=== PATIENT | female | born 1945 | race Caucasian/White ===

== ENCOUNTER 2018-03-29 10:58 | Inpatient (IN) ==
--- NOTE | 2018-03-29 11:38 | Emergency Department Note ---
Disposition Clinical Impression: Cellulitis of left foot, Gangrene of left foot, Gangrene of foot Foot ulcer, left Qualifiers: Non-pressure ulcer stage: unspecified non-pressure ulcer stage Qualified Code(s): L97.529 - Non-pressure chronic ulcer of other part of left foot with unspecified severity Disposition: Admitted As Inpatient Condition: Fair Referrals: Tom Xie Jr, MD [Primary Care Provider] - Forms: ED Satisfaction Letter Time of Disposition: 13:29 Wound/Laceration HPI - General Chief Complaint: ED Wound/Laceration Stated Complaint: Left leg infection Time Seen by Provider: 03/29/18 11:13 Source: patient Mode of arrival: ambulatory Limitations: no limitations Nursing Notes Reviewed: Yes Vital Signs Reviewed: Yes - History of Present Illness HPI Narrative: Patient is a 72-year-old female with past medical history of diabetes, COPD, CHF, renal disease with dialysis. She states that she had a callus removed around one month ago by Dr. Potter. She states that this wound was doing okay until about a week ago. She noted some increased redness and pain of the past week. This is gradually been worsening. She noted a small central "black" area in the center of the callus last night that has worsened this morning. She has also noted foul odor this morning. She also states that she is been having some episodes of nausea and vomiting. She denies any other sick contacts in the house. Denies any current chest pain, shortness of breath, abdominal pain, dysuria, hematuria. She was concern for left foot infection which prompted her to come to the ER. - Related Data Home Medications Medication Instructions Recorded Confirmed Aspirin [Lo-Dose Aspirin EC] 81 mg PO DAILY 06/17/17 01/19/18 Brimonidine Tartrate/Timolol 5 ml OP BID 06/17/17 01/19/18 [Combigan 0.2%-0.5% Eye Drops] Clopidogrel [Plavix] 75 mg PO DAILY 06/17/17 01/19/18 Dorzolamide [Trusopt] 1 drop LEFT EYE BID 06/17/17 01/19/18 Ergocalciferol (VITAMIN D2) 50,000 unit PO QWEEK 06/17/17 01/19/18 [Vitamin D2] Escitalopram [Lexapro] 20 mg PO DAILY 06/17/17 01/19/18 Furosemide [Lasix] 80 mg PO BID 06/17/17 01/19/18 Insulin Glargine [Lantus] 15 unit SQ DAILY 06/17/17 01/19/18 Insulin LISPRO [HumaLOG] 4 - 10 units SQ TIDWM 06/17/17 01/19/18 Metoprolol [Lopressor] 25 mg PO BID 06/17/17 01/19/18 Sevelamer [Renvela] 2,400 mg PO TIDWM 06/17/17 01/19/18 rOPINIRole [Requip] 1 mg PO BID 06/17/17 01/19/18 Albuterol Neb [Proventil Neb] 2.5 mg IH Q8H PRN 01/19/18 01/19/18 Atorvastatin [Lipitor] 20 mg PO HS 01/19/18 01/19/18 Calcium Carbonate/Vitamin D3 1 each PO BID 01/19/18 01/19/18 [Calcium 500+D Tablet Chew] Folic Acid/Vit B Complex and C 1 tab PO DAILY 01/19/18 01/19/18 [Dialyvite Tablet] Previous Rx's Medication Instructions Recorded Clopidogrel Bisulfate [Plavix] 75 mg PO DAILY #30 tablet 01/19/18 Allergies Allergy/AdvReac Type Severity Reaction Status Date / Time codeine Allergy Rash Verified 05/18/17 08:21 gabapentin [From Neurontin] Allergy Rash Verified 05/18/17 08:21 Penicillins [PCN] Allergy Rash Verified 05/18/17 08:21 zinc Allergy Rash Verified 05/18/17 08:21 tetanus Allergy Rash Uncoded 01/17/16 15:03 All systems ED: reviewed and negative except as stated. Constitutional: Denies: fever Cardiovascular: Denies: chest pain Respiratory: Denies: cough, dyspnea Gastrointestinal: Reports: nausea, vomiting. Denies: abdominal pain, diarrhea, constipation Genitourinary: Denies: urgency, dysuria, frequency Musculoskeletal: Reports: other (left foot wound) Neurological: Denies: weakness, numbness, paresthesias Past Medical History - Past Medical History Attestation: Yes The following information was validated with the patient. Source: patient Medical history: Reports: CHF, COPD, diabetes, dialysis, hyperlipidemia, hypertension, renal disease Surgical history: Reports: cholecystectomy, orthopedic, other, vascular surgery, LE bypass, LE vascular intervention Psychiatric history: Reports: no psych history ORDER CLERK history: Reports: no ORDER CLERK history - Social History Smoking Status: Former smoker Smokeless Tobacco Status: No Alcohol use: Reports: none Drug use: Reports: none Physical Exam - General Limitations: no limitations General appearance: alert, in no apparent distress - Head Head exam: atraumatic, normocephalic, normal inspection - Eye Eye exam: Present: normal appearance, PERRL, EOMI - ENT ENT exam: normal oropharynx, mucous membranes dry - Neck Neck exam: Present: normal inspection, full ROM, trachea midline - Chest Chest inspection: Present: normal inspection, symmetric chest wall rise - Respiratory Respiratory exam: Present: normal lung sounds bilaterally - Cardiovascular Cardiovascular exam: Present: regular rate, normal rhythm, normal heart sounds - Abdominal Exam Abdominal exam: Present: soft, Non-Tender. Absent: tenderness, distention, guarding, rebound, rigidity - Extremities Exam Extremities exam: Present: full ROM, other (Mild erythema tracking up the dorsal aspect of the midfoot from the great toe.). Absent: pedal edema - Expanded Lower Extremity Exam 1 - Removed callus approximately 1 cm x 1 cm with gangrenous skin changes up to mid phalanx of the left great toe. Followed a present. No crepitus appreciated. Significant tenderness overlying this area. Neurovascular/Tendon exam: Present: normal capillary refill. Absent: motor deficit, sensory deficit - Neurological Exam Neurological exam: Present: alert, oriented X3 - Psychiatric Psychiatric exam: Present: normal affect, normal mood - Skin Skin exam: Present: warm, dry, intact, other (see extremity section above) Course Course Narrative: Patient vitals stable at this time. Mucous membranes were dry. We will give the patient a 500 mL bolus. Patient is a dialysis and CHF patient, do not want to fluid overload at this time. Currently afebrile. No fever to treat. She does have gangrenous wound of the left foot. Currently concern for possible osteomyelitis. We will perform x-rays of the left foot, perform basic blood work, CBC, BMP, ESR, blood cultures. We will also obtain EKG and urinalysis for admission purposes. Patient was started on vancomycin and Rocephin for empiric treatment of possible osteomyelitis, fentanyl for pain control. After labs and imaging, will consult podiatry. Patient will need admission for IV anitibiotics. 13:05 Elevated WBC and ESR. XR imaging shows: IMPRESSION: Soft tissue ulcer medial to the 1st metatarsophalangeal joint. No radiographic evidence for osteomyelitis. [id number] 1st MTP joint osteoarthritis. Will call podiatry, Dr. Khan for further recs. 13:[address] Khan, discussed presentation, labs, imaging. he agreed with workup and will act as consult, no further recs; will admit to medicine at this time. Vital Signs Temperature 98.2 F 03/29/18 11:00 Pulse Rate 61 03/29/18 11:00 Respiratory Rate 20 03/29/18 11:00 Blood Pressure 152/78 03/29/18 11:00 O2 Sat by Pulse Oximetry 90 03/29/18 11:00 Temperature 98.2 F 03/29/18 11:00 Pulse Rate 61 03/29/18 11:00 Respiratory Rate 20 03/29/18 11:00 Blood Pressure 152/78 03/29/18 11:00 O2 Sat by Pulse Oximetry 90 03/29/18 11:00 Oxygen Delivery Oxygen Delivery Nasal Cannula Wound/Laceration - [facility] Narrative Medical decision making narrative: Patient vitals stable at this time. Mucous membranes were dry. We will give the patient a 500 mL bolus. Patient is a dialysis and CHF patient, do not want to fluid overload at this time. Currently afebrile. No fever to treat. She does have gangrenous wound of the left foot. Currently concern for possible osteomyelitis. We will perform x-rays of the left foot, perform basic blood work, CBC, BMP, ESR, blood cultures. We will also obtain EKG and urinalysis for admission purposes. Patient was started on vancomycin and Rocephin for empiric treatment of possible osteomyelitis, fentanyl for pain control. After labs and imaging, will consult podiatry. Patient will need admission for IV anitibiotics. 13:05 Elevated WBC and ESR. XR imaging shows: IMPRESSION: Soft tissue ulcer medial to the 1st metatarsophalangeal joint. No radiographic evidence for osteomyelitis. [id number] 1st MTP joint osteoarthritis. Will call podiatry, Dr. Khan for further recs. 13:[address] Khan, discussed presentation, labs, imaging. he agreed with workup and will act as consult, no further recs; will admit to medicine at this time. - Medical Records Medical records reviewed: Yes I reviewed the patient's medical records. - Lab Data Lab results reviewed: Yes I reviewed the patient's lab results. Result diagrams: 03/29/18 11:58 03/29/18 11:58 Lab Results 03/29/18 03/29/18 03/29/18 Range/Units 11:58 11:58 11:58 WBC 21.7 H (4.3-11.1) K/mcL RBC 3.16 L (3.82-4.97) M/mcL Hgb 10.3 L (11.5-15.4) g/dL Hct 32.6 L (35.3-44.9) % MCV 103.2 H (83.0-100.0) fL MCH 32.6 (28.0-33.3) pg MCHC 31.6 (31.6-35.5) g/dL RDW 14.3 (11.5-14.5) % Plt Count 227 (140-400) K/mcL MPV 9.4 (9.4-12.4) fL Immature Gran % 0.8 (0-4) % Seg Neutrophils % 85.6 % Lymphocytes % 6.5 % Monocytes % 6.3 % Eosinophils % 0.1 % Basophils % 0.7 % Neutrophils # 18.6 H (1.6-8.9) K/mcL Lymphocytes # 1.4 (0.6-4.6) K/mcL Monocytes # 1.4 H (0.0-1.3) K/mcL Eosinophils # 0.0 (0.0-0.6) K/mcL Basophils # 0.2 (0.0-0.2) K/mcL ESR 77 H (0-15) mm/hr Sodium 137 (136-145) mEq/L Potassium 4.4 (3.5-5.1) mEq/L Chloride 98 (98-107) mEq/L Carbon Dioxide 21 L (23-29) mEq/L BUN 74 H (8-23) mg/dL Creatinine 8.19 H (0.60-1.20) mg/dL Est GFR ( Amer) 6 L (> 60) Est GFR (Non-Af Amer) 5 L (> 60) BUN/Creatinine Ratio 9 (6-26) Glucose 96 (70-105) mg/dL Calculated Osmolality 306 H (280-300) Calcium 8.8 (8.6-10.3) mg/dL Total Bilirubin 0.5 (0.3-1.0) mg/dL Direct Bilirubin 0.1 (0.0-0.2) mg/dL Indirect Bilirubin 0.4 (0.0-1.2) mg/dL AST 25 (13-39) Units/L ALT 35 (7-52) Units/L Alkaline Phosphatase 85 (34-104) Units/L Serum Total Protein 6.7 (6.4-8.9) g/dL Albumin 3.6 (3.5-5.7) g/dL Globulin 3.1 (2.4-3.5) g/dL Albumin/Globulin Ratio 1.2 (1.1-2.2) Lipase 7 L (11-82) Units/L - Radiology Data Radiology results reviewed: Yes I reviewed the patient's radiology results. Foot X-Ray 03/29/18 11:40 IMPRESSION: Soft tissue ulcer medial to the 1st metatarsophalangeal joint. No radiographic evidence for osteomyelitis. [id number] 1st MTP joint osteoarthritis. D/ / Andre Rosario MD / Andre Rosario MD Interpreting Provider: Andre Rosario MD - EKG Data EKG attestation: Yes I reviewed and interpreted this EKG. EKG results narrative: 03/29/2018 at 12:21. Sinus rhythm. Rate 56. [place] 176. QRS 108. QTC 578. Left axis deviation. No acute ST elevation or depression. There are T wave inversions in lead 2, 3, aVF, V3 that are changed from previous EKG on . No complaint of any current chest pain or shortness of breath. S.B.A.R. - S.B.A.R. Situation: Demographics, MOA Background: Presenting Complaint, Relevant PMH, Meds, & Allergies Assessment: Vital Signs, Course and respsone to treatment, Exam Concerns, Patient/Family Expectation, Pertinant Lab Results Recommendation: Barrier(s) to disposition, Recommendation based on pending studies, treatments, or consults S.B.A.R. Report Given to: Dr. suh
[2018-03-29] MEDS ORDERED: 0.9 % Sodium Chloride 500 ML IVC ONE (11:40)
[2018-03-29] MEDS ORDERED: cefTRIAXone 2,000 MG in Water for inj. (sterile) 20 ML 20 ML IVP ONE (11:42)
[2018-03-29] MEDS ORDERED: *HR* FentaNYL (PF) 100 MCG/2 ML VIAL IVP ONE (11:45)
--- NOTE | 2018-03-29 11:46 | Emergency Department Note ---
Disposition Clinical Impression: Gangrene of foot Foot ulcer, left Qualifiers: Non-pressure ulcer stage: unspecified non-pressure ulcer stage Qualified Code(s): L97.529 - Non-pressure chronic ulcer of other part of left foot with unspecified severity Disposition: Admitted As Inpatient Referrals: Tom Xie Jr, MD [Primary Care Provider] - Forms: ED Satisfaction Letter General Adult HPI - General Chief complaint: ED Wound/Laceration Stated complaint: Left leg infection Time Seen by Provider: 03/29/18 11:13 Source: patient Mode of arrival: ambulatory Limitations: no limitations - History of Present Illness Pain Scale: 0 - Related Data Home Medications Medication Instructions Recorded Confirmed Aspirin [Lo-Dose Aspirin EC] 81 mg PO DAILY 06/17/17 01/19/18 Brimonidine Tartrate/Timolol 5 ml OP BID 06/17/17 01/19/18 [Combigan 0.2%-0.5% Eye Drops] Clopidogrel [Plavix] 75 mg PO DAILY 06/17/17 01/19/18 Dorzolamide [Trusopt] 1 drop LEFT EYE BID 06/17/17 01/19/18 Ergocalciferol (VITAMIN D2) 50,000 unit PO QWEEK 06/17/17 01/19/18 [Vitamin D2] Escitalopram [Lexapro] 20 mg PO DAILY 06/17/17 01/19/18 Furosemide [Lasix] 80 mg PO BID 06/17/17 01/19/18 Insulin Glargine [Lantus] 15 unit SQ DAILY 06/17/17 01/19/18 Insulin LISPRO [HumaLOG] 4 - 10 units SQ TIDWM 06/17/17 01/19/18 Metoprolol [Lopressor] 25 mg PO BID 06/17/17 01/19/18 Sevelamer [Renvela] 2,400 mg PO TIDWM 06/17/17 01/19/18 rOPINIRole [Requip] 1 mg PO BID 06/17/17 01/19/18 Albuterol Neb [Proventil Neb] 2.5 mg IH Q8H PRN 01/19/18 01/19/18 Atorvastatin [Lipitor] 20 mg PO HS 01/19/18 01/19/18 Calcium Carbonate/Vitamin D3 1 each PO BID 01/19/18 01/19/18 [Calcium 500+D Tablet Chew] Folic Acid/Vit B Complex and C 1 tab PO DAILY 01/19/18 01/19/18 [Dialyvite Tablet] Previous Rx's Medication Instructions Recorded Clopidogrel Bisulfate [Plavix] 75 mg PO DAILY #30 tablet 01/19/18 Allergies Allergy/AdvReac Type Severity Reaction Status Date / Time codeine Allergy Rash Verified 05/18/17 08:21 gabapentin [From Neurontin] Allergy Rash Verified 05/18/17 08:21 Penicillins [PCN] Allergy Rash Verified 05/18/17 08:21 zinc Allergy Rash Verified 05/18/17 08:21 tetanus Allergy Rash Uncoded 01/17/16 15:03 Past Medical History - Past Medical History Medical history: Reports: CHF, COPD, diabetes, dialysis, hyperlipidemia, hypertension, renal disease Surgical history: Reports: cholecystectomy, orthopedic, other, vascular surgery, LE bypass, LE vascular intervention Psychiatric history: Reports: no psych history RV TECHNICIAN history: Reports: no RV TECHNICIAN history - Social History Smoking Status: Former smoker Smokeless Tobacco Status: No Alcohol use: Reports: none Drug use: Reports: none Physical Exam - General Limitations: no limitations Course Vital Signs Temperature 98.2 F 03/29/18 11:00 Pulse Rate 61 03/29/18 11:00 Respiratory Rate 20 03/29/18 11:00 Blood Pressure 152/78 03/29/18 11:00 O2 Sat by Pulse Oximetry 90 03/29/18 11:00 Temperature 98.2 F 03/29/18 11:00 Pulse Rate 61 03/29/18 11:00 Respiratory Rate 20 03/29/18 11:00 Blood Pressure 152/78 03/29/18 11:00 O2 Sat by Pulse Oximetry 90 03/29/18 11:00 Oxygen Delivery Oxygen Delivery Nasal Cannula Medical Decision Making - MDM Narrative Medical decision making narrative: consult with Podiatry done in ER dr Khan. - Medical Records Medical records reviewed: Yes I reviewed the patient's medical records. - Lab Data Lab results reviewed: Yes I reviewed the patient's lab results. Result diagrams: 03/29/18 11:58 03/29/18 11:58 Lab Results 03/29/18 03/29/18 03/29/18 Range/Units 11:58 11:58 11:58 WBC 21.7 H (4.3-11.1) K/mcL RBC 3.16 L (3.82-4.97) M/mcL Hgb 10.3 L (11.5-15.4) g/dL Hct 32.6 L (35.3-44.9) % MCV 103.2 H (83.0-100.0) fL MCH 32.6 (28.0-33.3) pg MCHC 31.6 (31.6-35.5) g/dL RDW 14.3 (11.5-14.5) % Plt Count 227 (140-400) K/mcL MPV 9.4 (9.4-12.4) fL Immature Gran % 0.8 (0-4) % Seg Neutrophils % 85.6 % Lymphocytes % 6.5 % Monocytes % 6.3 % Eosinophils % 0.1 % Basophils % 0.7 % Neutrophils # 18.6 H (1.6-8.9) K/mcL Lymphocytes # 1.4 (0.6-4.6) K/mcL Monocytes # 1.4 H (0.0-1.3) K/mcL Eosinophils # 0.0 (0.0-0.6) K/mcL Basophils # 0.2 (0.0-0.2) K/mcL ESR 77 H (0-15) mm/hr Sodium 137 (136-145) mEq/L Potassium 4.4 (3.5-5.1) mEq/L Chloride 98 (98-107) mEq/L Carbon Dioxide 21 L (23-29) mEq/L BUN 74 H (8-23) mg/dL Creatinine 8.19 H (0.60-1.20) mg/dL Est GFR ( Amer) 6 L (> 60) Est GFR (Non-Af Amer) 5 L (> 60) BUN/Creatinine Ratio 9 (6-26) Glucose 96 (70-105) mg/dL Calculated Osmolality 306 H (280-300) Calcium 8.8 (8.6-10.3) mg/dL Total Bilirubin 0.5 (0.3-1.0) mg/dL Direct Bilirubin 0.1 (0.0-0.2) mg/dL Indirect Bilirubin 0.4 (0.0-1.2) mg/dL AST 25 (13-39) Units/L ALT 35 (7-52) Units/L Alkaline Phosphatase 85 (34-104) Units/L Serum Total Protein 6.7 (6.4-8.9) g/dL Albumin 3.6 (3.5-5.7) g/dL Globulin 3.1 (2.4-3.5) g/dL Albumin/Globulin Ratio 1.2 (1.1-2.2) Lipase 7 L (11-82) Units/L - Radiology Data Radiology results reviewed: Yes I reviewed the patient's radiology results. Critical Care Time Critical Care Time: No Attestation Statement - Attestation Attestation: I examined this patient and my medical decision-making was reviewed with the Resident Physician. I agree with the documented findings, disposition and treatment plan as described except to the extent set forth below. 72-year-old female presents to the emergency room for a left foot infection. Patient has been following with Dr. Potter with podiatry for her diabetic feet. She has an ulceration that now appears gangrenous to the ball of the first great toe on the left. There is a very large opening to a callus with some surrounding blackness to the tissue. This smells gangrenous. There is some drainage. She denies fevers. She is having increased pain to the area of this foot. We will do x-rays, labs, blood cultures. We will start her on IV vancomycin and Rocephin. Patient will need to be admitted. Higher dose of rocephin admit
[2018-03-29 12:13] LABS: Basophils # 0.2 K/mcL (0.0-0.2); Basophils % 0.7 %; Eosinophils % 0.1 %; Hematocrit 32.6 % (35.3-44.9); Hemoglobin 10.3 g/dL (11.5-15.4); Immature Granulocytes % 0.8 % (0-4); Lymphocytes # 1.4 K/mcL (0.6-4.6); Lymphocytes % 6.5 %; Mean Corpuscular HGB Conc 31.6 g/dL (31.6-35.5); Mean Corpuscular Hemoglobin 32.6 pg (28.0-33.3); Mean Corpuscular Volume 103.2 fL (83.0-100.0); Mean Platelet Volume 9.4 fL (9.4-12.4); Monocytes # 1.4 K/mcL (0.0-1.3); Monocytes % 6.3 %; Neutrophils # 18.6 K/mcL (1.6-8.9); Platelet Count 227 K/mcL (140-400); Red Blood Count 3.16 M/mcL (3.82-4.97); Red Cell Distribution Width 14.3 % (11.5-14.5); Segmented Neutrophils % 85.6 %
[2018-03-29 12:42] LABS: Albumin 3.6 g/dL (3.5-5.7); Albumin/Globulin Ratio 1.2 (1.1-2.2); Bilirubin,Direct 0.1 mg/dL (0.0-0.2); Bilirubin,Indirect 0.4 mg/dL (0.0-1.2); Bilirubin,Total 0.5 mg/dL (0.3-1.0); Calcium 8.8 mg/dL (8.6-10.3); Globulin 3.1 g/dL (2.4-3.5); Potassium 4.4 mEq/L (3.5-5.1); Total Protein 6.7 g/dL (6.4-8.9)
[2018-03-29] MEDS ORDERED: 0.9 % Sodium Chloride 250 ML IVC PRN (15:30)
[2018-03-29] MEDS ORDERED: 0.9 % Sodium Chloride 1,000 ML PRIME SCH (15:30)
[2018-03-29 16:18] LABS: Hepatitis B Surface Antigen Nonreactive (Nonreactive)
[2018-03-29] MEDS ORDERED: Naloxone 0.4 MG/ML INJ IVP PRN (17:05)
[2018-03-29] MEDS ORDERED: Albuterol 2.5 MG/3 ML NEBULIZER IH PRN (17:07)
[2018-03-29] MEDS ORDERED: Nitroglycerin 0.4 MG TAB.SUBL SL PRN (17:07)
[2018-03-29 17:17] LABS: Hepatitis B Surface Antibody 1.18 mIU/mL
[2018-03-29 17:36] LABS: Estimated Average Glucose 131 mg/dl; Hemoglobin A1C 6.2 %
--- NOTE | 2018-03-29 18:37 | Podiatry Consult Note ---
Date of Encounter: 03/29/18 Time of Encounter: 16:15 Assessment and Plan (1) Cellulitis of left foot Current visit: Yes Status: Acute Left foot #1 sub MTPJ with hyperkeratotic tissue with hemorragic bullae underneath. Sharp debridement with #15 blade and scissors. Wound measuring 5 x 4 x 0.3 cm with tunneling noted to 5 o'clock with a depth of 0.3 cm Wound bed purple/black in color with foul odor. Wound cultures obtained. Covered wound with Adaptic, 4X4 gauze, and and Kerlex. WBC 21.7, ESR 77, CRP 157- concerning for osteomylitis Stat ALEJANDRA with TCPO2 pressures ordered bilaterally Stat MR ordered of left foot for concerns of osteomylitis Erythema and edema noted to left hallux to left midfoot. Palpable pulses, diminished. (2) Foot ulcer, left Current visit: Yes Status: Acute Plan as above Qualifiers: Non-pressure ulcer stage: unspecified non-pressure ulcer stage Qualified Code(s): L97.529 - Non-pressure chronic ulcer of other part of left foot with unspecified severity (3) PVD (peripheral vascular disease) Current visit: No Status: Chronic ABIs as stated above. Ordered ABIs. May consider vascular consult if worsening. (4) Diabetes mellitus Current visit: No Status: Chronic Type II DM. Hemoglobin A1c 6.2. Recommend tight glycemic control for wound healing well and hospital. Primary to monitor Qualifiers: Diabetes mellitus type: type 2 Diabetes mellitus assisted insulin use: with assisted use Diabetes mellitus complication status: with kidney complications Diabetes mellitus complication detail: with chronic kidney disease Chronic kidney disease stage: on chronic dialysis Qualified Code(s): E11.22 - Type 2 diabetes mellitus with diabetic chronic kidney disease; N18.6 - End stage renal disease; Z79.4 - skilled nursing (current) use of insulin; Z99.2 - Dependence on renal dialysis History of Present Illness HPI: Ms. Olvera is a 72 year old female known to the podiatry clinic. 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 Previously followed by Dr. Potter. On 12/08/17 she had a hemorrhagic callus of the #1 MTPJ. Aggressive debridement at that time was completed. She was recently followed up with on 01/05/18. At that time 90% of the callus had resolved. She follows with vascular surgery outpatient for PVD. Last ABIs 08/20/17 right 0.5 left 0.71. Patient was scheduled to have ABIs 04/08/18. Again, Ms. Olvera is a 72-year-old female who presented to the ED today for left foot pain and worsening callus. Since seen Dr. Potter last on 01/05, she states she seemed to be healing well. States this she noticed her left foot began hurting. She reports it began to worsen on Thursday/Thursday, to the point where she was unable to walk today. Reports fever of 99.0 yesterday. Admits to nausea/vomiting from Thursday to present and 03/10 pain. States underneath the callus was a small bruise that busted open Thursday/Thursday. Denies any trauma to site. Denies tripping and falling. Denies chills. Past Med Surg Social Fam HX - Past Medical History Medical history: CHF, COPD, diabetes, dialysis, hyperlipidemia, hypertension, renal disease Additional medical history: sleep apnea, anemia Psychiatric history: no psych history - Past Surgical History Surgical History: cholecystectomy, orthopedic, other, vascular surgery, LE bypass, LE vascular intervention Additional surgical history: RIGHT UPPER ARM FISTULA / RIGHT GREAT TOE REMOVED - Social History Smoking Status: Former smoker Smokeless Tobacco Status: No Alcohol use: none Drug use: none - Family History Father Living Status: Hx Family Cancer: Yes Hx Family Endocrine Disorder: Yes (DM) Mother Living Status: Medications and Allergies Aspirin [Lo-Dose Aspirin EC] 81 mg PO DAILY 06/17/17 [History] Ergocalciferol (VITAMIN D2) [Vitamin D2] 50,000 unit PO QWEEK 06/17/17 [History] Escitalopram [Lexapro] 20 mg PO DAILY 06/17/17 [History] Furosemide [Lasix] 80 mg PO BID 06/17/17 [History] Insulin LISPRO [HumaLOG] 4 - 10 units SQ TIDWM 06/17/17 [History] rOPINIRole [Requip] 1 mg PO BID 06/17/17 [History] Albuterol Neb [Proventil Neb] 2.5 mg IH Q8H PRN 01/19/18 [History] Atorvastatin [Lipitor] 20 mg PO HS 01/19/18 [History] Calcium Carbonate/Vitamin D3 [Calcium 500+D Tablet Chew] 1 each PO BID 01/19/18 [History] Clopidogrel Bisulfate [Plavix] 75 mg PO DAILY #30 tablet 01/19/18 [Rx] Folic Acid/Vit B Complex and C [Dialyvite Tablet] 1 tab PO DAILY 01/19/18 [History] Insulin Glargine,Hum.rec.anlog [Basaglar Kwikpen U-100] 15 unit SQ HS 03/29/18 [History] Isosorbide MONOnitrate (24 HR) [Imdur] 30 mg PO DAILY 03/29/18 [History] Metoprolol Succinate [Kapspargo Sprinkle] 25 mg PO DAILY 03/29/18 [History] Nitroglycerin [Nitrostat] 0.4 mg SL Q5M PRN 03/29/18 [History] Allergy/AdvReac Type Severity Reaction Status Date / Time codeine Allergy Rash Verified 05/18/17 08:21 gabapentin [From Neurontin] Allergy Rash Verified 05/18/17 08:21 Penicillins [PCN] Allergy Rash Verified 05/18/17 08:21 zinc Allergy Rash Verified 05/18/17 08:21 tetanus Allergy Rash Uncoded 01/17/16 15:03 All Systems Reviewed: The remainder of the systems were reviewed and are negative - Constitutional Constitutional: fever(s), weakness - Cardiovascular Cardiovascular: pedal edema, no chest pain - Respiratory Respiratory: no dyspnea - Musculoskeletal Musculoskeletal: numbness, tingling Physical Exam - Constitutional Vitals: Temp Pulse Resp BP Pulse Ox 97.9 F 65 16 150/73 96 03/29/18 15:47 03/29/18 15:47 03/29/18 15:47 03/29/18 15:47 03/29/18 15:47 Exam: Constitiutional: Alert and oriented x 3. Vascular: 1/4 DP/PT bilaterally, CFT <3 sec to all digits, warm to warm from tibia to toes bilaterally, hot to left hallux to midfoot, edema 2+/4 left foot Neurologic: Diminished sensation to touch, normal plantar response, Dermatologic: Left foot #1 sub MTPJ with hyperkeratotic tissue with hemorrhagic bullae underneath, right amputated hallux. Musculoskeletal: 4/5 muscle strength and normal tone bilaterally. Results - Labs Result Diagrams: 03/29/18 11:58 03/29/18 11:58 Labs: Abnormal lab results WBC 21.7 K/mcL (4.3-11.1) H 03/29/18 11:58 RBC 3.16 M/mcL (3.82-4.97) L 03/29/18 11:58 Hgb 10.3 g/dL (11.5-15.4) L 03/29/18 11:58 Hct 32.6 % (35.3-44.9) L 03/29/18 11:58 MCV 103.2 fL (83.0-100.0) H 03/29/18 11:58 Neutrophils # 18.6 K/mcL (1.6-8.9) H 03/29/18 11:58 Monocytes # 1.4 K/mcL (0.0-1.3) H 03/29/18 11:58 ESR 77 mm/hr (0-15) H 03/29/18 11:58 Carbon Dioxide 21 mEq/L (23-29) L 03/29/18 11:58 BUN 74 mg/dL (8-23) H 03/29/18 11:58 Creatinine 8.19 mg/dL (0.60-1.20) H 03/29/18 11:58 Est GFR ( Amer) 6 (> 60) L 03/29/18 11:58 Est GFR (Non-Af Amer) 5 (> 60) L 03/29/18 11:58 Hemoglobin A1c 6.2 % (-5.6) H 03/29/18 11:58 Calculated Osmolality 306 (280-300) H 03/29/18 11:58 C-Reactive Protein 157 mg/L (Less than 10) H 03/29/18 11:58 Lipase 7 Units/L (11-82) L 03/29/18 11:58 H & H 03/29/18 Range/Units 11:58 Hgb 10.3 L (11.5-15.4) g/dL Hct 32.6 L (35.3-44.9) % All other labs normal. - Diagnostic results Ankle/Foot x-ray: report reviewed Ankle/Foot MRI: pending Consult Discharge Plan - Plan Referrals: Tom Xie Jr, MD [Primary Care Provider] -
--- NOTE | 2018-03-29 20:18 | Internal Med History&Physical ---
Date of Encounter: 03/29/18 Time of Encounter: 17:00 Internal Medicine - H&P: HPI Chief complaint: Left foot pain Admitted From: Home Plans for Post Hospital Care: Home History of present illness: Patient is a 72-year-old female with past medical history significant for complicated DM with retinopathy L blind eye, Nephropathy with ESRD on HD MWF, PVD s/p LE stents, HTN and chronic respiratory failure on home O2 who presents to the ER on 03/29/18 due to left foot pain. Patient reports of having a callus removed by podiatry approximately one month ago. Patient reports that for approximately 3 days she is experienced left foot pain which is sharp and intermittent with no provoking or relieving factors. Patient reports also a bloody discharge. Patient decided to come to the ER for evaluation. In the ER, patient found to have leukocytosis with white blood cell count 21.7. X-ray of left foot showed soft tissue ulcer medial to the first metatarsal pharyngeal joint but no radiographic evidence for osteomyelitis. Podiatry was consulted in the ER for further management and recommendations. Past Med Surg Social Fam HX - Past Medical History Medical history: CHF, COPD, diabetes, dialysis, hyperlipidemia, hypertension, renal disease Additional medical history: sleep apnea, anemia Psychiatric history: no psych history - Past Surgical History Surgical History: cholecystectomy, orthopedic, other, vascular surgery, LE bypass, LE vascular intervention Additional surgical history: RIGHT UPPER ARM FISTULA / RIGHT GREAT TOE REMOVED - Social History Smoking Status: Former smoker Smokeless Tobacco Status: No Alcohol use: none Drug use: none - Family History Father Living Status: Hx Family Cancer: Yes Hx Family Endocrine Disorder: Yes (DM) Mother Living Status: Internal Medicine - H&P: Meds Aspirin [Lo-Dose Aspirin EC] 81 mg PO DAILY 06/17/17 [History] Ergocalciferol (VITAMIN D2) [Vitamin D2] 50,000 unit PO QWEEK 06/17/17 [History] Escitalopram [Lexapro] 20 mg PO DAILY 06/17/17 [History] Furosemide [Lasix] 80 mg PO BID 06/17/17 [History] Insulin LISPRO [HumaLOG] 4 - 10 units SQ TIDWM 06/17/17 [History] rOPINIRole [Requip] 1 mg PO BID 06/17/17 [History] Albuterol Neb [Proventil Neb] 2.5 mg IH Q8H PRN 01/19/18 [History] Atorvastatin [Lipitor] 20 mg PO HS 01/19/18 [History] Calcium Carbonate/Vitamin D3 [Calcium 500+D Tablet Chew] 1 each PO BID 01/19/18 [History] Clopidogrel Bisulfate [Plavix] 75 mg PO DAILY #30 tablet 01/19/18 [Rx] Folic Acid/Vit B Complex and C [Dialyvite Tablet] 1 tab PO DAILY 01/19/18 [History] Insulin Glargine,Hum.rec.anlog [Basaglar Kwikpen U-100] 15 unit SQ HS 03/29/18 [History] Isosorbide MONOnitrate (24 HR) [Imdur] 30 mg PO DAILY 03/29/18 [History] Metoprolol Succinate [Kapspargo Sprinkle] 25 mg PO DAILY 03/29/18 [History] Nitroglycerin [Nitrostat] 0.4 mg SL Q5M PRN 03/29/18 [History] Allergy/AdvReac Type Severity Reaction Status Date / Time codeine Allergy Rash Verified 05/18/17 08:21 gabapentin [From Neurontin] Allergy Rash Verified 05/18/17 08:21 Penicillins [PCN] Allergy Rash Verified 05/18/17 08:21 zinc Allergy Rash Verified 05/18/17 08:21 tetanus Allergy Rash Uncoded 01/17/16 15:03 All Systems PM: A 10-system review of systems was performed and is negative for pertinent findings except as documented above in the HPI. - Constitutional Vitals: Temp Pulse Resp BP Pulse Ox 97.4 F L 65 16 142/53 96 03/29/18 17:30 03/29/18 15:47 03/29/18 17:30 03/29/18 20:00 03/29/18 15:47 General appearance: Present: A&O X 3, no acute distress Exam: As above - Eye Eye exam: Present: normal appearance - ENT ENT exam: Present: mucous membranes moist - Respiratory Respiratory exam: Present: CTAB. Absent: accessory muscle use, rales, rhonchi, wheezes - Cardiovascular Cardiovascular exam: Present: RRR, +S1, +S2. Absent: diastolic murmur, gallop, rubs, systolic murmur - GI/Abdominal GI/Abdominal exam: Present: normal bowel sounds, soft, no peritoneal signs. Absent: distended, tenderness - Extremities Exam Extremities exam: Absent: pedal edema - Neurological Exam Neurological exam: Present: oriented X3 - Psychiatric Psychiatric exam: Present: normal mood - Skin Skin exam: Present: normal color Internal Med - H&P Results - Labs CBC & Chem 7: 03/29/18 11:58 03/29/18 11:58 Labs: Short CBC 03/29/18 Range/Units 11:58 WBC 21.7 H (4.3-11.1) K/mcL Hgb 10.3 L (11.5-15.4) g/dL Hct 32.6 L (35.3-44.9) % Plt Count 227 (140-400) K/mcL Neutrophils # 18.6 H (1.6-8.9) K/mcL BMP 03/29/18 11:58 Sodium 137 Potassium 4.4 Chloride 98 Carbon Dioxide 21 L BUN 74 H Creatinine 8.19 H Glucose 96 Calcium 8.8 Liver Function 03/29/18 Range/Units 11:58 Total Bilirubin 0.5 (0.3-1.0) mg/dL Direct Bilirubin 0.1 (0.0-0.2) mg/dL AST 25 (13-39) Units/L ALT 35 (7-52) Units/L Alkaline Phosphatase 85 (34-104) Units/L Albumin 3.6 (3.5-5.7) g/dL - Impressions ITS Impressions Foot X-Ray 03/29/18 11:40 IMPRESSION: Soft tissue ulcer medial to the 1st metatarsophalangeal joint. No radiographic evidence for osteomyelitis. [id number] 1st MTP joint osteoarthritis. D/ / Andre Rosario MD / Andre Rosario MD Interpreting Provider: Andre Rosario MD - Time Spent With Patient Total time spent is greater than 50% in coordination of care (as documented) at patient's floor/unit and/or counseling patient:
[2018-03-29] MEDS ORDERED: NON-FORMULARY MEDICATION 1 EACH EACH (Insulin Glargine,Hum.Rec.Anlog [Basaglar Kwikpen U-1 SQ SCH (21:00)
[2018-03-29] MEDS: Furosemide 40 MG TABLET PO SCH (22:04)
[2018-03-29] MEDS: rOPINIRole 1 MG TABLET PO SCH (22:04)
--- NOTE | 2018-03-29 22:11 | Nephrology Consult Note ---
Date of Encounter: 03/29/18 Time of Encounter: 22:04 Assessment and Plan (1) ESRD (end stage renal disease) on dialysis Current Visit: No Status: Chronic HD MWF. Renal vitamins. Renal dose medications. Renal diet. Additional dialysis and ultrafiltration as needed. Plan for dialysis today. (2) Cellulitis of left foot Current Visit: Yes Status: Acute Per podiatry and the primary team. Area of cellulitis has been demarcated. I spoke with podiatry who was going in to see the patient. The patient is on antibiotics. Monitor for sepsis. 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 Diabetes mellitus complication status: with kidney complications Diabetes mellitus complication detail: with chronic kidney disease Chronic kidney disease stage: on chronic dialysis Qualified Code(s): E11.22 - Type 2 diabetes mellitus with diabetic chronic kidney disease; N18.6 - End stage renal disease; Z79.4 - [facility]PC (current) use of insulin; Z99.2 - Dependence on renal dialysis (4) PVD (peripheral vascular disease) Current Visit: No Status: Chronic Primary team History of Present Illness - Reason for Consult Consult date: 03/29/18 end stage renal disease - Chief Complaint ESRD - History of Present Illness Ms. Olvera is a 72 yo woman with a history of ESRD who receives dialysis MWF via a right upper arm fistula at the [facility] dialysis unit in [place], [place]. She presents with cellulitis and medial necrosis of the metacarpal phalangeal joint of the left hallux. She has pain, but no fevers. She denies chest pain, shortness of breath or any other changes. Her review of systems otherwise is stable. Past Med Surg Social Fam HX - Past Medical History Medical history: CHF, COPD, diabetes, dialysis, hyperlipidemia, hypertension, renal disease Additional medical history: sleep apnea, anemia Psychiatric history: no psych history - Past Surgical History Surgical History: cholecystectomy, orthopedic, other, vascular surgery, LE byp ass, LE vascular intervention Additional surgical history: RIGHT UPPER ARM FISTULA / RIGHT GREAT TOE REMOVED - Social History Smoking Status: Former smoker Smokeless Tobacco Status: No Alcohol use: none Drug use: none - Family History Father Living Status: Hx Family Cancer: Yes Hx Family Endocrine Disorder: Yes (DM) Mother Living Status: Medications and Allergies Aspirin [Lo-Dose Aspirin EC] 81 mg PO DAILY 06/17/17 [History] Ergocalciferol (VITAMIN D2) [Vitamin D2] 50,000 unit PO QWEEK 06/17/17 [History] Escitalopram [Lexapro] 20 mg PO DAILY 06/17/17 [History] Furosemide [Lasix] 80 mg PO BID 06/17/17 [History] Insulin LISPRO [HumaLOG] 4 - 10 units SQ TIDWM 06/17/17 [History] rOPINIRole [Requip] 1 mg PO BID 06/17/17 [History] Albuterol Neb [Proventil Neb] 2.5 mg IH Q8H PRN 01/19/18 [History] Atorvastatin [Lipitor] 20 mg PO HS 01/19/18 [History] Calcium Carbonate/Vitamin D3 [Calcium 500+D Tablet Chew] 1 each PO BID 01/19/18 [History] Clopidogrel Bisulfate [Plavix] 75 mg PO DAILY #30 tablet 01/19/18 [Rx] Folic Acid/Vit B Complex and C [Dialyvite Tablet] 1 tab PO DAILY 01/19/18 [History] Insulin Glargine,Hum.rec.anlog [Basaglar Kwikpen U-100] 15 unit SQ HS 03/29/18 [History] Isosorbide MONOnitrate (24 HR) [Imdur] 30 mg PO DAILY 03/29/18 [History] Metoprolol Succinate [Kapspargo Sprinkle] 25 mg PO DAILY 03/29/18 [History] Nitroglycerin [Nitrostat] 0.4 mg SL Q5M PRN 03/29/18 [History] Allergy/AdvReac Type Severity Reaction Status Date / Time codeine Allergy Rash Verified 05/18/17 08:21 gabapentin [From Neurontin] Allergy Rash Verified 05/18/17 08:21 Penicillins [PCN] Allergy Rash Verified 05/18/17 08:21 zinc Allergy Rash Verified 05/18/17 08:21 tetanus Allergy Rash Uncoded 01/17/16 15:03 Review of Systems All Systems: reviewed and no additional remarkable complaints except as stated (Per history of present illness) Exam - Vital Signs Vital signs: Initial Vital Signs Temp Pulse Resp BP Pulse Ox 98.2 F 61 20 152/78 90 03/29/18 11:00 03/29/18 11:00 03/29/18 11:00 03/29/18 11:00 03/29/18 11:00 Vital Signs - Last 8 Hours Temp Pulse Resp BP Pulse Ox 03/29/18 21:30 98.2 F 18 111/36 03/29/18 21:00 137/49 03/29/18 20:45 147/49 03/29/18 20:30 162/63 03/29/18 20:15 164/59 03/29/18 20:00 142/53 03/29/18 19:45 147/59 03/29/18 19:30 136/39 03/29/18 19:15 130/49 03/29/18 19:00 130/45 03/29/18 18:45 149/58 03/29/18 18:30 156/58 03/29/18 18:15 133/55 03/29/18 18:00 134/87 03/29/18 17:45 133/60 03/29/18 17:30 97.4 F L 16 140/54 03/29/18 15:47 97.9 F 65 16 150/73 96 Intake and Output 03/29/18 03/29/18 03/29/18 07:59 15:59 23:59 Intake Total 520 / 520 600 / 600 Output Total 2600 / 2600 Balance 520 / 520 -2000 / -2000 Intake: IV Fluids 520 / 520 0.9 % Sodium Chloride 500 ML @ 500 / 500 999 mls/hr IVC .Q31M ONE Rx#: [id number] Rocephin 2,000 MG In Water for inj. (sterile) 20 ML @ 600 mls/ hr IVP ONCE ONE Rx#:[id number] Intake, Rinseback and Flushes 600 / 600 Output: Total Dialysis (HD) Output 2600 / 2600 Other: Weight 72.575 kg Hemodialysis Net Fluid Removed 2000 (mL) Patient Weight 03/29/18 23:59 Weight 72.575 kg - General Appearance General appearance: well-developed, well-nourished EENT: ATNC Neck: supple Respiratory: clear Cardiology: no edema, regular rate, regular rhythm - Dialysis Access Dialysis Vascular Access: Arteriovenous Fistula thrill: Yes bruit: Yes Gastrointestinal: no tenderness Integumentary: warm and dry Neurologic: alert and oriented x3 Musculoskeletal: erythema Psychiatric: mood/affect appropriate Results - Lab Results 03/29/18 11:58 03/29/18 11:58 Most recent lab results Calcium 8.8 mg/dL (8.6-10.3) 03/29/18 11:58 Consult Discharge Plan - Plan Referrals: Tom Xie Jr, MD [Primary Care Provider] -
[2018-03-29] MEDS: Insulin DETEMIR 100 UNIT/ML X5UNITS SQ SCH (22:57)
[2018-03-30 05:29] LABS: Calcium 8.4 mg/dL (8.6-10.3); Potassium 3.5 mEq/L (3.5-5.1)
[2018-03-30 08:23] LABS: Basophils # 0.1 K/mcL (0.0-0.2); Basophils % 0.6 %; Eosinophils # 0.3 K/mcL (0.0-0.6); Eosinophils % 1.7 %; Hematocrit 34.7 % (35.3-44.9); Hemoglobin 11.1 g/dL (11.5-15.4); Immature Granulocytes % 0.4 % (0-4); Lymphocytes # 1.8 K/mcL (0.6-4.6); Lymphocytes % 9.9 %; Mean Corpuscular Hemoglobin 32.6 pg (28.0-33.3); Mean Corpuscular Volume 102.1 fL (83.0-100.0); Mean Platelet Volume 9.7 fL (9.4-12.4); Monocytes # 1.5 K/mcL (0.0-1.3); Monocytes % 8.3 %; Platelet Count 216 K/mcL (140-400); Red Cell Distribution Width 14.4 % (11.5-14.5); Segmented Neutrophils % 79.1 %
[2018-03-30] MEDS: Furosemide 40 MG TABLET PO SCH ×2 (08:26→17:13)
[2018-03-30] MEDS: Aspirin Enteric Coated 81 MG Tablet PO SCH (08:26)
[2018-03-30] MEDS: Metoprolol XL (24 HR) Succ 25 MG TAB.ER.24H PO SCH (08:26)
[2018-03-30] MEDS: rOPINIRole 1 MG TABLET PO SCH ×2 (08:26→21:49)
[2018-03-30] MEDS: Isosorbide MONOnitrate (24 HR) 30 MG TAB.ER.24H PO SCH (08:26)
[2018-03-30] MEDS ORDERED: Dextrose Gel 15 GM/37.5 ML TUBE PO PRN ×2 (08:33)
[2018-03-30] MEDS ORDERED: D5% in Water 1,000 ML IVC PRN (08:33)
[2018-03-30] MEDS ORDERED: *HR* Dextrose 50 % in Water (Syg) 50 ML SYRINGE IVP PRN (08:33)
[2018-03-30] MEDS ORDERED: Multivit/Ca/Min/Fe/FA 1 TAB TABLET PO SCH (09:00)
[2018-03-30] MEDS: Renal Vitamin 1 CAP CAPSULE PO SCH (09:31)
[2018-03-30] MEDS ORDERED: Vancomycin 500 MG in 0.9 % Sodium Chloride Mini Bag 100 ML IVPB ONE (09:31)
--- NOTE | 2018-03-30 10:16 | Nephrology Progress Note ---
Addendum entered and electronically signed by Luis Victoria MD 03/30/18 18:12: I examined this patient and discussed the medical decision-making with ERNA Muse. I agree with the documented findings, disposition and treatment plan as described except to the extent set forth below. Original Note: Date of Encounter: 03/30/18 Time of Encounter: 10:14 - Assessment and Plan (1) ESRD (end stage renal disease) on dialysis Current Visit: Yes Status: Chronic HD MWF. Renal vitamins. Renal dose medications. Renal diet. Additional dialysis and ultrafiltration as needed. Plan for dialysis tomorrow. 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 Subjective Principal diagnosis: left leg infection Interval history: Pt seen and examined, nurse at bedside changing wound drsg. Denies SOB or CP. Denies nausea/vomiting/diarrhea. Objective - Vital Signs Vital signs: Vital Signs Temp Pulse Resp BP Pulse Ox 03/30/18 07:49 98.8 F 60 18 167/66 97 03/30/18 04:00 99.1 F 59 18 168/54 100 03/29/18 23:15 100.4 F H 66 18 146/71 97 03/29/18 21:30 98.2 F 18 111/36 03/29/18 21:00 137/49 03/29/18 20:45 147/49 03/29/18 20:30 162/63 03/29/18 20:15 164/59 03/29/18 20:00 142/53 03/29/18 19:45 147/59 03/29/18 19:30 136/39 03/29/18 19:15 130/49 03/29/18 19:00 130/45 03/29/18 18:45 149/58 03/29/18 18:30 156/58 03/29/18 18:15 133/55 03/29/18 18:00 134/87 03/29/18 17:45 133/60 03/29/18 17:30 97.4 F L 16 140/54 03/29/18 15:47 97.9 F 65 16 150/73 96 03/29/18 13:58 98.2 F 61 20 152/78 90 03/29/18 11:00 98.2 F 61 20 152/78 90 Intake and Output 03/29/18 03/30/18 03/30/18 23:59 07:59 15:59 Intake Total 600 / 600 360 / 360 Output Total 2600 / 2600 Balance -1999 / -1999 360 / 360 Intake: Oral 360 / 360 Intake, Rinseback and Flushes 600 / 600 Output: Total Dialysis (HD) Output 2600 / 2600 Other: Meal Breakfast Percent of Meal Consumed 100% Stool Size Small Stool Consistency formed Stool Characteristics Normal for Patient Stool Color Brown # Urine Diapers 1 Weight 73.5 kg Blood Glucose* 116 138 Hemodialysis Net Fluid Removed 2000 (mL) - General Appearance General appearance: Present: well-developed, well-nourished EENT: Present: ATNC, hearing intact Neck: Present: supple Respiratory: Present: clear Cardiology: Present: no edema, normal S1, normal S2 Dialysis Vascular Access: Arteriovenous Fistula thrill: Yes bruit: Yes Gastrointestinal: Present: normoactive bowel sounds, no tenderness, no guarding Integumentary: Present: no rash, warm and dry Neurologic: Present: alert and oriented x3 Psychiatric: Present: mood/affect appropriate, cooperative - Lab 03/30/18 08:07 03/30/18 04:56 Most recent lab results Calcium 8.4 mg/dL (8.6-10.3) L 03/30/18 04:56 Consult Discharge Plan - Plan Referrals: Tom Xie Jr, MD [Primary Care Provider] -
--- NOTE | 2018-03-30 12:17 | Internal Med Progress Note ---
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 Patient reports of having a callus removed by podiatry approximately one month ago. Patient reports that for approximately 3 days she is experienced left foot pain which is sharp and intermittent with no provoking or relieving factors. Patient reports also a bloody discharge. Patient decided to come to the ER for evaluation. In the ER, patient found to have leukocytosis with white blood cell count 21.7. X-ray of left foot showed soft tissue ulcer medial to the first metatarsal pharyngeal joint but no radiographic evidence for osteomyelitis. Podiatry was consulted in the ER for further management and recommendations. MRI of foot showed possible early osteomyelitis Patient complains of severe pain from left calf and left foot, 8 out of 10 constant. Discussed ALEJANDRA findings and the podiatry consulted a vascular surgery concerning for ischemic pain. Patient is stated that she had a pill last night, really helped her pain. I reviewed MAR, she received a 500 of Tylenol. We will order Tylenol every 4 hours as needed. - Exam Vitals: Temp Pulse Resp BP Pulse Ox 99.1 F 61 17 149/71 97 03/30/18 11:47 03/30/18 11:47 03/30/18 11:47 03/30/18 11:47 03/30/18 11:47 Exam: CONSTITUTIONAL: patient appears as an age appropriate female in no acute distress. EYES Clear sclerae, bilateral pupils are equal, reactive to light. EMOI. RESPIRATORY: No accessory muscle use, bilateral clear to auscultation, no wheezing, no crackles/rales. CARDIOVASCULAR: Regular heart rate, normal S1 and S2, no murmurs GASTROINTESTINAL: bowel sounds present, soft, no tenderness. MUSCULOSKELETAL: Joints in normal range of motion, no clubbing, no edema, no cyanosis. Bilateral peripheral pulses 2+. NEUROLOGIC: CN II to XII are grossly intact, no focal neurological deficit. - Assessment and Plan (1) Cellulitis of left foot Current Visit: Yes Status: Acute Assessment and Plan: Patient has a diabetic foot ulcer to the left foot, with cellulitis and osteomy litis. MRI shows possible early osteomyelitis. Continue vancomycin consult ID and add Invanz (2) Leukocytosis Current Visit: Yes Status: Acute Assessment and Plan: continue vancomycin add invanz to cover GNR, ,likley from infection (3) CHF (congestive heart failure) Current Visit: Yes Status: Chronic Assessment and Plan: continue home lasix (4) ESRD (end stage renal disease) on dialysis Current Visit: Yes Status: Chronic Assessment and Plan: HD on MWF (5) Diabetes mellitus Current Visit: Yes Status: Chronic (6) PVD (peripheral vascular disease) Current Visit: Yes Status: Chronic Assessment and Plan: PAD, ALEJANDRA looks worse, podiatry consulted vascular surgery, patient also has severe calf pain at resting (7) Blind left eye Current Visit: Yes Status: Chronic (8) CAD (coronary artery disease) of artery bypass graft Current Visit: Yes Status: Chronic Assessment and Plan: CAD s/p Stent in 12/2017, denies chest pain - Time Spent with Patient Total time spent is greater than 50% in coordination of care (as documented) at patient's floor/unit and/or counseling patient: 25 - 35 minutes Internal Medicine: Result - Labs CBC & Chem 7: 03/30/18 08:07 03/30/18 04:56 Labs: Short CBC 03/29/18 03/30/18 Range/Units 11:58 08:07 WBC 21.7 H 17.7 H (4.3-11.1) K/mcL Hgb 10.3 L 11.1 L (11.5-15.4) g/dL Hct 32.6 L 34.7 L (35.3-44.9) % Plt Count 227 216 (140-400) K/mcL Neutrophils # 18.6 H 14.0 H (1.6-8.9) K/mcL BMP 03/29/18 03/30/18 11:58 04:56 Sodium 137 135 L Potassium 4.4 3.5 Chloride 98 98 Carbon Dioxide 21 L 26 BUN 74 H 27 H Creatinine 8.19 H 4.24 H Glucose 96 202 H Calcium 8.8 8.4 L Liver Function 03/29/18 Range/Units 11:58 Total Bilirubin 0.5 (0.3-1.0) mg/dL Direct Bilirubin 0.1 (0.0-0.2) mg/dL AST 25 (13-39) Units/L ALT 35 (7-52) Units/L Alkaline Phosphatase 85 (34-104) Units/L Albumin 3.6 (3.5-5.7) g/dL - Impressions Impressions Foot X-Ray 03/29/18 11:40 IMPRESSION: Soft tissue ulcer medial to the 1st metatarsophalangeal joint. No radiographic evidence for osteomyelitis. [id number] 1st MTP joint osteoarthritis. D/ / Andre Rosario MD / Andre Rosario MD Interpreting Provider: Andre Rosario MD Foot MRI 03/30/18 18:38 IMPRESSION: 1. Ulcer on the plantar medial surface of the 1st MTP joint. No adjacent abscess. 2. Trace marrow edema in the plantar aspect of the 1st metatarsal head and medial hallux sesamoid adjacent to the ulcer. Findings could be reactive or due to early osteomyelitis. No T1 signal changes are evident. D/ / 03/30/2018 11:53:28 Johnny Hager MD / emilia Interpreting Provider: Johnny Hager MD Consult Discharge Plan - Plan Referrals: Tom Xie Jr, MD [Primary Care Provider] - (2) Leukocytosis Qualifiers: Leukocytosis type: bandemia Qualified Code(s): D72.825 - Bandemia (3) CHF (congestive heart failure) Qualifiers: Heart failure type: combined systolic and diastolic Heart failure chronicity: chronic Qualified Code(s): I50.42 - Chronic combined systolic (congestive) and diastolic (congestive) heart failure (5) Diabetes mellitus Qualifiers: Diabetes mellitus type: type 2 Diabetes mellitus usp insulin use: with chemical maker use Diabetes mellitus complication status: with kidney complications Diabetes mellitus complication detail: with chronic kidney disease Chronic kidney disease stage: on chronic dialysis Qualified Code(s): E11.22 - Type 2 diabetes mellitus with diabetic chronic kidney disease; N18.6 - End stage renal disease; Z79.4 - forensic anthropologist (current) use of insulin; Z99.2 - Dependence on renal dialysis (8) CAD (coronary artery disease) of artery bypass graft Qualifiers: [place]lim [place] vs. transplanted heart: [place] heart Associated angina: without angina Qualified Code(s): I25.810 - Atherosclerosis of coronary artery bypass graft(s) without angina pectoris
[2018-03-30] MEDS: Insulin LISPRO 300 UNITS/3 ML VIAL SQ SCH ×3 (12:55→22:18)
[2018-03-30] MEDS ORDERED: Cefepime HCl 1,000 MG in Water for inj. (sterile) 20 ML 10 ML IVP ONE (12:58)
[2018-03-30] MEDS ORDERED: Ertapenem 500 MG in 0.9 % Sodium Chloride Mini Bag 100 ML IVPB SCH (13:00)
--- NOTE | 2018-03-30 14:03 | Infectious Disease Consult ---
Date of Encounter: 03/30/18 Time of Encounter: 13:57 Assessment and Plan (1) Sepsis Status: Acute Assessment and plan: The patient had 2 sepsis criteria, including leukocytosis and fever. Likely secondary to left foot cellulitis. Improved. WBC is trending down. Blood cultures drawn 03/29/18 are pending x 2 sets. Qualifiers: Sepsis type: sepsis due to unspecified organism Qualified Code(s): A41.9 - Sepsis, unspecified organism (2) Osteomyelitis Status: Suspected Assessment and plan: Location: Left foot first metatarsal head and medial hallux sesamoid. Positive organism: Unclear. Wound culture is positive for gram-negative rods. Final ID and susceptibilities are pending. Likely secondary to chronic nonhealing foot ulcer. Left foot x-ray was negative for osteoarthritis. 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 [employer] been consulted. Await recommendations. Wound care per the podiatry team. Continue cefepime 1 g IV daily. Continue Flagyl 500 mg IV every 8 hours. Continue vancomycin IV. Pharmacy to dose. Goal trough approximately 15. Await cultures. De-escalate if/when able. Duration of treatment is on the clinical picture, but likely total 6 weeks. Monitor labs for drug toxicity and dose adjust antibiotics. Qualifiers: Osteomyelitis type: acute hematogenous Osteomyelitis location: foot Laterality: left Qualified Code(s): M86.072 - Acute hematogenous osteomyelitis, left ankle and foot (3) Gangrene of left foot Status: Suspected (4) Foot ulcer, left Status: Acute Assessment and plan: Location: Plantar aspect of the left foot. Likely secondary to previous callus removal. Wound care per the podiatry team. Qualifiers: Non-pressure ulcer stage: unspecified non-pressure ulcer stage Qualified Code(s): L97.529 - Non-pressure chronic ulcer of other part of left foot with unspecified severity (5) ESRD (end stage renal disease) on dialysis Status: Chronic Assessment and plan: Nephrology consult and following. (6) Diabetes mellitus Status: Chronic Assessment and plan: Recommend aggressive glucose monitoring and control to promote wound healing and prevent reinfection. Management per the primary team. Qualifiers: Diabetes mellitus type: type 2 Diabetes mellitus skilled nursing insulin use: with skilled nursing use Diabetes mellitus complication status: with kidney complications Diabetes mellitus complication detail: with chronic kidney disease Chronic kidney disease stage: on chronic dialysis Qualified Code(s): E11.22 - Type 2 diabetes mellitus with diabetic chronic kidney disease; N18.6 - End stage renal disease; Z79.4 - assisted (current) use of insulin; Z99.2 - Dependence on renal dialysis (7) PVD (peripheral vascular disease) Status: Chronic Assessment and plan: ABIs completed 08/20/17 showed findings consistent with severe disease in the right lower extremity and moderate disease in the left lower extremity. Consider vascular surgery evaluation. (8) Blind left eye Status: Chronic Infectious Disease HPI - Data of Consult Patient: new to practice Consult date: 03/30/18 Requesting Physician: Satish Smith MD Primary Care Provider: Tom Xie Jr, MD - Consult Narrative Reason for consult: Left foot infection History of present illness: Ms. Olvera is a 72 year old female with a past medical history of DM, COPD, , CHF, end-stage renal disease on hemodialysis, hyperlipidemia, hypertension, r estless leg syndrome, left eye blindness, and remote history of right hallux and rotation. The patient was admitted to the hospital 03/29/18 for left foot cellulitis and gangrene. We will consult a 03/30/18 for further recommendations for left foot osteomyelitis. Briefly, the patient is a 72-year-old female with past medical history as stated above. The patient presented to the emergency department on the day of admission with complaints of increased redness, swelling, and pain in the left foot for about a week. According to the notes, the patient had a hemorrhagic callus removed back in November by Dr. Potter. She was seen again on January 05 and the wound was noted to be about 90% healed. Since then, the patient has had a chronic nonhealing ulcer. She noticed a foul odor and a small area of necrosis to the central aspect of the wound so she presented to the emergency department for evaluation. Upon arrival, the patient was afebrile hemodynamically stable. She did have leukocytosis with neutrophilic predominance. Her ESR was elevated at 77. She had a left foot x-ray that was negative for osteo-myelitis. Blood cultures were obtained 2 sets as well as a superficial wound culture. She was started on vancomycin and Rocephin and admitted to the hospital for further evaluation. Since admission, the patient has had a low-grade temp with a MAXIMUM TEMPERATURE of 100.4. Her white blood cell count has improved. She did undergo an MRI of the left foot that showed trace marrow edema in the plantar aspect of the first metatarsal head and medial hallux sesamoid adjacent to the ulcer which could be reactive or due to early osteomyelitis. Podiatry is been consulted. Currently, the patient is on IV vancomycin, cefepime, and Flagyl. We have been asked to evaluate and make further recommendations. During my exam today, the patient endorses the history as stated above. She re ports onset of pain last that worsened into Thursday and Thursday. She reports fevers, chills, and rigors. She endorses history of headache, neck pain, and generally feeling unwell. She reports chest pain, shortness of breath, and cough. Reports nausea, vomiting, diarrhea, and poor appetite. Denies abdominal pain or urinary complaints. Denies oral thrush or other skin lesions/rashes. The patient lives at home with her . She is retired. Denies tobacco, alcohol, or illicit drug use. Denies chronic infectious diseases. Does have a dog, but denies any bites or scratches. CC: Satish Smith MD Past Med Surg Social Fam HX - Past Medical History Attestation: Yes The following information was validated with the patient. Source: patient, old records reviewed, nursing notes reviewed Medical history: CHF, COPD, diabetes, dialysis, hyperlipidemia, hypertension, renal disease Additional medical history: sleep apnea, anemia Psychiatric history: no psych history - Past Surgical History Surgical History: cholecystectomy, orthopedic, other, vascular surgery, LE bypass, LE vascular intervention Additional surgical history: RIGHT UPPER ARM FISTULA / RIGHT GREAT TOE REMOVED - Social History Smoking Status: Former smoker Smokeless Tobacco Status: No Alcohol use: none Drug use: none - Family History Father Living Status: Hx Family Cancer: Yes Hx Family Endocrine Disorder: Yes (DM) Mother Living Status: Infectious Disease-CN:Meds RX: Aspirin [Lo-Dose Aspirin EC] 81 mg PO DAILY 06/17/17 [History] RX: Ergocalciferol (VITAMIN D2) [Vitamin D2] 50,000 unit PO QWEEK 06/17/17 [History] RX: Escitalopram [Lexapro] 20 mg PO DAILY 06/17/17 [History] RX: Furosemide [Lasix] 80 mg PO BID 06/17/17 [History] RX: Insulin LISPRO [HumaLOG] 4 - 10 units SQ TIDWM 06/17/17 [History] RX: rOPINIRole [Requip] 1 mg PO BID 06/17/17 [History] Clopidogrel Bisulfate [Plavix] 75 mg PO DAILY #30 tablet 01/19/18 [Rx] RX: Albuterol Neb [Proventil Neb] 2.5 mg IH Q8H PRN 01/19/18 [History] RX: Atorvastatin [Lipitor] 20 mg PO HS 01/19/18 [History] RX: Calcium Carbonate/Vitamin D3 [Calcium 500+D Tablet Chew] 1 each PO BID 01/19/18 [History] RX: Folic Acid/Vit B Complex and C [Dialyvite Tablet] 1 tab PO DAILY 01/19/18 [History] Insulin Glargine,Hum.rec.anlog [Basaglar Kwikpen U-100] 15 unit SQ HS 03/29/18 [History] Isosorbide MONOnitrate (24 HR) [Imdur] 30 mg PO DAILY 03/29/18 [History] Metoprolol Succinate [Kapspargo Sprinkle] 25 mg PO DAILY 03/29/18 [History] Nitroglycerin [Nitrostat] 0.4 mg SL Q5M PRN 03/29/18 [History] Sevelamer [Renvela] 2,400 mg PO TIDWM 03/29/18 [History] Artificial Tears SOLN [Akwa Tears] 1 drop BOTH EYES QID PRN 03/30/18 [History] Dorzolamide/Timolol/Pf [Dorzolamide-Timolol 2%-0.5%] 1 drop BOTH EYES BID 03/30/18 [History] Allergy/AdvReac Type Severity Reaction Status Date / Time codeine Allergy Mild Rash Verified 03/30/18 13:09 gabapentin [From Neurontin] Allergy Mild Rash Verified 03/30/18 13:09 Penicillins [PCN] Allergy Mild Rash Verified 03/30/18 13:09 zinc Allergy Mild Rash Verified 03/30/18 13:09 tetanus Allergy Mild Rash Uncoded 03/30/18 13:09 All systems: reviewed and no additional remarkable complaints except as stated Exam - Constitutional Vitals: Temp Pulse Resp BP Pulse Ox 99.1 F 61 17 149/71 97 03/30/18 11:47 03/30/18 11:47 03/30/18 11:47 03/30/18 11:47 03/30/18 11:47 General appearance: average body habitus, cooperative, no acute distress - Head Head exam: Present: atraumatic, normal inspection, normocephalic - Eye Eye exam: Absent: normal appearance (Left eye atrophied.) - ENT ENT exam: Present: mucous membranes moist - Neck Neck exam: Present: normal inspection - Respiratory Respiratory exam: Present: CTAB. Absent: rales, respiratory distress, rhonchi, wheezes - Cardiovascular Cardiovascular exam: Present: RRR, +S1, +S2 - GI/Abdominal GI/Abdominal exam: Present: normal bowel sounds, soft. Absent: distended, tenderness - Extremities Exam Extremities exam: Present: tenderness (left calf). Absent: normal inspection (Left foot dressing C/D/I. Erythema noted to the left medial calf. ) - Neurological Exam Neurological exam: Present: alert, oriented X3, no focal deficits - Psychiatric Psychiatric exam: Present: normal affect, normal mood - Skin Skin exam: Present: dry, intact, normal color, warm Infectious Disease CN: Results - Labs CBC & Chem 7: 03/31/18 04:44 03/30/18 04:56 Cultures: Cultures 03/29/18 16:45 Wound Culture - Preliminary Right Foot Gram Negative Agustin 03/29/18 12:50 Blood Culture - Preliminary Peripheral Venipuncture Culture is incubating and being continuously monitored for growth. Final report to follow. 03/29/18 12:50 Blood Culture - Preliminary Peripheral Venipuncture Culture is incubating and being continuously monitored for growth. Final report to follow. Serology: Serology 03/29/18 Range/Units 15:09 Hep Bs Antigen Nonreactive (Nonreactive) Hep Bs Antibody 1.18 mIU/mL Consult Discharge Plan - Plan Referrals: Tom Xie Jr, MD [Primary Care Provider] - - Attending Attestation I examined this patient and my medical decision-making was reviewed with the Resident Physician. I agree with the documented findings, disposition and treatment plan as described except to the extent set forth below. This is an addendum to original report dictated by Sonia Siddiqui CNP. Please refer to Sonia's note for full detail. Patient is a 72-year-old woman with extensive past medical history mentioned below including blind in the left eye, end-stage renal disease on hemodialysis with fistula in the right upper extremity, diabetes mellitus type 2 insulin- dependent who came in with osteomyelitis of the left foot first metatarsal head and medial hallux sesamoid and sepsis like picture. We were asked to evaluate and make antibiotics recommendations. Currently patient laying in bed appears comfortable nontoxic and friend are both at bedside. Review of systems is otherwise unremarkable. No chest pain or shortness of breath no diarrhea no urinary symptoms. Assessment and plan: 1.sepsis 2.osteomyelitis 3.end-stage renal disease on hemodialysis 4.gangrene of left foot 4.left foot ulcer 5.diabetes mellitus type 2 insulin-dependent Recommendations: Location: Left foot first metatarsal head and medial hallux sesamoid. Positive organism: Unclear. Wound culture is positive for gram-negative rods. Final ID and susceptibilities are pending. Likely secondary to chronic nonhealing foot ulcer. Left foot x-ray was negative for osteoarthritis. 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 [employer] been consulted. Await recommendations. Wound care per the podiatry team. Continue cefepime 1 g IV daily. Continue Flagyl 500 mg IV every 8 hours. Continue vancomycin IV. Pharmacy to dose. Goal trough approximately 15. Await cultures. De-escalate if/when able. Duration of treatment is on the clinical picture, but likely total 6 weeks. Monitor labs for drug toxicity and dose adjust antibiotics.
[2018-03-30] MEDS: MetroNIDAZOLE 500 MG/100 ML 500 MG/100 ML BAG IVPB SCH (15:53)
[2018-03-30] MEDS ORDERED: traMADol 50 MG TABLET PO PRN (16:12)
--- NOTE | 2018-03-30 16:45 | Podiatry Progress Note ---
Date of Encounter: 03/30/18 Time of Encounter: 15:15 - Assessment and Plan (1) Cellulitis of left foot Current Visit: Yes Status: Acute Left foot #1 sub MTPJ with hyperkeratotic tissue with hemorragic bullae underneath. Wound measuring 5 x 4 x 0.3 cm with tunneling noted to 5 o'clock with a depth of 0.3 cm Wound bed with eschar and foul odor. Wound cultures obtained, preliminary results gram - rods. Dressing changed with purluent drainage noted. Covered wound with Adaptic, 4X4 gauze, and and Kerlex. WBC 21.7, ESR 77, CRP 157 on 03/29, WBC decreasing, 17.7 today. ALEJANDRA worsened from previous, L 0.32, R 0.36 MRI of left foot showed possible early osteomylitis Erythema and edema noted to left hallux to left midfoot. Left calf with erythema and warm to touch, area marked. Palpable pulses, diminished, left foot Vascular surgery consulted for recommendations. Possible amputation of left hallux and metatarsal if recommended. (2) Foot ulcer, left Current Visit: Yes Status: Acute Plan as above Qualifiers: Non-pressure ulcer stage: unspecified non-pressure ulcer stage Qualified Code(s): L97.529 - Non-pressure chronic ulcer of other part of left foot with unspecified severity (3) Osteomyelitis Current Visit: Yes Status: Suspected Qualifiers: Osteomyelitis type: acute hematogenous Osteomyelitis location: foot Laterality: left Qualified Code(s): M86.072 - Acute hematogenous osteomyelitis, left ankle and foot (4) PVD (peripheral vascular disease) Current Visit: Yes Status: Chronic ABIs as stated above. Vascular surgery consulted (5) Diabetes mellitus Current Visit: Yes Status: Chronic Type II DM. Hemoglobin A1c 6.2. Recommend tight glycemic control for wound healing well and hospital. 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 Family at bedside. Reports pain 03/10. States Tylenol is not relieving her pain. Objective - Vital Signs Vital Signs: Vital Signs Temp Pulse Resp BP Pulse Ox 03/30/18 11:47 99.1 F 61 17 149/71 97 03/30/18 07:49 98.8 F 60 18 167/66 97 03/30/18 04:00 99.1 F 59 18 168/54 100 03/29/18 23:15 100.4 F H 66 18 146/71 97 03/29/18 21:30 98.2 F 18 111/36 03/29/18 21:00 137/49 03/29/18 20:45 147/49 03/29/18 20:30 162/63 03/29/18 20:15 164/59 03/29/18 20:00 142/53 03/29/18 19:45 147/59 03/29/18 19:30 136/39 03/29/18 19:15 130/49 03/29/18 19:00 130/45 03/29/18 18:45 149/58 03/29/18 18:30 156/58 03/29/18 18:15 133/55 03/29/18 18:00 134/87 03/29/18 17:45 133/60 03/29/18 17:30 97.4 F L 16 140/54 Intake and Output 03/30/18 03/30/18 03/30/18 07:59 15:59 23:59 Intake Total 360 / 360 Balance 360 / 360 Intake: Oral 360 / 360 Other: Meal Breakfast Percent of Meal Consumed 100% Stool Size Small Stool Consistency formed Stool Characteristics Normal for Patient Stool Color Brown # Urine Diapers 1 Blood Glucose* 138 141 - Lab Result Diagrams: 03/30/18 08:07 03/30/18 04:56 Labs: Abnormal lab results WBC 17.7 K/mcL (4.3-11.1) H 03/30/18 08:07 RBC 3.40 M/mcL (3.82-4.97) L 03/30/18 08:07 Hgb 11.1 g/dL (11.5-15.4) L 03/30/18 08:07 Hct 34.7 % (35.3-44.9) L 03/30/18 08:07 MCV 102.1 fL (83.0-100.0) H 03/30/18 08:07 Neutrophils # 14.0 K/mcL (1.6-8.9) H 03/30/18 08:07 Monocytes # 1.5 K/mcL (0.0-1.3) H 03/30/18 08:07 ESR 77 mm/hr (0-15) H 03/29/18 11:58 Sodium 135 mEq/L (136-145) L 03/30/18 04:56 BUN 27 mg/dL (8-23) H 03/30/18 04:56 Creatinine 4.24 mg/dL (0.60-1.20) H 03/30/18 04:56 Est GFR ( Amer) 12 (> 60) L 03/30/18 04:56 Est GFR (Non-Af Amer) 10 (> 60) L 03/30/18 04:56 Glucose 202 mg/dL (70-105) H 03/30/18 04:56 POC Glucose 116 mg/dL (70-99) H 03/29/18 22:02 Hemoglobin A1c 6.2 % (-5.6) H 03/29/18 11:58 Calcium 8.4 mg/dL (8.6-10.3) L 03/30/18 04:56 C-Reactive Protein 157 mg/L (Less than 10) H 03/29/18 11:58 Lipase 7 Units/L (11-82) L 03/29/18 11:58 Microbiology, Last 48 Hours 03/29/18 16:45 Wound Culture - Preliminary Right Foot Gram Negative Agustin 03/29/18 12:50 Blood Culture - Preliminary Peripheral Venipuncture Culture is incubating and being continuously monitored for growth. Final report to follow. 03/29/18 12:50 Blood Culture - Preliminary Peripheral Venipuncture Culture is incubating and being continuously monitored for growth. Final report to follow. Consult Discharge Plan - Plan Referrals: Tom Xie Jr, MD [Primary Care Provider] -
[2018-03-30] MEDS: *HR* Heparin 5,000 UNIT/ML VIAL SQ SCH (17:13)
[2018-03-30 19:34] LABS: Bilirubin,Urine Small (Negative); Blood,Urine Trace (Negative); Clarity,Urine Turbid (Clear); Color,Urine Yellow (Yellow); Glucose,Urine (UA) 250 mg/dL (Normal); Ketones,Urine Negative (Negative); Leukocyte Esterase,Urine Moderate (Negative); Nitrite,Urine Negative (Negative); Protein,Urine >=300 mg/dL (Neg-Trace); Specific Gravity,Urine 1.019 (1.010-1.025); Urobilinogen,Urine Normal (Normal)
[2018-03-30 19:36] LABS: Bacteria,Urine Few per hpf (None-Few); Hyaline Casts,Urine Few per lpf (None-Few); Squamous Epithelial Cell,Urine Many per lpf (None-Few); WBC,Urine TNTC per hpf (0-3)
--- NOTE | 2018-03-30 21:38 | Vascular/Endovasc Consult Note ---
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 The patient has undergone prior bilateral lower artery bypass graft. Her grafts are known to be occluded. The patient presen bin with a cellulitis and ulceration of the left foot. Her vascular labs revealed severe disease. The patient has been scheduled for diagnostic angiogram with possible intervention. The risks, benefits alternatives were discussed and all questions were answered. She is with understanding wishes to proceed. (2) Cellulitis of left foot Current Visit: Yes Status: Acute Continue with intravenous antibiotics. Podiatry to further evaluate. 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 (5) CAD (coronary artery disease) of artery bypass graft Current Visit: Yes Status: Chronic Qualifiers: [place] vs. transplanted heart: [place] heart Associated angina: without ang fabby Qualified Code(s): I25.810 - Atherosclerosis of coronary artery bypass graft(s) without angina pectoris - History of Present Illness Consult date: 03/30/18 Requesting physician: Sonia Elizabeth Consult reason: Peripheral vascular disease with ulceration Chief complaint: Left foot ulcer History of present illness: Ms. Olvera is a 72 year old female with a history of end-stage renal disease on hemodialysis, cardiomyopathy, coronary artery disease, diabetes and peripheral vascular disease. The patient has recently undergone multiple prior percutaneous procedures as well as a left popliteal to dorsalis pedis artery bypass with vein. The patient was admitted to [facility] with complaints of left foot pain with ulceration and purulent drainage. She was seen by podiatry and intervention was recommended. The patient was started on intravenous antibiotics. As part of her evaluation she underwent vascular lab studies and there were abnormal. Vascular surgery was consultation for further evaluation. The patient denies any fevers or chills. She denies any chest pain or shortness of breath. Past Med Surg Social Fam HX - Past Medical History Medical history: CHF, COPD, diabetes, dialysis, hyperlipidemia, hypertension, renal disease Additional medical history: sleep apnea, anemia Psychiatric history: no psych history - Past Surgical History Surgical History: cholecystectomy, orthopedic, other, vascular surgery, LE bypass, LE vascular intervention Additional surgical history: RIGHT UPPER ARM FISTULA / RIGHT GREAT TOE REMOVED - Social History Smoking Status: Former smoker Smokeless Tobacco Status: No Alcohol use: none Drug use: none - Family History Father Living Status: Hx Family Cancer: Yes Hx Family Endocrine Disorder: Yes (DM) Mother Living Status: Medications and Allergies RX: Aspirin [Lo-Dose Aspirin EC] 81 mg PO DAILY 06/17/17 [History] RX: Ergocalciferol (VITAMIN D2) [Vitamin D2] 50,000 unit PO QWEEK 06/17/17 [History] RX: Escitalopram [Lexapro] 20 mg PO DAILY 06/17/17 [History] RX: Furosemide [Lasix] 80 mg PO BID 06/17/17 [History] RX: Insulin LISPRO [HumaLOG] 4 - 10 units SQ TIDWM 06/17/17 [History] RX: rOPINIRole [Requip] 1 mg PO BID 06/17/17 [History] Clopidogrel Bisulfate [Plavix] 75 mg PO DAILY #30 tablet 01/19/18 [Rx] RX: Albuterol Neb [Proventil Neb] 2.5 mg IH Q8H PRN 01/19/18 [History] RX: Atorvastatin [Lipitor] 20 mg PO HS 01/19/18 [History] RX: Calcium Carbonate/Vitamin D3 [Calcium 500+D Tablet Chew] 1 each PO BID 01/19/18 [History] RX: Folic Acid/Vit B Complex and C [Dialyvite Tablet] 1 tab PO DAILY 01/19/18 [History] Insulin Glargine,Hum.rec.anlog [Basaglar Kwikpen U-100] 15 unit SQ HS 03/29/18 [History] Isosorbide MONOnitrate (24 HR) [Imdur] 30 mg PO DAILY 03/29/18 [History] Metoprolol Succinate [Kapspargo Sprinkle] 25 mg PO DAILY 03/29/18 [History] Nitroglycerin [Nitrostat] 0.4 mg SL Q5M PRN 03/29/18 [History] Sevelamer [Renvela] 2,400 mg PO TIDWM 03/29/18 [History] Artificial Tears SOLN [Akwa Tears] 1 drop BOTH EYES QID PRN 03/30/18 [History] Dorzolamide/Timolol/Pf [Dorzolamide-Timolol 2%-0.5%] 1 drop BOTH EYES BID 03/30/18 [History] Allergy/AdvReac Type Severity Reaction Status Date / Time codeine Allergy Mild Rash Verified 03/30/18 13:09 gabapentin [From Neurontin] Allergy Mild Rash Verified 03/30/18 13:09 Penicillins [PCN] Allergy Mild Rash Verified 03/30/18 13:09 zinc Allergy Mild Rash Verified 03/30/18 13:09 tetanus Allergy Mild Rash Uncoded 03/30/18 13:09 All Systems Review: The remainder of the systems were reviewed and are negative - Constitutional Constitutional: no chills, no fever(s) - Cardiovascular Cardiovascular: no chest pain at rest, no dyspnea at rest Exam Vital Signs, Last 4 Hours Temp Pulse Resp BP Pulse Ox 03/30/18 18:45 98.1 F 60 18 142/61 99 General: Present: Conversant, No Apparent Distress HEENT: Present: Normocephaly, Trachea midline, Pupils equal Neck: Absent: JVD, Lymphadenopathy, Left Carotid bruit, Right Carotid bruit Cardiac: Present: Reg Rate and Rhythm, Normal S1 and S2 Lungs: Present: Normal Breath Sounds, No Wheeze, Rales, Rhonchi Neuro: Present: Alert and responsive, Motor nerves grossly intact, Sensory nerves grossly intact Abdomen: Present: Soft, Non-tender. Absent: Masses Vascular: Present: Normal capillary refill, Pulse, absent, Other (The patient a referral the left forefoot) Skin: Present: Wound/ulcer(s) (Left foot ulceration with. Drainage and surrounding erythema) Consult Discharge Plan - Plan Referrals: Tom Xie Jr, MD [Primary Care Provider] -
[2018-03-30] MEDS: Dorzolamide/Timolol OPTH 10 ML BOTTLE BOTH EYES SCH (21:49)
[2018-03-30] MEDS: Insulin DETEMIR 100 UNIT/ML X5UNITS SQ SCH (22:23)
[2018-03-31] MEDS: MetroNIDAZOLE 500 MG/100 ML 500 MG/100 ML BAG IVPB SCH ×2 (00:17→10:28)
[2018-03-31] MEDS: *HR* Heparin 5,000 UNIT/ML VIAL SQ SCH ×2 (06:57→18:42)
[2018-03-31] MEDS ORDERED: *HR* Heparin 10,000 UNIT/10 ML VIAL ONE (07:11)
[2018-03-31] MEDS ORDERED: 0.9 % Sodium Chloride 1,000 ML ONE ×2 (07:11→07:58)
[2018-03-31] MEDS ORDERED: ISOVUE-250 150 ML INFUS..BTL ONE ×2 (07:11→08:22)
[2018-03-31] MEDS ORDERED: Heparin 1,000 UNITS/500 mL 500 ML ONE (07:11)
[2018-03-31] MEDS ORDERED: *HR* Midazolam HCl 2 MG/2 ML VIAL ONE (07:54)
--- NOTE | 2018-03-31 07:54 | Pre-Sedation Evaluation ---
Pre-sedation evaluation - Pre-sedation checklist Date of procedure: 03/31/18 Procedure: Peripheral Angiogram Recent Vitals: Last Vital Signs Temp 98.1 F 03/31/18 03:19 Pulse 58 03/31/18 03:19 Resp 17 03/31/18 03:19 BP 198/66 03/31/18 03:19 Pulse Ox 100 03/31/18 03:19 H&P (including ROS) documented in medical record: Yes Previous reaction to sedatives/anesthetics: No Dietary Status: NPO after Midnight Dentition: poor dentition ASA Classification *see protocol: CLASS III-Severe systemic disease Plan of Care: Pt appropriate candidate for procedure/moderate/conscious sedation, Risks/benefits of procedure/sedation discussed w/ patient/family
[2018-03-31 07:56] LABS: Basophils # 0.1 K/mcL (0.0-0.2); Basophils % 0.7 %; Eosinophils # 0.5 K/mcL (0.0-0.6); Eosinophils % 4.2 %; Hematocrit 32.8 % (35.3-44.9); Hemoglobin 10.2 g/dL (11.5-15.4); Immature Granulocytes % 0.4 % (0-4); Lymphocytes # 1.5 K/mcL (0.6-4.6); Lymphocytes % 11.7 %; Mean Corpuscular HGB Conc 31.1 g/dL (31.6-35.5); Mean Corpuscular Hemoglobin 32.6 pg (28.0-33.3); Mean Corpuscular Volume 104.8 fL (83.0-100.0); Mean Platelet Volume 9.8 fL (9.4-12.4); Monocytes # 1.2 K/mcL (0.0-1.3); Monocytes % 9.1 %; Neutrophils # 9.4 K/mcL (1.6-8.9); Platelet Count 228 K/mcL (140-400); Red Blood Count 3.13 M/mcL (3.82-4.97); Red Cell Distribution Width 14.2 % (11.5-14.5); Segmented Neutrophils % 73.9 %
[2018-03-31] MEDS ORDERED: *HR* FentaNYL (PF) 100 MCG/2 ML VIAL ONE (08:50)
[2018-03-31] MEDS: Insulin LISPRO 300 UNITS/3 ML VIAL SQ SCH ×4 (08:53→21:00)
--- NOTE | 2018-03-31 09:42 | Invasive Diagnostic Lab Proc ---
Name: Carmen Olvera Date of Study: 03/31/2018 Date: 1945 Ht: 157.0 in Medical Record#: [id number] Age: 72 Wt: 78 lb Gender: Female BSA: 1.79 Order #: [id number] BMI: 31.64 Physicians Performing MD: Tc Craig MD Referring MD: Referring MD: Staff Name Position Time In Sites, Eusebia RT (R) Monitor Michelle Olson RN Switchboard Manager Solitario Cote RT (R) Scrub Indications Non-healing Ulcer Procedures Performed AORTOGRAPHY, ABDOMINAL S&I AORTOGRAPHY EXT Bilat S&I FEM/POPL REVAS W/TLA Add'l Complete exam Pre-Procedure Checklist Informed consent is complete signed and on chart. H&P is on chart. ID band is on and ID verified with patient. Patient NPO for procedure The procedure was described for the patient and questions were answered. Blood Pressure: 182/63 ECG is on chart. Rhythm: NSR Plan of Care Patient will tolerate the procedure without complications. Adequate level of comfort will be maintained. Hemodynamics will remain stable Patient will recover from procedure without complications. Respiratory function will be maintained. Cardiac rhythm will remain stable. Patient temperature will be maintained. Patient and/or family have verbalized understanding of the procedure. Patient Education Chief Complaint/Reason for Test: Peripheral angiogram Developmental Category: Geriatric (65+ years) Learning Barriers: None Education Needs: Procedure Education Method: Verbal Information Taught: Peripheral angiogram Educational Evaluation: Able to repeat information Intravenous Access Time IV Size Location DC'd Fluid/Drip Rate Units RN 20g 1 06/04" Patent On Arrival Lt Arm 0.9NaCl 25 ml/hr Michelle Olson RN Allergies Penicillins zinc gabapentin PCN (penicillin) codeine DT (diphtheria toxoid - tetanus tox tetanus Vital Signs Time BP Systolic BP Diastolic HR O2 Sats ASA 179 58 61 100 07:58 AM 182 63 61 99 08:03 AM 179 58 60 100 08:07 AM 130 98 61 100 08:12 AM 149 98 59 100 08:23 AM 103 80 60 100 08:27 AM 111 101 60 100 08:32 AM 106 92 58 100 08:37 AM 74 56 59 100 08:43 AM 130 47 59 100 08:49 AM 87 71 59 100 08:54 AM 154 52 59 100 08:58 AM 149 51 58 100 Procedure Medications Time Medication Dose Units Method Route 08:08 AM Oxygen 3 L/min nasal cannula 08:08 AM Versed 2 mg Intravenous 08:11 AM Lidocaine 2% 7 ml Subcutaneous 08:13 AM Lidocaine 2% 10 ml Subcutaneous 08:36 AM Heparin 3000 units Intra-arterial 08:50 AM Fentanyl 50 mcg Intravenous ASA Classification: CLASS III- Severe systemic disease (i.e. prior AMI, diabetes with vascular complications, morbid obesity) Tee Score Preprocedure Postprocedure Activity 2- Moves 4 extremities sustained head lift Activity 2- Moves 4 extremities sustained head lift Circulation 2- SBP +/= 20 points of pre-anesthetic level Circulation 2- SBP +/= 20 points of pre-anesthetic level Consciousness 2- Awake and alert oriented x 3 Consciousness 2- Awake and alert oriented x 3 O2 Saturation 2- Able to maintain O2 satruation of 92% on room air O2 Saturation 2- Able to maintain O2 satruation of 92% on room air Respiratory 2- Able to deep breathe and cough well Respiratory 2- Able to deep breathe and cough well Total Score 10 Total Score 10 Contrast: Isovue 250- 150ml Contrast Amount: 102 ml Fluoro Dose: 412 mGy Activated Clotting Time Time Drawn ACT (sec) 09:05 AM 197 Procedure Log Time Note Entered By 08:04 AM Pt arrived to laborer stores 1 at 08:03 tsites 08:05 AM Eusebia Casanova RT (R) Position: Monitor Time in: 08:04 tsites 08:05 AM Michelle Olson RN Position: Switchboard Manager Time in: 08:05 tsites 08:05 AM Solitario Cote RT (R) Position: Scrub Time in: 08:05 tsites 08:05 AM Case delayed: No tsites 08:07 AM Physician arrived 08:07 tsites 08:07 AM Meet and greet completed tsites 08:07 AM Sign in performed according to hospital policy. tsites 08:07 AM Procedure start 08:07 tsites 08:08 AM Hair removed from procedure site in holding area using clippers. Bilateral groin prepped with Chloraprep by Eusebia Casanova (R), then patient was draped. Skin intact. tsites 08:08 AM 08:08 Oxygen at 3 L/min per nasal cannula by Michelle Olson RN tsites 08:08 AM 08:08 Versed 2 mg Intravenous Given by Michelle Olson RN tsites 08:09 AM Time out perfomed tsites 08:10 AM Patient charges- Angio tray pack, Pulse Oximetry and ACIST tubing and transducer tsites 08:10 AM Ultrasound, Sonosite, utilized to obtain vascular access tsites 08:11 AM 08:11 7 ml Lidocaine 2% to right groin Subcutaneous Given By Tc Craig MD tsites 08:12 AM Access obtained in the right femoral artery by percutaneous puncture. 4 Fr. 10 cm Terumo [place] sheath placed in right femoral artery tsites 08:12 AM 0.035 180cm [place] wire utilized to assist with catheter placement tsites 08:13 AM 08:13 10 ml Lidocaine 2% to right groin Subcutaneous Given By Tc Craig MD tsites 08:14 AM 4Fr Omniflush catheter inserted over the wire tsites 08:15 AM Abdominal aorta angiography performed in AP contrast injected 20/10 mls. tsites 08:16 AM repositioning catheter tsites 08:16 AM Setting up for stepping tsites 08:16 AM Abdominal angiogram with runoff completed: 8 ml/sec for a total of 60 mls tsites 08:22 AM wire reinserted tsites 08:23 AM Wire removed tsites 08:24 AM Left lower extremity angiography performed in AP contrast injected 4/20 mls. tsites 08:30 AM Intervention started at this time tsites 08:30 AM Sheath exchanged for a 4 Fr 45 cm Terumo Destination sheath inserted into right femoral artery tsites 08:31 AM Inflation device tsites 08:31 AM 0.014 Journey 300cm guidewire across target lesion. tsites 08:34 AM 4Fr 150cm [place] guide catheter advanced tsites 08:37 AM 08:36 Heparin 3000 units Intra-arterial by Tc Craig MD tsites 08:37 AM rubicon removed intact tsites 08:37 AM 4 mm x 220 mm [place] balloon catheter placed into left superficial femoral tsites 08:40 AM Balloon inflated @ 8 rhianna for 60 seconds tsites 08:42 AM Balloon inflated @ 8 rhianna for 60 seconds tsites 08:43 AM Balloon inflated @ 8 rhianna for 60 seconds tsites 08:45 AM 4cc of contrast injected tsites 08:46 AM 4cc of contrast injected tsites 08:46 AM 4cc of contrast injected tsites 08:47 AM Balloon removed intact tsites 08:48 AM 4 mm x 20 mm [place] balloon catheter placed into left popliteal tsites 08:50 AM Balloon inflated @ 8 rhianna for 60 seconds tsites 08:50 AM 08:50 Fentanyl 50 mcg Intravenous Given by Michelle Olson RN tsites 08:50 AM Balloon inflated @ 8 rhianna for 30 seconds tsites 08:54 AM Lower Extremity Unilateral angiography performed in AP contrast injected 4/10 mls. tsites 08:57 AM 4cc of contrast injected tsites 08:58 AM Balloon inflated @ 6 rhianna for 60 seconds tsites 08:59 AM 4cc of contrast injected tsites 08:59 AM Guide wire removed intact tsites 09:01 AM ACT drawn tsites 09:02 AM j wire reinserted tsites 09:02 AM Sheath exchanged for a 4 Fr 11 cm [place] sheath inserted into right femoral artery tsites 09:05 AM ACT: 197 seconds 09:05 tsites 09:06 AM Procedure completed at 09:05 tsites 09:06 AM Sign Out completed: Radiation Dose 412 mGy Fluoro Time: 10.7 minutes. Isovue 250- 150ml contrast 102 ml given by Tc Craig MD. Complications: None. Confirmed administered medications:Yes tsites 09:06 AM Isovue 250- 150ml,2 bottle(s) used. tsites 08:07 AM HR=61 bpm, CQPN=708/98 mmhg, IsU3=858.0 % 08:12 AM HR=59 bpm, VCGY=613/98 mmhg, PmQ9=484.0 % 08:19 AM Vitals capture stopped. 08:22 AM Vitals capture started with the following parameters, Patient=Adult, Interval=5 min, Initial Nqzbmpno=119 mmHg, Deflation Rate=3 mmHg, Cuff placed on Right Arm 08:23 AM HR=60 bpm, UDXE=779/80 mmhg, PkX0=581 % 08:27 AM HR=60 bpm, NARU=526/101 mmhg, YpU9=081 %, Resp=31 B/min 08:32 AM HR=58 bpm, XIKC=674/92 mmhg, LcF9=559.0 % 08:37 AM HR=59 bpm, NIBP=74/56 mmhg, EuV6=460.0 % 08:40 AM NIBP STAT measurement started. 08:43 AM HR=59 bpm, ANNF=023/47 mmhg, SbW9=797.0 %, Resp=32 B/min 08:49 AM HR=59 bpm, NIBP=87/71 mmhg, DpN3=448.0 %, Resp=19 B/min 07:56 AM PVIStat 07:56 AM Vitals capture started with the following parameters, Patient=Adult, Interval=5 min, Initial Lmmisexj=812 mmHg, Deflation Rate=3 mmHg, Cuff placed on Right Arm 07:56 AM Recorded ECG: HR=63 Condition=Condition 1 07:58 AM HR=61 bpm, UUJG=585/63 mmhg, SpO2=99.0 %, Resp=15 B/min 08:00 AM Recorded ECG: HR=62 Condition=Condition 1 08:00 AM Pressure channel 1 zero failed. 08:03 AM HR=60 bpm, TGKZ=831/58 mmhg, WnI4=349.0 % 08:04 AM Pressure channel 1 zeroed. 08:54 AM HR=59 bpm, VYQJ=645/52 mmhg, WgR8=850 %, Resp=30 B/min 08:58 AM HR=58 bpm, DIJN=801/51 mmhg, CkX8=871 % 09:05 AM Vitals capture stopped. 09:07 AM Vitals capture started with the following parameters, Patient=Adult, Interval=5 min, Initial Ikty[place]isc=493 mmHg, Deflation Rate=3 mmHg, Cuff placed on Right Arm 09:07 AM Arterial sheath pulled using manual compression and V+Pad for 15 minutes by Solitario Cote RT (R) tsites 09:07 AM Estimated Blood Loss: minimal tsites 08:55 AM 3.0mm x 10mm [place] [employer] Fle[place] cutting balloon placed into left popliteal tsites 09:09 AM Post EKG: NSR tsites 09:09 AM 09:09 Post Pulses: Bilateral DP & PT Doppler. tsites 09:10 AM Information taught: Peripheral angiogram, SENIOR QUALITY ASSURANCE ENGINEER, and V+Pad tsites 09:10 AM Education needs: Procedure, Plan of Care, and Responsibilities of Patient in Care tsites 09:10 AM Learning barriers: None tsites 09:10 AM Education methods: Verbal tsites 09:10 AM Education evaluation: Able to repeat information tsites 09:10 AM Patient pain level 0/10 tsites 09:23 AM Site status No bleeding/hematoma - Rt Groin as reported by Solitario Cote RT (R) at 09:23 tsites 09:23 AM Opsite applied tsites 09:31 AM Report given to kaushik JO. Pt taken to 2A, Room # 71 09:30 tsites 09:31 AM Delay to floor: No tsites 09:31 AM Pt taken to 2A Room# 71 tsites 09:31 AM Family placed in consult room. tsites 09:31 AM Patient out of room 09:31 tsites 09:31 AM Post Blood Pressure: 149/56 tsites Post Procedure Information Blood Pressure: 149/56 mmHg Rhythm: NSR Post procedure instructions given Report Given To: Divya Cruz Checks Time Location Status Staff Sheath In? Note 9:23:00 AM Rt Groin No bleeding/hematoma Solitario Cote RT (R) Pulses Time Site Pre Procedure Post Procedure Note Bilateral radial 2+ Lt DP absent Rt DP 1+ 9:09:00 AM Bilateral DP & PT Doppler Updated by Eusebia Casanova RT (R) on 03/31/2018 9:34:14 AM Eusebia Casanova RT electronically signed on 03/31/2018 9:34:47 AM with status of Final
[2018-03-31] MEDS ORDERED: 0.9 % Sodium Chloride 250 ML IVC PRN (09:46)
--- NOTE | 2018-03-31 09:51 | Procedure Note ---
Date of procedure: 03/31/18 Pre-op diagnosis: Peripheral vascular disease with ulceration Post-op diagnosis: same Procedure: Aortogram with bilateral lower extremity angiogram via right common femoral artery with 4-Urdu sheath, direct pressure held for hemostasis. Left superficial femoral angioplasty with 4 x 220 mm balloon Left popliteal artery angioplasty with 3 x 10 mm cutting balloon. Anesthesia: local, IV sedation (Moderate conscious sedation) Surgeon: Tc Craig Was there an nurses medical assistants phlebotomists present: No Estimated blood loss (cc): 1 Specimen: None Condition: stable (No complications) Disposition: floor
[2018-03-31] MEDS ORDERED: 0.9 % Sodium Chloride 1,000 ML PRIME SCH (10:00)
--- NOTE | 2018-03-31 10:08 | Podiatry Progress Note ---
Date of Encounter: 03/31/18 Time of Encounter: 10:04 - Assessment and Plan (1) Foot ulcer, left Current Visit: Yes Status: Acute Left foot #1 sub MTPJ with necrotic ulcer Wound measuring 5 x 4 x 0.3 cm with tunneling noted to 5 o'clock with a depth of 0.3 cm Wound bed with eschar, slough, and foul odor. Wound cultures obtained, resulted Klebsiella. Dressing changed with serosanguineous drainage noted to old dressing. Placed neck of thick Santyl to wound bed. Covered wound with Adaptic, 4X4 dry gauze, and covered with Kerlex. WBC 21.7, ESR 77, CRP 157 on 03/29, WBC decreasing, 12.7 today. ALEJANDRA worsened from previous, L 0.32, R 0.36 TCPO2 right ankle 40, right foot 50, left ankle 22, left foot 13 area and MRI of left foot showed possible early osteomylitis Plan for possible I&D, amputation left hallux and/or metatarsal Thursday. Qualifiers: Non-pressure ulcer stage: unspecified non-pressure ulcer stage Qualified Code(s): L97.529 - Non-pressure chronic ulcer of other part of left foot with unspecified severity (2) Cellulitis of left foot Current Visit: Yes Status: Acute Erythema and edema noted to dorsal aspect foot. Hot to touch. Area marked. Left lower calf with erythema and warmness noted, area marked. Decreasing in size. ATB per ID. (3) Osteomyelitis Current Visit: Yes Status: Suspected Qualifiers: Osteomyelitis type: acute hematogenous Osteomyelitis location: foot Laterality: left Qualified Code(s): M86.072 - Acute hematogenous osteomyelitis, left ankle and foot (4) PVD (peripheral vascular disease) Current Visit: Yes Status: Chronic ABIs as stated above. TCPO2 as stated above Left angiogram today with intervention. Left superficial femoral angioplasty with 4 x 220 mm balloon Left popliteal artery angioplasty with 3 x 10 mm cutting balloon. Vascular surgery following (5) Diabetes mellitus Current Visit: Yes Status: Chronic Type II DM. Hemoglobin A1c 6.2. Recommend tight glycemic control for wound healing while in hospital. Primary to monitor Qualifiers: Diabetes mellitus type: type 2 Diabetes mellitus buttermaker helper insulin use: with prison use Diabetes mellitus complication status: with kidney complications Diabetes mellitus complication detail: with chronic kidney disease Chronic kidney disease stage: on chronic dialysis Qualified Code(s): E11.22 - Type 2 diabetes mellitus with diabetic chronic kidney disease; N18.6 - End stage renal disease; Z79.4 - FDC (current) use of insulin; Z99.2 - Dependence on renal dialysis Subjective Principal diagnosis: left leg infection Interval history: Patient awake in bed. Family at bedside. Denies pain at present. Reports having angiogram done this morning with Dr. Craig. Objective - Vital Signs Vital Signs: Vital Signs Temp Pulse Resp BP Pulse Ox 03/31/18 03:19 98.1 F 58 17 198/66 100 03/30/18 23:25 98.2 F 63 18 187/68 99 03/30/18 18:45 98.1 F 60 18 142/61 99 03/30/18 16:52 98.6 F 61 17 166/67 03/30/18 11:47 99.1 F 61 17 149/71 97 Intake and Output 03/30/18 03/31/18 03/31/18 23:59 07:59 15:59 Intake Total 100 / 100 100 / 100 Output Total 200 / 200 Balance -100 / -100 100 / 100 Intake: IV Fluids 100 / 100 100 / 100 Flagyl Premix 500 MG/100 ML 500 100 / 100 100 / 100 mg In 100 ml @ 100 mls/hr IVPB Q8HR [facility] Rx#:[id number] Output: Urine 200 / 200 Other: Meal npo Stool Size Small Stool Consistency soft Stool Color Green Weight 77.8 kg Blood Glucose* 279 - Exam Exam: Constitiutional: Alert and oriented x 3. Vascular: 1/4 DP/PT bilaterally, CFT <3 sec to all digits, warm to warm from tibia to toes bilaterally, hot to left hallux to midfoot, edema 2+/4 left foot Neurologic: Diminished sensation to touch, normal plantar response, Dermatologic: Left foot #1 sub MTPJ with necrotic ulcer with slough noted, right amputated hallux. Musculoskeletal: 4/5 muscle strength and normal tone bilaterally. - Lab Result Diagrams: 03/31/18 04:44 03/30/18 04:56 Labs: Abnormal lab results WBC 12.7 K/mcL (4.3-11.1) H 03/31/18 04:44 RBC 3.13 M/mcL (3.82-4.97) L 03/31/18 04:44 Hgb 10.2 g/dL (11.5-15.4) L 03/31/18 04:44 Hct 32.8 % (35.3-44.9) L 03/31/18 04:44 MCV 104.8 fL (83.0-100.0) H 03/31/18 04:44 MCHC 31.1 g/dL (31.6-35.5) L 03/31/18 04:44 Neutrophils # 9.4 K/mcL (1.6-8.9) H 03/31/18 04:44 ESR 77 mm/hr (0-15) H 03/29/18 11:58 Sodium 135 mEq/L (136-145) L 03/30/18 04:56 BUN 27 mg/dL (8-23) H 03/30/18 04:56 Creatinine 4.24 mg/dL (0.60-1.20) H 03/30/18 04:56 Est GFR ( Amer) 12 (> 60) L 03/30/18 04:56 Est GFR (Non-Af Amer) 10 (> 60) L 03/30/18 04:56 Glucose 202 mg/dL (70-105) H 03/30/18 04:56 Hemoglobin A1c 6.2 % (-5.6) H 03/29/18 11:58 Calcium 8.4 mg/dL (8.6-10.3) L 03/30/18 04:56 C-Reactive Protein 157 mg/L (Less than 10) H 03/29/18 11:58 Lipase 7 Units/L (11-82) L 03/29/18 11:58 Urine Clarity Turbid (Clear) A 03/30/18 19:00 Urine Protein >=300 mg/dL (Neg-Trace) H 03/30/18 19:00 Urine Glucose (UA) 250 mg/dL (Normal) H 03/30/18 19:00 Urine Blood Trace (Negative) H 03/30/18 19:00 Urine Bilirubin Small (Negative) H 03/30/18 19:00 Ur Leukocyte Esterase Moderate (Negative) H 03/30/18 19:00 Urine Microscopic RBC 5-15 per hpf (0-3) H 03/30/18 19:00 Urine Microscopic WBC TNTC per hpf (0-3) H 03/30/18 19:00 Ur Squamous Epith Cells Many per lpf (None-Few) H 03/30/18 19:00 Ur Culture Indicated? NO. (NO) A 03/30/18 19:00 Microbiology, Last 48 Hours 03/29/18 16:45 Wound Culture - Final Right Foot Klebsiella oxytoca 03/29/18 12:50 Blood Culture - Preliminary Peripheral Venipuncture Culture is incubating and being continuously monitored for growth. Final report to follow. 03/29/18 12:50 Blood Culture - Preliminary Peripheral Venipuncture Culture is incubating and being continuously monitored for growth. Final report to follow. Consult Discharge Plan - Plan Referrals: Tom Xie Jr, MD [Primary Care Provider] -
[2018-03-31] MEDS: Isosorbide MONOnitrate (24 HR) 30 MG TAB.ER.24H PO SCH (10:27)
[2018-03-31] MEDS: rOPINIRole 1 MG TABLET PO SCH ×2 (10:27→22:00)
[2018-03-31] MEDS: Aspirin Enteric Coated 81 MG Tablet PO SCH (10:27)
[2018-03-31] MEDS: Furosemide 40 MG TABLET PO SCH ×2 (10:28→18:41)
[2018-03-31] MEDS: Metoprolol XL (24 HR) Succ 25 MG TAB.ER.24H PO SCH (10:28)
[2018-03-31] MEDS: Renal Vitamin 1 CAP CAPSULE PO SCH (10:28)
[2018-03-31] MEDS: Dorzolamide/Timolol OPTH 10 ML BOTTLE BOTH EYES SCH ×2 (10:28→22:06)
--- NOTE | 2018-03-31 10:52 | Infectious Disease Progress No ---
Date of Encounter: 03/31/18 Time of Encounter: 09:45 - Assessment and Plan (1) Sepsis Current Visit: Yes Status: Acute The patient had 2 sepsis criteria, including leukocytosis and fever. Likely secondary to left foot cellulitis. Improved. WBC is trending down. Afebrile overnight. Blood cultures drawn 03/29/18 are NGTD x 2 sets. Qualifiers: Sepsis type: sepsis due to unspecified organism Qualified Code(s): A41.9 - Sepsis, unspecified organism (2) Osteomyelitis Current Visit: Yes Status: Acute Location: Left foot first metatarsal head and medial hallux sesamoid. Positive organism: Unclear. Wound culture is positive for K. oxytoca, higgins- sensitive. Likely secondary to chronic nonhealing foot ulcer. Left foot x-ray was negative for osteoarthritis. 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 Senior Oracle Developer been consulted. Await recommendations. Wound care per the podiatry team. Continue cefepime 1 g IV daily. Continue Flagyl 500 mg IV every 8 hours. Discontinue Vancomycin. Duration of treatment is on the clinical picture, but likely total 6 weeks. Monitor labs for drug toxicity and dose adjust antibiotics. Qualifiers: Osteomyelitis type: acute hematogenous Osteomyelitis location: foot Laterality: left Qualified Code(s): M86.072 - Acute hematogenous osteomyelitis, left ankle and foot (3) Gangrene of left foot Current Visit: Yes Status: Suspected (4) Foot ulcer, left Current Visit: Yes Status: Acute Location: Plantar aspect of the left foot. Likely secondary to previous callus removal. Wound care per the podiatry team. Qualifiers: Non-pressure ulcer stage: unspecified non-pressure ulcer stage Qualified Code(s): L97.529 - Non-pressure chronic ulcer of other part of left foot with unspecified severity (5) ESRD (end stage renal disease) on dialysis Current Visit: Yes Status: Chronic Nephrology consulted and following. (6) Diabetes mellitus Current Visit: Yes Status: Chronic Recommend aggressive glucose monitoring and control to promote wound healing and prevent reinfection. Management per the primary team. Qualifiers: Diabetes mellitus type: type 2 Diabetes mellitus long-term insulin use: with long-term use Diabetes mellitus complication status: with kidney complications Diabetes mellitus complication detail: with chronic kidney disease Chronic kidney disease stage: on chronic dialysis Qualified Code(s): E11.22 - Type 2 diabetes mellitus with diabetic chronic kidney disease; N18.6 - End stage renal disease; Z79.4 - assisted (current) use of insulin; Z99.2 - Dependence on renal dialysis (7) PVD (peripheral vascular disease) Current Visit: Yes Status: Chronic ABIs completed 08/20/17 showed findings consistent with severe disease in the right lower extremity and moderate disease in the left lower extremity. Repeat ABIs show severe disease bilaterally. TCPO2 right 40 ankle, 50 foot. Left 22 ankle, 13 foot. Vascular surgery consulted. Status post aortogram with BLE angiogram via right common artery, left SFA angioplasty, and left popliteal artery angioplasty by Dr. Craig. 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 No acute events noted overnight. Patient states overall she feels better this morning. Reports some subjective fevers and chills overnight, but none so far this morning. Denies chest pain, shortness of breath, or cough. Denies nausea, vomiting, or diarrhea. Denies abdominal pain or urinary complaints. She does not make much urine secondary to her ESRD. She is currently NPO since coming back from angiogram, but states she is hungry. Denies oral thrush or new skin lesions. Reports some pain in the left foot with manipulation, but otherwise denies pain. Infect Dis PN-Objective Data - Labs CBC & Chem 7: 04/02/18 04:00 04/02/18 04:00 Labs: Laboratory Results - last 24 hr 03/30/18 03/30/18 03/30/18 07:46 11:43 16:50 WBC RBC Hgb Hct MCV MCH MCHC RDW Plt Count MPV Immature Gran % Seg Neutrophils % Lymphocytes % Monocytes % Eosinophils % Basophils % Neutrophils # Lymphocytes # Monocytes # Eosinophils # Basophils # POC Glucose 138 H 141 H 279 H Urine Color Urine Clarity Urine pH Ur Specific [place] Urine Protein Urine Glucose (UA) Urine Ketones Urine Blood Urine Nitrite Urine Bilirubin Urine Urobilinogen Ur Leukocyte Esterase Urine Microscopic RBC Urine Microscopic WBC Ur Squamous Epith Cells Urine Bacteria Hyaline Casts Ur Culture Indicated? Random Vancomycin 03/30/18 03/30/18 03/31/18 19:00 22:15 04:44 WBC RBC Hgb Hct MCV MCH MCHC RDW Plt Count MPV Immature Gran % Seg Neutrophils % Lymphocytes % Monocytes % Eosinophils % Basophils % Neutrophils # Lymphocytes # Monocytes # Eosinophils # Basophils # POC Glucose 81 Urine Color Yellow Urine Clarity Turbid A Urine pH 6.0 Ur Specific [place] 1.019 Urine Protein >=300 H Urine Glucose (UA) 250 H Urine Ketones Negative Urine Blood Trace H Urine Nitrite Negative Urine Bilirubin Small H Urine Urobilinogen Normal Ur Leukocyte Esterase Moderate H Urine Microscopic RBC 5-15 H Urine Microscopic WBC TNTC H Ur Squamous Epith Cells Many H Urine Bacteria Few Hyaline Casts Few Ur Culture Indicated? NO. A Random Vancomycin 15 03/31/18 04:44 WBC 12.7 H RBC 3.13 L Hgb 10.2 L Hct 32.8 L MCV 104.8 H MCH 32.6 MCHC 31.1 L RDW 14.2 Plt Count 228 MPV 9.8 Immature Gran % 0.4 Seg Neutrophils % 73.9 Lymphocytes % 11.7 Monocytes % 9.1 Eosinophils % 4.2 Basophils % 0.7 Neutrophils # 9.4 H Lymphocytes # 1.5 Monocytes # 1.2 Eosinophils # 0.5 Basophils # 0.1 POC Glucose Urine Color Urine Clarity Urine pH Ur Specific [place] Urine Protein Urine Glucose (UA) Urine Ketones Urine Blood Urine Nitrite Urine Bilirubin Urine Urobilinogen Ur Leukocyte Esterase Urine Microscopic RBC Urine Microscopic WBC Ur Squamous Epith Cells Urine Bacteria Hyaline Casts Ur Culture Indicated? Random Vancomycin Cultures: Cultures 03/29/18 16:45 Wound Culture - Final Right Foot Klebsiella oxytoca 03/29/18 12:50 Blood Culture - Preliminary Peripheral Venipuncture Culture is incubating and being continuously monitored for growth. Final report to follow. 03/29/18 12:50 Blood Culture - Preliminary Peripheral Venipuncture Culture is incubating and being continuously monitored for growth. Final report to follow. Serology 03/30/18 03/29/18 Range/Units 19:00 15:09 Urine Color Yellow (Yellow) Urine Clarity Turbid A (Clear) Urine pH 6.0 (5.0-8.0) pH Units Ur Specific [place] 1.019 (1.010-1.025) Urine Protein >=300 H (Neg-Trace) mg/dL Urine Glucose (UA) 250 H (Normal) mg/dL Urine Ketones Negative (Negative) mg/dL Urine Blood Trace H (Negative) Urine Nitrite Negative (Negative) Urine Bilirubin Small H (Negative) Urine Urobilinogen Normal (Normal) mg/dL Ur Leukocyte Esterase Moderate H (Negative) Urine Microscopic RBC 5-15 H (0-3) per hpf Urine Microscopic WBC TNTC H (0-3) per hpf Ur Squamous Epith Cells Many H (None-Few) per lpf Urine Bacteria Few (None-Few) per hpf Hyaline Casts Few (None-Few) per lpf Ur Culture Indicated? NO. A (NO) Hep Bs Antigen Nonreactive (Nonreactive) Hep Bs Antibody 1.18 mIU/mL - Impressions Impressions Foot MRI 03/30/18 18:38 IMPRESSION: 1. Ulcer on the plantar medial surface of the 1st MTP joint. No adjacent abscess. 2. Trace marrow edema in the plantar aspect of the 1st metatarsal head and medial hallux sesamoid adjacent to the ulcer. Findings could be reactive or due to early osteomyelitis. No T1 signal changes are evident. D/ / 03/30/2018 11:53:28 Johnny Hager MD / [facility] Interpreting Provider: Johnny Hager MD Exam - Constitutional Vitals: Temp Pulse Resp BP Pulse Ox 98.1 F 58 17 198/66 100 03/31/18 03:19 03/31/18 03:19 03/31/18 03:19 03/31/18 03:19 03/31/18 03:19 General appearance: average body habitus, cooperative, no acute distress - Head Head exam: Present: atraumatic, normal inspection, normocephalic - Eye Eye exam: Absent: normal appearance (Left eye atrophied.) - ENT ENT exam: Present: mucous membranes moist - Neck Neck exam: Present: normal inspection - Respiratory Respiratory exam: Present: CTAB. Absent: rales, wheezes - Cardiovascular Cardiovascular exam: Present: RRR, +S1, +S2 - GI/Abdominal GI/Abdominal exam: Present: normal bowel sounds, soft. Absent: distended, tenderness - Extremities Exam Extremities exam: Present: tenderness (left foot). Absent: normal inspection (Left foot dressing with small amount of dark brown drainage noted. Ulceration noted to the left 1st metatarsal with foul drainage. Necrosis %75 of wound bed, slough 25%. Surrounding erythema improved. ), pedal edema Additional comments: Erythema noted to the left inner calf that is warm and tender to touch, improved since exam yesterday. Erythema noted to the dorsal aspect of the left foot, improved since yesterday. - Neurological Exam Neurological exam: Present: alert, oriented X3, no focal deficits - Psychiatric Psychiatric exam: Present: normal affect, normal mood - Skin Skin exam: Present: dry, intact, normal color, warm Consult Discharge Plan - Plan Referrals: Tom Xie Jr, MD [Primary Care Provider] - - Attending Attestation I examined this patient and my medical decision-making was reviewed with the Resident Physician. I agree with the documented findings, disposition and treatment plan as described except to the extent set forth below.
--- NOTE | 2018-03-31 11:47 | Nephrology Progress Note ---
Addendum entered and electronically signed by Luis Victoria MD 03/31/18 23:02: I examined this patient and discussed the medical decision-making with ERNA Muse. I agree with the documented findings, disposition and treatment plan as described except to the extent set forth below. Patient was seen on dialysis Original Note: Date of Encounter: 03/31/18 Time of Encounter: 11:46 - Assessment and Plan (1) ESRD (end stage renal disease) on dialysis Current Visit: Yes Status: Chronic HD MWF. Renal vitamins. Renal dose medications. Renal diet. Additional dialysis and ultrafiltration as needed. Plan for dialysis today. (2) Diabetes mellitus Current Visit: Yes Status: Chronic Per the primary team Qualifiers: Diabetes mellitus type: type 2 Diabetes mellitus prison insulin use: with prison use Diabetes mellitus complication status: with kidney complications Diabetes mellitus complication detail: with chronic kidney disease Chronic kidney disease stage: on chronic dialysis Qualified Code(s): E11.22 - Type 2 diabetes mellitus with diabetic chronic kidney disease; N18.6 - End stage renal disease; Z79.4 - longterm (current) use of insulin; Z99.2 - Dependence on renal dialysis (3) PVD (peripheral vascular disease) Current Visit: Yes Status: Chronic Primary team (4) Cellulitis of left foot Current Visit: Yes Status: Acute Per podiatry, appreciate recommendations. Subjective Principal diagnosis: left leg infection Interval history: Pt seen and examined, doing well. Denies SOB or CP. Denies nausea/vomiting/diarrhea. Objective - Vital Signs Vital signs: Vital Signs Temp Pulse Resp BP Pulse Ox 03/31/18 11:22 98.1 F 59 17 134/66 97 03/31/18 03:19 98.1 F 58 17 198/66 100 03/30/18 23:25 98.2 F 63 18 187/68 99 03/30/18 18:45 98.1 F 60 18 142/61 99 03/30/18 16:52 98.6 F 61 17 166/67 03/30/18 11:47 99.1 F 61 17 149/71 97 Intake and Output 03/30/18 03/31/18 03/31/18 23:59 07:59 15:59 Intake Total 100 / 100 100 / 100 Output Total 200 / 200 Balance -100 / -100 100 / 100 Intake: IV Fluids 100 / 100 100 / 100 Flagyl Premix 500 MG/100 ML 500 100 / 100 100 / 100 mg In 100 ml @ 100 mls/hr IVPB Q8HR [facility] Rx#:[id number] Output: Urine 200 / 200 Other: Meal npo Stool Size Small Stool Consistency soft Stool Color Green Weight 77.8 kg Blood Glucose* 279 119 - General Appearance General appearance: Present: well-developed, well-nourished EENT: Present: ATNC, hearing intact, vision intact Neck: Present: supple Respiratory: Present: clear Cardiology: Present: no edema, normal S1, normal S2 Dialysis Vascular Access: Arteriovenous Fistula thrill: Yes bruit: Yes Gastrointestinal: Present: normoactive bowel sounds, no tenderness, no guarding Integumentary: Present: no rash, warm and dry Neurologic: Present: alert and oriented x3 Psychiatric: Present: mood/affect appropriate, cooperative - Lab 03/31/18 04:44 03/30/18 04:56 Most recent lab results Calcium 8.4 mg/dL (8.6-10.3) L 03/30/18 04:56 Consult Discharge Plan - Plan Referrals: Tom Xie Jr, MD [Primary Care Provider] -
--- NOTE | 2018-03-31 14:59 | Podiatry Progress Note ---
Date of Encounter: 03/31/18 Time of Encounter: 12:15 - Assessment and Plan (1) Foot ulcer, left Current Visit: Yes Status: Acute I had a thorough review with the patient and her family bedside regarding her left foot infection and wound which probes to the bone. We discussed her MRI findings in addition to the clinical findings. We discussed surgical intervention and partial first ray amputation with attempted flap closure of wound. Nature of the procedure, risks versus benefits potential palpitations consequences of her condition and surgery discussed at length including but not limited to infection bleeding swelling numbness tingling persistent infection heart attack stroke liver damage kidney damage lack of procedure to produce desired outcome wound healing problems pulmonary embolism blood clot need for further surgery. No guarantees made as to the outcome of any procedure. All of her questions were answered and the informed consent was signed. We discussed course of recovery. She understood that she could still have a wound a hill despite having surgery. Patient was taken to the operating room on Thursday a.m. Dialysis in PM. Nothing by mouth after midnight tomorrow. Qualifiers: Non-pressure ulcer stage: unspecified non-pressure ulcer stage Qualified Code(s): L97.529 - Non-pressure chronic ulcer of other part of left foot with unspecified severity Subjective Principal diagnosis: left leg infection Interval history: patient admitted with left foot infection. Patient was found to have worse ALEJANDRA/PVR noninvasive vascular studies this admission compared to previous. MRI was done showing potential osteomyelitis of the first ray. Patient has a necrotic wound of the first ray. Patient says that it started over the weekend and gradually worsened. She says her foot also became red. She has not had an angiogram and stents placed by Dr. Craig. Patient is on dialysis. Objective - Vital Signs Vital Signs: Vital Signs Temp Pulse Resp BP Pulse Ox 03/31/18 11:22 98.1 F 59 17 134/66 97 03/31/18 03:19 98.1 F 58 17 198/66 100 03/30/18 23:25 98.2 F 63 18 187/68 99 03/30/18 18:45 98.1 F 60 18 142/61 99 03/30/18 16:52 98.6 F 61 17 166/67 Intake and Output 03/30/18 03/31/18 03/31/18 23:59 07:59 15:59 Intake Total 100 / 100 100 / 100 220 / 220 Output Total 200 / 200 Balance -100 / -100 100 / 100 220 / 220 Intake: IV Fluids 100 / 100 100 / 100 100 / 100 Flagyl Premix 500 MG/100 ML 500 100 / 100 100 / 100 100 / 100 mg In 100 ml @ 100 mls/hr IVPB Q8HR [facility] Rx#:[id number] Oral 120 / 120 Output: Urine 200 / 200 Other: Meal Lunch Percent of Meal Consumed 100% Stool Size Small Stool Consistency soft Stool Color Green Weight 77.8 kg Blood Glucose* 279 119 - Exam Exam: Well-developed and nourished female in no acute distress Left necrosis under the first metatarsophalangeal joint. exposed 1st met and proximal phalanx bone. No purulence. There is malodor. There is some serous drainage. No purulence expressed. No crepitus. Foot is warm to touch. Erythema is present on the dorsal foot extending from the ulcerations. Foot is warm to touch. Mild edema. MRI: 1. Ulcer on the plantar medial surface of the 1st MTP joint. No adjacent abscess. 2. Trace marrow edema in the plantar aspect of the 1st metatarsal head and medial hallux sesamoid adjacent to the ulcer. Findings could be reactive or due to early osteomyelitis. No T1 signal changes are evident. - Lab Result Diagrams: 03/31/18 04:44 03/30/18 04:56 Labs: Abnormal lab results WBC 12.7 K/mcL (4.3-11.1) H 03/31/18 04:44 RBC 3.13 M/mcL (3.82-4.97) L 03/31/18 04:44 Hgb 10.2 g/dL (11.5-15.4) L 03/31/18 04:44 Hct 32.8 % (35.3-44.9) L 03/31/18 04:44 MCV 104.8 fL (83.0-100.0) H 03/31/18 04:44 MCHC 31.1 g/dL (31.6-35.5) L 03/31/18 04:44 Neutrophils # 9.4 K/mcL (1.6-8.9) H 03/31/18 04:44 ESR 77 mm/hr (0-15) H 03/29/18 11:58 Sodium 135 mEq/L (136-145) L 03/30/18 04:56 BUN 27 mg/dL (8-23) H 03/30/18 04:56 Creatinine 4.24 mg/dL (0.60-1.20) H 03/30/18 04:56 Est GFR ( Amer) 12 (> 60) L 03/30/18 04:56 Est GFR (Non-Af Amer) 10 (> 60) L 03/30/18 04:56 Glucose 202 mg/dL (70-105) H 03/30/18 04:56 Hemoglobin A1c 6.2 % (-5.6) H 03/29/18 11:58 Calcium 8.4 mg/dL (8.6-10.3) L 03/30/18 04:56 C-Reactive Protein 157 mg/L (Less than 10) H 03/29/18 11:58 Lipase 7 Units/L (11-82) L 03/29/18 11:58 Urine Clarity Turbid (Clear) A 03/30/18 19:00 Urine Protein >=300 mg/dL (Neg-Trace) H 03/30/18 19:00 Urine Glucose (UA) 250 mg/dL (Normal) H 03/30/18 19:00 Urine Blood Trace (Negative) H 03/30/18 19:00 Urine Bilirubin Small (Negative) H 03/30/18 19:00 Ur Leukocyte Esterase Moderate (Negative) H 03/30/18 19:00 Urine Microscopic RBC 5-15 per hpf (0-3) H 03/30/18 19:00 Urine Microscopic WBC TNTC per hpf (0-3) H 03/30/18 19:00 Ur Squamous Epith Cells Many per lpf (None-Few) H 03/30/18 19:00 Ur Culture Indicated? NO. (NO) A 03/30/18 19:00 Microbiology, Last 48 Hours 03/29/18 16:45 Wound Culture - Final Right Foot Klebsiella oxytoca 03/29/18 12:50 Blood Culture - Preliminary Peripheral Venipuncture Culture is incubating and being continuously monitored for growth. Final report to follow. 03/29/18 12:50 Blood Culture - Preliminary Peripheral Venipuncture Culture is incubating and being continuously monitored for growth. Final report to follow. Consult Discharge Plan - Plan Referrals: Tom Xie Jr, MD [Primary Care Provider] -
[2018-03-31] MEDS ORDERED: Vancomycin 500 MG in 0.9 % Sodium Chloride Mini Bag 100 ML IVPB ONE (16:00)
[2018-03-31] MEDS ORDERED: Cefepime HCl 1,000 MG in Water for inj. (sterile) 20 ML 10 ML IVP SCH (16:00)
--- NOTE | 2018-03-31 18:20 | Internal Med Progress Note ---
Date of Encounter: 03/31/18 Time of Encounter: 17:45 - Time Spent With Patient - Assessment and Plan (1) Cellulitis of left foot Current Visit: Yes Status: Acute Assessment and Plan: Patient has a diabetic foot ulcer to the left foot, with cellulitis and osteomylitis. MRI shows early osteomyelitis. Continue vancomycin , cefepime and Flagyl. (2) Leukocytosis Current Visit: Yes Status: Acute Assessment and Plan: Continue above antibiotics. Leukocytosis has improved. (3) CHF (congestive heart failure) Current Visit: Yes Status: Chronic Assessment and Plan: Stable. continue home lasix (4) ESRD (end stage renal disease) on dialysis Current Visit: Yes Status: Chronic Assessment and Plan: HD on MWF (5) Diabetes mellitus Current Visit: Yes Status: Chronic (6) PVD (peripheral vascular disease) Current Visit: Yes Status: Chronic Assessment and Plan: This has been addressed by vascular surgery today with aortogram and lower extremity vascular angioplasties. (7) Blind left eye Current Visit: Yes Status: Chronic (8) CAD (coronary artery disease) of artery bypass graft Current Visit: Yes Status: Chronic Assessment and Plan: CAD s/p Stent in 12/2017, denies chest pain - Time Spent with Patient Total time spent is greater than 50% in coordination of care (as documented) at patient's floor/unit and/or counseling patient: 25 - 35 minutes 25 - 35 minutes - Subjective Interval history: Patient seen and examined today. She denies any dyspnea. There is no chest pain. She has been seen by infectious disease and podiatry today. She is scheduled for podiatry surgery on Thursday morning. She had an aortogram and left superficial femoral angioplasty and left popliteal artery angioplasty earlier today by vascular surgery. Infectious disease has recommended a trivial of cefepime, vancomycin and Flagyl. - Constitutional Vitals: Temp Pulse Resp BP Pulse Ox 97.8 F 59 18 114/29 97 03/31/18 14:15 03/31/18 11:22 03/31/18 14:15 03/31/18 16:45 03/31/18 11:22 General appearance: Present: A&O X 3, no acute distress Exam: CONSTITUTIONAL: patient appears as an age appropriate female in no acute distress. EYES Clear sclerae, bilateral pupils are equal, reactive to light. EMOI. RESPIRATORY: bilateral clear to auscultation, no wheezing, no crackles/rales. CARDIOVASCULAR: Regular heart rate, normal S1 and S2, no murmurs GASTROINTESTINAL: Soft, benign MUSCULOSKELETAL: Left foot is wrapped in bandage. Skin color of the toes is normal. NEUROLOGIC: CN II to XII are grossly intact, no focal neurological deficit. Internal Medicine: Result - Labs CBC & Chem 7: 03/31/18 04:44 03/30/18 04:56 Labs: Short CBC 03/31/18 Range/Units 04:44 WBC 12.7 H (4.3-11.1) K/mcL Hgb 10.2 L (11.5-15.4) g/dL Hct 32.8 L (35.3-44.9) % Plt Count 228 (140-400) K/mcL Neutrophils # 9.4 H (1.6-8.9) K/mcL Urine 03/30/18 Range/Units 19:00 Urine Color Yellow (Yellow) Urine Clarity Turbid A (Clear) Urine pH 6.0 (5.0-8.0) pH Units Ur Specific [place] 1.019 (1.010-1.025) Urine Protein >=300 H (Neg-Trace) mg/dL Urine Glucose (UA) 250 H (Normal) mg/dL - Impressions Impressions Foot MRI 03/30/18 18:38 IMPRESSION: 1. Ulcer on the plantar medial surface of the 1st MTP joint. No adjacent abscess. 2. Trace marrow edema in the plantar aspect of the 1st metatarsal head and medial hallux sesamoid adjacent to the ulcer. Findings could be reactive or due to early osteomyelitis. No T1 signal changes are evident. D/ / 03/30/2018 11:53:28 Johnny Hager MD / [facility] Interpreting Provider: Johnny Hager MD Consult Discharge Plan - Plan Referrals: Tom Xie Jr, MD [Primary Care Provider] -
[2018-03-31] MEDS: Insulin DETEMIR 100 UNIT/ML X5UNITS SQ SCH (22:00)
[2018-03-31] MEDS: Artificial Tears SOLN 15 ML BOTTLE BOTH EYES PRN (22:07)
[2018-04-01] MEDS: MetroNIDAZOLE 500 MG/100 ML 500 MG/100 ML BAG IVPB SCH (06:58)
[2018-04-01 09:14] LABS: Basophils # 0.1 K/mcL (0.0-0.2); Eosinophils # 0.7 K/mcL (0.0-0.6); Eosinophils % 5.5 %; Hematocrit 36.5 % (35.3-44.9); Hemoglobin 11.3 g/dL (11.5-15.4); Immature Granulocytes % 0.5 % (0-4); Lymphocytes # 1.5 K/mcL (0.6-4.6); Mean Corpuscular Hemoglobin 32.1 pg (28.0-33.3); Mean Corpuscular Volume 103.7 fL (83.0-100.0); Mean Platelet Volume 9.6 fL (9.4-12.4); Monocytes # 1.1 K/mcL (0.0-1.3); Monocytes % 8.9 %; Platelet Count 259 K/mcL (140-400); Red Blood Count 3.52 M/mcL (3.82-4.97); Red Cell Distribution Width 14.3 % (11.5-14.5); Segmented Neutrophils % 72.1 %
[2018-04-01 09:31] LABS: Calcium 8.5 mg/dL (8.6-10.3); Potassium 4.3 mEq/L (3.5-5.1)
--- NOTE | 2018-04-01 10:09 | Podiatry Progress Note ---
Date of Encounter: 04/01/18 Time of Encounter: 08:30 - Assessment and Plan (1) Foot ulcer, left Current Visit: Yes Status: Acute Left foot #1 sub MTPJ with necrotic ulcer Wound measuring 5 x 4 x 0.3 cm with tunneling noted to 5 o'clock with a depth of 0.3 cm Wound bed with eschar, slough, and foul odor. Wound cultures obtained, resulted Klebsiella. Dressing clean dry and intact. To be changed by nursing today. WBC 21.7, ESR 77, CRP 157 on 03/29, WBC decreasing, 12.4 today. ALEJANDRA worsened from previous, L 0.32, R 0.36 TCPO2 right ankle 40, right foot 50, left ankle 22, left foot 13 MRI of left foot showed possible early osteomylitis Scheduled for amputation left hallux and partial 1st metatarsal tomorrow 04/02/18. NPO after midnight. OK to take AM medications. Diaylsis after surgery. Qualifiers: Non-pressure ulcer stage: unspecified non-pressure ulcer stage Qualified Code(s): L97.529 - Non-pressure chronic ulcer of other part of left foot with unspecified severity (2) Cellulitis of left foot Current Visit: Yes Status: Acute Erythema and edema noted to dorsal aspect foot. Hot to touch. Area marked. Left lower calf with erythema and warmness noted, area marked. Decreasing in size. ATB managed per ID (3) Osteomyelitis Current Visit: Yes Status: Suspected OR tomorrow for left hallux amputation and #1 partial metatarsal Surgery consent signed and on chart Qualifiers: Osteomyelitis type: acute hematogenous Osteomyelitis location: foot Laterality: left Qualified Code(s): M86.072 - Acute hematogenous osteomyelitis, left ankle and foot (4) PVD (peripheral vascular disease) Current Visit: Yes Status: Chronic ABIs as stated above. TCPO2 as stated above Left angiogram 03/31/18 with intervention. Left superficial femoral angioplasty with 4 x 220 mm balloon Left popliteal artery angioplasty with 3 x 10 mm cutting balloon. Vascular surgery following (5) Diabetes mellitus Current Visit: Yes Status: Chronic Type II DM. Hemoglobin A1c 6.2. Recommend tight glycemic control for wound healing while in hospital. 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 Family at bedside. Denies pain at present. Objective - Vital Signs Vital Signs: Vital Signs Temp Pulse Resp BP Pulse Ox 04/01/18 06:31 98.3 F 61 16 163/53 97 04/01/18 04:48 98.0 F 66 16 160/57 96 03/31/18 23:28 99.1 F 62 16 115/67 99 03/31/18 19:30 98.5 F 70 16 125/55 98 03/31/18 18:10 98.1 F 18 148/69 03/31/18 17:45 129/41 03/31/18 17:30 119/59 03/31/18 17:15 118/37 03/31/18 17:00 135/48 03/31/18 16:45 114/29 03/31/18 16:30 108/59 03/31/18 16:15 110/28 03/31/18 16:00 137/42 03/31/18 15:45 141/61 03/31/18 15:30 135/51 03/31/18 15:15 148/63 03/31/18 15:00 156/58 03/31/18 14:45 140/55 03/31/18 14:30 137/37 03/31/18 14:15 97.8 F 18 142/54 03/31/18 11:22 98.1 F 59 17 134/66 97 Intake and Output 03/31/18 04/01/18 04/01/18 23:59 07:59 15:59 Output Total 2600 / 2600 Balance -2600 / -2600 Output: Total Dialysis (HD) Output 2600 / 2600 Other: Weight 78.3 kg Blood Glucose* 261 146 Hemodialysis Net Fluid Removed 2000 (mL) - Exam Exam: Constitiutional: Alert and oriented x 3. Vascular: 1/4 DP/PT bilaterally, CFT <3 sec to all digits, warm to warm from t ibia to toes bilaterally, hot to left hallux to midfoot, edema 1+/4 left foot Neurologic: Diminished sensation to touch, normal plantar response, Dermatologic: Left foot #1 sub MTPJ with necrotic ulcer with slough noted, right amputated hallux. Musculoskeletal: 4/5 muscle strength and normal tone bilaterally. - Lab Result Diagrams: 04/01/18 08:51 04/01/18 08:51 Labs: Abnormal lab results WBC 12.4 K/mcL (4.3-11.1) H 04/01/18 08:51 RBC 3.52 M/mcL (3.82-4.97) L 04/01/18 08:51 Hgb 11.3 g/dL (11.5-15.4) L 04/01/18 08:51 MCV 103.7 fL (83.0-100.0) H 04/01/18 08:51 MCHC 31.0 g/dL (31.6-35.5) L 04/01/18 08:51 Neutrophils # 9.0 K/mcL (1.6-8.9) H 04/01/18 08:51 Eosinophils # 0.7 K/mcL (0.0-0.6) H 04/01/18 08:51 ESR 77 mm/hr (0-15) H 03/29/18 11:58 Carbon Dioxide 30 mEq/L (23-29) H 04/01/18 08:51 BUN 28 mg/dL (8-23) H 04/01/18 08:51 Creatinine 4.54 mg/dL (0.60-1.20) H 04/01/18 08:51 Est GFR ( Amer) 12 (> 60) L 04/01/18 08:51 Est GFR (Non-Af Amer) 10 (> 60) L 04/01/18 08:51 Glucose 148 mg/dL (70-105) H 04/01/18 08:51 POC Glucose 146 mg/dL (70-99) H 04/01/18 06:34 Hemoglobin A1c 6.2 % (-5.6) H 03/29/18 11:58 Calcium 8.5 mg/dL (8.6-10.3) L 04/01/18 08:51 C-Reactive Protein 157 mg/L (Less than 10) H 03/29/18 11:58 Lipase 7 Units/L (11-82) L 03/29/18 11:58 Urine Clarity Turbid (Clear) A 03/30/18 19:00 Urine Protein >=300 mg/dL (Neg-Trace) H 03/30/18 19:00 Urine Glucose (UA) 250 mg/dL (Normal) H 03/30/18 19:00 Urine Blood Trace (Negative) H 03/30/18 19:00 Urine Bilirubin Small (Negative) H 03/30/18 19:00 Ur Leukocyte Esterase Moderate (Negative) H 03/30/18 19:00 Urine Microscopic RBC 5-15 per hpf (0-3) H 03/30/18 19:00 Urine Microscopic WBC TNTC per hpf (0-3) H 03/30/18 19:00 Ur Squamous Epith Cells Many per lpf (None-Few) H 03/30/18 19:00 Ur Culture Indicated? NO. (NO) A 03/30/18 19:00 Microbiology, Last 48 Hours 03/29/18 16:45 Anaerobic Culture - Preliminary Right Foot At this time, no anaerobic growth is present. The culture will be finalized after 5 days of incubation. 03/29/18 16:45 Wound Culture - Final Right Foot Klebsiella oxytoca Consult Discharge Plan - Plan Referrals: Tom Xie Jr, MD [Primary Care Provider] -
[2018-04-01] MEDS: *HR* Heparin 5,000 UNIT/ML VIAL SQ SCH ×2 (10:15→19:41)
[2018-04-01] MEDS: Isosorbide MONOnitrate (24 HR) 30 MG TAB.ER.24H PO SCH (10:19)
[2018-04-01] MEDS: Metoprolol XL (24 HR) Succ 25 MG TAB.ER.24H PO SCH (10:19)
[2018-04-01] MEDS: rOPINIRole 1 MG TABLET PO SCH ×2 (10:19→23:14)
[2018-04-01] MEDS: metroNIDAZOLE 500 MG TABLET PO SCH ×3 (10:19→23:13)
[2018-04-01] MEDS: Renal Vitamin 1 CAP CAPSULE PO SCH (10:19)
[2018-04-01] MEDS: Furosemide 40 MG TABLET PO SCH ×2 (10:20→16:58)
[2018-04-01] MEDS: Aspirin Enteric Coated 81 MG Tablet PO SCH (10:20)
[2018-04-01] MEDS: Insulin LISPRO 300 UNITS/3 ML VIAL SQ SCH ×2 (10:25→12:08)
[2018-04-01] MEDS: Dorzolamide/Timolol OPTH 10 ML BOTTLE BOTH EYES SCH ×2 (10:26→23:13)
[2018-04-01] MEDS: Artificial Tears SOLN 15 ML BOTTLE BOTH EYES PRN (10:26)
--- NOTE | 2018-04-01 11:06 | Internal Med Progress Note ---
<Dolores Hoover - Last Filed: 04/01/18 15:04> Hospitalist Progress Note - Encounter Date of Encounter: 04/01/18 Time of Encounter: 11:04 - Subjective Interval History: Pt is a 72F with PMH of COPD, CHF, ESRD, DM, CAD presented with increased left leg pain and swelling after not receiving 3 dialysis treatments during last w [place]. MRI revealed the presence of possible early osteomyelitis and podiatry plans for operative amputation left hallux and/or metatarsal Thursday. No acute events overnight. Pt endorses some nausea, nasal congestion, SOB, fevers, chronic numbness and tingling of fingers and toes, and lightheadedness when standing. ROS was otherwise unremarkable. Pt will be NPO after midnight in preparation for surgery, short acting insulin will be held, and long-acting insulin dose will be halved to 6 units. DVT prophylaxis is currently contraindicated, but will start tomorrow after surgery with heparin SQ. - Exam Vitals: Temp Pulse Resp BP Pulse Ox 98.0 F 60 16 145/48 99 04/01/18 10:53 04/01/18 10:53 04/01/18 10:53 04/01/18 10:53 04/01/18 10:53 Exam: CONSTITUTIONAL: patient appears as an age appropriate female in no acute distress. EYES Clear sclerae, bilateral pupils are equal, reactive to light. EMOI. RESPIRATORY: No accessory muscle use, rales appreciated in left lower lobe, clear in other lobes CARDIOVASCULAR: Regular heart rate, normal S1 and S2, no murmurs GASTROINTESTINAL: bowel sounds present, soft, no tenderness. Skin: Warm, dry, left foot bandaged, bloody purulent fluid present on bandages. Other skin intact. NEUROLOGIC: CN II to XII are grossly intact, no focal neurological deficit. - Assessment and Plan (1) Chronic congestive heart failure Current Visit: Yes Status: Chronic Assessment and Plan: Last echo June 2016 revealed EF 50-55% with mild left ventricular diastolic dysfunction - pt does not have significant swelling in LE with exception of left foot where osteomyelitis and wound are present - pt on 25mg Metoprolol, 80mg BID Lasix - continue to monitor (2) ESRD (end stage renal disease) on dialysis Current Visit: Yes Status: Chronic Assessment and Plan: -Pt receives MWF dialysis - will continue her schedule while admitted (3) Diabetes mellitus Current Visit: Yes Status: Chronic Assessment and Plan: - Low dose correction schedule - 15mg BID Levemir - Goal sugars <180 to encourage wound healing (4) PVD (peripheral vascular disease) Current Visit: Yes Status: Chronic Assessment and Plan: ABIs completed 08/20/17 showed findings consistent with severe disease in the right lower extremity and moderate disease in the left lower extremity. Repeat ABIs show severe disease bilaterally. TCPO2 right 40 ankle, 50 foot. Left 22 ankle, 13 foot. Vascular surgery consulted. Status post aortogram with BLE angiogram via right common artery, left SFA angioplasty, and left popliteal artery angioplasty by Dr. Craig. (5) Blind left eye Current Visit: Yes Status: Chronic Assessment and Plan: team aware (6) Cellulitis of left foot Current Visit: Yes Status: Acute Assessment and Plan: Followed by ID, see their notes from detailed plans. - Metronidazole 500mg TID - 1gm Cefepime QD (7) CAD (coronary artery disease) of artery bypass graft Current Visit: Yes Status: Chronic Assessment and Plan: Followed by Dr. Recio, Cardiology (8) Leukocytosis Current Visit: Yes Status: Acute Assessment and Plan: Pt's WBC 21.7 at admit, 12.4 today, likely a reflection of infectious process in left foot continue to monitor (9) Osteomyelitis Current Visit: Yes Status: Acute Assessment and Plan: Followed by Podiatry Wound cultures obtained, resulted Klebsiella. MRI of left foot showed possible early osteomylitis Scheduled for amputation left hallux and partial 1st metatarsal tomorrow 04/02/18. NPO after midnight. OK to take AM medications. Diaylsis after surgery. DVT Prophylaxis: DVT Prophylaxis is contraindicated at this time - pt cannot wear SCDs due to foot infection, and is at high risk for bleeding so cannot have pharmacological VTE prophylaxis. Will re-evaluated after surgery tomorrow with anticipation of SQ heparin to be added. - Time Spent with Patient Total time spent is greater than 50% in coordination of care (as documented) at patient's floor/unit and/or counseling patient: less than 15 minutes Plan of Care Discussed with: patient Internal Medicine: Result - Labs CBC & Chem 7: 04/01/18 08:51 04/01/18 08:51 Labs: Short CBC 04/01/18 Range/Units 08:51 WBC 12.4 H (4.3-11.1) K/mcL Hgb 11.3 L (11.5-15.4) g/dL Hct 36.5 (35.3-44.9) % Plt Count 259 (140-400) K/mcL Neutrophils # 9.0 H (1.6-8.9) K/mcL BMP 04/01/18 08:51 Sodium 138 Potassium 4.3 Chloride 99 Carbon Dioxide 30 H BUN 28 H Creatinine 4.54 H Glucose 148 H Calcium 8.5 L - Impressions Impressions Foot MRI 03/30/18 18:38 IMPRESSION: 1. Ulcer on the plantar medial surface of the 1st MTP joint. No adjacent abscess. 2. Trace marrow edema in the plantar aspect of the 1st metatarsal head and medial hallux sesamoid adjacent to the ulcer. Findings could be reactive or due to early osteomyelitis. No T1 signal changes are evident. D/ / 03/30/2018 11:53:28 Johnny Hager MD / emilia Interpreting Provider: Johnny Hager MD Consult Discharge Plan - Plan Referrals: Tom Xie Jr, MD [Primary Care Provider] - <Barbra Pierce - Last Filed: 04/02/18 08:18> Hospitalist Progress Note - Encounter Date of Encounter: 04/02/18 - Exam Vitals: Temp Pulse Resp BP Pulse Ox 97.9 F 65 16 146/52 98 04/01/18 15:09 04/01/18 15:09 04/01/18 15:09 04/01/18 15:09 04/01/18 15:09 - Time Spent with Patient Total time spent is greater than 50% in coordination of care (as documented) at patient's floor/unit and/or counseling patient: Internal Medicine: Result - Labs CBC & Chem 7: 04/02/18 04:00 04/02/18 04:00 Labs: Short CBC 04/01/18 Range/Units 08:51 WBC 12.4 H (4.3-11.1) K/mcL Hgb 11.3 L (11.5-15.4) g/dL Hct 36.5 (35.3-44.9) % Plt Count 259 (140-400) K/mcL Neutrophils # 9.0 H (1.6-8.9) K/mcL BMP 04/01/18 08:51 Sodium 138 Potassium 4.3 Chloride 99 Carbon Dioxide 30 H BUN 28 H Creatinine 4.54 H Glucose 148 H Calcium 8.5 L - Attending Attestation I examined this patient and my medical decision-making was reviewed with the Resident Physician Dr Hoover. I agree with the documented findings, disposition and treatment plan as described except to the extent set forth below/addl details below Mrs Olvera was admitted for treatment of foot ulcer with cellulitis and osteomyelitis and is being followed by podiatry and ID. She has re vascularization of the leg preformed by [facility] and the [facility] surgery this admission with hx PVD. awake, [place], no pain, fevers, chills, nausea or emesis. awaiting or in am. gen- alert, awake,appears stated age cv- reg rate and rhythm, normal s1,s2, no murmurs appreciated, no le edema lungs- ctabl, no wheezing, rhonchi or crackles, norm resp effort skin- small area erythema withiin marked margins left malave, foot wound is dressed, clean, dry intact neuro- AAOx3 Left foot ulcer, cellulitis, osteomyeleitis - cont iv abx, podiatry and ID following, or in am for amputation left hallux and partial 1st metatarsal tomorrow 04/02/18, wound cx + klebsiella PVD s/p bypass grafting known to be occluded- seen by vas surg this admit, Left superficial femoral angioplasty/Left popliteal artery angioplasty 03/31/18, cont asa + plavix DM- on levemir 15 units qhs, change to 6 units for tonight as npo p mn for or ESRD on HD MWF- nephro following CHF and CAD hx both stable- cont home meds,- npo with meds past midnight--ok for meds per podiatry and needs most definitely her BB in AM VTE ppx- she has not lbeen on vte ppx due to contraindication and I agree, no p harmacologic given bleeding risk with wound on asa + plavix, OR in am, cannot due scds due to infection <Dolores Hoover - Last Filed: 04/01/18 15:04> (3) Diabetes mellitus Qualifiers: Diabetes mellitus type: type 2 Diabetes mellitus care home insulin use: with care home use Diabetes mellitus complication status: with kidney complications Diabetes mellitus complication detail: with chronic kidney disease Chronic kidney disease stage: on chronic dialysis Qualified Code(s): E11.22 - Type 2 diabetes mellitus with diabetic chronic kidney disease; N18.6 - End stage renal disease; 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 transplanted heart: [place] heart Associated angina: without angina Qualified Code(s): I25.810 - Atherosclerosis of coronary artery bypass graft(s) without angina pectoris (8) Leukocytosis Qualifiers: Leukocytosis type: bandemia Qualified Code(s): D72.825 - Bandemia (9) Osteomyelitis Qualifiers: Osteomyelitis type: acute hematogenous Osteomyelitis location: foot Laterality: left Qualified Code(s): M86.072 - Acute hematogenous osteomyelitis, left ankle and foot
--- NOTE | 2018-04-01 12:20 | Infectious Disease Progress No ---
Date of Encounter: 04/01/18 Time of Encounter: 10:05 - Assessment and Plan (1) Sepsis Current Visit: Yes Status: Acute The patient had 2 sepsis criteria, including leukocytosis and fever. Likely secondary to left foot cellulitis. Improved. WBC is trending down. Afebrile overnight. Blood cultures drawn 03/29/18 are NGTD x 2 sets. Qualifiers: Sepsis type: sepsis due to unspecified organism Qualified Code(s): A41.9 - Sepsis, unspecified organism (2) Osteomyelitis Current Visit: Yes Status: Acute Location: Left foot first metatarsal head and medial hallux sesamoid. Positive organism: Unclear. Wound culture is positive for K. oxytoca, higgins- sensitive. Likely secondary to chronic nonhealing foot ulcer. Left foot x-ray was negative for osteoarthritis. 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 Senior Art Director been consulted. Planning for surgery on Thursday. Wound care per the podiatry team. Continue cefepime 1 g IV daily. Continue Flagyl 500 mg IV every 8 hours. Duration of treatment is on the clinical picture, but likely total 6 weeks. Monitor labs for drug toxicity and dose adjust antibiotics. Qualifiers: Osteomyelitis type: acute hematogenous Osteomyelitis location: foot Laterality: left Qualified Code(s): M86.072 - Acute hematogenous osteomyelitis, left ankle and foot (3) Gangrene of left foot Current Visit: Yes Status: Suspected (4) Foot ulcer, left Current Visit: Yes Status: Acute Location: Plantar aspect of the left foot. Likely secondary to previous callus removal. Wound care per the podiatry team. Qualifiers: Non-pressure ulcer stage: unspecified non-pressure ulcer stage Qualified Code(s): L97.529 - Non-pressure chronic ulcer of other part of left foot with unspecified severity (5) ESRD (end stage renal disease) on dialysis Current Visit: Yes Status: Chronic Nephrology consulted and following. (6) Diabetes mellitus Current Visit: Yes Status: Chronic Recommend aggressive glucose monitoring and control to promote wound healing and prevent reinfection. Management per the primary team. 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 Repeat ABIs show severe disease bilaterally. TCPO2 right 40 ankle, 50 foot. Left 22 ankle, 13 foot. Vascular surgery consulted. Status post aortogram with BLE angiogram via right common artery, left SFA angioplasty, and left popliteal artery angioplasty by Dr. Craig. 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 No acute events noted overnight. Patient states overall she feels better this morning. Reports some subjective fevers and chills overnight, but none so far this morning. Denies chest pain, shortness of breath, or cough at this time, but reports an episode of dyspnea overnight that has resolved. Denies nausea, vomiting, or diarrhea. Denies abdominal pain or urinary complaints. She does not make much urine secondary to her ESRD. She reports her appetite is good. Denies oral thrush or new skin lesions. Reports some pain in the left foot with manipulation, but otherwise denies pain. Infect Dis PN-Objective Data - Labs CBC & Chem 7: 04/02/18 04:00 04/02/18 04:00 Labs: Laboratory Results - last 24 hr 03/31/18 03/31/18 03/31/18 11:18 16:38 19:32 WBC RBC Hgb Hct MCV MCH MCHC RDW Plt Count MPV Immature Gran % Seg Neutrophils % Lymphocytes % Monocytes % Eosinophils % Basophils % Neutrophils # Lymphocytes # Monocytes # Eosinophils # Basophils # Sodium Potassium Chloride Carbon Dioxide BUN Creatinine Est GFR ( Amer) Est GFR (Non-Af Amer) BUN/Creatinine Ratio Glucose POC Glucose 119 H 112 H 261 H Calculated Osmolality Calcium 04/01/18 04/01/18 04/01/18 06:34 08:51 08:51 WBC 12.4 H RBC 3.52 L Hgb 11.3 L Hct 36.5 MCV 103.7 H MCH 32.1 MCHC 31.0 L RDW 14.3 Plt Count 259 MPV 9.6 Immature Gran % 0.5 Seg Neutrophils % 72.1 Lymphocytes % 12.0 Monocytes % 8.9 Eosinophils % 5.5 Basophils % 1.0 Neutrophils # 9.0 H Lymphocytes # 1.5 Monocytes # 1.1 Eosinophils # 0.7 H Basophils # 0.1 Sodium 138 Potassium 4.3 Chloride 99 Carbon Dioxide 30 H BUN 28 H Creatinine 4.54 H Est GFR ( Amer) 12 L Est GFR (Non-Af Amer) 10 L BUN/Creatinine Ratio 6 Glucose 148 H POC Glucose 146 H Calculated Osmolality 294 Calcium 8.5 L Cultures: Cultures 03/29/18 16:45 Anaerobic Culture - Preliminary Right Foot At this time, no anaerobic growth is present. The culture will be finalized after 5 days of incubation. 03/29/18 16:45 Wound Culture - Final Right Foot Klebsiella oxytoca 03/29/18 12:50 Blood Culture - Preliminary Peripheral Venipuncture Culture is incubating and being continuously monitored for growth. Final report to follow. 03/29/18 12:50 Blood Culture - Preliminary Peripheral Venipuncture Culture is incubating and being continuously monitored for growth. Final report to follow. Serology 03/30/18 03/29/18 Range/Units 19:00 15:09 Urine Color Yellow (Yellow) Urine Clarity Turbid A (Clear) Urine pH 6.0 (5.0-8.0) pH Units Ur Specific [place] 1.019 (1.010-1.025) Urine Protein >=300 H (Neg-Trace) mg/dL Urine Glucose (UA) 250 H (Normal) mg/dL Urine Ketones Negative (Negative) mg/dL Urine Blood Trace H (Negative) Urine Nitrite Negative (Negative) Urine Bilirubin Small H (Negative) Urine Urobilinogen Normal (Normal) mg/dL Ur Leukocyte Esterase Moderate H (Negative) Urine Microscopic RBC 5-15 H (0-3) per hpf Urine Microscopic WBC TNTC H (0-3) per hpf Ur Squamous Epith Cells Many H (None-Few) per lpf Urine Bacteria Few (None-Few) per hpf Hyaline Casts Few (None-Few) per lpf Ur Culture Indicated? NO. A (NO) Hep Bs Antigen Nonreactive (Nonreactive) Hep Bs Antibody 1.18 mIU/mL Exam - Constitutional Vitals: Temp Pulse Resp BP Pulse Ox 98.0 F 60 16 145/48 99 04/01/18 10:53 04/01/18 10:53 04/01/18 10:53 04/01/18 10:53 04/01/18 10:53 General appearance: average body habitus, cooperative, no acute distress - Head Head exam: Present: atraumatic, normal inspection, normocephalic - Eye Eye exam: Absent: normal appearance Additional comments: Left eye atrophied. - ENT ENT exam: Present: mucous membranes moist - Neck Neck exam: Present: normal inspection - Respiratory Respiratory exam: Present: CTAB. Absent: rales, respiratory distress, rhonchi, wheezes - Cardiovascular Cardiovascular exam: Present: RRR, +S1, +S2 - GI/Abdominal GI/Abdominal exam: Present: normal bowel sounds, soft. Absent: distended, tenderness - Extremities Exam Extremities exam: Present: tenderness (Left foot.). Absent: normal inspection (Left foot dressing with small amount of dark brown drainage noted. Right groin dressing C/D/I.) Additional comments: Erythema, warmth, and tenderness noted to the left medial calf improved. - Neurological Exam Neurological exam: Present: alert, oriented X3, no focal deficits - Psychiatric Psychiatric exam: Present: normal affect, normal mood - Skin Skin exam: Present: dry, intact, normal color, warm Consult Discharge Plan - Plan Referrals: Tom Xie Jr, MD [Primary Care Provider] - - Attending Attestation I examined this patient and my medical decision-making was reviewed with the Resident Physician. I agree with the documented findings, disposition and treatment plan as described except to the extent set forth below.
--- NOTE | 2018-04-01 12:25 | Nephrology Progress Note ---
Addendum entered and electronically signed by Luis Victoria MD 04/02/18 00:09: I examined this patient and discussed the medical decision-making with ERNA Franz on 04/01/2018. I agree with the documented findings, disposition and treatment plan as described except to the extent set forth below. Original Note: Date of Encounter: 04/01/18 Time of Encounter: 12:24 - Assessment and Plan (1) ESRD (end stage renal disease) on dialysis Current Visit: Yes Status: Chronic Plan for HD tomorrow after surgery Renal diet Strict I/Os Avoid nephrotoxins if possible (2) Diabetes mellitus Current Visit: Yes Status: Chronic Per the primary team Qualifiers: Diabetes mellitus type: type 2 Diabetes mellitus custodial insulin use: with mine inspector federal use Diabetes mellitus complication status: with kidney complications Diabetes mellitus complication detail: with chronic kidney disease Chronic kidney disease stage: on chronic dialysis Qualified Code(s): E11.22 - Type 2 diabetes mellitus with diabetic chronic kidney disease; N18.6 - End stage renal disease; Z79.4 - senior care (current) use of insulin; Z99.2 - Dependence on renal dialysis (3) PVD (peripheral vascular disease) Current Visit: Yes Status: Chronic per primary team (4) Cellulitis of left foot Current Visit: Yes Status: Acute Per podiatry team Subjective Principal diagnosis: left leg infection Interval history: Patient seen and examined. at bedside. Objective - Vital Signs Vital signs: Vital Signs Temp Pulse Resp BP Pulse Ox 04/01/18 10:53 98.0 F 60 16 145/48 99 04/01/18 06:31 98.3 F 61 16 163/53 97 04/01/18 04:48 98.0 F 66 16 160/57 96 03/31/18 23:28 99.1 F 62 16 115/67 99 03/31/18 19:30 98.5 F 70 16 125/55 98 03/31/18 18:10 98.1 F 18 148/69 03/31/18 17:45 129/41 03/31/18 17:30 119/59 03/31/18 17:15 118/37 03/31/18 17:00 135/48 03/31/18 16:45 114/29 03/31/18 16:30 108/59 03/31/18 16:15 110/28 03/31/18 16:00 137/42 03/31/18 15:45 141/61 03/31/18 15:30 135/51 03/31/18 15:15 148/63 03/31/18 15:00 156/58 03/31/18 14:45 140/55 03/31/18 14:30 137/37 03/31/18 14:15 97.8 F 18 142/54 Intake and Output 03/31/18 04/01/18 04/01/18 23:59 07:59 15:59 Output Total 2600 / 2600 Balance -2600 / -2600 Output: Total Dialysis (HD) Output 2600 / 2600 Other: Weight 78.3 kg Blood Glucose* 261 146 164 Hemodialysis Net Fluid Removed 2000 (mL) - General Appearance General appearance: Present: well-developed, well-nourished EENT: Present: mucous membranes moist, hearing intact, vision intact Neck: Present: supple Respiratory: Present: clear Cardiology: Present: no edema, normal S2 Dialysis Vascular Access: Arteriovenous Fistula Gastrointestinal: Present: no tenderness, no guarding Integumentary: Present: warm and dry Neurologic: Present: alert and oriented x3 Psychiatric: Present: mood/affect appropriate, cooperative - Lab 04/01/18 08:51 04/01/18 08:51 Most recent lab results Calcium 8.5 mg/dL (8.6-10.3) L 04/01/18 08:51 Consult Discharge Plan - Plan Referrals: Tom Xie Jr, MD [Primary Care Provider] -
[2018-04-01] MEDS ORDERED: Insulin DETEMIR 100 UNIT/ML X5UNITS SQ SCH ×2 (13:00→21:00)
[2018-04-01] MEDS ORDERED: Aminoglycoside Consult 1 EACH MC ONE (14:06)
[2018-04-01] MEDS ORDERED: Vancomycin 1,000 MG, Sodium Chloride IRRigation 1,000 ML IR ONE (14:10)
[2018-04-01] MEDS ORDERED: Cefepime HCl 1,000 MG in Water for inj. (sterile) 20 ML 10 ML IVP SCH (16:00)
--- NOTE | 2018-04-01 19:45 | Anesthesia Evaluation PreOp ---
Date of Encounter: 04/01/18 Time of Encounter: 19:20 - Past History Planned Operation: Left 1st Ray Amputation Cardiac History: CHF, HTN, Hyperlipidemia, Other (PVD) Pulmonary History: Denies Any Significant HX SUPPORT STAFF History: Denies Any Significant HX Other Medical History: Renal (ESRD dialyzed MWF), Diabetes Type II Anesthesia History: No Prior Anesthetic Complications Alcohol Use: none Drug use: none Medications and Allergies Aspirin [Lo-Dose Aspirin EC] 81 mg PO DAILY 06/17/17 [History] Ergocalciferol (VITAMIN D2) [Vitamin D2] 50,000 unit PO QWEEK 06/17/17 [History] Escitalopram [Lexapro] 20 mg PO DAILY 06/17/17 [History] Furosemide [Lasix] 80 mg PO BID 06/17/17 [History] Insulin LISPRO [HumaLOG] 4 - 10 units SQ TIDWM 06/17/17 [History] rOPINIRole [Requip] 1 mg PO BID 06/17/17 [History] Albuterol Neb [Proventil Neb] 2.5 mg IH Q8H PRN 01/19/18 [History] Atorvastatin [Lipitor] 20 mg PO HS 01/19/18 [History] Calcium Carbonate/Vitamin D3 [Calcium 500+D Tablet Chew] 1 each PO BID 01/19/18 [History] Clopidogrel Bisulfate [Plavix] 75 mg PO DAILY #30 tablet 01/19/18 [Rx] Folic Acid/Vit B Complex and C [Dialyvite Tablet] 1 tab PO DAILY 01/19/18 [History] Insulin Glargine,Hum.rec.anlog [Basaglar Kwikpen U-100] 15 unit SQ HS 03/29/18 [History] Isosorbide MONOnitrate (24 HR) [Imdur] 30 mg PO DAILY 03/29/18 [History] Metoprolol Succinate [Kapspargo Sprinkle] 25 mg PO DAILY 03/29/18 [History] Nitroglycerin [Nitrostat] 0.4 mg SL Q5M PRN 03/29/18 [History] Sevelamer [Renvela] 2,400 mg PO TIDWM 03/29/18 [History] Artificial Tears SOLN [Akwa Tears] 1 drop BOTH EYES QID PRN 03/30/18 [History] Dorzolamide/Timolol/Pf [Dorzolamide-Timolol 2%-0.5%] 1 drop BOTH EYES BID 03/30 [History] Allergy/AdvReac Type Severity Reaction Status Date / Time codeine Allergy Mild Rash Verified 03/30/18 13:09 gabapentin [From Neurontin] Allergy Mild Rash Verified 03/30/18 13:09 Penicillins [PCN] Allergy Mild Rash Verified 03/30/18 13:09 zinc Allergy Mild Rash Verified 03/30/18 13:09 tetanus Allergy Mild Rash Uncoded 03/30/18 13:09 - Meds/Allergy Pre-op Review Medications Reviewed: Yes Allergies Reviewed: Yes Beta Blockers on Current Med List: Yes (Metoprolol today 1100) Anesthesia Results - Labs 04/01/18 08:51 04/01/18 08:51 - Imaging EKG: report reviewed (SR) Additional studies: ECHO 2016 EF 55%, mild diastolic dysfunction, no valvular dysfunction Anesthesia Exam O2 Sat Weight 78.3 kg O2 Sat by Pulse Oximetry 98 O2 Sat by Pulse Oximetry 99 O2 Sat by Pulse Oximetry 97 O2 Sat by Pulse Oximetry 96 O2 Sat by Pulse Oximetry 99 Vital Signs Temp Pulse Resp BP Pulse Ox 98.2 F 61 20 152/78 90 03/29/18 11:00 03/29/18 11:00 03/29/18 11:00 03/29/18 11:00 03/29/18 11:00 Height: 5'2 Weight: 172 lvbs NPO (# of Hours): MN Pain Scale: 0 - HEENT Pupil (Motor): Pupils equal, EOMI Mallampati: III Teeth: Edentulous Oral Opening: Less than or equal to 3 - SUPPORT STAFF LOC: Oriented SUPPORT STAFF Motor: Normal RUE, Normal LUE, Normal RLE, Normal LLE, Normal Face SUPPORT STAFF Sensory: Normal: RUE, LUE, RLE, Face, Deficit: LLE (Neuropathy) - Cardiac Rhythm: Regular Murmur: None JVD: No Carotid Bruit: No - Pulmonary Breath Sounds: bilateral Clear Respiratory Effort: Symmetrical Anesthesia Assess/Plan ASA Score: 3 (HTN ESRD DM PVD) Anesthetic Plan: MAC Monitoring Plan: Standard Monitors Recovery Plan: Other (Discussed MAC or GA, agrees to proceed)
[2018-04-02 06:28] LABS: Basophils # 0.1 K/mcL (0.0-0.2); Basophils % 0.9 %; Eosinophils # 0.8 K/mcL (0.0-0.6); Eosinophils % 6.8 %; Hematocrit 33.9 % (35.3-44.9); Hemoglobin 10.4 g/dL (11.5-15.4); Immature Granulocytes % 0.7 % (0-4); Lymphocytes % 17.1 %; Mean Corpuscular HGB Conc 30.7 g/dL (31.6-35.5); Mean Corpuscular Hemoglobin 32.2 pg (28.0-33.3); Mean Platelet Volume 9.2 fL (9.4-12.4); Monocytes # 1.1 K/mcL (0.0-1.3); Monocytes % 9.4 %; Neutrophils # 7.7 K/mcL (1.6-8.9); Platelet Count 275 K/mcL (140-400); Red Blood Count 3.23 M/mcL (3.82-4.97); Red Cell Distribution Width 14.2 % (11.5-14.5); Segmented Neutrophils % 65.1 %
[2018-04-02 06:35] LABS: Prothrombin Time 11.2 Seconds (9.4-12.1)
[2018-04-02 06:38] LABS: Activated Partial Thrombo Time 27.4 Seconds (26.0-36.0)
[2018-04-02 06:48] LABS: Calcium 8.3 mg/dL (8.6-10.3); Potassium 4.8 mEq/L (3.5-5.1)
[2018-04-02] MEDS ORDERED: Propofol 500 MG/50 ML INFUS..BTL ONE (07:03)
[2018-04-02] MEDS ORDERED: Lidocaine -MPF 2% 2 ML VIAL ONE (07:07)
[2018-04-02] MEDS ORDERED: Dexamethasone 4 MG/ML VIAL ONE (07:07)
[2018-04-02] MEDS ORDERED: Ondansetron 4 MG/2 ML VIAL ONE (07:07)
[2018-04-02] MEDS: *HR* Heparin 5,000 UNIT/ML VIAL SQ SCH ×2 (07:23→17:18)
[2018-04-02] MEDS ORDERED: *HR* FentaNYL (PF) 100 MCG/2 ML VIAL ONE (07:24)
[2018-04-02] MEDS ORDERED: Bupivacaine/EPI 1:200k 0.25%PF 30 ML VIAL ONE (07:29)
[2018-04-02] MEDS ORDERED: Clindamycin 600 MG/50 ML 600 MG/50 ML IV.SOLN IVPB ONE ×3 (07:43→09:13)
[2018-04-02] MEDS ORDERED: Bacitracin 50,000 UNIT, Sodium Chloride IRRigation 1,000 ML IR ONE ×2 (07:45→09:13)
--- NOTE | 2018-04-02 08:16 | Nephrology Progress Note ---
Date of Encounter: 04/02/18 Time of Encounter: 11:00 - Assessment and Plan (1) ESRD (end stage renal disease) on dialysis Current Visit: Yes Status: Chronic Dialysis Note: She is ESRD on HD MWF: Plan for HD today. Renal diet Strict I/Os; Avoid nephrotoxins if possible. Next HD would be planned for Thursday. I will be available this , if needed. Otherwise, will plan to see pt again on Thursday. (2) Cellulitis of left foot Current Visit: Yes Status: Acute S/p surgery. Appreciate Podiatry. Subjective Principal diagnosis: left leg infection Interval history: The patient was seen and examined later in the morning, after her surgery. She reported feeling very well, and did not affirm any dialysis-related complaints such as cramping or lost appetite. Her and daughter were present. Objective - Vital Signs Vital signs: Vital Signs Temp Pulse Resp BP Pulse Ox 04/02/18 04:24 97.8 F 67 15 149/73 100 04/01/18 23:42 98.5 F 65 18 152/63 100 04/01/18 20:15 98.1 F 60 17 140/60 98 04/01/18 15:09 97.9 F 65 16 146/52 98 04/01/18 10:53 98.0 F 60 16 145/48 99 Intake and Output 04/01/18 04/02/18 04/02/18 23:59 07:59 15:59 Intake Total Balance Intake: IV Fluids Maxipime 1,000 MG In Water for inj. (sterile) 10 ML @ 300 mls/ hr IVP Q24H [facility] Rx#:[id number] Other: Weight 73.8 kg Blood Glucose* 200 - General Appearance General appearance: Present: well-developed, well-nourished, appears started age, obese EENT: Present: ATNC, PERRL, mucous membranes moist Neck: Present: supple Respiratory: Present: clear Cardiology: Present: no edema, regular rate, regular rhythm, normal S1, normal S2 Dialysis Vascular Access: Arteriovenous Fistula (Right upper arm) thrill: Yes bruit: Yes Gastrointestinal: Present: normoactive bowel sounds, no tenderness, no guarding, obese Integumentary: Present: no rash Additional Comments: Foot dressing was noted Neurologic: Present: no focal deficit, no asterixis, alert and oriented x3 Additional Comments: Was seen while laying down in the bed. Psychiatric: Present: mood/affect appropriate, cooperative - Lab 04/02/18 04:00 04/02/18 04:00 Most recent lab results Calcium 8.3 mg/dL (8.6-10.3) L 04/02/18 04:00 Consult Discharge Plan - Plan Referrals: Tom Xie Jr, MD [Primary Care Provider] -
--- NOTE | 2018-04-02 08:56 | Internal Med Progress Note ---
<Barbra Pierce - Last Filed: 04/02/18 15:58> Hospitalist Progress Note - Encounter Date of Encounter: 04/02/18 - Exam Vitals: Temp Pulse Resp BP Pulse Ox 97.7 F 111 16 131/55 94 04/02/18 15:30 04/02/18 15:30 04/02/18 15:30 04/02/18 15:30 04/02/18 15:30 - Time Spent with Patient Total time spent is greater than 50% in coordination of care (as documented) at patient's floor/unit and/or counseling patient: Internal Medicine: Result - Labs CBC & Chem 7: 04/02/18 04:00 04/02/18 04:00 Labs: Short CBC 04/02/18 Range/Units 04:00 WBC 11.8 H (4.3-11.1) K/mcL Hgb 10.4 L (11.5-15.4) g/dL Hct 33.9 L (35.3-44.9) % Plt Count 275 (140-400) K/mcL Neutrophils # 7.7 (1.6-8.9) K/mcL BMP 04/02/18 04:00 Sodium 137 Potassium 4.8 Chloride 98 Carbon Dioxide 29 BUN 53 H Creatinine 6.40 H Glucose 208 H Calcium 8.3 L - ABG Interpretation ABG results: PT/INR, D-dimer PT 11.2 Seconds (9.4-12.1) 04/02/18 04:00 - Impressions Impressions Foot X-Ray 04/02/18 13:10 IMPRESSION: 1. Status post amputation of the 1st digit at the level of the mid diaphysis of the 1st metatarsal with no immediate postoperative complication identified D/ / Roderick Bai MD / Roderick Bai MD Interpreting Provider: Roderick Bai MD Consult Discharge Plan - Plan Referrals: Tom Xie Jr, MD [Primary Care Provider] - - Attending Attestation I examined this patient and my medical decision-making was reviewed with the Resident Physician Dr Hoover. I agree with the documented findings, disposition and treatment plan as described except to the extent set forth below/addl details below Mrs Olvera was admitted for treatment of foot ulcer with cellulitis and osteomyelitis and is being followed by podiatry and ID. She has re vascularization of the leg preformed by [facility] surgery this admission with hx PVD. awake, family at beddside. back from HD. Feeling well, no pain, nausea or emesis at this time. got a one time percocet for foot pain post OR (codeine allergy but takes percocet without issue). Aware limited opiates given esrd. gen- alert, awake,appears stated age cv- reg rate and rhythm, normal s1,s2, no murmurs appreciated, no le edema lungs- ctabl, no wheezing, rhonchi or crackles, norm resp effort skin- faint area erythema withiin marked margins left malave, no warmth,foot wound is dressed, clean, dry intact neuro- AAOx3 Left foot ulcer, cellulitis, osteomyeleitis - cont iv abx as per ID recs, podiatry and ID following, or 04/02 left partial first ray amputation, soft tissue rearragement for closure of wound, wound cx + klebsiella PVD s/p bypass grafting known to be occluded- seen by [facility] surg this admit, Left superficial femoral angioplasty/Left popliteal artery angioplasty 03/31/18, cont asa + plavix DM- on levemir 15 units qhs ESRD on HD MWF- nephro following, TID AC Renvela--pt notes takes 3 caps with meals 3x daily and 2 daily with a snack, one time daily prn snack ordered for continuation of home dosing CHF and CAD hx both stable- cont home meds VTE ppx- now on hep sq q12 as started by podiatry post op <Dolores Hoover - Last Filed: 04/02/18 18:20> Hospitalist Progress Note - Encounter Date of Encounter: 04/02/18 Time of Encounter: 08:49 - Subjective Interval History: Pt is a 72F with PMH of COPD, CHF, ESRD, DM, CAD presented with increased left leg pain and swelling after not receiving 3 dialysis treatments during last week. MRI revealed the presence of possible early osteomyelitis and podiatry plans for operative amputation left hallux and/or metatarsal today. No acute maryan nts overnight. PT at surgery at 0800. - Exam Vitals: Temp Pulse Resp BP Pulse Ox 97.8 F 67 15 149/73 100 04/02/18 04:24 04/02/18 04:24 04/02/18 04:24 04/02/18 04:24 04/02/18 04:24 Exam: CONSTITUTIONAL: patient appears as an age appropriate female in no acute distress. EYES Clear sclerae, bilateral pupils are equal, reactive to light. EMOI. RESPIRATORY: No accessory muscle use, rales appreciated in left lower lobe, clear in other lobes CARDIOVASCULAR: Regular heart rate, normal S1 and S2, no murmurs GASTROINTESTINAL: bowel sounds present, soft, no tenderness. Skin: Warm, dry, left foot bandaged, Other skin intact. NEUROLOGIC: CN II to XII are grossly intact, no focal neurological deficit. - Assessment and Plan (1) Chronic congestive heart failure Current Visit: Yes Status: Chronic Assessment and Plan: Last echo June 2016 revealed EF 50-55% with mild left ventricular diastolic dysfunction - pt does not have significant swelling in LE with exception of left foot where osteomyelitis and wound are present - pt on 25mg Metoprolol, 80mg BID Lasix - continue to monitor (2) ESRD (end stage renal disease) on dialysis Current Visit: Yes Status: Chronic Assessment and Plan: -Pt receives MWF dialysis - will continue her schedule while admitted - plan for HD after surgery today (3) Diabetes mellitus Current Visit: Yes Status: Chronic Assessment and Plan: Restart insulin after surgery once she has resumed diet: - Low dose correction schedule - 15mg BID Levemir - Goal sugars <180 to encourage wound healing (4) PVD (peripheral vascular disease) Current Visit: Yes Status: Chronic Assessment and Plan: ABIs completed 08/20/17 showed findings consistent with severe disease in the right lower extremity and moderate disease in the left lower extremity. Repeat ABIs show severe disease bilaterally. TCPO2 right 40 ankle, 50 foot. Left 22 ankle, 13 foot. Vascular surgery consulted. Status post aortogram with BLE angiogram via right common artery, left SFA angioplasty, and left popliteal artery angioplasty by Dr. Craig. (5) Blind left eye Current Visit: Yes Status: Chronic Assessment and Plan: team aware (6) Cellulitis of left foot Current Visit: Yes Status: Acute Assessment and Plan: Followed by ID, see their notes from detailed plans. - Metronidazole 500mg TID - 1gm Cefepime QD (7) CAD (coronary artery disease) of artery bypass graft Current Visit: Yes Status: Chronic Assessment and Plan: Followed by Dr. Recio, Cardiology (8) Leukocytosis Current Visit: Yes Status: Acute Assessment and Plan: Pt's WBC 21.7 at admit, 11.8 today, likely a reflection of infectious process in left foot - currently on antibiotic therapy as described above continue to monitor (9) Osteomyelitis Current Visit: Yes Status: Acute Assessment and Plan: Followed by Podiatry Wound cultures obtained, resulted Klebsiella. MRI of left foot showed possible early osteomylitis Scheduled for amputation left hallux and partial 1st metatarsal today Diaylsis after surgery. Continue antibiotic treatment per podiatry DVT Prophylaxis: Will start Heparin 5000u SQ Q8 after surgery - Time Spent with Patient Total time spent is greater than 50% in coordination of care (as documented) at patient's floor/unit and/or counseling patient: less than 15 minutes Plan of Care Discussed with: patient Internal Medicine: Result - Labs CBC & Chem 7: 04/02/18 04:00 04/02/18 04:00 Labs: Short CBC 04/01/18 04/02/18 Range/Units 08:51 04:00 WBC 12.4 H 11.8 H (4.3-11.1) K/mcL Hgb 11.3 L 10.4 L (11.5-15.4) g/dL Hct 36.5 33.9 L (35.3-44.9) % Plt Count 259 275 (140-400) K/mcL Neutrophils # 9.0 H 7.7 (1.6-8.9) K/mcL BMP 04/01/18 04/02/18 08:51 04:00 Sodium 138 137 Potassium 4.3 4.8 Chloride 99 98 Carbon Dioxide 30 H 29 BUN 28 H 53 H Creatinine 4.54 H 6.40 H Glucose 148 H 208 H Calcium 8.5 L 8.3 L - ABG Interpretation ABG results: PT/INR, D-dimer PT 11.2 Seconds (9.4-12.1) 04/02/18 04:00 <SnehaDolores L - Last Filed: 04/02/18 18:20> (3) Diabetes mellitus Qualifiers: Diabetes mellitus type: type 2 Diabetes mellitus terminal press 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 transplanted heart: [place] heart Associated angina: without angina Qualified Code(s): I25.810 - Atherosclerosis of coronary artery bypass graft(s) without angina pectoris (8) Leukocytosis Qualifiers: Leukocytosis type: bandemia Qualified Code(s): D72.825 - Bandemia (9) Osteomyelitis Qualifiers: Osteomyelitis type: acute hematogenous Osteomyelitis location: foot Laterality: left Qualified Code(s): M86.072 - Acute hematogenous osteomyelitis, left ankle and foot
--- NOTE | 2018-04-02 08:58 | Operative Note ---
Date of procedure: 04/02/18 Pre-op diagnosis: left 1st ray osteomyelitis, ulceration Post-op diagnosis: same Procedure: left partial first ray amputation, soft tissue rearragement for closure of wound Implants: none Complications: none Anesthesia: MAC, IV sedation Local Anesthetics: 1% Lidocaine HCL SubQ (cc) Surgeon: Flavio Khan Was there an operational assistant present: No Estimated blood loss (cc): 25 Specimen: left 1st ray bone angi and path, ulcer left foot Condition: stable Disposition: PACU Procedure in Detail: Indications: 72-year-old female who is diabetic on dialysis found to have osteomyelitis of the first ray and a chronic ulceration. Patient is now status post vascular intervention being brought to the operating room for the above procedures after having the nature of the procedures, risks versus benefits potential complications consequences of her condition and surgery discussed at length. No guarantees made as to the outcome. She understood that she would have no toe after the procedure and part of the foot would be amputated. She also understood that she would have a wound to heal and that she could experience wound healing problems. All of her questions have been answered informed consent was signed patient was taken from the preoperative holding area and operating room placed on operating room table in the supine position the left foot was scrubbed prepped and draped in the usual sterile fashion. 10 mL of 1% lidocaine plain was injected into the patient's left foot. No tourniquet was utilized during the entire procedure. Left partial first ray amputation. An incision was made along the medial aspect of the first metatarsal connecting to the wound. The wound area was excised. Tissue from the wound was sent to microbiology. Another incision was made dista l to the wound on the end of the hallux. Soft tissue was freed and from the bone and the sagittal saw was used to resect the metatarsal distally. The phalanx was freed from its soft tissue attachments and also removed. The flexor and extensor tendons were traced as far proximally in the wound as possible and cut. Devitalized tissue present near the site of ulceration was resected. Bone which had been cut out was sent to microbiology and pathology. Bone was noted to be soft in nature especially around the ulceration site. The remaining bone which had been cut was bleeding on the metatarsal. The pulse lavage was used to irrigate the area and upon reinspection no further devitalized tissue was present and no purulent drainage was present. The metatarsal bone was felt to be smooth at the amputation site. The site was deemed adequate for closure. The next procedure then began. Left foot soft tissue rearrangement. An incision was made approximately 60 degrees to the amputation incision to allow for mobilization and full thickness flap of the wound to reapproximate the skin edges. Deep tissue and subcutaneous tissue were reapproximated and 2-0 Prolene was used to reapproximate the skin. The wound with the flap closure was able to be closed in its entirety. Adequate hemostasis was present. Blood was obtained by the perfusion team and made into PRP which was applied to the amputation zone. Postoperative bandaging included Adaptic, 4 x 4 gauze and Kerlix. Patient tolerated the anesthesia and the procedure well escorted the recovery room with vital signs stable and vascular status intact to the remaining left foot digits. Adequate hemostasis was present. Patient will return to the floor where she will continue IV antibiotics.
[2018-04-02] MEDS ORDERED: Albuterol 2.5 MG/3 ML NEBULIZER IH PRN (09:13)
[2018-04-02] MEDS ORDERED: D5% in Water 1,000 ML IVC PRN (09:13)
[2018-04-02] MEDS ORDERED: 0.9 % Sodium Chloride 250 ML IVC PRN ×2 (09:13→10:24)
[2018-04-02] MEDS ORDERED: Dextrose Gel 15 GM/37.5 ML TUBE PO PRN ×2 (09:13)
[2018-04-02] MEDS ORDERED: Nitroglycerin 0.4 MG TAB.SUBL SL PRN (09:13)
[2018-04-02] MEDS ORDERED: Naloxone 0.4 MG/ML INJ IVP PRN (09:13)
[2018-04-02] MEDS ORDERED: 0.9 % Sodium Chloride 1,000 ML PRIME SCH ×2 (09:13→10:30)
[2018-04-02] MEDS ORDERED: *HR* Dextrose 50 % in Water (Syg) 50 ML SYRINGE IVP PRN (09:13)
[2018-04-02] MEDS ORDERED: Vancomycin 1,000 MG, Sodium Chloride IRRigation 1,000 ML IR ONE (09:13)
--- NOTE | 2018-04-02 09:29 | Infectious Disease Progress No ---
Date of Encounter: 04/02/18 Time of Encounter: 08:50 - Assessment and Plan (1) Sepsis Current Visit: Yes Status: Acute The patient had 2 sepsis criteria, including leukocytosis and fever. Likely secondary to left foot cellulitis. Improved. WBC is trending down. Afebrile overnight. Blood cultures drawn 03/29/18 are NGTD x 2 sets. Qualifiers: Sepsis type: sepsis due to unspecified organism Qualified Code(s): A41.9 - Sepsis, unspecified organism (2) Osteomyelitis Current Visit: Yes Status: Acute Location: Left foot first metatarsal head and medial hallux sesamoid. Positive organism: Unclear. Wound culture is positive for K. oxytoca, higgins- sensitive. Likely secondary to chronic nonhealing foot ulcer. Left foot x-ray was negative for osteoarthritis. 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 Sponsorship Manager been consulted. 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 Khan. Operative note reviewed. Cultures and pathology are pending. Wound care per the podiatry team. Continue cefepime 1 g IV daily. Continue Flagyl 500 mg IV every 8 hours. Duration of treatment is on the clinical picture, but likely total 6 weeks. Monitor labs for drug toxicity and dose adjust antibiotics. Will likely be able to give IV antibiotics with HD. Discussed with the nephrology team. Qualifiers: Osteomyelitis type: acute hematogenous Osteomyelitis location: foot Lat erality: left Qualified Code(s): M86.072 - Acute hematogenous osteomyelitis, left ankle and foot (3) Gangrene of left foot Current Visit: Yes Status: Suspected (4) Foot ulcer, left Current Visit: Yes Status: Acute Location: Plantar aspect of the left foot. Likely secondary to previous callus removal. Wound care per the podiatry team. Qualifiers: Non-pressure ulcer stage: unspecified non-pressure ulcer stage Qualified Code(s): L97.529 - Non-pressure chronic ulcer of other part of left foot with unspecified severity (5) ESRD (end stage renal disease) on dialysis Current Visit: Yes Status: Chronic Nephrology consulted and following. (6) Diabetes mellitus Current Visit: Yes Status: Chronic Recommend aggressive glucose monitoring and control to promote wound healing and prevent reinfection. Management per the primary team. Qualifiers: Diabetes mellitus type: type 2 Diabetes mellitus penitentiary insulin use: with terminal press operator use Diabetes mellitus complication status: with kidney complications Diabetes mellitus complication detail: with chronic kidney disease Chronic kidney disease stage: on chronic dialysis Qualified Code(s): E11.22 - Type 2 diabetes mellitus with diabetic chronic kidney disease; N18.6 - End stage renal disease; Z79.4 - intermediate frame tender (current) use of insulin; Z99.2 - Dependence on renal dialysis (7) PVD (peripheral vascular disease) Current Visit: Yes Status: Chronic ABIs completed 08/20/17 showed findings consistent with severe disease in the right lower extremity and moderate disease in the left lower extremity. Repeat ABIs show severe disease bilaterally. TCPO2 right 40 ankle, 50 foot. Left 22 ankle, 13 foot. Vascular surgery consulted. Status post aortogram with BLE angiogram via right common artery, left SFA angioplasty, and left popliteal artery angioplasty by Dr. Craig. 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 No acute events noted overnight. Status post I & D of the left foot this morning by Dr. Khan. Patient states overall she feels better this morning. Denies fevers, chills, or rigors. Denies chest pain, shortness of breath, or cough at this time. Denies nausea, vomiting, or diarrhea. Denies abdominal pain or urinary complaints. She does not make much urine secondary to her ESRD. She reports her appetite is good. Denies oral thrush or new skin lesions. Currently denies pain at the surgical site, but states her legs feel restless. Infect Dis PN-Objective Data - Labs CBC & Chem 7: 04/02/18 04:00 04/02/18 04:00 Labs: Laboratory Results - last 24 hr 04/01/18 04/01/18 04/01/18 08:51 11:51 15:07 WBC RBC Hgb Hct MCV MCH MCHC RDW Plt Count MPV Immature Gran % Seg Neutrophils % Lymphocytes % Monocytes % Eosinophils % Basophils % Neutrophils # Lymphocytes # Monocytes # Eosinophils # Basophils # PT INR APTT Sodium 138 Potassium 4.3 Chloride 99 Carbon Dioxide 30 H BUN 28 H Creatinine 4.54 H Est GFR ( Amer) 12 L Est GFR (Non-Af Amer) 10 L BUN/Creatinine Ratio 6 Glucose 148 H POC Glucose 164 H 211 H Calculated Osmolality 294 Calcium 8.5 L 04/01/18 04/02/18 04/02/18 20:15 04:00 04:00 WBC 11.8 H RBC 3.23 L Hgb 10.4 L Hct 33.9 L MCV 105.0 H MCH 32.2 MCHC 30.7 L RDW 14.2 Plt Count 275 MPV 9.2 L Immature Gran % 0.7 Seg Neutrophils % 65.1 Lymphocytes % 17.1 Monocytes % 9.4 Eosinophils % 6.8 Basophils % 0.9 Neutrophils # 7.7 Lymphocytes # 2.0 Monocytes # 1.1 Eosinophils # 0.8 H Basophils # 0.1 PT 11.2 INR 1.0 APTT 27.4 Sodium Potassium Chloride Carbon Dioxide BUN Creatinine Est GFR ( Amer) Est GFR (Non-Af Amer) BUN/Creatinine Ratio Glucose POC Glucose 200 H Calculated Osmolality Calcium 04/02/18 04:00 WBC RBC Hgb Hct MCV MCH MCHC RDW Plt Count MPV Immature Gran % Seg Neutrophils % Lymphocytes % Monocytes % Eosinophils % Basophils % Neutrophils # Lymphocytes # Monocytes # Eosinophils # Basophils # PT INR APTT Sodium 137 Potassium 4.8 Chloride 98 Carbon Dioxide 29 BUN 53 H Creatinine 6.40 H Est GFR ( Amer) 8 L Est GFR (Non-Af Amer) 6 L BUN/Creatinine Ratio 8 Glucose 208 H POC Glucose Calculated Osmolality 304 H Calcium 8.3 L Cultures: Cultures 03/29/18 16:45 Anaerobic Culture - Preliminary Right Foot At this time, no anaerobic growth is present. The culture will be finalized after 5 days of incubation. 03/29/18 16:45 Wound Culture - Final Right Foot Klebsiella oxytoca 03/29/18 12:50 Blood Culture - Preliminary Peripheral Venipuncture Culture is incubating and being continuously monitored for growth. Final report to follow. 03/29/18 12:50 Blood Culture - Preliminary Peripheral Venipuncture Culture is incubating and being continuously monitored for growth. Final report to follow. Serology 03/30/18 03/29/18 Range/Units 19:00 15:09 Urine Color Yellow (Yellow) Urine Clarity Turbid A (Clear) Urine pH 6.0 (5.0-8.0) pH Units Ur Specific [place] 1.019 (1.010-1.025) Urine Protein >=300 H (Neg-Trace) mg/dL Urine Glucose (UA) 250 H (Normal) mg/dL Urine Ketones Negative (Negative) mg/dL Urine Blood Trace H (Negative) Urine Nitrite Negative (Negative) Urine Bilirubin Small H (Negative) Urine Urobilinogen Normal (Normal) mg/dL Ur Leukocyte Esterase Moderate H (Negative) Urine Microscopic RBC 5-15 H (0-3) per hpf Urine Microscopic WBC TNTC H (0-3) per hpf Ur Squamous Epith Cells Many H (None-Few) per lpf Urine Bacteria Few (None-Few) per hpf Hyaline Casts Few (None-Few) per lpf Ur Culture Indicated? NO. A (NO) Hep Bs Antigen Nonreactive (Nonreactive) Hep Bs Antibody 1.18 mIU/mL Exam - Constitutional Vitals: Temp Pulse Resp BP Pulse Ox 97.8 F 67 15 149/73 100 04/02/18 04:24 04/02/18 04:24 04/02/18 04:24 04/02/18 04:24 04/02/18 04:24 General appearance: average body habitus, cooperative, no acute distress - Head Head exam: Present: atraumatic, normal inspection, normocephalic - Eye Eye exam: Absent: normal appearance (Left eye atrophied.) - ENT ENT exam: Present: mucous membranes moist - Neck Neck exam: Present: normal inspection - Respiratory Respiratory exam: Present: CTAB. Absent: rales, respiratory distress, rhonchi, wheezes - Cardiovascular Cardiovascular exam: Present: RRR, +S1, +S2 - GI/Abdominal GI/Abdominal exam: Present: normal bowel sounds, soft. Absent: distended, tenderness - Extremities Exam Extremities exam: Present: tenderness (left foot). Absent: normal inspection (Left foot post-op dressing C/D/I.), pedal edema - Neurological Exam Neurological exam: Present: alert, oriented X3, no focal deficits - Psychiatric Psychiatric exam: Present: normal affect, normal mood - Skin Skin exam: Present: dry, intact, normal color, warm Consult Discharge Plan - Plan Referrals: Tom Xie Jr, MD [Primary Care Provider] - - Attending Attestation I examined this patient and my medical decision-making was reviewed with the Resident Physician. I agree with the documented findings, disposition and treatment plan as described except to the extent set forth below.
[2018-04-02] MEDS: Furosemide 40 MG TABLET PO SCH ×2 (10:24→16:06)
[2018-04-02] MEDS: Aspirin Enteric Coated 81 MG Tablet PO SCH (10:25)
[2018-04-02] MEDS: Dorzolamide/Timolol OPTH 10 ML BOTTLE BOTH EYES SCH ×3 (10:25→21:13)
[2018-04-02] MEDS: metroNIDAZOLE 500 MG TABLET PO SCH ×3 (10:25→21:13)
[2018-04-02] MEDS: Renal Vitamin 1 CAP CAPSULE PO SCH ×2 (10:25→10:30)
[2018-04-02] MEDS: rOPINIRole 1 MG TABLET PO SCH ×3 (10:25→21:13)
[2018-04-02] MEDS: Isosorbide MONOnitrate (24 HR) 30 MG TAB.ER.24H PO SCH ×2 (10:25→10:30)
[2018-04-02] MEDS: Metoprolol XL (24 HR) Succ 25 MG TAB.ER.24H PO SCH ×2 (10:26→10:31)
[2018-04-02] MEDS: Artificial Tears SOLN 15 ML BOTTLE BOTH EYES PRN (10:35)
--- NOTE | 2018-04-02 12:52 | Vascular/[facility] Progress Note ---
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 She underwent a left superficial femoral and popliteal artery angioplasty with significant improvement in her symptoms today. She is a patent left popliteal to dorsalis pedis artery bypass. His polyphasic signals in the left lower extremity. Her foot is warm. She has a persistent ulcer with 3 further debrided by podiatry. The patient also has a high-grade stenosis of the right superficial femoral artery as well as severe tibial disease. He will follow-up in vascular clinic and positive forward for further evaluation and to discuss revascularization of the right lower extremity. She will continue with daily Plavix. (2) Cellulitis of left foot Current Visit: Yes Status: Acute The patient is scheduled for debridement of her left foot tomorrow. 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 (5) CAD (coronary artery disease) of artery bypass graft Current Visit: Yes Status: Chronic Qualifiers: [place] vs. transplanted heart: [place] heart Associated angina: without angina Qualified Code(s): I25.810 - Atherosclerosis of coronary artery bypass graft(s) without angina pectoris - Subjective Interval history: The patient reports that her left foot feels significantly better. She denies any fevers or chills. She denies abdominal, flank, back or right inguinal pain. She denies chest pain or shortness of breath. - Physical Examination General: Present: Conversant, No Apparent Distress Cardiac: Present: Reg Rate and Rhythm Lungs: Present: Normal Breath Sounds Neuro: Present: Alert and responsive, No focal deficits noted Vascular: Present: Normal capillary refill, Edema (Trace edema), Surgical incisions (No hematoma in the right groin), Other (Pedal signals present bilaterally). Absent: Cyanosis Abdomen: Present: Soft, Non-tender. Absent: Masses Skin: Present: Wound/ulcer(s) (Left foot ulcer unchanged, persistent erythema noted) Results 04/02/18 04:00 04/02/18 04:00 Lab Results, Last 24 hours 04/02/18 04/02/18 04/02/18 04:00 04:00 04:00 WBC 11.8 H Hgb 10.4 L Hct 33.9 L Plt Count 275 INR 1.0 APTT 27.4 Sodium 137 Potassium 4.8 Chloride 98 Carbon Dioxide 29 BUN 53 H Creatinine 6.40 H Glucose 208 H Calcium 8.3 L Consult Discharge Plan - Plan Referrals: Tom Xie Jr, MD [Primary Care Provider] -
[2018-04-02] MEDS ORDERED: *HR* OxyCODONE/APAP 5/325 TABLET PO ONE (13:25)
[2018-04-02] MEDS: Cefepime HCl 1,000 MG in Water for inj. (sterile) 20 ML 10 ML IVP SCH (16:05)
[2018-04-02] MEDS: Insulin LISPRO 300 UNITS/3 ML VIAL SQ SCH ×2 (16:06→21:15)
[2018-04-02] MEDS ORDERED: Insulin LISPRO 300 UNITS/3 ML VIAL SQ SCH ×2 (16:30→21:00)
--- NOTE | 2018-04-02 19:18 | Electrocardiograph Report ---
[place] [id number] Test Date: 2018-03-29 Pat Name: Carmen Olvera Department: [id number] Room: 3B44 Gender: F Power Technician: : 1945 Requested By: Thomas White Order Number: [id number] Reading MD: Arthur Garcia Measurements Intervals [place] Rate: 56 P: 27 RI: 176 QRS: -52 QRSD: 108 T: -60 QT: 598 QTc: 578 Interpretive Statements Sinus rhythm LAD, consider left anterior fascicular block Abnormal R-wave progression, late transition LVH with secondary repolarization abnormality Prolonged QT interval Electronically Signed On 04-02-2018 19:16:56 EDT by Arthur Garcia
[2018-04-02] MEDS ORDERED: rOPINIRole 1 MG TABLET PO SCH (21:00)
[2018-04-02] MEDS ORDERED: Insulin DETEMIR 100 UNIT/ML X5UNITS SQ SCH (21:00)
[2018-04-02] MEDS ORDERED: Dorzolamide/Timolol OPTH 10 ML BOTTLE BOTH EYES SCH (21:00)
[2018-04-02] MEDS: Insulin DETEMIR 100 UNIT/ML X5UNITS SQ SCH (21:15)
[2018-04-03] MEDS ORDERED: Ketorolac 15 MG/ML VIAL IVP ONE (02:09)
[2018-04-03] MEDS: *HR* Heparin 5,000 UNIT/ML VIAL SQ SCH ×2 (05:05→17:42)
--- NOTE | 2018-04-03 07:55 | Event Note ---
Date of Encounter: 04/03/18 Time of Encounter: 07:55 Nephrology Chart Review/Update She last dialyzed on Thursday, and I would expect no extra dialysis needed this weekend, so her next HD is tentatively planned for Thursday. I will be available this weekend, if needed; and please feel free to call or page me with any questions. My colleague Dr. Mercado will be on-call starting Thursday. Thank you.
--- NOTE | 2018-04-03 08:21 | Internal Med Progress Note ---
Hospitalist Progress Note - Encounter Date of Encounter: 04/03/18 Time of Encounter: 09:30 - Subjective Interval History: awake, family present, feeling well this morning. no pain currently unless moves toes/foot. significant pain throughout night. no fevers, chills, nausea or emesis. She is requesting availability of addl percocet today. Discussion reg arding esrd and toxicity risk. She is agreeable to ahvng very low infrequent dosing available for severe pain. + flatus - Exam Vitals: Temp Pulse Resp BP Pulse Ox 98.7 F 62 16 149/54 96 04/03/18 03:36 04/03/18 03:36 04/03/18 03:36 04/03/18 03:36 04/03/18 03:36 Exam: General: awake, alert, appears stated age HEENT:EOM intact, pupils equal, round Cardiovascular:regular rate and rhythm, normal S1 & S2, no murmurs no lower extremity edema Lungs:Normal breath sounds, no wheezes, or crackles. Normal respiratory effort on room air Abdomen:Soft, non-tender, non-distended, + bowel sounds Extremities:left foot dressing clean dry intact, rom toes intact but painful Neurological: AAOx3, sesation to LLE intact to light touch Skin: very faint erythema left malave, minimal and within marked margin, no pallor - Assessment and Plan (1) Foot ulcer, left Current Visit: Yes Status: Acute Assessment and Plan: with concominant osteomylelitis and cellulitis -podiatry following s/p 04/02 left partial first ray amputation, soft tissue rearragement for closure of wound -cont iv abx as per ID recs: cefepime + flagyl, duration of abx is pending cx results, fu id recs -03/29 wound cx klebsiella, anaerobic cx neg -04/02 OR cxs pending -03/29 bl cxs ngtd -prn q 12 hr low dose percocet for severe pain, avoid excess doses given esrd and risk for toxicity, pt has listed codeine allergy but takes percocet without any issues (2) Cellulitis of left foot Current Visit: Yes Status: Acute Assessment and Plan: Nearly resolved, left malave -IV abx as above (3) Osteomyelitis Current Visit: Yes Status: Acute Assessment and Plan: 11/2 left partial first ray amputation, soft tissue rearragement for closure of wound podiatry following OR cxs as above post op care as per podiatry (4) CAD (coronary artery disease) of artery bypass graft Current Visit: Yes Status: Chronic Assessment and Plan: stable -cont home medications- asa/plavix/bb/imdur/no acei or arb given esrd/statin (5) CHF (congestive heart failure) Current Visit: Yes Status: Chronic Assessment and Plan: stable chronic Diastolic CHF last echo 06/2016 EF 50-5%, mild diastolic dysfunction stress test 09/2017 EF 49% -i/0s, weights -cont home meds as above (6) Diabetes mellitus Current Visit: Yes Status: Chronic Assessment and Plan: -SSI + home levemir 15 units hs -bs currently elevated above goal day of surgery- now back on home dosing and will cont to monitor as bl sugar control crucial to healing process (7) ESRD (end stage renal disease) on dialysis Current Visit: Yes Status: Chronic Assessment and Plan: HD as per KALINA Ulloa -next HD thursday -cont home meds (8) PVD (peripheral vascular disease) Current Visit: Yes Status: Chronic Assessment and Plan: s/p bypass grafting known to be occluded- seen by vasc surg this admit s/p Left superficial femoral angioplasty/Left popliteal artery angioplasty 03/31/18 -cont asa + plavix + statin DVT Prophylaxis: sq hep q 12 as per surgery - Time Spent with Patient Total time spent is greater than 50% in coordination of care (as documented) at patient's floor/unit and/or counseling patient: 25 - 35 minutes Plan of Care Discussed with: patient Internal Medicine: Result - Labs CBC & Chem 7: 04/02/18 04:00 04/02/18 04:00 - ABG Interpretation ABG results: PT/INR, D-dimer PT 11.2 Seconds (9.4-12.1) 04/02/18 04:00 - Impressions Impressions Foot X-Ray 04/02/18 13:10 IMPRESSION: 1. Status post amputation of the 1st digit at the level of the mid diaphysis of the 1st metatarsal with no immediate postoperative complication identified D/ / Roderick Bai MD / Roderick Bai MD Interpreting Provider: Roderick Bai MD Consult Discharge Plan - Plan Referrals: Tom Xie Jr, MD [Primary Care Provider] - (1) Foot ulcer, left Qualifiers: Non-pressure ulcer stage: unspecified non-pressure ulcer stage Qualified Code(s): L97.529 - Non-pressure chronic ulcer of other part of left foot with unspecified severity (3) Osteomyelitis Qualifiers: Osteomyelitis type: acute hematogenous Osteomyelitis location: foot Laterality: left Qualified Code(s): M86.072 - Acute hematogenous osteomyelitis, left ankle and foot (4) CAD (coronary artery disease) of artery bypass graft Qualifiers: [place] vs. transplanted heart: [place] heart Associated angina: without angina Qualified Code(s): I25.810 - Atherosclerosis of coronary artery bypass graft(s) without angina pectoris (5) CHF (congestive heart failure) Qualifiers: Heart failure type: combined systolic and diastolic Heart failure chronicity: chronic Qualified Code(s): I50.42 - Chronic combined systolic (congestive) and diastolic (congestive) heart failure (6) Diabetes mellitus Qualifiers: Diabetes mellitus type: type 2 Diabetes mellitus detention insulin use: with termite treater helper use Diabetes mellitus complication status: with kidney complications Diabetes mellitus complication detail: with chronic kidney disease Chronic kidney disease stage: on chronic dialysis Qualified Code(s): E11.22 - Type 2 diabetes mellitus with diabetic chronic kidney disease; N18.6 - End stage renal disease; Z79.4 - senior living (current) use of insulin; Z99.2 - Dependence on renal dialysis
[2018-04-03] MEDS: Dorzolamide/Timolol OPTH 10 ML BOTTLE BOTH EYES SCH ×2 (08:42→20:59)
[2018-04-03] MEDS: Furosemide 40 MG TABLET PO SCH ×2 (08:42→16:31)
[2018-04-03] MEDS: Aspirin Enteric Coated 81 MG Tablet PO SCH (08:42)
[2018-04-03] MEDS: Isosorbide MONOnitrate (24 HR) 30 MG TAB.ER.24H PO SCH (08:43)
[2018-04-03] MEDS: metroNIDAZOLE 500 MG TABLET PO SCH ×3 (08:43→20:58)
[2018-04-03] MEDS: rOPINIRole 1 MG TABLET PO SCH ×2 (08:44→20:58)
[2018-04-03] MEDS: Renal Vitamin 1 CAP CAPSULE PO SCH (08:44)
[2018-04-03] MEDS: Metoprolol XL (24 HR) Succ 25 MG TAB.ER.24H PO SCH (08:45)
[2018-04-03] MEDS: Insulin LISPRO 300 UNITS/3 ML VIAL SQ SCH ×4 (08:48→20:58)
[2018-04-03] MEDS ORDERED: Isosorbide MONOnitrate (24 HR) 30 MG TAB.ER.24H PO SCH (09:00)
[2018-04-03] MEDS ORDERED: Metoprolol XL (24 HR) Succ 25 MG TAB.ER.24H PO SCH (09:00)
[2018-04-03] MEDS ORDERED: Renal Vitamin 1 CAP CAPSULE PO SCH (09:00)
[2018-04-03] MEDS ORDERED: *HR* OxyCODONE/APAP 5/325 TABLET PO PRN (09:57)
[2018-04-03] MEDS: Cefepime HCl 1,000 MG in Water for inj. (sterile) 20 ML 10 ML IVP SCH (16:33)
[2018-04-03] MEDS: Insulin DETEMIR 100 UNIT/ML X5UNITS SQ SCH (20:57)
[2018-04-04 01:54] LABS: Basophils # 0.2 K/mcL (0.0-0.2); Eosinophils # 0.5 K/mcL (0.0-0.6); Hematocrit 33.3 % (35.3-44.9); Hemoglobin 10.1 g/dL (11.5-15.4); Immature Granulocytes % 0.9 % (0-4); Lymphocytes # 2.8 K/mcL (0.6-4.6); Lymphocytes % 17.3 %; Mean Corpuscular HGB Conc 30.3 g/dL (31.6-35.5); Mean Corpuscular Hemoglobin 32.4 pg (28.0-33.3); Mean Corpuscular Volume 106.7 fL (83.0-100.0); Mean Platelet Volume 9.4 fL (9.4-12.4); Monocytes # 1.2 K/mcL (0.0-1.3); Monocytes % 7.7 %; Neutrophils # 11.2 K/mcL (1.6-8.9); Platelet Count 350 K/mcL (140-400); Red Blood Count 3.12 M/mcL (3.82-4.97); Red Cell Distribution Width 14.3 % (11.5-14.5); Segmented Neutrophils % 70.1 %
[2018-04-04] MEDS: *HR* Heparin 5,000 UNIT/ML VIAL SQ SCH ×2 (05:12→17:40)
[2018-04-04] MEDS: Insulin LISPRO 300 UNITS/3 ML VIAL SQ SCH ×4 (08:14→19:57)
[2018-04-04] MEDS: Metoprolol XL (24 HR) Succ 25 MG TAB.ER.24H PO SCH (08:15)
[2018-04-04] MEDS: Renal Vitamin 1 CAP CAPSULE PO SCH (08:15)
[2018-04-04] MEDS: Furosemide 40 MG TABLET PO SCH ×2 (08:15→17:30)
[2018-04-04] MEDS: rOPINIRole 1 MG TABLET PO SCH ×2 (08:16→19:56)
[2018-04-04] MEDS: Isosorbide MONOnitrate (24 HR) 30 MG TAB.ER.24H PO SCH (08:16)
[2018-04-04] MEDS: metroNIDAZOLE 500 MG TABLET PO SCH ×3 (08:16→19:57)
[2018-04-04] MEDS: Aspirin Enteric Coated 81 MG Tablet PO SCH (08:16)
[2018-04-04] MEDS: Dorzolamide/Timolol OPTH 10 ML BOTTLE BOTH EYES SCH ×2 (08:17→19:55)
--- NOTE | 2018-04-04 11:07 | Internal Med Progress Note ---
Hospitalist Progress Note - Encounter Date of Encounter: 04/04/18 Time of Encounter: 09:15 - Subjective Interval History: awake, at bedside. pain is tolerable in foot, slept well. + flatus , eating and drinking post op without difficulty. no fevers, chills, nausea or emesis. She notes a "feeling of being shaky on the inside" that started yesterday. Denies any tremor or feeling of being unable to sit still. Denies feeling anxious, sob or palpitations. Its an all over internal tremor per the pt. Suspect related to opiate given her esrd and pt is agreeable to no further opiates. No change in mentation or level of consciousness. She will make staff aware of any other changes. She is on her home o2 nc. - Exam Vitals: Temp Pulse Resp BP Pulse Ox 97.6 F 57 16 136/70 100 04/04/18 08:04 04/04/18 08:04 04/04/18 08:04 04/04/18 08:04 04/04/18 08:04 Exam: General: awake, alert, appears stated age Cardiovascular:regular rate and rhythm, normal S1 & S2, no murmurs no lower extremity edema Lungs:Normal breath sounds, no wheezes, or crackles. Normal respiratory effort on o2 nc Abdomen:Soft, non-tender, non-distended, + bowel sounds Extremities:left foot dressing clean dry intact, rom toes intact but painful Neurological: AAOx3, no tremor or muscle jerks, speech is clear Skin: no erythema left malave,no pallor, wound cannot be visualized with dressing intact - Assessment and Plan (1) Foot ulcer, left Current Visit: Yes Status: Acute Assessment and Plan: with concominant osteomylelitis and cellulitis -podiatry following s/p 04/02 left partial first ray amputation, soft tissue rearragement for closure of wound -cont iv abx as per ID recs: cefepime + flagyl, duration of abx is pending cx results, fu id recs -03/29 wound cx klebsiella, anaerobic cx neg -04/02 OR cxs no growth -03/29 bl cxs neg -stop prn pain medication due to internal "shakiness" per pt, no tremor -awaiting podiatry follow up for further recommendations regarding wound and follow up, abx -04/04 increased leukocytosis 11.8 to 15.9, afebrile, if fever will obtain repeat bl cxs (2) Cellulitis of left foot Current Visit: Yes Status: Acute Assessment and Plan: Nearly resolved, left malave -IV abx as above (3) Osteomyelitis Current Visit: Yes Status: Acute Assessment and Plan: 04/02 left partial first ray amputation, soft tissue rearragement for closure of wound podiatry following OR cxs as above post op care as per podiatry (4) CAD (coronary artery disease) of artery bypass graft Current Visit: Yes Status: Chronic Assessment and Plan: stable -cont home medications- asa/plavix/bb/imdur/no acei or arb given esrd/statin (5) CHF (congestive heart failure) Current Visit: Yes Status: Chronic Assessment and Plan: stable chronic Diastolic CHF last echo 06/2016 EF 50-5%, mild diastolic dysfunction stress test 09/2017 EF 49% -i/0s, weights -cont home meds as above + home o2 nc (6) Diabetes mellitus Current Visit: Yes Status: Chronic Assessment and Plan: -SSI + home levemir 15 units hs -adjusting as needed -do not suspect internal shakiness is related to bs as they have been largely in the same range throughout admission, no hypoglycemic recordings (7) ESRD (end stage renal disease) on dialysis Current Visit: Yes Status: Chronic Assessment and Plan: HD as per KALINA Ulloa -next HD thursday -cont home meds, hold any opiates (8) PVD (peripheral vascular disease) Current Visit: Yes Status: Chronic Assessment and Plan: s/p bypass grafting known to be occluded- seen by vasc surg this admit s/p Left superficial femoral angioplasty/Left popliteal artery angioplasty 03/31/18 -cont asa + plavix + statin DVT Prophylaxis: sq hep q 12 as per surgery - Time Spent with Patient Total time spent is greater than 50% in coordination of care (as documented) at patient's floor/unit and/or counseling patient: 25 - 35 minutes Plan of Care Discussed with: patient Internal Medicine: Result - Labs CBC & Chem 7: 04/04/18 01:42 EST 04/04/18 01:42 EST Labs: Short CBC 04/04/18 Range/Units 01:42 EST WBC 15.9 H (4.3-11.1) K/mcL Hgb 10.1 L (11.5-15.4) g/dL Hct 33.3 L (35.3-44.9) % Plt Count 350 (140-400) K/mcL Neutrophils # 11.2 H (1.6-8.9) K/mcL BMP 04/04/18 01:42 EST Sodium 138 Potassium 5.0 Chloride 97 L Carbon Dioxide 29 BUN 69 H Creatinine 6.69 H Glucose 124 H Calcium 8.0 L - ABG Interpretation ABG results: PT/INR, D-dimer PT 11.2 Seconds (9.4-12.1) 04/02/18 04:00 Consult Discharge Plan - Plan Referrals: Tom Xie Jr, MD [Primary Care Provider] - (1) Foot ulcer, left Qualifiers: Non-pressure ulcer stage: unspecified non-pressure ulcer stage Qualified Code(s): L97.529 - Non-pressure chronic ulcer of other part of left foot with unspecified severity (3) Osteomyelitis Qualifiers: Osteomyelitis type: acute hematogenous Osteomyelitis location: foot Laterality: left Qualified Code(s): M86.072 - Acute hematogenous osteomyelitis, left ankle and foot (4) CAD (coronary artery disease) of artery bypass graft Qualifiers: [place] vs. 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
--- NOTE | 2018-04-04 12:48 | Podiatry Progress Note ---
Date of Encounter: 04/04/18 Time of Encounter: 10:00 - Assessment and Plan (1) Foot ulcer, left Current Visit: Yes Status: Acute Qualifiers: Non-pressure ulcer stage: unspecified non-pressure ulcer stage Qualified Code(s): L97.529 - Non-pressure chronic ulcer of other part of left foot with unspecified severity Subjective Principal diagnosis: left leg infection Interval history: S: 2 days s/p partial left 1st ray amputation. Patient alert and oriented x 3. she says her foot hurts some but overall feels better than it did before. O: sutures intact. mild periwound erythema. no dehiscence. foot warm to touch. A: 2 days s/p partial left 1st ray amputation P: discussed surgical procedure and course of recovery. weight bearing on heel in surgical shoe on heel bandage change twice weekly upon discharge with adaptic, 4x4 gauze and kerlix. f/u in wound care Apr 08 in AM Objective - Vital Signs Vital Signs: Vital Signs Temp Pulse Resp BP Pulse Ox 04/04/18 12:11 97.8 F 102 14 148/68 94 04/04/18 08:04 97.6 F 57 16 136/70 100 04/04/18 03:23 97.4 F L 72 16 136/79 96 04/03/18 23:12 97.6 F 60 16 138/55 98 04/03/18 19:33 97.6 F 63 16 128/45 100 04/03/18 16:21 97.7 F 87 18 122/52 97 Intake and Output 04/04/18 04/04/18 04/04/18 00:59 07:59 15:59 Intake Total 120 / 120 Output Total Balance 120 / 120 Intake: IV Fluids Maxipime 1,000 MG In Water for inj. (sterile) 10 ML @ 300 mls/ hr IVP Q24H [facility] Rx#:[id number] Oral 120 / 120 Output: Urine Other: Meal Breakfast Percent of Meal Consumed 50% Weight Blood Glucose* 183 Patient Weight 04/04/18 22:59 Weight 75.6 kg - Lab Result Diagrams: 04/04/18 01:42 EST 04/04/18 01:42 EST Labs: Abnormal lab results WBC 15.9 K/mcL (4.3-11.1) H 04/04/18 01:42 EST RBC 3.12 M/mcL (3.82-4.97) L 04/04/18 01:42 EST Hgb 10.1 g/dL (11.5-15.4) L 04/04/18 01:42 EST Hct 33.3 % (35.3-44.9) L 04/04/18 01:42 EST MCV 106.7 fL (83.0-100.0) H 04/04/18 01:42 EST MCHC 30.3 g/dL (31.6-35.5) L 04/04/18 01:42 EST Neutrophils # 11.2 K/mcL (1.6-8.9) H 04/04/18 01:42 EST ESR 77 mm/hr (0-15) H 03/29/18 11:58 Chloride 97 mEq/L (98-107) L 04/04/18 01:42 EST BUN 69 mg/dL (8-23) H 04/04/18 01:42 EST Creatinine 6.69 mg/dL (0.60-1.20) H 04/04/18 01:42 EST Est GFR ( Amer) 7 (> 60) L 04/04/18 01:42 EST Est GFR (Non-Af Amer) 6 (> 60) L 04/04/18 01:42 EST Glucose 124 mg/dL (70-105) H 04/04/18 01:42 EST POC Glucose 318 mg/dL (70-99) H 04/02/18 20:20 Hemoglobin A1c 6.2 % (-5.6) H 03/29/18 11:58 Calculated Osmolality 308 (280-300) H 04/04/18 01:42 EST Calcium 8.0 mg/dL (8.6-10.3) L 04/04/18 01:42 EST C-Reactive Protein 157 mg/L (Less than 10) H 03/29/18 11:58 Lipase 7 Units/L (11-82) L 03/29/18 11:58 Urine Clarity Turbid (Clear) A 03/30/18 19:00 Urine Protein >=300 mg/dL (Neg-Trace) H 03/30/18 19:00 Urine Glucose (UA) 250 mg/dL (Normal) H 03/30/18 19:00 Urine Blood Trace (Negative) H 03/30/18 19:00 Urine Bilirubin Small (Negative) H 03/30/18 19:00 Ur Leukocyte Esterase Moderate (Negative) H 03/30/18 19:00 Urine Microscopic RBC 5-15 per hpf (0-3) H 03/30/18 19:00 Urine Microscopic WBC TNTC per hpf (0-3) H 03/30/18 19:00 Ur Squamous Epith Cells Many per lpf (None-Few) H 03/30/18 19:00 Ur Culture Indicated? NO. (NO) A 03/30/18 19:00 Microbiology, Last 48 Hours 03/29/18 12:50 Blood Culture - Final Peripheral Venipuncture No growth. Final report. 03/29/18 12:50 Blood Culture - Final Peripheral Venipuncture No growth. Final report. 04/02/18 11:30 Wound Culture - Preliminary Left Foot No growth. 04/02/18 11:30 Wound Culture - Preliminary Left Foot No growth. 03/29/18 16:45 Anaerobic Culture - Final Right Foot No anaerobes were recovered. Consult Discharge Plan - Plan Referrals: Tom Xie Jr, MD [Primary Care Provider] -
[2018-04-04] MEDS: Cefepime HCl 1,000 MG in Water for inj. (sterile) 20 ML 10 ML IVP SCH (15:15)
[2018-04-04] MEDS: Insulin DETEMIR 100 UNIT/ML X5UNITS SQ SCH (20:00)
[2018-04-05 03:37] LABS: Calcium 7.9 mg/dL (8.6-10.3); Potassium 6.2 mEq/L (3.5-5.1)
[2018-04-05 04:12] LABS: Basophils # 0.2 K/mcL (0.0-0.2); Basophils % 1.2 %; Eosinophils # 0.6 K/mcL (0.0-0.6); Eosinophils % 4.6 %; Hematocrit 29.2 % (35.3-44.9); Hemoglobin 9.1 g/dL (11.5-15.4); Immature Granulocytes % 0.9 % (0-4); Lymphocytes # 2.4 K/mcL (0.6-4.6); Lymphocytes % 17.4 %; Mean Corpuscular HGB Conc 31.2 g/dL (31.6-35.5); Mean Corpuscular Hemoglobin 32.5 pg (28.0-33.3); Mean Corpuscular Volume 104.3 fL (83.0-100.0); Mean Platelet Volume 9.7 fL (9.4-12.4); Monocytes # 1.1 K/mcL (0.0-1.3); Monocytes % 7.6 %; Neutrophils # 9.4 K/mcL (1.6-8.9); Platelet Count 311 K/mcL (140-400); Red Cell Distribution Width 14.3 % (11.5-14.5); Segmented Neutrophils % 68.3 %
[2018-04-05] MEDS: *HR* Heparin 5,000 UNIT/ML VIAL SQ SCH ×2 (05:45→18:25)
[2018-04-05] MEDS ORDERED: 0.9 % Sodium Chloride 250 ML IVC PRN (06:24)
[2018-04-05] MEDS: Artificial Tears SOLN 15 ML BOTTLE BOTH EYES PRN (09:26)
[2018-04-05] MEDS: Dorzolamide/Timolol OPTH 10 ML BOTTLE BOTH EYES SCH ×2 (09:26→21:35)
--- NOTE | 2018-04-05 09:29 | Event Note ---
Date of Encounter: 04/05/18 Time of Encounter: 09:00 AM rounding on patient. she is noted to have speech change new since rounded on her 04/04/18 at 9:15 AM. She is edentulous she has some mil dintermittent slurring of speech. She admits to having trouble "thinking of the word and getting it out". She states this started yesterday after I rounded and stopped her percocet. Her is now at bedside and he agrees with her timeline of trouble getting words out yesterday morning around shortly after I saw her. 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 On chart review there is no mention of any speech changes yesterday and I was not informed of any. Given this information, last known well would be 24 hrs ago on my assessment/ assessment which makes her outside the window for tpa / intervention if this is acute CVA. Discussed this with pt and at bedside. He again confirms this speech this morning has been present for a day. Pt and states that this same thing happened after she had a toe amputated on her right foot and she did not have a stroke. Will begin immediate stroke work up. Pt additionally now notes that she had "my whole face numb since surgery", same day of surgery after return to floor. Her was unaware as she never mentioned it to him. She notes she mentioned it to a staff member, but never to myself or her . No recent documentation of this, she feels she may have told someone on another floor she was previously on. 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 sensation to face intact to cold and light touch and equal, sensation to bl upper and lower ext intact and equal to light touch, at baseline has diminished sensation to feet, mild to moderate aphasia with some obvious changes but without sig limitation, perhaps mild dysarthria compared to baseline, no extinction abnormality. Resident exam was preformed as well. Pt noted to her sensation difference in face. I re evaluated pt and she said right and left forehead were unequal and when asked how she stated "i can't feel it in the middle" referring to an area where she had not been touched. Educated pt further on difference we are evalauting for and understood. Repeat testing without sensation abnormality. 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
[2018-04-05] MEDS: Insulin LISPRO 300 UNITS/3 ML VIAL SQ SCH ×4 (09:31→21:34)
[2018-04-05] MEDS: Aspirin Enteric Coated 81 MG Tablet PO SCH (09:32)
[2018-04-05] MEDS: Renal Vitamin 1 CAP CAPSULE PO SCH (09:32)
[2018-04-05] MEDS: metroNIDAZOLE 500 MG TABLET PO SCH (09:32)
[2018-04-05] MEDS: Furosemide 40 MG TABLET PO SCH ×2 (09:32→18:24)
[2018-04-05] MEDS: Metoprolol XL (24 HR) Succ 25 MG TAB.ER.24H PO SCH (09:33)
[2018-04-05] MEDS: Isosorbide MONOnitrate (24 HR) 30 MG TAB.ER.24H PO SCH (09:43)
[2018-04-05] MEDS: rOPINIRole 1 MG TABLET PO SCH ×2 (09:43→21:35)
[2018-04-05 09:47] LABS: Basophils # 0.1 K/mcL (0.0-0.2); Basophils % 0.8 %; Eosinophils # 0.7 K/mcL (0.0-0.6); Eosinophils % 5.1 %; Hematocrit 31.6 % (35.3-44.9); Hemoglobin 9.5 g/dL (11.5-15.4); Lymphocytes # 1.9 K/mcL (0.6-4.6); Lymphocytes % 14.4 %; Mean Corpuscular HGB Conc 30.1 g/dL (31.6-35.5); Mean Corpuscular Volume 106.4 fL (83.0-100.0); Mean Platelet Volume 9.4 fL (9.4-12.4); Monocytes % 8.1 %; Neutrophils # 9.1 K/mcL (1.6-8.9); Platelet Count 309 K/mcL (140-400); Red Blood Count 2.97 M/mcL (3.82-4.97); Red Cell Distribution Width 14.3 % (11.5-14.5); Segmented Neutrophils % 70.6 %
[2018-04-05 10:10] LABS: Potassium 6.9 mEq/L (3.5-5.1)
[2018-04-05 10:11] LABS: Albumin 3.1 g/dL (3.5-5.7); Albumin/Globulin Ratio 1.1 (1.1-2.2); Bilirubin,Total 0.4 mg/dL (0.3-1.0); Calcium 7.5 mg/dL (8.6-10.3); Globulin 2.8 g/dL (2.4-3.5); Total Protein 5.9 g/dL (6.4-8.9)
--- NOTE | 2018-04-05 10:52 | Internal Med Progress Note ---
<Dolores Hoover - Last Filed: 04/05/18 10:46> Hospitalist Progress Note - Encounter Date of Encounter: 04/05/18 Time of Encounter: 10:46 - Subjective Interval History: Pt is a 72F with PMH of COPD, CHF, ESRD, DM, CAD presented with increased left leg pain and swelling, had left first ray amputation on 04/02/18, followed by podiatry. Pt endorsing some mild word-finding difficulties on exam and facial numbness that she states has been going on since after surgery. NIH evaluation was score of 2 for mild slurring of words and decreased sensation on right arm/right face for differentiation between dull/sharp. No last known well, RN this am had not seen pt until my evaluation. Pt will get STAT head CT, brain MRI. Pt endorsing subjective fevers since admission, as she states she "is normally 89F". Explained to patient technical definition of fever. - Exam Vitals: Temp Pulse Resp BP Pulse Ox 97.9 F 63 16 141/50 98 04/05/18 07:41 04/05/18 07:41 04/05/18 07:41 04/05/18 07:41 04/05/18 07:41 Exam: CONSTITUTIONAL: patient appears as an age appropriate female in no acute distress. EYES Clear sclerae, bilateral pupils are equal, reactive to light. EMOI. RESPIRATORY: No accessory muscle use, rales appreciated in left lower lobe, clear in other lobes CARDIOVASCULAR: Regular heart rate, normal S1 and S2, no murmurs GASTROINTESTINAL: bowel sounds present, soft, no tenderness. Skin: Warm, dry, left foot bandaged. Other skin intact. NEUROLOGIC: CN II to XII are grossly intact, NIH score 2 for mild slurring of words, decreased dull/sharp sensation on R arm in all dermatomes and R cheek. All other facial dermatomes intact. STR 5/5 DHRUV UE/LE. Cerebellar testing unremarkable. - Assessment and Plan (1) Chronic congestive heart failure Current Visit: Yes Status: Chronic Assessment and Plan: Last echo June 2016 revealed EF 50-55% with mild left ventricular diastolic dysfunction - pt does not have significant swelling in LE with exception of left foot where osteomyelitis and wound are present - pt on 25mg Metoprolol, 80mg BID Lasix - continue to monitor (2) ESRD (end stage renal disease) on dialysis Current Visit: Yes Status: Chronic Assessment and Plan: -Pt receives MWF dialysis - will continue her schedule while admitted (3) Diabetes mellitus Current Visit: Yes Status: Chronic Assessment and Plan: - Low dose correction schedule - 15mg BID Levemir - Goal sugars <180 to encourage wound healing (4) PVD (peripheral vascular disease) Current Visit: Yes Status: Chronic Assessment and Plan: ABIs completed 08/20/17 showed findings consistent with severe disease in the right lower extremity and moderate disease in the left lower extremity. Repeat ABIs show severe disease bilaterally. TCPO2 right 40 ankle, 50 foot. Left 22 ankle, 13 foot. Vascular surgery consulted. Status post aortogram with BLE angiogram via right common artery, left SFA angioplasty, and left popliteal artery angioplasty by Dr. Craig. (5) Blind left eye Current Visit: Yes Status: Chronic Assessment and Plan: team aware (6) Cellulitis of left foot Current Visit: Yes Status: Acute Assessment and Plan: Followed by ID, see their notes from detailed plans. - Metronidazole 500mg TID - 1gm Cefepime QD (7) CAD (coronary artery disease) of artery bypass graft Current Visit: Yes Status: Chronic Assessment and Plan: Followed by Dr. Recio, Cardiology (8) Leukocytosis Current Visit: Yes Status: Acute Assessment and Plan: Pt's WBC 21.7 at admit, 11.8 today, likely a reflection of infectious process in left foot - currently on antibiotic therapy as described above continue to monitor (9) Osteomyelitis Current Visit: Yes Status: Acute Assessment and Plan: Followed by Podiatry Wound cultures obtained, resulted Klebsiella. MRI of left foot showed possible early osteomylitis First ray amputation on 04/02/18 Continue antibiotic treatment per podiatry DVT Prophylaxis: sq hep q 12 as per surgery - Time Spent with Patient Total time spent is greater than 50% in coordination of care (as documented) at patient's floor/unit and/or counseling patient: less than 15 minutes Plan of Care Discussed with: patient Internal Medicine: Result - Labs CBC & Chem 7: 04/05/18 09:09 04/05/18 09:09 Labs: Short CBC 04/05/18 04/05/18 Range/Units 02:53 09:09 WBC 13.8 H 12.9 H (4.3-11.1) K/mcL Hgb 9.1 L 9.5 L (11.5-15.4) g/dL Hct 29.2 L 31.6 L (35.3-44.9) % Plt Count 311 309 (140-400) K/mcL Neutrophils # 9.4 H 9.1 H (1.6-8.9) K/mcL BMP 04/05/18 04/05/18 02:53 09:09 Sodium 134 L 134 L Potassium 6.2 H 6.9 H* Chloride 96 L 97 L Carbon Dioxide 27 24 BUN 89 H 97 H Creatinine 8.75 H 8.77 H Glucose 193 H 307 H Calcium 7.9 L 7.5 L Cardiac Enzymes 04/05/18 Range/Units 09:07 Troponin I < 0.03 (< 0.04) ng/mL Liver Function 04/05/18 Range/Units 09:09 Total Bilirubin 0.4 (0.3-1.0) mg/dL AST 64 H (13-39) Units/L ALT 70 H (7-52) Units/L Alkaline Phosphatase 68 (34-104) Units/L Albumin 3.1 L (3.5-5.7) g/dL - ABG Interpretation ABG results: PT/INR, D-dimer PT 11.2 Seconds (9.4-12.1) 04/02/18 04:00 - Impressions Impressions Head CT 04/05/18 08:59 IMPRESSION: No acute intracranial abnormality. D/ / Trae Jean MD / Trae Jean MD Interpreting Provider: Trae Jean MD Consult Discharge Plan - Plan Referrals: Tom Xie Jr, MD [Primary Care Provider] - <Barbra Pierce - Last Filed: 04/05/18 15:02> Hospitalist Progress Note - Encounter Date of Encounter: 04/05/18 - Exam Vitals: Temp Pulse Resp BP Pulse Ox 97.9 F 63 15 146/48 98 04/05/18 10:20 04/05/18 07:41 04/05/18 10:20 04/05/18 10:50 04/05/18 07:41 - Assessment and Plan (1) Foot ulcer, left Current Visit: Yes Status: Acute (2) Cellulitis of left foot Current Visit: Yes Status: Acute (3) Osteomyelitis Current Visit: Yes Status: Acute (4) CAD (coronary artery disease) of artery bypass graft Current Visit: Yes Status: Chronic (5) CHF (congestive heart failure) Current Visit: Yes Status: Chronic (6) Diabetes mellitus Current Visit: Yes Status: Chronic (7) ESRD (end stage renal disease) on dialysis Current Visit: Yes Status: Chronic (8) PVD (peripheral vascular disease) Current Visit: Yes Status: Chronic - Time Spent with Patient Total time spent is greater than 50% in coordination of care (as documented) at patient's floor/unit and/or counseling patient: Internal Medicine: Result - Labs CBC & Chem 7: 04/05/18 09:09 04/05/18 09:09 Labs: Short CBC 04/05/18 04/05/18 Range/Units 02:53 09:09 WBC 13.8 H 12.9 H (4.3-11.1) K/mcL Hgb 9.1 L 9.5 L (11.5-15.4) g/dL Hct 29.2 L 31.6 L (35.3-44.9) % Plt Count 311 309 (140-400) K/mcL Neutrophils # 9.4 H 9.1 H (1.6-8.9) K/mcL BMP 04/05/18 04/05/18 02:53 09:09 Sodium 134 L 134 L Potassium 6.2 H 6.9 H* Chloride 96 L 97 L Carbon Dioxide 27 24 BUN 89 H 97 H Creatinine 8.75 H 8.77 H Glucose 193 H 307 H Calcium 7.9 L 7.5 L Cardiac Enzymes 04/05/18 Range/Units 09:07 Troponin I < 0.03 (< 0.04) ng/mL Liver Function 04/05/18 Range/Units 09:09 Total Bilirubin 0.4 (0.3-1.0) mg/dL AST 64 H (13-39) Units/L ALT 70 H (7-52) Units/L Alkaline Phosphatase 68 (34-104) Units/L Albumin 3.1 L (3.5-5.7) g/dL - ABG Interpretation ABG results: PT/INR, D-dimer PT 11.2 Seconds (9.4-12.1) 04/02/18 04:00 - Impressions Impressions Head CT 04/05/18 08:59 IMPRESSION: No acute intracranial abnormality. D/ / Trae Jean MD / Trae Jean MD Interpreting Provider: Trae Jean MD - Attending Attestation I examined this patient and my medical decision-making was reviewed with the Resident Physician Dr Hoover. I agree with the documented findings, disposition and treatment plan as described except to the extent set forth below/addl details below Mrs Olvera was admitted for treatment of foot ulcer with cellulitis and osteomyelitis and is being followed by podiatry and ID. She has re vascularization of the leg preformed by [facility] surgery this admission with hx PVD. She had toe ampuation 04/02. On 04/05 she was noted to have speech change/and aphasia and began work up for stroke. She was outside the window for tpa/intervention based on last known normal. See event note by myself for details of hpi this morning. gen- alert, awake,appears stated age cv- reg rate and rhythm, normal s1,s2, no murmurs appreciated, no le edema, no jvd lungs- ctabl, no wheezing, rhonchi or crackles, norm resp effort on o2 nc skin- no erythema within marked margins left malave, no warmth,foot wound is dressed, clean, dry intact Neuro exam- aaox4, she has blindness in lef eye and no change in left eye exam, right pupil round, reactive, eom intact and normal, vision right eye unchanged, no facial palsy, BL arm strength 5/5 no pronator drift, bl leg strength 5/5, had surgery left foot and harder to lift limb than right but does so and maintains elevation equally to right leg. sensation to face intact to cold and light touch and equal, sensation to bl upper and lower ext intact and equal to light touch, at baseline has diminished sensation to feet, mild to moderate aphasia with some obvious changes but without sig limitation, perhaps mild dysarthria compared to baseline, no extinction abnormality. Left foot ulcer, cellulitis, osteomyeleitis - cont iv abx as per ID recs, podiatry and ID following, OR 04/02 left partial first ray amputation, soft tissue rearrangement for closure of wound 03/29 wound cx klebsiella, anaerobic cx neg -04/02 OR cxs no growth -03/29 bl cxs neg -pt/ot limited weight bearing LLL -tentative plan is IV abx with HD fu ID recs today Speech Change, best described mild to moderate aphasia with some obvious changes but without sig limitation -no tpa/intervention as last known well 24 hrs prior after d/w staff and family -ekg, trop, glucose, ct head neg -repeat bmp indicating hyperkalemai and worsened bun/creat--due for HD today, to HD after CT neg -discussed with rads and ok with metal to obtain MRI today, pending -echo and cus ordered and pending -neuro consult pending results -already on asa + plavix + statin -rule out infectious etiology of neuro change: ua if makes any urine, bl cxs if develops fever, -pt/ot/supervisor coke handling--SW updated PVD s/p bypass grafting known to be occluded- seen by vasc surg this admit, Left superficial femoral angioplasty/Left popliteal artery angioplasty 03/31/18, cont asa + plavix + statin DM- on levemir 15 units qhs, SSI and uptitrate for good glycemic control to promote healing ESRD on HD MWF- nephro following, monitor for improvement in speech change with HD today CAD hx chronic Diastolic CHF Both stable last echo 06/2016 EF 50-5%, mild diastolic dysfunction, stress test 09/2017 EF 49% -i/0s, weights -asa/plavix/no acei or arb given esrd/statin + home o2 nc, HOLD BB and imdur in setting of aphasia and permissive htn until MRI rules out cva VTE ppx- now on hep sq q12 as started by podiatry post op further diagnoses and plan as documented by resident <Dolores Hoover L - Last Filed: 04/05/18 10:46> (3) Diabetes mellitus Qualifiers: Diabetes mellitus type: type 2 Diabetes mellitus middle or intermediate school principal insulin use: with skilled nursing use Diabetes mellitus complication status: with kidney complications Diabetes mellitus complication detail: with chronic kidney disease Chronic kidney disease stage: on chronic dialysis Qualified Code(s): E11.22 - Type 2 diabetes mellitus with diabetic chronic kidney disease; N18.6 - End stage renal disease; Z79.4 - terminal carman (current) use of insulin; Z99.2 - Dependence on renal dialysis (7) CAD (coronary artery disease) of artery bypass graft Qualifiers: [place] vs. transplanted heart: [place] heart Associated angina: without angina Qualified Code(s): I25.810 - Atherosclerosis of coronary artery bypass graft(s) without angina pectoris (8) Leukocytosis Qualifiers: Leukocytosis type: bandemia Qualified Code(s): D72.825 - Bandemia (9) Osteomyelitis Qualifiers: Osteomyelitis type: acute hematogenous Osteomyelitis location: foot Laterality: left Qualified Code(s): M86.072 - Acute hematogenous osteomyelitis, left ankle and foot <Barbra Pierce - Last Filed: 04/05/18 15:02> (1) Foot ulcer, left Qualifiers: Qualified Code(s): L97.529 - Non-pressure chronic ulcer of other part of left foot with unspecified severity (3) Osteomyelitis Qualifiers: Qualified Code(s): M86.072 - Acute hematogenous osteomyelitis, left ankle and foot (4) CAD (coronary artery disease) of artery bypass graft Qualifiers: Qualified Code(s): I25.810 - Atherosclerosis of coronary artery bypass graft(s) without angina pectoris (5) CHF (congestive heart failure) Qualifiers: Qualified Code(s): I50.42 - Chronic combined systolic (congestive) and diastolic (congestive) heart failure (6) Diabetes mellitus Qualifiers: Qualified Code(s): E11.22 - Type 2 diabetes mellitus with diabetic chronic kidney disease; N18.6 - End stage renal disease; Z79.4 - longterm (current) use of insulin; Z99.2 - Dependence on renal dialysis
[2018-04-05] MEDS ORDERED: Ondansetron 4 MG/2 ML VIAL ONE (11:57)
--- NOTE | 2018-04-05 12:56 | Podiatry Progress Note ---
Date of Encounter: 04/05/18 Time of Encounter: 11:45 - Assessment and Plan (1) Foot ulcer, left Current Visit: Yes Status: Acute Left foot right hallux amputation. Incision well approximated. No signs of dehiscence noted. No signs of infection. Wound cultures obtained 04/02 returned negative. Old dressing removed with minimal serosanguineous drainage noted. Cleansed with 0.9 normal saline. Covered with Adaptic, dry gauze, and Kerlix. Secured with García bandage. Surgical shoe ordered. Instructed nurse to place shoe on patient. Limited weightbearing of left lower extremity. Qualifiers: Non-pressure ulcer stage: unspecified non-pressure ulcer stage Qualified Code(s): L97.529 - Non-pressure chronic ulcer of other part of left foot with unspecified severity (2) Cellulitis of left foot Current Visit: Yes Status: Acute Erythema and edema subsided. ID following. (3) Osteomyelitis Current Visit: Yes Status: Acute see above plan. Qualifiers: Osteomyelitis type: acute hematogenous Osteomyelitis location: foot Laterality: left Qualified Code(s): M86.072 - Acute hematogenous osteomyelitis, left ankle and foot (4) PVD (peripheral vascular disease) Current Visit: Yes Status: Chronic Chronic vascular disease. Angiogram on 03/31/18 with intervention. (5) Diabetes mellitus Current Visit: Yes Status: Chronic Type II DM. Hemoglobin A1c 6.2. Recommend tight glycemic control for wound healing while in hospital. Primary to monitor Qualifiers: Diabetes mellitus type: type 2 Diabetes mellitus fdc insulin use: with terminal supervisor use Diabetes mellitus complication status: with kidney complications Diabetes mellitus complication detail: with chronic kidney disease Chronic kidney disease stage: on chronic dialysis Qualified Code(s): E11.22 - Type 2 diabetes mellitus with diabetic chronic kidney disease; N18.6 - End stage renal disease; Z79.4 - skilled nursing (current) use of insulin; Z99.2 - Dependence on renal dialysis Subjective Principal diagnosis: left leg infection Interval history: Patient awake in bed. Saw in dialysis. Reports minimal pain. Declines medication at this time. Instructed patient to call nurse if needs pain relief. Objective - Vital Signs Vital Signs: Vital Signs Temp Pulse Resp BP Pulse Ox 04/05/18 10:50 146/48 04/05/18 10:35 154/58 04/05/18 10:20 97.9 F 15 150/65 04/05/18 07:41 97.9 F 63 16 141/50 98 04/05/18 04:37 97.4 F L 64 16 164/60 96 04/04/18 23:54 98.0 F 74 16 126/44 95 04/04/18 19:35 98.0 F 62 16 121/74 100 Intake and Output 04/04/18 04/05/18 04/05/18 23:59 07:59 15:59 Intake Total 40 / 40 600 / 600 Balance 40 / 40 600 / 600 Intake: IV Fluids Maxipime 1,000 MG In Water for inj. (sterile) 10 ML @ 300 mls/ hr IVP Q24H KYLE Rx#:[id number] Oral 0 / 0 Intake, Rinseback and Flushes 600 / 600 Other: Stool Size Copious Stool Consistency soft Stool Color Brown # Voids 1 # Bowel Movements 1 Weight 75.9 kg Blood Glucose* 86 265 274 Hemodialysis Net Fluid Removed 519 (mL) Patient Weight 04/05/18 23:59 Weight 75.9 kg - Exam Exam: Constitiutional: Alert and oriented x 3. Vascular: 1/4 DP/PT bilaterally, CFT <3 sec to all digits, warm to warm from tibia to toes bilaterally Neurologic: Diminished sensation to touch, normal plantar response, Dermatologic: Left lower extremity amputation, sutures noted and well approximated. No signs of dehiscence noted. Right amputated hallux. Musculoskeletal: 4/5 muscle strength and normal tone bilaterally. - Lab Result Diagrams: 04/05/18 09:09 04/05/18 09:09 Labs: Abnormal lab results WBC 12.9 K/mcL (4.3-11.1) H 04/05/18 09:09 RBC 2.97 M/mcL (3.82-4.97) L 04/05/18 09:09 Hgb 9.5 g/dL (11.5-15.4) L 04/05/18 09:09 Hct 31.6 % (35.3-44.9) L 04/05/18 09:09 MCV 106.4 fL (83.0-100.0) H 04/05/18 09:09 MCHC 30.1 g/dL (31.6-35.5) L 04/05/18 09:09 Neutrophils # 9.1 K/mcL (1.6-8.9) H 04/05/18 09:09 Eosinophils # 0.7 K/mcL (0.0-0.6) H 04/05/18 09:09 ESR 77 mm/hr (0-15) H 03/29/18 11:58 Sodium 134 mEq/L (136-145) L 04/05/18 09:09 Potassium 6.9 mEq/L (3.5-5.1) H* 04/05/18 09:09 Chloride 97 mEq/L (98-107) L 04/05/18 09:09 BUN 97 mg/dL (8-23) H 04/05/18 09:09 Creatinine 8.77 mg/dL (0.60-1.20) H 04/05/18 09:09 Est GFR ( Amer) 5 (> 60) L 04/05/18 09:09 Est GFR (Non-Af Amer) 4 (> 60) L 04/05/18 09:09 Glucose 307 mg/dL (70-105) H 04/05/18 09:09 POC Glucose 265 mg/dL (70-99) H 04/05/18 07:40 Hemoglobin A1c 6.2 % (-5.6) H 03/29/18 11:58 Calculated Osmolality 320 (280-300) H 04/05/18 09:09 Calcium 7.5 mg/dL (8.6-10.3) L 04/05/18 09:09 AST 64 Units/L (13-39) H 04/05/18 09:09 ALT 70 Units/L (7-52) H 04/05/18 09:09 C-Reactive Protein 157 mg/L (Less than 10) H 03/29/18 11:58 Serum Total Protein 5.9 g/dL (6.4-8.9) L 04/05/18 09:09 Albumin 3.1 g/dL (3.5-5.7) L 04/05/18 09:09 Lipase 7 Units/L (11-82) L 03/29/18 11:58 Urine Clarity Turbid (Clear) A 03/30/18 19:00 Urine Protein >=300 mg/dL (Neg-Trace) H 03/30/18 19:00 Urine Glucose (UA) 250 mg/dL (Normal) H 03/30/18 19:00 Urine Blood Trace (Negative) H 03/30/18 19:00 Urine Bilirubin Small (Negative) H 03/30/18 19:00 Ur Leukocyte Esterase Moderate (Negative) H 03/30/18 19:00 Urine Microscopic RBC 5-15 per hpf (0-3) H 03/30/18 19:00 Urine Microscopic WBC TNTC per hpf (0-3) H 03/30/18 19:00 Ur Squamous Epith Cells Many per lpf (None-Few) H 03/30/18 19:00 Ur Culture Indicated? NO. (NO) A 03/30/18 19:00 Microbiology, Last 48 Hours 04/02/18 11:30 Anaerobic Culture - Preliminary Left Foot At this time, no anaerobic growth is present. The culture will be finalized after 5 days of incubation. 04/02/18 11:30 Anaerobic Culture - Preliminary Left Foot At this time, no anaerobic growth is present. The culture will be finalized after 5 days of incubation. 03/29/18 12:50 Blood Culture - Final Peripheral Venipuncture No growth. Final report. 03/29/18 12:50 Blood Culture - Final Peripheral Venipuncture No growth. Final report. 04/02/18 11:30 Wound Culture - Preliminary Left Foot No growth. 04/02/18 11:30 Wound Culture - Preliminary Left Foot No growth. Consult Discharge Plan - Plan Referrals: Tom Xie Jr, MD [Primary Care Provider] -
--- NOTE | 2018-04-05 13:31 | Infectious Disease Progress No ---
Date of Encounter: 04/05/18 Time of Encounter: 13:28 - Assessment and Plan (1) Sepsis Current Visit: Yes Status: Acute The patient had 2 sepsis criteria, including leukocytosis and fever. Likely secondary to left foot cellulitis. Improved. WBC is trending down. Afebrile overnight. Blood cultures drawn 03/29/18 are NGTD x 2 sets. Qualifiers: Sepsis type: sepsis due to unspecified organism Qualified Code(s): A41.9 - Sepsis, unspecified organism (2) Osteomyelitis Current Visit: Yes Status: Acute Location: Left foot first metatarsal head and medial hallux sesamoid. Positive organism: Unclear. Wound culture is positive for K. oxytoca, higgins- sensitive. Likely secondary to chronic nonhealing foot ulcer. Left foot x-ray was negative for osteoarthritis. 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 Client Support Analyst been consulted. 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 Khan. Operative note reviewed. Intra-op cultures are negative. Pathology negative for OM. Wound care per the podiatry team. Continue cefepime 1 g IV daily. Discontinue flagyl. Duration of treatment is on the clinical picture. Imaging showed possible early OM, but pathology and bone cultures are negative. Monitor labs for drug toxicity and dose adjust antibiotics. Will likely be able to give IV antibiotics with HD. Discussed with the nephrology team. Qualifiers: Osteomyelitis type: acute hematogenous Osteomyelitis location: foot Laterality: left Qualified Code(s): M86.072 - Acute hematogenous osteomyelitis, left ankle and foot (3) Gangrene of left foot Current Visit: Yes Status: Suspected (4) Foot ulcer, left Current Visit: Yes Status: Acute Location: Plantar aspect of the left foot. Likely secondary to previous callus removal. Wound care per the podiatry team. Qualifiers: Non-pressure ulcer stage: unspecified non-pressure ulcer stage Qualified Code(s): L97.529 - Non-pressure chronic ulcer of other part of left foot with unspecified severity (5) ESRD (end stage renal disease) on dialysis Current Visit: Yes Status: Chronic Nephrology consulted and following. (6) Diabetes mellitus Current Visit: Yes Status: Chronic Recommend aggressive glucose monitoring and control to promote wound healing and prevent reinfection. Management per the primary team. 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 Repeat ABIs show severe disease bilaterally. TCPO2 right 40 ankle, 50 foot. Left 22 ankle, 13 foot. Vascular surgery consulted. Status post aortogram with BLE angiogram via right common artery, left SFA angioplasty, and left popliteal artery angioplasty by Dr. Craig. 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 CT head negative. Workup per the primary team. Qualifiers: Altered mental status type: disorientation Qualified Code(s): R41.0 - Disorientation, unspecified - Subjective Interval history: Patient seen and examined. Overnight events noted. Patient seen in HD unit and is confused and restless. Does not answer ROS questions. CT head this morning negative. Status post I & D of the left foot 04/02/[address] Khan. Infect Dis PN-Objective Data - Labs CBC & Chem 7: 04/06/18 03:34 04/06/18 03:34 Labs: Laboratory Results - last 24 hr 04/03/18 04/03/18 04/03/18 08:12 12:22 16:23 WBC RBC Hgb Hct MCV MCH MCHC RDW Plt Count MPV Immature Gran % Seg Neutrophils % Lymphocytes % Monocytes % Eosinophils % Basophils % Neutrophils # Lymphocytes # Monocytes # Eosinophils # Basophils # Sodium Potassium Chloride Carbon Dioxide BUN Creatinine Est GFR ( Amer) Est GFR (Non-Af Amer) BUN/Creatinine Ratio Glucose POC Glucose 249 H 266 H 108 H Calculated Osmolality Calcium Total Bilirubin AST ALT Alkaline Phosphatase Troponin I Serum Total Protein Albumin Globulin Albumin/Globulin Ratio 04/03/18 04/04/18 04/04/18 20:25 08:02 12:08 WBC RBC Hgb Hct MCV MCH MCHC RDW Plt Count MPV Immature Gran % Seg Neutrophils % Lymphocytes % Monocytes % Eosinophils % Basophils % Neutrophils # Lymphocytes # Monocytes # Eosinophils # Basophils # Sodium Potassium Chloride Carbon Dioxide BUN Creatinine Est GFR ( Amer) Est GFR (Non-Af Amer) BUN/Creatinine Ratio Glucose POC Glucose 278 H 116 H 183 H Calculated Osmolality Calcium Total Bilirubin AST ALT Alkaline Phosphatase Troponin I Serum Total Protein Albumin Globulin Albumin/Globulin Ratio 04/04/18 04/04/18 04/05/18 15:54 19:53 02:53 WBC 13.8 H RBC 2.80 L Hgb 9.1 L Hct 29.2 L MCV 104.3 H MCH 32.5 MCHC 31.2 L RDW 14.3 Plt Count 311 MPV 9.7 Immature Gran % 0.9 Seg Neutrophils % 68.3 Lymphocytes % 17.4 Monocytes % 7.6 Eosinophils % 4.6 Basophils % 1.2 Neutrophils # 9.4 H Lymphocytes # 2.4 Monocytes # 1.1 Eosinophils # 0.6 Basophils # 0.2 Sodium Potassium Chloride Carbon Dioxide BUN Creatinine Est GFR ( Amer) Est GFR (Non-Af Amer) BUN/Creatinine Ratio Glucose POC Glucose 255 H 86 Calculated Osmolality Calcium Total Bilirubin AST ALT Alkaline Phosphatase Troponin I Serum Total Protein Albumin Globulin Albumin/Globulin Ratio 04/05/18 04/05/18 04/05/18 02:53 07:40 09:07 WBC RBC Hgb Hct MCV MCH MCHC RDW Plt Count MPV Immature Gran % Seg Neutrophils % Lymphocytes % Monocytes % Eosinophils % Basophils % Neutrophils # Lymphocytes # Monocytes # Eosinophils # Basophils # Sodium 134 L Potassium 6.2 H Chloride 96 L Carbon Dioxide 27 BUN 89 H Creatinine 8.75 H Est GFR ( Amer) 5 L Est GFR (Non-Af Amer) 4 L BUN/Creatinine Ratio 10 Glucose 193 H POC Glucose 265 H Calculated Osmolality 311 H Calcium 7.9 L Total Bilirubin AST ALT Alkaline Phosphatase Troponin I < 0.03 Serum Total Protein Albumin Globulin Albumin/Globulin Ratio 04/05/18 04/05/18 09:09 09:09 WBC 12.9 H RBC 2.97 L Hgb 9.5 L Hct 31.6 L MCV 106.4 H MCH 32.0 MCHC 30.1 L RDW 14.3 Plt Count 309 MPV 9.4 Immature Gran % 1.0 Seg Neutrophils % 70.6 Lymphocytes % 14.4 Monocytes % 8.1 Eosinophils % 5.1 Basophils % 0.8 Neutrophils # 9.1 H Lymphocytes # 1.9 Monocytes # 1.0 Eosinophils # 0.7 H Basophils # 0.1 Sodium 134 L Potassium 6.9 H* Chloride 97 L Carbon Dioxide 24 BUN 97 H Creatinine 8.77 H Est GFR ( Amer) 5 L Est GFR (Non-Af Amer) 4 L BUN/Creatinine Ratio 11 Glucose 307 H POC Glucose Calculated Osmolality 320 H Calcium 7.5 L Total Bilirubin 0.4 AST 64 H ALT 70 H Alkaline Phosphatase 68 Troponin I Serum Total Protein 5.9 L Albumin 3.1 L Globulin 2.8 Albumin/Globulin Ratio 1.1 Cultures: Cultures 04/02/18 11:30 Anaerobic Culture - Preliminary Left Foot At this time, no anaerobic growth is present. The culture will be finalized after 5 days of incubation. 04/02/18 11:30 Anaerobic Culture - Preliminary Left Foot At this time, no anaerobic growth is present. The culture will be finalized after 5 days of incubation. 03/29/18 12:50 Blood Culture - Final Peripheral Venipuncture No growth. Final report. 03/29/18 12:50 Blood Culture - Final Peripheral Venipuncture No growth. Final report. 04/02/18 11:30 Wound Culture - Preliminary Left Foot No growth. 04/02/18 11:30 Wound Culture - Preliminary Left Foot No growth. 03/29/18 16:45 Anaerobic Culture - Final Right Foot No anaerobes were recovered. 03/29/18 16:45 Wound Culture - Final Right Foot Klebsiella oxytoca Serology 03/30/18 03/29/18 Range/Units 19:00 15:09 Urine Color Yellow (Yellow) Urine Clarity Turbid A (Clear) Urine pH 6.0 (5.0-8.0) pH Units Ur Specific [place] 1.019 (1.010-1.025) Urine Protein >=300 H (Neg-Trace) mg/dL Urine Glucose (UA) 250 H (Normal) mg/dL Urine Ketones Negative (Negative) mg/dL Urine Blood Trace H (Negative) Urine Nitrite Negative (Negative) Urine Bilirubin Small H (Negative) Urine Urobilinogen Normal (Normal) mg/dL Ur Leukocyte Esterase Moderate H (Negative) Urine Microscopic RBC 5-15 H (0-3) per hpf Urine Microscopic WBC TNTC H (0-3) per hpf Ur Squamous Epith Cells Many H (None-Few) per lpf Urine Bacteria Few (None-Few) per hpf Hyaline Casts Few (None-Few) per lpf Ur Culture Indicated? NO. A (NO) Hep Bs Antigen Nonreactive (Nonreactive) Hep Bs Antibody 1.18 mIU/mL - Impressions Impressions Head CT 04/05/18 08:59 IMPRESSION: No acute intracranial abnormality. D/ / Trae Jean MD / Trae Jean MD Interpreting Provider: Trae Jean MD Exam - Constitutional Vitals: Temp Pulse Resp BP Pulse Ox 97.9 F 63 15 146/48 98 04/05/18 10:20 04/05/18 07:41 04/05/18 10:20 04/05/18 10:50 04/05/18 07:41 General appearance: average body habitus, mild distress, no cooperative - Head Head exam: Present: atraumatic, normal inspection, normocephalic - Eye Eye exam: Absent: normal appearance (Left eye atrophied.) - ENT ENT exam: Present: mucous membranes moist - Neck Neck exam: Present: normal inspection - Respiratory Respiratory exam: Present: CTAB. Absent: rales, respiratory distress, rhonchi, wheezes - Cardiovascular Cardiovascular exam: Present: RRR, +S1, +S2 - GI/Abdominal GI/Abdominal exam: Present: normal bowel sounds, soft, tenderness (LLQ). Absent: distended - Extremities Exam Extremities exam: Absent: joint swelling, normal inspection (Left foot dressing C/D/I.), pedal edema, tenderness - Neurological Exam Neurological exam: Present: altered (Awake, restless, does not answer questions appropriately or follow commands.), no focal deficits (SINGH x 4 spontaneously.) - Psychiatric Psychiatric exam: Present: anxious - Skin Skin exam: Present: dry, intact, normal color, warm Additional comments: Erythema to the left medial calf resolved. Consult Discharge Plan - Plan Referrals: Tom Xie Jr, MD [Primary Care Provider] - - Attending Attestation I examined this patient and my medical decision-making was reviewed with the Resident Physician. I agree with the documented findings, disposition and treatment plan as described except to the extent set forth below.
--- NOTE | 2018-04-05 13:53 | Electrocardiograph Report ---
[place] [id number] Test Date: 2018-04-05 Pat Name: Carmen Olvera Department: 113 Room: 3B44 Gender: F Preload Supervisor: : 1945 Requested By: Barbra Pierce Order Number: [id number] Reading MD: Mandy Sahu Measurements Intervals [place] Rate: 64 P: 65 WA: 205 QRS: -42 QRSD: 136 T: 66 QT: 524 QTc: 534 Interpretive Statements SINUS RHYTHM LEFT AXIS DEVIATION INTRAVENTRICULAR CONDUCTION DELAY MODERATE VOLTAGE CRITERIA FOR LVH, CONSIDER NORMAL VARIANT Electronically Signed On 04-05-2018 13:51:30 EST by Mandy Sahu
--- NOTE | 2018-04-05 14:52 | Nephrology Progress Note ---
Date of Encounter: 04/05/18 Time of Encounter: 14:50 - Assessment and Plan (1) ESRD (end stage renal disease) on dialysis Current Visit: Yes Status: Chronic Dialysis Note: She is ESRD on HD MWF. HD in progress today. Renal diet Strict I/Os; Avoid nephrotoxins if possible. (2) Cellulitis of left foot Current Visit: Yes Status: Acute S/p surgery. Appreciate Podiatry. (3) Altered mental status Current Visit: Yes Status: Acute Resolved, alert. Qualifiers: Altered mental status type: disorientation Qualified Code(s): R41.0 - Disorientation, unspecified (4) Gangrene of foot Current Visit: Yes Status: Acute Appreciate podiatry/ID. Subjective Principal diagnosis: left leg infection Interval history: Pt seen and examined, during HD, doing well. Denies SOB or CP. Denies nausea/vomiting/diarrhea. Objective - Vital Signs Vital signs: Vital Signs Temp Pulse Resp BP Pulse Ox 04/05/18 10:50 146/48 04/05/18 10:35 154/58 04/05/18 10:20 97.9 F 15 150/65 04/05/18 07:41 97.9 F 63 16 141/50 98 04/05/18 04:37 97.4 F L 64 16 164/60 96 04/04/18 23:54 98.0 F 74 16 126/44 95 04/04/18 19:35 98.0 F 62 16 121/74 100 Intake and Output 04/04/18 04/05/18 04/05/18 23:59 07:59 15:59 Intake Total 40 / 40 600 / 600 Balance 40 / 40 600 / 600 Intake: IV Fluids Maxipime 1,000 MG In Water for inj. (sterile) 10 ML @ 300 mls/ hr IVP Q24H [facility] Rx#:[id number] Oral 30 / 30 0 / 0 Intake, Rinseback and Flushes 600 / 600 Other: Stool Size Copious Stool Consistency soft Stool Color Brown # Voids 1 # Bowel Movements 1 Weight 75.9 kg Blood Glucose* 86 265 274 Hemodialysis Net Fluid Removed 519 (mL) Patient Weight 04/05/18 23:59 Weight 75.9 kg - General Appearance General appearance: Present: well-developed, well-nourished EENT: Present: ATNC, hearing intact, vision intact Additional Comments: Blind in left eye, minimal vision in right. Neck: Present: supple Respiratory: Present: clear Cardiology: Present: no edema, normal S1, normal S2 Dialysis Vascular Access: Arteriovenous Fistula thrill: Yes bruit: Yes Gastrointestinal: Present: normoactive bowel sounds, no tenderness, no guarding Integumentary: Present: no rash, warm and dry Additional Comments: LLE drsg C/D/I Neurologic: Present: alert and oriented x3 Psychiatric: Present: mood/affect appropriate, cooperative - Lab 04/05/18 09:09 04/05/18 09:09 Most recent lab results Calcium 7.5 mg/dL (8.6-10.3) L 04/05/18 09:09 Consult Discharge Plan - Plan Referrals: Tom Xie Jr, MD [Primary Care Provider] -
[2018-04-05 17:45] LABS: Hematocrit 29.1 % (35.3-44.9)
[2018-04-05] MEDS ORDERED: SODIUM CHLORIDE 0.9% IVPB ONE (17:45)
[2018-04-05] MEDS ORDERED: DESMOPRESSIN IVPB ONE (17:45)
[2018-04-05] MEDS ORDERED: 0.9 % Sodium Chloride 250 ML ONE ×2 (18:21→22:10)
--- NOTE | 2018-04-05 18:31 | Event Note ---
Date of Encounter: 04/05/18 Time of Encounter: 17:30 contacted by pt floor nurse that HD called to say pt has been bleeding from AVF and held in HD for 4 hrs due to bleeding. Pt now ashen colored and bleeding has not stopped. They had message out to Dr Mercado and were awaiting call back. Myself, floor RN and floor charge to room. Pt awake, alert, baseline mental status, but ashen colored from baseline. BP chart from HD reviewed and this afternoon 140-160s sbp recorded. Now BP 110s/40s. Repeat BP 102/41. HD RN at bedside holding pressure notes have already done surgiceal and gel foam without cessation of bleeding. stat h/h and type and screen sent. NS 500 cc bolus started with improvement of bp to 120/40s. Call made to [facility] surg urgently and case d/w Dr Quiles. Greatly appreciate information regarding possible attempts to try to control bleeding. No immediate intervention at this time, may need fistulogram but deferred at this time. Dr Mercado to bedside for eval. Discussed treatment plan. Will cont fluids at this time. She has given orders for DDVAP and myself has given orders for prbc stat given cont active bleeding. She is being transferred to ICU and I have personally given a report to accepting [employer]ERGL[employer] MODEL MAKER and discussed plan. Dr Mercado will be providing HD RN to ICU bedside to continue to hold pressure/clamp and Nephro will be monitoring bleeding and giving instruction for further treatment interventions this evening. I will be singing out to night hospitalist to update to plan. I defer further hgb monitoring and bleeding plan to nephro at this time
[2018-04-05] MEDS: Cefepime HCl 1,000 MG in Water for inj. (sterile) 20 ML 10 ML IVP SCH (18:35)
[2018-04-05] MEDS: Ondansetron 4 MG/2 ML VIAL IVP PRN (18:40)
[2018-04-05] MEDS ORDERED: *HR* Promethazine 25 MG/ML VIAL IVP PRN (19:46)
[2018-04-05] MEDS ORDERED: *HR* Promethazine 25 MG/ML VIAL ONE (19:47)
[2018-04-05] MEDS ORDERED: Perflutren Lipid Microsphere 1.3 ML in 0.9 % Sodium Chloride 8.7 ML IVP ONE (20:04)
[2018-04-05] MEDS: Insulin DETEMIR 100 UNIT/ML X5UNITS SQ SCH (21:50)
[2018-04-06 00:09] LABS: Basophils # 0.1 K/mcL (0.0-0.2); Basophils % 0.7 %; Eosinophils # 0.2 K/mcL (0.0-0.6); Eosinophils % 1.2 %; Hematocrit 29.5 % (35.3-44.9); Hemoglobin 9.3 g/dL (11.5-15.4); Immature Granulocytes % 1.9 % (0-4); Lymphocytes # 1.4 K/mcL (0.6-4.6); Lymphocytes % 8.3 %; Mean Corpuscular HGB Conc 31.5 g/dL (31.6-35.5); Mean Corpuscular Volume 98.3 fL (83.0-100.0); Mean Platelet Volume 9.8 fL (9.4-12.4); Neutrophils # 13.4 K/mcL (1.6-8.9); Platelet Count 265 K/mcL (140-400); Red Cell Distribution Width 17.2 % (11.5-14.5); Segmented Neutrophils % 81.9 %
[2018-04-06 01:02] LABS: Calcium 7.7 mg/dL (8.6-10.3)
[2018-04-06 03:43] LABS: Basophils # 0.2 K/mcL (0.0-0.2); Basophils % 0.9 %; Eosinophils # 0.3 K/mcL (0.0-0.6); Eosinophils % 2.1 %; Hematocrit 32.1 % (35.3-44.9); Hemoglobin 10.4 g/dL (11.5-15.4); Immature Granulocytes % 1.6 % (0-4); Lymphocytes % 12.6 %; Mean Corpuscular HGB Conc 32.4 g/dL (31.6-35.5); Mean Corpuscular Hemoglobin 30.5 pg (28.0-33.3); Mean Platelet Volume 9.4 fL (9.4-12.4); Monocytes # 1.4 K/mcL (0.0-1.3); Monocytes % 8.7 %; Platelet Count 229 K/mcL (140-400); Red Blood Count 3.41 M/mcL (3.82-4.97); Red Cell Distribution Width 18.6 % (11.5-14.5); Segmented Neutrophils % 74.1 %
[2018-04-06 03:50] LABS: Mean Corpuscular Volume 94.1 fL (83.0-100.0)
[2018-04-06 04:03] LABS: Estimated Average Glucose 131 mg/dl; Hemoglobin A1C 6.2 %
[2018-04-06 04:06] LABS: Calcium 7.8 mg/dL (8.6-10.3); Chol/HDL Ratio 3.2 (0-4.9); Potassium 5.2 mEq/L (3.5-5.1)
[2018-04-06] MEDS: *HR* Heparin 5,000 UNIT/ML VIAL SQ SCH ×3 (05:26→18:57)
[2018-04-06] MEDS: rOPINIRole 1 MG TABLET PO SCH ×2 (08:17→20:56)
[2018-04-06] MEDS: Aspirin Enteric Coated 81 MG Tablet PO SCH (08:17)
[2018-04-06] MEDS: Dorzolamide/Timolol OPTH 10 ML BOTTLE BOTH EYES SCH ×2 (08:19→20:56)
[2018-04-06] MEDS: Furosemide 40 MG TABLET PO SCH ×2 (08:19→16:43)
[2018-04-06] MEDS: Insulin LISPRO 300 UNITS/3 ML VIAL SQ SCH ×4 (08:20→20:56)
[2018-04-06] MEDS: Renal Vitamin 1 CAP CAPSULE PO SCH (08:20)
--- NOTE | 2018-04-06 09:54 | Infectious Disease Progress No ---
Date of Encounter: 04/06/18 Time of Encounter: 09:52 - Assessment and Plan (1) Sepsis Current Visit: Yes Status: Acute The patient had 2 sepsis criteria, including leukocytosis and fever. Likely secondary to left foot cellulitis. Improved. WBC is stable around 16 this morning. Afebrile overnight. Blood cultures drawn 03/29/18 are negative x 2 sets. Qualifiers: Sepsis type: sepsis due to unspecified organism Qualified Code(s): A41.9 - Sepsis, unspecified organism (2) Osteomyelitis Current Visit: Yes Status: Acute Location: Left foot first metatarsal head and medial hallux sesamoid. Causative organism: K. oxytoca, higgins-sensitive. Likely secondary to chronic nonhealing foot ulcer. Left foot x-ray was negative for osteoarthritis. 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 Cardiopulmonary Technician And Eeg Tech been consulted. 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 Khan. Operative note reviewed. Intra-op cultures are negative. Pathology negative for OM. Wound care per the podiatry team. Continue cefepime 1 g IV daily. Duration of treatment is on the clinical picture. Imaging showed possible early OM, but pathology and bone cultures are negative. Monitor labs for drug toxicity and dose adjust antibiotics. Will likely be able to give IV antibiotics with HD. Discussed with the nephrology team. Qualifiers: Osteomyelitis type: acute hematogenous Osteomyelitis location: foot Laterality: left Qualified Code(s): M86.072 - Acute hematogenous osteomyelitis, left ankle and foot (3) Gangrene of left foot Current Visit: Yes Status: Suspected (4) Foot ulcer, left Current Visit: Yes Status: Acute Location: Plantar aspect of the left foot. Likely secondary to previous callus removal. Wound care per the podiatry team. Qualifiers: Non-pressure ulcer stage: unspecified non-pressure ulcer stage Qualified Code(s): L97.529 - Non-pressure chronic ulcer of other part of left foot with unspecified severity (5) ESRD (end stage renal disease) on dialysis Current Visit: Yes Status: Chronic Nephrology consulted and following. (6) Diabetes mellitus Current Visit: Yes Status: Chronic Recommend aggressive glucose monitoring and control to promote wound healing and prevent reinfection. Management per the primary team. 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 Repeat ABIs show severe disease bilaterally. TCPO2 right 40 ankle, 50 foot. Left 22 ankle, 13 foot. Vascular surgery consulted. Status post aortogram with BLE angiogram via right common artery, left SFA angioplasty, and left popliteal artery angioplasty by Dr. Craig. 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 pain medication CT head negative. Resolved this morning. Qualifiers: Altered mental status type: disorientation Qualified Code(s): R41.0 - Disorientation, unspecified - Subjective Interval history: Patient seen and examined. Overnight events noted. Patient awake, alert, orient ed x 3. Cannot recall events from yesterday. States she doesn't feel very good and reports pain in the left foot, but denies fevers, chills, or rigors. Denies chest pain, shortness of breath, or cough. Denies nausea this morning. States she had vomiting last night. Denies abdominal pain or urinary complaints. Denies oral thrush or new skin lesions. Infect Dis PN-Objective Data - Labs CBC & Chem 7: 04/07/18 07:09 04/07/18 07:09 Labs: Laboratory Results - last 24 hr 04/05/18 04/05/18 04/05/18 07:40 09:07 09:09 WBC RBC Hgb Hct MCV MCH MCHC RDW Plt Count MPV Immature Gran % Seg Neutrophils % Lymphocytes % Monocytes % Eosinophils % Basophils % Neutrophils # Lymphocytes # Monocytes # Eosinophils # Basophils # Sodium 134 L Potassium 6.9 H* Chloride 97 L Carbon Dioxide 24 BUN 97 H Creatinine 8.77 H Est GFR ( Amer) 5 L Est GFR (Non-Af Amer) 4 L BUN/Creatinine Ratio 11 Glucose 307 H POC Glucose 265 H Est Mean Plasma Glucose Hemoglobin A1c Calculated Osmolality 320 H Calcium 7.5 L Total Bilirubin 0.4 AST 64 H ALT 70 H Alkaline Phosphatase 68 Troponin I < 0.03 Serum Total Protein 5.9 L Albumin 3.1 L Globulin 2.8 Albumin/Globulin Ratio 1.1 Triglycerides Cholesterol LDL Cholesterol, Calc VLDL Cholesterol, Calc HDL Cholesterol Cholesterol/HDL Ratio Blood Type Antibody Screen Crossmatch 04/05/18 04/05/18 04/05/18 09:19 17:21 17:34 WBC RBC Hgb 9.0 L Hct 29.1 L MCV MCH MCHC RDW Plt Count MPV Immature Gran % Seg Neutrophils % Lymphocytes % Monocytes % Eosinophils % Basophils % Neutrophils # Lymphocytes # Monocytes # Eosinophils # Basophils # Sodium Potassium Chloride Carbon Dioxide BUN Creatinine Est GFR ( Amer) Est GFR (Non-Af Amer) BUN/Creatinine Ratio Glucose POC Glucose 294 H Est Mean Plasma Glucose Hemoglobin A1c Calculated Osmolality Calcium Total Bilirubin AST ALT Alkaline Phosphatase Troponin I Serum Total Protein Albumin Globulin Albumin/Globulin Ratio Triglycerides Cholesterol LDL Cholesterol, Calc VLDL Cholesterol, Calc HDL Cholesterol Cholesterol/HDL Ratio Blood Type A NEGATIVE Antibody Screen NEGATIVE Crossmatch See Detail 04/05/18 04/05/18 04/05/18 17:43 18:16 21:33 WBC RBC Hgb Hct MCV MCH MCHC RDW Plt Count MPV Immature Gran % Seg Neutrophils % Lymphocytes % Monocytes % Eosinophils % Basophils % Neutrophils # Lymphocytes # Monocytes # Eosinophils # Basophils # Sodium 136 Potassium 5.0 D Chloride 99 Carbon Dioxide 27 BUN 42 H Creatinine 4.84 H Est GFR ( Amer) 11 L Est GFR (Non-Af Amer) 9 L BUN/Creatinine Ratio 9 Glucose 253 H POC Glucose 266 H 239 H Est Mean Plasma Glucose Hemoglobin A1c Calculated Osmolality 301 H Calcium 7.7 L Total Bilirubin AST ALT Alkaline Phosphatase Troponin I Serum Total Protein Albumin Globulin Albumin/Globulin Ratio Triglycerides Cholesterol LDL Cholesterol, Calc VLDL Cholesterol, Calc HDL Cholesterol Cholesterol/HDL Ratio Blood Type Antibody Screen Crossmatch 04/05/18 04/05/18 04/06/18 21:37 23:20 03:34 WBC 16.4 H RBC 3.00 L Hgb 9.3 L Hct 29.5 L MCV 98.3 D MCH 31.0 MCHC 31.5 L RDW 17.2 H Plt Count 265 MPV 9.8 Immature Gran % 1.9 Seg Neutrophils % 81.9 Lymphocytes % 8.3 Monocytes % 6.0 Eosinophils % 1.2 Basophils % 0.7 Neutrophils # 13.4 H Lymphocytes # 1.4 Monocytes # 1.0 Eosinophils # 0.2 Basophils # 0.1 Sodium Potassium Chloride Carbon Dioxide BUN Creatinine Est GFR ( Amer) Est GFR (Non-Af Amer) BUN/Creatinine Ratio Glucose POC Glucose 268 H Est Mean Plasma Glucose 131 Hemoglobin A1c 6.2 H Calculated Osmolality Calcium Total Bilirubin AST ALT Alkaline Phosphatase Troponin I Serum Total Protein Albumin Globulin Albumin/Globulin Ratio Triglycerides Cholesterol LDL Cholesterol, Calc VLDL Cholesterol, Calc HDL Cholesterol Cholesterol/HDL Ratio Blood Type Antibody Screen Crossmatch 04/06/18 04/06/18 04/06/18 03:34 03:34 03:34 WBC 16.1 H RBC 3.41 L Hgb 10.4 L Hct 32.1 L MCV 94.1 MCH 30.5 MCHC 32.4 RDW 18.6 H Plt Count 229 MPV 9.4 Immature Gran % 1.6 Seg Neutrophils % 74.1 Lymphocytes % 12.6 Monocytes % 8.7 Eosinophils % 2.1 Basophils % 0.9 Neutrophils # 12.0 H Lymphocytes # 2.0 Monocytes # 1.4 H Eosinophils # 0.3 Basophils # 0.2 Sodium 138 Potassium 5.2 H Chloride 101 Carbon Dioxide 27 BUN 47 H Creatinine 5.36 H Est GFR ( Amer) 10 L Est GFR (Non-Af Amer) 8 L BUN/Creatinine Ratio 9 Glucose 94 POC Glucose Est Mean Plasma Glucose Hemoglobin A1c Calculated Osmolality 298 Calcium 7.8 L Total Bilirubin AST ALT Alkaline Phosphatase Troponin I Serum Total Protein Albumin Globulin Albumin/Globulin Ratio Triglycerides 167 H Cholesterol 67 LDL Cholesterol, Calc 13 VLDL Cholesterol, Calc 33 H HDL Cholesterol 21 L Cholesterol/HDL Ratio 3.2 Blood Type Antibody Screen Crossmatch Cultures: Cultures 04/02/18 11:30 Wound Culture - Final Left Foot No growth. 04/02/18 11:30 Wound Culture - Final Left Foot No growth. 04/02/18 11:30 Anaerobic Culture - Preliminary Left Foot At this time, no anaerobic growth is present. The culture will be finalized after 5 days of incubation. 04/02/18 11:30 Anaerobic Culture - Preliminary Left Foot At this time, no anaerobic growth is present. The culture will be finalized after 5 days of incubation. 03/29/18 12:50 Blood Culture - Final Peripheral Venipuncture No growth. Final report. 03/29/18 12:50 Blood Culture - Final Peripheral Venipuncture No growth. Final report. 03/29/18 16:45 Anaerobic Culture - Final Right Foot No anaerobes were recovered. 03/29/18 16:45 Wound Culture - Final Right Foot Klebsiella oxytoca Serology 03/30/18 03/29/18 Range/Units 19:00 15:09 Urine Color Yellow (Yellow) Urine Clarity Turbid A (Clear) Urine pH 6.0 (5.0-8.0) pH Units Ur Specific [place] 1.019 (1.010-1.025) Urine Protein >=300 H (Neg-Trace) mg/dL Urine Glucose (UA) 250 H (Normal) mg/dL Urine Ketones Negative (Negative) mg/dL Urine Blood Trace H (Negative) Urine Nitrite Negative (Negative) Urine Bilirubin Small H (Negative) Urine Urobilinogen Normal (Normal) mg/dL Ur Leukocyte Esterase Moderate H (Negative) Urine Microscopic RBC 5-15 H (0-3) per hpf Urine Microscopic WBC TNTC H (0-3) per hpf Ur Squamous Epith Cells Many H (None-Few) per lpf Urine Bacteria Few (None-Few) per hpf Hyaline Casts Few (None-Few) per lpf Ur Culture Indicated? NO. A (NO) Hep Bs Antigen Nonreactive (Nonreactive) Hep Bs Antibody 1.18 mIU/mL - Impressions Impressions Head CT 04/05/18 08:59 IMPRESSION: No acute intracranial abnormality. D/ / Trae Jean MD / Trae Jean MD Interpreting Provider: Trae Jean MD Echocardiogram 04/05/18 09:09 Impressions: LVEF 60%. Normal LV chamber size and systolic function. Mild concentric left ventricular hypertrophy. Mild left ventricular diastolic dysfunction. Normal right ventricular structure and function. No significant valvular dysfunction. Unable to estimate RVSP due to lack of TR jet. No evidence of PFO with agitated saline contrast. Left Ventricular Wall Motion: Rest Echo Findings All wall segments showed normal motion. Findings: Study Quality * Technically adequate exam. ECG Findings * Normal sinus rhythm. Left Ventricle * LVEF 60%. * Normal LV chamber size and systolic function. * Mild concentric left ventricular hypertrophy. * Mild left ventricular diastolic dysfunction. * Definity echo contrast was used. Right Ventricle * Normal right ventricular structure and function. Left Atrium * Normal left atrial size. Right Atrium * Normal right atrial size. Interatrial Septum * No evidence of PFO by color Doppler. * No evidence of PFO with agitated saline contrast. Aortic Valve * Moderately calcified aortic valve leaflets. * No aortic regurgitation. * No aortic stenosis. Mitral Valve * Mildly calcified mitral valve leaflets. * No mitral regurgitation. * No mitral stenosis. Tricuspid Valve * Normal tricuspid valve structure and function. * No tricuspid regurgitation. * No tricuspid stenosis. * Unable to estimate RVSP due to lack of TR jet. * Estimated RA pressure is 5 mmHg. Pulmonic Valve * Normal pulmonic valve structure and function. * No pulmonic regurgitation. * No pulmonic stenosis. Aorta * Normally sized aortic root. Pericardium * The pericardium appears normal. IVC * Normal IVC dimensions and inspiratory collapse. Chest X-Ray 04/05/18 15:00 IMPRESSION: No acute cardiopulmonary disease. D/ / Alistair Peterson MD / Alistair Peterson MD Interpreting Provider: Alistair Peterson MD Exam - Constitutional Vitals: Temp Pulse Resp BP Pulse Ox 98.0 F 64 18 128/51 100 04/06/18 04:22 04/06/18 04:00 04/06/18 04:00 04/06/18 04:00 04/06/18 04:00 General appearance: average body habitus, cooperative, no acute distress - Head Head exam: Present: atraumatic, normal inspection, normocephalic - Eye Eye exam: Absent: normal appearance (Left eye atrophied.) - ENT ENT exam: Present: mucous membranes moist - Neck Neck exam: Present: normal inspection - Respiratory Respiratory exam: Present: CTAB. Absent: rales, respiratory distress, rhonchi, wheezes - Cardiovascular Cardiovascular exam: Present: RRR, +S1, +S2 - GI/Abdominal GI/Abdominal exam: Present: normal bowel sounds, soft. Absent: distended, tenderness - Extremities Exam Extremities exam: Absent: normal inspection (Left foot dressing C/D/I.) - Neurological Exam Neurological exam: Present: alert, oriented X3, no focal deficits - Psychiatric Psychiatric exam: Present: normal affect, normal mood - Skin Skin exam: Present: dry, intact, normal color, warm - Additional findings Additional findings: AV fistula noted to the BRIGITTE +/+. Consult Discharge Plan - Plan Additional Instructions: 04/23/2018: ALEJANDRA testing 1000 Referrals: Tom Xie Jr, MD [Primary Care Provider] - Tc Craig MD [Partnered Physician] - 04/27/18 3:40 pm - Attending Attestation I examined this patient and my medical decision-making was reviewed with the [facility] Physician. I agree with the documented findings, disposition and treatment plan as described except to the extent set forth below.
--- NOTE | 2018-04-06 10:56 | Pulmonology Consult Note ---
<ErickalvarostacyTrinh S - Last Filed: 04/06/18 12:53> Date of Encounter: 04/06/18 Medications and Allergies Aspirin [Lo-Dose Aspirin EC] 81 mg PO DAILY 06/17/17 [History] Ergocalciferol (VITAMIN D2) [Vitamin D2] 50,000 unit PO QWEEK 06/17/17 [History] Escitalopram [Lexapro] 20 mg PO DAILY 06/17/17 [History] Furosemide [Lasix] 80 mg PO BID 06/17/17 [History] Insulin LISPRO [HumaLOG] 4 - 10 units SQ TIDWM 06/17/17 [History] rOPINIRole [Requip] 1 mg PO BID 06/17/17 [History] Albuterol Neb [Proventil Neb] 2.5 mg IH Q8H PRN 01/19/18 [History] Atorvastatin [Lipitor] 20 mg PO HS 01/19/18 [History] Calcium Carbonate/Vitamin D3 [Calcium 500+D Tablet Chew] 1 each PO BID 01/19/18 [History] Clopidogrel Bisulfate [Plavix] 75 mg PO DAILY #30 tablet 01/19/18 [Rx] Folic Acid/Vit B Complex and C [Dialyvite Tablet] 1 tab PO DAILY 01/19/18 [History] Insulin Glargine,Hum.rec.anlog [Basaglar Kwikpen U-100] 15 unit SQ HS 03/29/18 [History] Isosorbide MONOnitrate (24 HR) [Imdur] 30 mg PO DAILY 03/29/18 [History] Metoprolol Succinate [Kapspargo Sprinkle] 25 mg PO DAILY 03/29/18 [History] Nitroglycerin [Nitrostat] 0.4 mg SL Q5M PRN 03/29/18 [History] Sevelamer [Renvela] 2,400 mg PO TIDWM 03/29/18 [History] Artificial Tears SOLN [Akwa Tears] 1 drop BOTH EYES QID PRN 03/30/18 [History] Dorzolamide/Timolol/Pf [Dorzolamide-Timolol 2%-0.5%] 1 drop BOTH EYES BID 03/30/18 [History] Allergy/AdvReac Type Severity Reaction Status Date / Time codeine Allergy Mild Rash Verified 03/30/18 13:09 gabapentin [From Neurontin] Allergy Mild Rash Verified 03/30/18 13:09 Penicillins [PCN] Allergy Mild Rash Verified 03/30/18 13:09 zinc Allergy Mild Rash Verified 03/30/18 13:09 tetanus Allergy Mild Rash Uncoded 03/30/18 13:09 All Systems: The remainder of the systems were reviewed and are negative Results - Laboratory Findings CBC and BMP: 04/06/18 03:34 04/06/18 03:34 PT/INR, D-dimer PT 11.2 Seconds (9.4-12.1) 04/02/18 04:00 Abnormal lab findings: Abnormal lab results WBC 16.1 K/mcL (4.3-11.1) H 04/06/18 03:34 RBC 3.41 M/mcL (3.82-4.97) L 04/06/18 03:34 Hgb 10.4 g/dL (11.5-15.4) L 04/06/18 03:34 Hct 32.1 % (35.3-44.9) L 04/06/18 03:34 RDW 18.6 % (11.5-14.5) H 04/06/18 03:34 Neutrophils # 12.0 K/mcL (1.6-8.9) H 04/06/18 03:34 Monocytes # 1.4 K/mcL (0.0-1.3) H 04/06/18 03:34 ESR 77 mm/hr (0-15) H 03/29/18 11:58 Potassium 5.2 mEq/L (3.5-5.1) H 04/06/18 03:34 BUN 47 mg/dL (8-23) H 04/06/18 03:34 Creatinine 5.36 mg/dL (0.60-1.20) H 04/06/18 03:34 Est GFR ( Amer) 10 (> 60) L 04/06/18 03:34 Est GFR (Non-Af Amer) 8 (> 60) L 04/06/18 03:34 POC Glucose 268 mg/dL (70-99) H 04/05/18 21:37 Hemoglobin A1c 6.2 % (-5.6) H 04/06/18 03:34 Calcium 7.8 mg/dL (8.6-10.3) L 04/06/18 03:34 AST 64 Units/L (13-39) H 04/05/18 09:09 ALT 70 Units/L (7-52) H 04/05/18 09:09 C-Reactive Protein 157 mg/L (Less than 10) H 03/29/18 11:58 Serum Total Protein 5.9 g/dL (6.4-8.9) L 04/05/18 09:09 Albumin 3.1 g/dL (3.5-5.7) L 04/05/18 09:09 Triglycerides 167 mg/dL (< 150) H 04/06/18 03:34 VLDL Cholesterol, Calc 33 mg/dL (< 31) H 04/06/18 03:34 HDL Cholesterol 21 mg/dL (40-59) L 04/06/18 03:34 Lipase 7 Units/L (11-82) L 03/29/18 11:58 Urine Clarity Turbid (Clear) A 03/30/18 19:00 Urine Protein >=300 mg/dL (Neg-Trace) H 03/30/18 19:00 Urine Glucose (UA) 250 mg/dL (Normal) H 03/30/18 19:00 Urine Blood Trace (Negative) H 03/30/18 19:00 Urine Bilirubin Small (Negative) H 03/30/18 19:00 Ur Leukocyte Esterase Moderate (Negative) H 03/30/18 19:00 Urine Microscopic RBC 5-15 per hpf (0-3) H 03/30/18 19:00 Urine Microscopic WBC TNTC per hpf (0-3) H 03/30/18 19:00 Ur Squamous Epith Cells Many per lpf (None-Few) H 03/30/18 19:00 Ur Culture Indicated? NO. (NO) A 03/30/18 19:00 - Microbiology Findings Microbiology Findings: Microbiology, Last 48 Hours 04/02/18 11:30 Wound Culture - Final Left Foot No growth. 04/02/18 11:30 Wound Culture - Final Left Foot No growth. 04/02/18 11:30 Anaerobic Culture - Preliminary Left Foot At this time, no anaerobic growth is present. The culture will be finalized after 5 days of incubation. 04/02/18 11:30 Anaerobic Culture - Preliminary Left Foot At this time, no anaerobic growth is present. The culture will be finalized after 5 days of incubation. - Clinical Findings Intake & Output: Intake & Output 04/05/18 04/06/18 04/06/18 23:59 07:59 15:59 Intake Total 415.7 / 415.7 450 / 450 Output Total 3080 / 3080 Balance -2664.3 / -2664.3 450 / 450 Weight 74.3 kg Consult Discharge Plan - Plan Referrals: Tom Xie Jr, MD [Primary Care Provider] - - Attending Attestation I saw and evaluated this patient and my medical decision-making was reviewed with the Resident Physician. I agree with the documented findings, disposition and treatment plan as described except to the extent set forth below. We independently had [id number] contact with the patient Patient seen and examined at bedside Labs, radiology, chart personally reviewed. Management was reviewed during multidisciplinary critical care rounds. 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 Pulm: Patient has acceptable oxygenation and ventilation on nasal cannula. Cards: Patient is hemodynamically stable has some borderline hypotension after blood loss from fistula. FEN-GI: Diet as tolerated Renal: He has acute on chronic kidney disease on regular dialysis fistula started to lead to control blood hemoglobin is stable we will need to the management according to nephrology for that she will need a fistulogram or interventional radiology intervention ID: Patient has left for cellulitis with osteomyelitis management according to infectious disease to continue antibiotics according to the recommendation. Heme/Onc: Thromboprophylaxis Endo: Glucose Monitored Integ/MSK: Skin Care per routine ICU Nursing Protocol to prevent ulcers. Lines: All lines examined without evidence of infection : Dispo: To transferred to telemetry. CODE: Full Code <Tio Hicks - Last Filed: 04/06/18 17:00> Date of Encounter: 04/06/18 Time of Encounter: 10:56 Assessment and Plan (1) Anemia Current Visit: Yes Status: Acute Hgb has been persistently low since admission Based on previous records at [facility] this appears to be a chronic issue MCV elevated on admission May be related to ESRD Hgb dropped to 9.0 yesterday afternoon Transfused 2 units pRBCs H&H stable at 10.4 and 32.1 today respectively No further bleeding Continue to monitor closely Will start folate and check B12 level Stable to transfer out of ICU at this time to telemetry bed. Spoke with Dr. Watson who accepted the pt to the hospitalist service. Qualifiers: Anemia type: unspecified type Qualified Code(s): D64.9 - Anemia, unspecified (2) ESRD (end stage renal disease) on dialysis Current Visit: Yes Status: Chronic Pt receives MWF HD Management per nephro (3) Diabetes mellitus Current Visit: Yes Status: Chronic Low dose SSI Continue 15mg BID Levemir Goal blood glucose levels <180 to encourage wound healing Qualifiers: Diabetes mellitus type: type 2 Diabetes mellitus remotely operated vehicle insulin use: with senior care use Diabetes mellitus complication status: with kidney complications Diabetes mellitus complication detail: with chronic kidney disease Chronic kidney disease stage: on chronic dialysis Qualified Code(s): E11.22 - Type 2 diabetes mellitus with diabetic chronic kidney disease; N18.6 - End stage renal disease; Z79.4 - FDC (current) use of insulin; Z99.2 - Dependence on renal dialysis (4) Cellulitis of left foot Current Visit: Yes Status: Acute Podiatry and ID on board Continue abx per Podiatry and ID recs - Metronidazole 500mg TID - Cefepime 1g qd (5) PVD (peripheral vascular disease) Current Visit: Yes Status: Chronic ABIs completed 08/20/17 showed findings consistent with severe disease in the right lower extremity and moderate disease in the left lower extremity. Repeat ABIs show severe disease bilaterally. TCPO2 right 40 ankle, 50 foot. Left 22 ankle, 13 foot. Vascular surgery consulted. Status post aortogram with BLE angiogram via right common artery, left SFA angioplasty, and left popliteal artery angioplasty by Dr. Craig. (6) Chronic congestive heart failure Current Visit: Yes Status: Chronic Last echo June 2016 revealed EF 50-55% with mild left ventricular diastolic dysfunction - pt does not have significant swelling in LE with exception of left foot where osteomyelitis and wound are present - pt on 25mg Metoprolol, 80mg BID Lasix - continue to monitor Qualifiers: Heart failure type: diastolic Qualified Code(s): I50.32 - Chronic diastolic (congestive) heart failure (7) CAD (coronary artery disease) of artery bypass graft Current Visit: Yes Status: Chronic Followed by Dr. Recio, Cardiology Continue home meds as above Qualifiers: [place] vs. transplanted heart: [place] heart Associated angina: without angina Qualified Code(s): I25.810 - Atherosclerosis of coronary artery bypass graft(s) without angina pectoris (8) Leukocytosis Current Visit: Yes Status: Acute Pt's WBC 21.7 at admit, 6.1.8 today Likely related to infectious process in left foot ABX per podiatry and ID as above continue to monitor Qualifiers: Leukocytosis type: bandemia Qualified Code(s): D72.825 - Bandemia (9) Osteomyelitis Current Visit: Yes Status: Acute Followed by Podiatry Wound cultures obtained, resulted Klebsiella. 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 She was admitted on 03/29 for cellulitis of the left foot. MRI from 03/30 revealed trace marrow edema in the plantar aspect of the 1st metatarsal head and medial hallux sesamoid suggestive of early osteomyelitis. She was being treated by hospitalist and infectious disease. Underwent her normal schedule of HD (MWF) yesterday when hospitalist was called since pt had been bleeding from AVF for 4 hours without relief. Pt reportedly had become pale as well. Dr. Mercado from nephrology was called as well. Surgiceal and gel foam were applied but did not stop bleeding. Dr. Quiles from vascular surgery was called and stated no immediate intervention was needed at that time. Pt was transferred to ICU with acute blood loss anemia and hypotension at 78/64. Pt was subsequently transfused 2 units of pRBCs, given IV fluids, and Desmopressin. Pressure was held over the AVF throughout this episode. Pt seen and examined at bedside today. No acute events overnight. States she feels much better than yesterday. Denies any further bleeding. No pain, fever, chills, fatigue, or shortness of breath. Past Med Surg Social Fam HX - Past Medical History Medical history: CHF, COPD, diabetes, dialysis, hyperlipidemia, hypertension, renal disease Additional medical history: sleep apnea, anemia Psychiatric history: no psych history - Past Surgical History Surgical History: cholecystectomy, orthopedic, other, vascular surgery, LE bypass, LE vascular intervention Additional surgical history: RIGHT UPPER ARM FISTULA / RIGHT GREAT TOE REMOVED - Social History Smoking Status: Former smoker Smokeless Tobacco Status: No Alcohol use: none Drug use: none - Family History Father Living Status: Hx Family Cancer: Yes Hx Family Endocrine Disorder: Yes (DM) Mother Living Status: All Systems: The remainder of the systems were reviewed and are negative - Constitutional Constitutional: no chills, no fever(s), no weakness - Cardiovascular Cardiovascular: no chest pain, no diaphoresis, no dyspnea - Respiratory Respiratory: no cough, no dyspnea, no wheezing - Gastrointestinal Gastrointestinal: no abdominal pain, no nausea, no vomiting - Musculoskeletal Musculoskeletal: no weakness, no numbness, no tingling - Neurological Neurological: no numbness, no tingling, no weakness - Endocrine Endocrine: no cold intolerance, no excessive sweating, no fatigue, no palpit ations Physical Examination Vital Signs: Vital Signs, Last 4 Hours Temp Pulse Resp BP Pulse Ox 04/06/18 08:00 97.8 F 61 18 143/55 99 General appearance: no acute distress, alert ENT: oropharynx moist Neck: supple, no lymphadenopathy, no JVD Effort: normal Inspection: normal Auscultation: bilateral: clear Percussion: bilateral: not dull Tactile fremitus: bilateral: normal Cardiovascular: regular rate and rhythm Gastrointestinal: normoactive bowel sounds, soft, non-tender, non-distended Integumentary: normal, cellulitis (left foot ) Extremities: no cyanosis, no edema, no clubbing, pink and warm, pulses normal Gait: normal posture normal mental status, non-focal exam mood appropriate, affect normal Results - Laboratory Findings CBC and BMP: 04/06/18 03:34 04/06/18 03:34 PT/INR, D-dimer PT 11.2 Seconds (9.4-12.1) 04/02/18 04:00 Abnormal lab findings: Abnormal lab results WBC 16.1 K/mcL (4.3-11.1) H 04/06/18 03:34 RBC 3.41 M/mcL (3.82-4.97) L 04/06/18 03:34 Hgb 10.4 g/dL (11.5-15.4) L 04/06/18 03:34 Hct 32.1 % (35.3-44.9) L 04/06/18 03:34 RDW 18.6 % (11.5-14.5) H 04/06/18 03:34 Neutrophils # 12.0 K/mcL (1.6-8.9) H 04/06/18 03:34 Monocytes # 1.4 K/mcL (0.0-1.3) H 04/06/18 03:34 ESR 77 mm/hr (0-15) H 03/29/18 11:58 Potassium 5.2 mEq/L (3.5-5.1) H 04/06/18 03:34 BUN 47 mg/dL (8-23) H 04/06/18 03:34 Creatinine 5.36 mg/dL (0.60-1.20) H 04/06/18 03:34 Est GFR ( Amer) 10 (> 60) L 04/06/18 03:34 Est GFR (Non-Af Amer) 8 (> 60) L 04/06/18 03:34 POC Glucose 268 mg/dL (70-99) H 04/05/18 21:37 Hemoglobin A1c 6.2 % (-5.6) H 04/06/18 03:34 Calcium 7.8 mg/dL (8.6-10.3) L 04/06/18 03:34 AST 64 Units/L (13-39) H 04/05/18 09:09 ALT 70 Units/L (7-52) H 04/05/18 09:09 C-Reactive Protein 157 mg/L (Less than 10) H 03/29/18 11:58 Serum Total Protein 5.9 g/dL (6.4-8.9) L 04/05/18 09:09 Albumin 3.1 g/dL (3.5-5.7) L 04/05/18 09:09 Triglycerides 167 mg/dL (< 150) H 04/06/18 03:34 VLDL Cholesterol, Calc 33 mg/dL (< 31) H 04/06/18 03:34 HDL Cholesterol 21 mg/dL (40-59) L 04/06/18 03:34 Lipase 7 Units/L (11-82) L 03/29/18 11:58 Urine Clarity Turbid (Clear) A 03/30/18 19:00 Urine Protein >=300 mg/dL (Neg-Trace) H 03/30/18 19:00 Urine Glucose (UA) 250 mg/dL (Normal) H 03/30/18 19:00 Urine Blood Trace (Negative) H 03/30/18 19:00 Urine Bilirubin Small (Negative) H 03/30/18 19:00 Ur Leukocyte Esterase Moderate (Negative) H 03/30/18 19:00 Urine Microscopic RBC 5-15 per hpf (0-3) H 03/30/18 19:00 Urine Microscopic WBC TNTC per hpf (0-3) H 03/30/18 19:00 Ur Squamous Epith Cells Many per lpf (None-Few) H 03/30/18 19:00 Ur Culture Indicated? NO. (NO) A 03/30/18 19:00 - Microbiology Findings Microbiology Findings: Microbiology, Last 48 Hours 04/02/18 11:30 Wound Culture - Final Left Foot No growth. 04/02/18 11:30 Wound Culture - Final Left Foot No growth. 04/02/18 11:30 Anaerobic Culture - Preliminary Left Foot At this time, no anaerobic growth is present. The culture will be finalized after 5 days of incubation. 04/02/18 11:30 Anaerobic Culture - Preliminary Left Foot At this time, no anaerobic growth is present. The culture will be finalized after 5 days of incubation. - Clinical Findings Intake & Output: Intake & Output 04/05/18 04/06/18 04/06/18 23:59 07:59 15:59 Intake Total 415.7 / 415.7 450 / 450 Output Total 3080 / 3080 Balance -2664.3 / -2664.3 450 / 450 Weight 74.3 kg
[2018-04-06] MEDS: Ondansetron 4 MG/2 ML VIAL IVP PRN (12:10)
--- NOTE | 2018-04-06 13:38 | Nephrology Progress Note ---
Date of Encounter: 04/06/18 Time of Encounter: 13:37 - Assessment and Plan (1) ESRD (end stage renal disease) on dialysis Current Visit: Yes Status: Chronic She is ESRD on HD MWF. HD completed yesterday. Pressure was held to Fistula site for over 4 hours by HD RN's. Dr. Mercado ordered Ddavp and primary team ordered 2 units PRBCs. Bleeding from site did stop after infusion of Ddavp. She was transferred to ICU for monitoring. Renal diet Strict I/Os; Avoid nephrotoxins if possible. (2) Cellulitis of left foot Current Visit: Yes Status: Acute S/p surgery. Appreciate Podiatry. (3) Altered mental status Current Visit: Yes Status: Resolved Resolved, alert. Qualifiers: Altered mental status type: disorientation Qualified Code(s): R41.0 - Disorientation, unspecified (4) Gangrene of foot Current Visit: Yes Status: Acute Appreciate podiatry/ID. Subjective Principal diagnosis: left leg infection Interval history: Pt seen and examined in the ICU, doing well. Denies SOB or CP. Denies nausea/vomiting/diarrhea. Objective - Vital Signs Vital signs: Vital Signs Temp Pulse Resp BP Pulse Ox 04/06/18 12:00 97.4 F L 64 18 135/81 99 04/06/18 08:00 97.8 F 61 18 143/55 99 04/06/18 04:22 98.0 F 04/06/18 04:00 64 18 128/51 100 04/06/18 01:32 97.2 F L 67 16 109/80 10 04/06/18 00:00 97.9 F 63 14 105/27 100 04/05/18 22:35 98.2 F 65 14 114/53 100 04/05/18 21:48 98.1 F 73 16 118/57 100 04/05/18 20:05 80 04/05/18 19:20 97.6 F 77 15 91/61 100 04/05/18 19:09 97.7 F 74 16 106/62 04/05/18 19:05 97.8 F 15 126/47 04/05/18 19:00 97.6 F 76 16 106/62 100 04/05/18 18:00 97.7 F 71 18 78/64 100 Intake and Output 04/05/18 04/06/18 04/06/18 23:59 07:59 15:59 Intake Total 415.7 / 415.7 450 / 450 Output Total 3080 / 3080 Balance -2664.3 / -2664.3 450 / 450 Intake: IV Fluids 65.7 / 65.7 100 / 100 0.9 % Sodium Chloride 250 ML @ 100 / 100 0 mls/hr .ROUTE .STK-MED ONE Rx #:[id number] Maxipime 1,000 MG In Water for inj. (sterile) 10 ML @ 300 mls/ hr IVP Q24H [facility] Rx#:[id number] Ddavp 22.8 Mcg In 0.9 % Sodium 55.7 / 55.7 Chloride 50 ML @ 100 mls/hr IVPB ONCE ONE Rx#:[id number] Oral 0 / 0 Blood Product 350 / 350 350 / 350 Rbcs Leuko Poor As-1 Unit 350 / 350 [id number] Rbcs Leuko Poor As-1 Unit 350 / 350 [id number] Output: Urine 0 / 0 Total Dialysis (HD) Output 3080 / 3080 Other: Stool Size Moderate Stool Consistency loose soft Stool Characteristics Normal for Patient Stool Color Brown # Bowel Movement Diapers 1 Weight 74.3 kg Blood Glucose* 268 Hemodialysis Net Fluid Removed 2480 (mL) Patient Weight 04/06/18 23:59 Weight 74.3 kg - General Appearance General appearance: Present: well-developed, well-nourished EENT: Present: ATNC, hearing intact, vision intact (Blind in left eye.) Neck: Present: supple Respiratory: Present: clear Cardiology: Present: normal S1, normal S2 Dialysis Vascular Access: Arteriovenous Fistula thrill: Yes bruit: Yes Gastrointestinal: Present: normoactive bowel sounds, no tenderness Integumentary: Present: no rash, warm and dry Neurologic: Present: alert and oriented x3 Psychiatric: Present: mood/affect appropriate, cooperative - Lab 04/06/18 03:34 04/06/18 03:34 Most recent lab results Calcium 7.8 mg/dL (8.6-10.3) L 04/06/18 03:34 Consult Discharge Plan - Plan Referrals: Tom Xie Jr, MD [Primary Care Provider] -
--- NOTE | 2018-04-06 14:44 | Podiatry Progress Note ---
Date of Encounter: 04/06/18 Time of Encounter: 12:55 - Assessment and Plan (1) Foot ulcer, left Current Visit: Yes Status: Acute Left foot right hallux amputation. Incision well approximated. No signs of dehiscence noted. No signs of infection. Wound cultures obtained 04/02 returned negative. Old dressing removed with minimal serosanguineous drainage noted. Cleansed with 0.9 normal saline. Covered with Adaptic, dry gauze, and Kerlix. Secured with García bandage. Surgical shoe in place. Keep leg elevated when nonambulatory. Limited weightbearing of left lower extremity. Qualifiers: Non-pressure ulcer stage: unspecified non-pressure ulcer stage Qualified Code(s): L97.529 - Non-pressure chronic ulcer of other part of left foot with unspecified severity (2) Cellulitis of left foot Current Visit: Yes Status: Acute Erythema and edema subsided. ID following. (3) Osteomyelitis Current Visit: Yes Status: Acute see above plan. Qualifiers: Osteomyelitis type: acute hematogenous Osteomyelitis location: foot Laterality: left Qualified Code(s): M86.072 - Acute hematogenous osteomyelitis, left ankle and foot (4) PVD (peripheral vascular disease) Current Visit: Yes Status: Chronic Chronic vascular disease. Angiogram on 03/31/18 with intervention. (5) Diabetes mellitus Current Visit: Yes Status: Chronic Type II DM. Hemoglobin A1c 6.2. Recommend tight glycemic control for wound healing while in hospital. 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 Just finished eating lunch. Has been on bedside. Denies any pain or overnight complications. Nurse states patient was transferred to ICU for fistula bleeding. Objective - Vital Signs Vital Signs: Vital Signs Temp Pulse Resp BP Pulse Ox 04/06/18 12:00 97.4 F L 64 18 135/81 99 04/06/18 08:00 97.8 F 61 18 143/55 99 04/06/18 04:22 98.0 F 04/06/18 04:00 64 18 128/51 100 04/06/18 01:32 97.2 F L 67 16 109/80 10 04/06/18 00:00 97.9 F 63 14 105/27 100 04/05/18 22:35 98.2 F 65 14 114/53 100 04/05/18 21:48 98.1 F 73 16 118/57 100 04/05/18 20:05 80 04/05/18 19:20 97.6 F 77 15 91/61 100 04/05/18 19:09 97.7 F 74 16 106/62 04/05/18 19:05 97.8 F 15 126/47 04/05/18 19:00 97.6 F 76 16 106/62 100 04/05/18 18:00 97.7 F 71 18 78/64 100 Intake and Output 04/05/18 04/06/18 04/06/18 23:59 07:59 15:59 Intake Total 415.7 / 415.7 450 / 450 Output Total 3080 / 3080 Balance -2664.3 / -2664.3 450 / 450 Intake: IV Fluids 65.7 / 65.7 100 / 100 0.9 % Sodium Chloride 250 ML @ 100 / 100 0 mls/hr .ROUTE .STK-MED ONE Rx #:[id number] Maxipime 1,000 MG In Water for inj. (sterile) 10 ML @ 300 mls/ hr IVP Q24H [facility] Rx#:[id number] Ddavp 22.8 Mcg In 0.9 % Sodium 55.7 / 55.7 Chloride 50 ML @ 100 mls/hr IVPB ONCE ONE Rx#:[id number] Oral 0 / 0 Blood Product 350 / 350 350 / 350 Rbcs Leuko Poor As-1 Unit 350 / 350 [id number] Rbcs Leuko Poor As-1 Unit 350 / 350 [id number] Output: Urine 0 / 0 Total Dialysis (HD) Output 3080 / 3080 Other: Stool Size Moderate Stool Consistency loose soft Stool Characteristics Normal for Patient Stool Color Brown # Bowel Movement Diapers 1 Weight 74.3 kg Blood Glucose* 268 Hemodialysis Net Fluid Removed 2480 (mL) Patient Weight 1106/18 23:59 Weight 74.3 kg - Exam Exam: Constitiutional: Alert and oriented x 3. Vascular: 1/4 DP/PT bilaterally, CFT <3 sec to all digits, warm to warm from tibia to toes bilaterally Neurologic: Diminished sensation to touch, normal plantar response, Dermatologic: Left lower extremity amputation, sutures noted and well approximated. No signs of dehiscence noted. Erythema and trace edema noted to left incisional site. Right amputated hallux. Musculoskeletal: 4/5 muscle strength and normal tone bilaterally. - Lab Result Diagrams: 04/06/18 03:34 04/06/18 03:34 Labs: Abnormal lab results WBC 16.1 K/mcL (4.3-11.1) H 04/06/18 03:34 RBC 3.41 M/mcL (3.82-4.97) L 04/06/18 03:34 Hgb 10.4 g/dL (11.5-15.4) L 04/06/18 03:34 Hct 32.1 % (35.3-44.9) L 04/06/18 03:34 RDW 18.6 % (11.5-14.5) H 04/06/18 03:34 Neutrophils # 12.0 K/mcL (1.6-8.9) H 04/06/18 03:34 Monocytes # 1.4 K/mcL (0.0-1.3) H 04/06/18 03:34 ESR 77 mm/hr (0-15) H 03/29/18 11:58 Potassium 5.2 mEq/L (3.5-5.1) H 04/06/18 03:34 BUN 47 mg/dL (8-23) H 04/06/18 03:34 Creatinine 5.36 mg/dL (0.60-1.20) H 04/06/18 03:34 Est GFR ( Amer) 10 (> 60) L 04/06/18 03:34 Est GFR (Non-Af Amer) 8 (> 60) L 04/06/18 03:34 POC Glucose 268 mg/dL (70-99) H 04/05/18 21:37 Hemoglobin A1c 6.2 % (-5.6) H 04/06/18 03:34 Calcium 7.8 mg/dL (8.6-10.3) L 04/06/18 03:34 AST 64 Units/L (13-39) H 04/05/18 09:09 ALT 70 Units/L (7-52) H 04/05/18 09:09 C-Reactive Protein 157 mg/L (Less than 10) H 03/29/18 11:58 Serum Total Protein 5.9 g/dL (6.4-8.9) L 04/05/18 09:09 Albumin 3.1 g/dL (3.5-5.7) L 04/05/18 09:09 Triglycerides 167 mg/dL (< 150) H 04/06/18 03:34 VLDL Cholesterol, Calc 33 mg/dL (< 31) H 04/06/18 03:34 HDL Cholesterol 21 mg/dL (40-59) L 04/06/18 03:34 Lipase 7 Units/L (11-82) L 03/29/18 11:58 Urine Clarity Turbid (Clear) A 03/30/18 19:00 Urine Protein >=300 mg/dL (Neg-Trace) H 03/30/18 19:00 Urine Glucose (UA) 250 mg/dL (Normal) H 03/30/18 19:00 Urine Blood Trace (Negative) H 03/30/18 19:00 Urine Bilirubin Small (Negative) H 03/30/18 19:00 Ur Leukocyte Esterase Moderate (Negative) H 03/30/18 19:00 Urine Microscopic RBC 5-15 per hpf (0-3) H 03/30/18 19:00 Urine Microscopic WBC TNTC per hpf (0-3) H 03/30/18 19:00 Ur Squamous Epith Cells Many per lpf (None-Few) H 03/30/18 19:00 Ur Culture Indicated? NO. (NO) A 03/30/18 19:00 Microbiology, Last 48 Hours 04/02/18 11:30 Wound Culture - Final Left Foot No growth. 04/02/18 11:30 Wound Culture - Final Left Foot No growth. 04/02/18 11:30 Anaerobic Culture - Preliminary Left Foot At this time, no anaerobic growth is present. The culture will be finalized after 5 days of incubation. 04/02/18 11:30 Anaerobic Culture - Preliminary Left Foot At this time, no anaerobic growth is present. The culture will be finalized after 5 days of incubation. Consult Discharge Plan - Plan Referrals: Tom Xie Jr, MD [Primary Care Provider] -
[2018-04-06] MEDS: Cefepime HCl 1,000 MG in Water for inj. (sterile) 20 ML 10 ML IVP SCH (16:43)
[2018-04-06] MEDS ORDERED: 0.9 % Sodium Chloride 250 ML IVC PRN (17:14)
[2018-04-06] MEDS ORDERED: Albuterol 2.5 MG/3 ML NEBULIZER IH PRN (17:14)
[2018-04-06] MEDS ORDERED: *HR* Dextrose 50 % in Water (Syg) 50 ML SYRINGE IVP PRN (17:14)
[2018-04-06] MEDS ORDERED: Dextrose Gel 15 GM/37.5 ML TUBE PO PRN ×2 (17:14)
[2018-04-06] MEDS ORDERED: Artificial Tears SOLN 15 ML BOTTLE BOTH EYES PRN (17:14)
[2018-04-06] MEDS ORDERED: Nitroglycerin 0.4 MG TAB.SUBL SL PRN (17:14)
[2018-04-06] MEDS ORDERED: *HR* Promethazine 25 MG/ML VIAL IVP PRN (17:14)
[2018-04-06] MEDS ORDERED: Naloxone 0.4 MG/ML INJ IVP PRN (17:14)
[2018-04-06] MEDS ORDERED: D5% in Water 1,000 ML IVC PRN (17:14)
[2018-04-06] MEDS ORDERED: 0.9 % Sodium Chloride 1,000 ML PRIME SCH (17:14)
[2018-04-06] MEDS: Insulin DETEMIR 100 UNIT/ML X5UNITS SQ SCH (20:56)
[2018-04-07] MEDS: *HR* Heparin 5,000 UNIT/ML VIAL SQ SCH ×2 (06:34→17:19)
[2018-04-07 07:27] LABS: Basophils # 0.1 K/mcL (0.0-0.2); Basophils % 1.1 %; Eosinophils # 0.6 K/mcL (0.0-0.6); Eosinophils % 4.8 %; Hematocrit 32.8 % (35.3-44.9); Hemoglobin 10.4 g/dL (11.5-15.4); Immature Granulocytes % 1.9 % (0-4); Lymphocytes % 15.3 %; Mean Corpuscular HGB Conc 31.7 g/dL (31.6-35.5); Mean Corpuscular Hemoglobin 30.7 pg (28.0-33.3); Mean Corpuscular Volume 96.8 fL (83.0-100.0); Mean Platelet Volume 9.3 fL (9.4-12.4); Monocytes # 1.1 K/mcL (0.0-1.3); Monocytes % 8.4 %; Neutrophils # 8.8 K/mcL (1.6-8.9); Platelet Count 241 K/mcL (140-400); Red Blood Count 3.39 M/mcL (3.82-4.97); Red Cell Distribution Width 17.7 % (11.5-14.5); Segmented Neutrophils % 68.5 %
[2018-04-07 07:38] LABS: Calcium 8.1 mg/dL (8.6-10.3); Potassium 5.1 mEq/L (3.5-5.1)
[2018-04-07] MEDS: rOPINIRole 1 MG TABLET PO SCH ×2 (08:09→20:25)
[2018-04-07] MEDS: Furosemide 40 MG TABLET PO SCH ×2 (08:09→17:20)
[2018-04-07] MEDS: Renal Vitamin 1 CAP CAPSULE PO SCH (08:09)
[2018-04-07] MEDS: Aspirin Enteric Coated 81 MG Tablet PO SCH (08:10)
[2018-04-07] MEDS: Insulin LISPRO 300 UNITS/3 ML VIAL SQ SCH ×4 (08:10→20:26)
[2018-04-07] MEDS: Dorzolamide/Timolol OPTH 10 ML BOTTLE BOTH EYES SCH ×2 (08:11→20:26)
[2018-04-07] MEDS ORDERED: Metoprolol XL (24 HR) Succ 25 MG TAB.ER.24H PO SCH (09:00)
[2018-04-07] MEDS ORDERED: Isosorbide MONOnitrate (24 HR) 30 MG TAB.ER.24H PO SCH (09:00)
--- NOTE | 2018-04-07 10:17 | Infectious Disease Progress No ---
Date of Encounter: 04/07/18 Time of Encounter: 10:15 - Assessment and Plan (1) Sepsis Current Visit: Yes Status: Acute The patient had 2 sepsis criteria, including leukocytosis and fever. Likely secondary to left foot cellulitis. Improved. WBC is trending down. Afebrile overnight. Blood cultures drawn 03/29/18 are negative x 2 sets. Qualifiers: Sepsis type: sepsis due to unspecified organism Qualified Code(s): A41.9 - Sepsis, unspecified organism (2) Osteomyelitis Current Visit: Yes Status: Acute Location: Left foot first metatarsal head and medial hallux sesamoid. Positive organism: Unclear. Wound culture is positive for K. oxytoca, higgins- sensitive. Likely secondary to chronic nonhealing foot ulcer. Left foot x-ray was negative for osteomyelitis. 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 Machine Set Up Technician been consulted. 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 Khan. Operative note reviewed. Intra-op cultures are negative. Pathology negative for OM. Wound care per the podiatry team. Continue cefepime, will switch to 2 grams IV on HD days only. Duration of treatment is on the clinical picture. Imaging showed possible early OM, but pathology and bone cultures are negative. We will likely plan to treat for 4 weeks and evaluate how the patient is doing clinically. Monitor labs for drug toxicity and dose adjust antibiotics. Will likely be able to give IV antibiotics with HD. Discussed with the nephrology team. Qualifiers: Osteomyelitis type: acute hematogenous Osteomyelitis location: foot Laterality: left Qualified Code(s): M86.072 - Acute hematogenous osteomyelitis, left ankle and foot (3) Gangrene of left foot Current Visit: Yes Status: Suspected (4) Foot ulcer, left Current Visit: Yes Status: Acute Location: Plantar aspect of the left foot. Likely secondary to previous callus removal. Wound care per the podiatry team. Qualifiers: Non-pressure ulcer stage: unspecified non-pressure ulcer stage Qualified Code(s): L97.529 - Non-pressure chronic ulcer of other part of left foot with unspecified severity (5) ESRD (end stage renal disease) on dialysis Current Visit: Yes Status: Chronic Nephrology consulted and following. (6) Diabetes mellitus Current Visit: Yes Status: Chronic Recommend aggressive glucose monitoring and control to promote wound healing and prevent reinfection. Management per the primary team. 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 Diabetes mellitus complication status: with kidney complications Diabetes mellitus complication detail: with chronic kidney disease Chronic kidney disease stage: on chronic dialysis Qualified Code(s): E11.22 - Type 2 diabetes mellitus with diabetic chronic kidney disease; N18.6 - End stage renal disease; Z79.4 - residential (current) use of insulin; Z99.2 - Dependence on renal dialysis (7) PVD (peripheral vascular disease) Current Visit: Yes Status: Chronic ABIs completed 08/20/17 showed findings consistent with severe disease in the right lower extremity and moderate disease in the left lower extremity. Repeat ABIs show severe disease bilaterally. TCPO2 right 40 ankle, 50 foot. Left 22 ankle, 13 foot. Vascular surgery consulted. Status post aortogram with BLE angiogram via right common artery, left SFA angioplasty, and left popliteal artery angioplasty by Dr. Craig. 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 --> ? medication adverse reaction CT head negative. MRI brain negative. Workup per the primary team. Qualifiers: Altered mental status type: disorientation Qualified Code(s): R41.0 - Disorientation, unspecified - Subjective Interval history: Patient seen and examined. No acute events noted overnight. Patient awake, alert, oriented x 3. Sitting up in the bedside chair. States overall feels better. Denies fevers, chills, or rigors. Denies chest pain, shortness of breath, or cough. Denies nausea this morning or vomiting or diarrhea.. Denies abdominal pain or urinary complaints. Denies oral thrush or new skin lesions. Reports mild pain at the surgical site. Infect Dis PN-Objective Data - Labs CBC & Chem 7: 04/07/18 07:09 04/07/18 07:09 Labs: Laboratory Results - last 24 hr 04/06/18 04/06/18 04/06/18 08:13 12:00 16:23 WBC RBC Hgb Hct MCV MCH MCHC RDW Plt Count MPV Immature Gran % Seg Neutrophils % Lymphocytes % Monocytes % Eosinophils % Basophils % Neutrophils # Lymphocytes # Monocytes # Eosinophils # Basophils # Sodium Potassium Chloride Carbon Dioxide BUN Creatinine Est GFR ( Amer) Est GFR (Non-Af Amer) BUN/Creatinine Ratio Glucose POC Glucose 82 147 H 184 H Calculated Osmolality Calcium Vitamin B12 04/06/18 04/07/18 04/07/18 19:45 05:15 07:09 WBC 12.8 H RBC 3.39 L Hgb 10.4 L Hct 32.8 L MCV 96.8 MCH 30.7 MCHC 31.7 RDW 17.7 H Plt Count 241 MPV 9.3 L Immature Gran % 1.9 Seg Neutrophils % 68.5 Lymphocytes % 15.3 Monocytes % 8.4 Eosinophils % 4.8 Basophils % 1.1 Neutrophils # 8.8 Lymphocytes # 2.0 Monocytes # 1.1 Eosinophils # 0.6 Basophils # 0.1 Sodium Potassium Chloride Carbon Dioxide BUN Creatinine Est GFR ( Amer) Est GFR (Non-Af Amer) BUN/Creatinine Ratio Glucose POC Glucose 192 H Calculated Osmolality Calcium Vitamin B12 932 04/07/18 07:09 WBC RBC Hgb Hct MCV MCH MCHC RDW Plt Count MPV Immature Gran % Seg Neutrophils % Lymphocytes % Monocytes % Eosinophils % Basophils % Neutrophils # Lymphocytes # Monocytes # Eosinophils # Basophils # Sodium 134 L Potassium 5.1 Chloride 97 L Carbon Dioxide 25 BUN 70 H Creatinine 6.98 H Est GFR ( Amer) 7 L Est GFR (Non-Af Amer) 6 L BUN/Creatinine Ratio 10 Glucose 139 H POC Glucose Calculated Osmolality 301 H Calcium 8.1 L Vitamin B12 Cultures: Cultures 04/02/18 11:30 Wound Culture - Final Left Foot No growth. 04/02/18 11:30 Wound Culture - Final Left Foot No growth. 04/02/18 11:30 Anaerobic Culture - Preliminary Left Foot At this time, no anaerobic growth is present. The culture will be finalized after 5 days of incubation. 04/02/18 11:30 Anaerobic Culture - Preliminary Left Foot At this time, no anaerobic growth is present. The culture will be finalized after 5 days of incubation. 03/29/18 12:50 Blood Culture - Final Peripheral Venipuncture No growth. Final report. 03/29/18 12:50 Blood Culture - Final Peripheral Venipuncture No growth. Final report. 03/29/18 16:45 Anaerobic Culture - Final Right Foot No anaerobes were recovered. 03/29/18 16:45 Wound Culture - Final Right Foot Klebsiella oxytoca Serology 03/30/18 03/29/18 Range/Units 19:00 15:09 Urine Color Yellow (Yellow) Urine Clarity Turbid A (Clear) Urine pH 6.0 (5.0-8.0) pH Units Ur Specific [place] 1.019 (1.010-1.025) Urine Protein >=300 H (Neg-Trace) mg/dL Urine Glucose (UA) 250 H (Normal) mg/dL Urine Ketones Negative (Negative) mg/dL Urine Blood Trace H (Negative) Urine Nitrite Negative (Negative) Urine Bilirubin Small H (Negative) Urine Urobilinogen Normal (Normal) mg/dL Ur Leukocyte Esterase Moderate H (Negative) Urine Microscopic RBC 5-15 H (0-3) per hpf Urine Microscopic WBC TNTC H (0-3) per hpf Ur Squamous Epith Cells Many H (None-Few) per lpf Urine Bacteria Few (None-Few) per hpf Hyaline Casts Few (None-Few) per lpf Ur Culture Indicated? NO. A (NO) Hep Bs Antigen Nonreactive (Nonreactive) Hep Bs Antibody 1.18 mIU/mL - Impressions Impressions Brain MRI 04/06/18 14:06 IMPRESSION: No acute intracranial abnormality. Extensive white matter disease, progressed from 2014. 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 D/ / Flakito Laird MD / Flakito Laird MD Interpreting Provider: Flakito Laird MD Exam - Constitutional Vitals: Temp Pulse Resp BP Pulse Ox 97.6 F 65 14 125/75 95 04/07/18 08:00 04/07/18 08:00 04/07/18 08:00 04/07/18 08:00 04/07/18 08:00 General appearance: average body habitus, cooperative, no acute distress - Head Head exam: Present: atraumatic, normal inspection, normocephalic - Eye Eye exam: Absent: normal appearance (LEft eye atrophied.) - ENT ENT exam: Present: mucous membranes moist - Neck Neck exam: Present: normal inspection - Respiratory Respiratory exam: Present: CTAB. Absent: rales, respiratory distress, rhonchi, wheezes - Cardiovascular Cardiovascular exam: Present: RRR, +S1, +S2 - GI/Abdominal GI/Abdominal exam: Present: normal bowel sounds, soft. Absent: distended, tenderness - Extremities Exam Extremities exam: Absent: normal inspection (Left foot dressing C/D/I.) - Neurological Exam Neurological exam: Present: alert, oriented X3, no focal deficits - Psychiatric Psychiatric exam: Present: normal affect, normal mood - Skin Skin exam: Present: dry, intact, normal color, warm Consult Discharge Plan - Plan Additional Instructions: 04/23/2018: ALEJANDRA testing 1000 Referrals: Tom Xie Jr, MD [Primary Care Provider] - Tc Craig MD [Partnered Physician] - 04/27/18 3:40 pm - Attending Attestation I examined this patient and my medical decision-making was reviewed with the Resident Physician. I agree with the documented findings, disposition and treatment plan as described except to the extent set forth below.
[2018-04-07] MEDS ORDERED: 0.9 % Sodium Chloride 250 ML IVC PRN (11:18)
[2018-04-07] MEDS ORDERED: 0.9 % Sodium Chloride 1,000 ML PRIME SCH (11:30)
--- NOTE | 2018-04-07 11:53 | Nephrology Progress Note ---
Date of Encounter: 04/07/18 Time of Encounter: 11:49 - Assessment and Plan (1) ESRD (end stage renal disease) on dialysis Current Visit: Yes Status: Chronic She is ESRD on HD MWF. HD planned for today. Heparin will not be used today to help with bleeding from fistula site. H/H stable after 2 units PRBCS and Ddavp. Renal diet Strict I/Os; Avoid nephrotoxins if possible. (2) Cellulitis of left foot Current Visit: Yes Status: Acute S/p surgery. Appreciate Podiatry. (3) Altered mental status Current Visit: Yes Status: Resolved Resolved, alert. Qualifiers: Altered mental status type: disorientation Qualified Code(s): R41.0 - Disorientation, unspecified (4) Gangrene of foot Current Visit: Yes Status: Acute Appreciate podiatry/ID. Subjective Principal diagnosis: left leg infection Interval history: Pt seen and examined in the ICU, doing well. Denies SOB or CP. Denies nausea/vomiting/diarrhea. Is going to go for HD today. Objective - Vital Signs Vital signs: Vital Signs Temp Pulse Resp BP Pulse Ox 04/07/18 10:00 65 14 95 04/07/18 08:00 97.6 F 65 14 125/75 95 04/07/18 06:00 72 14 116/73 95 04/07/18 04:30 98.0 F 04/07/18 03:00 70 14 116/73 95 04/07/18 01:00 77 20 155/61 93 04/06/18 23:42 97.9 F 04/06/18 22:00 84 18 152/60 96 04/06/18 20:08 96.5 F L 04/06/18 16:00 98.6 F 70 18 148/122 97 04/06/18 12:00 97.4 F L 64 18 135/81 99 Intake and Output 04/06/18 04/07/18 04/07/18 23:59 07:59 15:59 Intake Total 340 / 340 200 / 200 240 / 240 Balance 340 / 340 200 / 200 240 / 240 Intake: Oral 340 / 340 200 / 200 240 / 240 Other: Meal Dinner Breakfast Percent of Meal Consumed 85% 100% # Voids 1 Weight 76.2 kg Blood Glucose* 192 156 - General Appearance General appearance: Present: well-developed, well-nourished EENT: Present: ATNC, hearing intact, vision intact Neck: Present: supple Respiratory: Present: clear Cardiology: Present: edema (Trace bilat lower extremity edema.), normal S1, normal S2 Dialysis Vascular Access: Arteriovenous Fistula thrill: Yes bruit: Yes Gastrointestinal: Present: normoactive bowel sounds, no tenderness, no guarding Integumentary: Present: no rash, warm and dry Neurologic: Present: alert and oriented x3 Additional Comments: Walking boot in place to left lower extremity. DRSG C/D/I Psychiatric: Present: mood/affect appropriate, cooperative - Lab 04/07/18 07:09 04/07/18 07:09 Most recent lab results Calcium 8.1 mg/dL (8.6-10.3) L 04/07/18 07:09 Consult Discharge Plan - Plan Additional Instructions: 04/23/2018: ALEJANDRA testing 1000 Referrals: Tom Xie Jr, MD [Primary Care Provider] - Tc Craig MD [Partnered Physician] - 04/27/18 3:40 pm
[2018-04-07] MEDS ORDERED: 0.9 % Sodium Chloride 1,000 ML ONE (13:22)
[2018-04-07] MEDS ORDERED: Cefepime HCl 1,000 MG in Water for inj. (sterile) 20 ML 10 ML IVP SCH (15:00)
[2018-04-07] MEDS: Ketorolac 15 MG/ML VIAL IVP PRN (16:17)
[2018-04-07] MEDS: Cefepime HCl 2,000 MG in Water for inj. (sterile) 20 ML 20 ML IVP SCH (17:19)
[2018-04-07] MEDS: Insulin DETEMIR 100 UNIT/ML X5UNITS SQ SCH (20:25)
[2018-04-07] MEDS: traMADol 50 MG TABLET PO SCH (20:26)
--- NOTE | 2018-04-07 21:03 | Internal Med Progress Note ---
Hospitalist Progress Note - Encounter Date of Encounter: 04/07/18 Time of Encounter: 19:00 - Subjective Interval History: SUBJECTIVE: The patient feels pretty good. Her left foot pain is relatively mild. Denies chest pain. Denies difficulty breathing, coughing and wheezing. Denies abdominal pain, nausea and vomiting. She makes good amounts of urine. OBJECTIVE: Skin: For description of left foot wound see notes from podiatry and infectious diseases. The rest of skin is normal in appearance. ENMT: Oral/pharyngeal mucosa is normal in appearance. Eyes: Sclera is white. There is no discharge from eyes. Respiratory: Normal breath sounds; no crackles or wheezes. CV: Heart is regular; no gallop or murmur. GI: Abdomen is soft and not tender. There is no palpable mass or visceromegaly. Neuro: There is no focal deficits. ADDITIONAL DATA: Hemoglobin is 10.4 with a WBC of 12.8 thousand (16.1 thousand yesterday). She has normal electrolytes. Creatinine 6.98 (end-stage renal disease). Her fasting glucose by BMP was 139. ASSESSMENT AND PLAN: Diabetic foot ulcer with cellulitis and osteomyelitis of left foot. See notes from podiatry and infectious diseases. The patient had to have surgery done. We will continue daily dressings. She is on IV cefepime. End-stage renal disease/anemia in chronic kidney disease. Management as per nephrology. The patient gets hemodialysis in the hospital. Coronary artery disease/chronic diastolic heart failure. Stable. Will continue Toprol-XL, Lipitor and Plavix/enteric coated aspirin. She is on Imdur. Hypertensive renal disease with end-stage renal disease. Blood pressure is under control will continue Toprol-XL. DISPOSITION: The patient will definitely benefit from treatment at [facility]. A referral has been made. - Exam Vitals: Temp Pulse Resp BP Pulse Ox 98.3 F 75 18 150/32 95 04/07/18 19:51 04/07/18 20:00 04/07/18 18:00 04/07/18 18:00 04/07/18 18:00 Exam: xx - Assessment and Plan (1) Foot ulcer, left Current Visit: Yes Status: Acute (2) Cellulitis of left foot Current Visit: Yes Status: Acute (3) Osteomyelitis Current Visit: Yes Status: Acute (4) Diabetes mellitus Current Visit: Yes Status: Chronic (5) ESRD (end stage renal disease) on dialysis Current Visit: Yes Status: Chronic (6) Anemia in chronic kidney disease Current Visit: Yes Status: Chronic (7) CAD (coronary artery disease) of artery bypass graft Current Visit: Yes Status: Chronic (8) Chronic diastolic heart failure Current Visit: Yes Status: Chronic (9) Hypertensive kidney disease with ESRD (end-stage renal disease) Current Visit: Yes Status: Chronic (10) PVD (peripheral vascular disease) Current Visit: Yes Status: Chronic - Time Spent with Patient Total time spent is greater than 50% in coordination of care (as documented) at patient's floor/unit and/or counseling patient: 25 - 35 minutes Plan of Care Discussed with: patient Internal Medicine: Result - Labs CBC & Chem 7: 04/07/18 07:09 04/07/18 07:09 Labs: Short CBC 04/07/18 Range/Units 07:09 WBC 12.8 H (4.3-11.1) K/mcL Hgb 10.4 L (11.5-15.4) g/dL Hct 32.8 L (35.3-44.9) % Plt Count 241 (140-400) K/mcL Neutrophils # 8.8 (1.6-8.9) K/mcL BMP 04/07/18 07:09 Sodium 134 L Potassium 5.1 Chloride 97 L Carbon Dioxide 25 BUN 70 H Creatinine 6.98 H Glucose 139 H Calcium 8.1 L - ABG Interpretation ABG results: PT/INR, D-dimer PT 11.2 Seconds (9.4-12.1) 04/02/18 04:00 Consult Discharge Plan - Plan Additional Instructions: 04/23/2018: ALEJANDRA testing 1000 Referrals: Tom Xie Jr, MD [Primary Care Provider] - Tc Craig MD [Partnered Physician] - 04/27/18 3:40 pm (1) Foot ulcer, left Qualifiers: Non-pressure ulcer stage: unspecified non-pressure ulcer stage Qualified Code(s): L97.529 - Non-pressure chronic ulcer of other part of left foot with unspecified severity (3) Osteomyelitis Qualifiers: Osteomyelitis type: acute hematogenous Osteomyelitis location: foot Laterality: left Qualified Code(s): M86.072 - Acute hematogenous osteomyelitis, left ankle and foot (4) Diabetes mellitus Qualifiers: Diabetes mellitus type: type 2 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 transplanted heart: [place] heart Associated angina: without angina Qualified Code(s): I25.810 - Atherosclerosis of coronary artery bypass graft(s) without angina pectoris
[2018-04-08] MEDS: Ketorolac 15 MG/ML VIAL IVP PRN (01:56)
[2018-04-08 03:43] LABS: Basophils # 0.1 K/mcL (0.0-0.2); Basophils % 0.8 %; Eosinophils # 0.6 K/mcL (0.0-0.6); Eosinophils % 4.9 %; Hematocrit 30.1 % (35.3-44.9); Hemoglobin 9.6 g/dL (11.5-15.4); Immature Granulocytes % 1.7 % (0-4); Lymphocytes # 1.7 K/mcL (0.6-4.6); Lymphocytes % 14.3 %; Mean Corpuscular HGB Conc 31.9 g/dL (31.6-35.5); Mean Corpuscular Hemoglobin 31.2 pg (28.0-33.3); Mean Corpuscular Volume 97.7 fL (83.0-100.0); Mean Platelet Volume 9.2 fL (9.4-12.4); Monocytes # 1.2 K/mcL (0.0-1.3); Monocytes % 10.4 %; Neutrophils # 7.9 K/mcL (1.6-8.9); Platelet Count 205 K/mcL (140-400); Red Blood Count 3.08 M/mcL (3.82-4.97); Red Cell Distribution Width 16.8 % (11.5-14.5); Segmented Neutrophils % 67.9 %
[2018-04-08 03:58] LABS: Calcium 7.7 mg/dL (8.6-10.3); Magnesium 2.2 mg/dL (1.6-2.6); Phosphorous 3.9 mg/dL (2.7-4.5); Potassium 4.9 mEq/L (3.5-5.1)
[2018-04-08] MEDS: Ondansetron 4 MG/2 ML VIAL IVP PRN (04:20)
[2018-04-08] MEDS: *HR* Heparin 5,000 UNIT/ML VIAL SQ SCH ×2 (05:05→17:53)
--- NOTE | 2018-04-08 09:26 | Podiatry Progress Note ---
Date of Encounter: 04/08/18 Time of Encounter: 08:25 - Assessment and Plan (1) Foot ulcer, left Current Visit: Yes Status: Acute Left foot right hallux and partial metatarsal amputation 04/02. Incision well approximated. No signs of dehiscence noted. No signs of infection. Expected post-operative erythema noted. Wound cultures obtained 04/02 returned negative. Old dressing removed with minimal serosanguineous drainage noted. Cleansed with 0.9 normal saline. Covered with Adaptic, dry gauze, and Kerlix. Patient has surgical shoe. Needs to wear when ambulating. Keep leg elevated when nonambulatory. Limited weightbearing of left lower extremity. Can d/c per podiatry standpoint. Will continue to monitor while in hospital. Qualifiers: Non-pressure ulcer stage: unspecified non-pressure ulcer stage Qualified Code(s): L97.529 - Non-pressure chronic ulcer of other part of left foot with un specified severity (2) Cellulitis of left foot Current Visit: Yes Status: Acute Erythema and edema subsided. ID following. (3) Osteomyelitis Current Visit: Yes Status: Suspected Left hallux and partial metatarsal amputation 04/02 see above plan. Qualifiers: Osteomyelitis type: acute hematogenous Osteomyelitis location: foot Laterality: left Qualified Code(s): M86.072 - Acute hematogenous osteomyelitis, left ankle and foot (4) PVD (peripheral vascular disease) Current Visit: Yes Status: Chronic Chronic vascular disease. Angiogram on 03/31/18 with intervention. Vascular surgery signed off (5) Diabetes mellitus Current Visit: Yes Status: Chronic Type II DM. Hemoglobin A1c 6.2. Blood glucose levels 150-200s 04/07/18 Recommend tight glycemic control for wound healing while in hospital. 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 Eating breakfast. at bedside. Denies any pain or overnight complications. Patient currently awaiting transfer from ICU to telemetry bed. Objective - Vital Signs Vital Signs: Vital Signs Temp Pulse Resp BP Pulse Ox 04/08/18 07:10 97.8 F 04/08/18 04:21 98.4 F 04/08/18 04:00 68 10 159/59 99 04/08/18 00:18 61 04/08/18 00:13 98.5 F 04/08/18 00:00 61 13 171/60 99 04/07/18 21:00 73 23 142/38 99 04/07/18 20:00 75 04/07/18 19:51 98.3 F 04/07/18 18:00 73 18 150/32 95 04/07/18 17:50 97.1 F L 18 159/63 04/07/18 17:30 142/52 04/07/18 17:15 139/48 04/07/18 17:00 156/48 04/07/18 16:45 173/56 04/07/18 16:30 133/56 04/07/18 16:15 132/64 04/07/18 16:00 160/93 04/07/18 15:45 143/102 04/07/18 15:30 129/52 04/07/18 15:15 136/52 04/07/18 15:00 148/49 04/07/18 14:45 169/66 04/07/18 14:30 97.2 F L 17 186/63 04/07/18 14:00 65 14 95 04/07/18 12:00 97.7 F 65 14 180/58 95 04/07/18 10:00 65 14 95 Intake and Output 04/07/18 04/08/18 04/08/18 23:59 07:59 15:59 Intake Total 148 / 148 240 / 240 Output Total 2600 / 2600 100 / 100 Balance -2452 / -2452 140 / 140 Intake: Oral 148 / 148 240 / 240 Output: Urine 100 / 100 Total Dialysis (HD) Output 2600 / 2600 Other: Meal Dinner Percent of Meal Consumed 60% Stool Size Small Stool Consistency formed Stool Color Brown Weight 75.7 kg Blood Glucose* 210 122 Hemodialysis Net Fluid Removed 2000 (mL) Patient Weight 04/08/18 23:59 Weight 75.7 kg - Exam Exam: Constitiutional: Alert and oriented x 3. Vascular: 1/4 DP/PT bilaterally, CFT <3 sec to all digits, warm to warm from tibia to toes bilaterally Neurologic: Diminished sensation to touch, normal plantar response, Dermatologic: Left lower extremity hallux and partial metatarsal amputation, sutures noted and well approximated. Minimal erythema noted. No signs of dehiscence noted. Right amputated hallux. Musculoskeletal: 4/5 muscle strength and normal tone bilaterally. - Lab Result Diagrams: 04/08/18 03:27 04/08/18 03:27 Labs: Abnormal lab results WBC 11.6 K/mcL (4.3-11.1) H 04/08/18 03:27 RBC 3.08 M/mcL (3.82-4.97) L 04/08/18 03:27 Hgb 9.6 g/dL (11.5-15.4) L 04/08/18 03:27 Hct 30.1 % (35.3-44.9) L 04/08/18 03:27 RDW 16.8 % (11.5-14.5) H 04/08/18 03:27 MPV 9.2 fL (9.4-12.4) L 04/08/18 03:27 ESR 77 mm/hr (0-15) H 03/29/18 11:58 Sodium 133 mEq/L (136-145) L 04/08/18 03:27 Chloride 96 mEq/L (98-107) L 04/08/18 03:27 BUN 33 mg/dL (8-23) H 04/08/18 03:27 Creatinine 4.49 mg/dL (0.60-1.20) H 04/08/18 03:27 Est GFR ( Amer) 12 (> 60) L 04/08/18 03:27 Est GFR (Non-Af Amer) 10 (> 60) L 04/08/18 03:27 Glucose 225 mg/dL (70-105) H 04/08/18 03:27 POC Glucose 122 mg/dL (70-99) H 04/08/18 07:16 Hemoglobin A1c 6.2 % (-5.6) H 04/06/18 03:34 Calcium 7.7 mg/dL (8.6-10.3) L 04/08/18 03:27 AST 64 Units/L (13-39) H 04/05/18 09:09 ALT 70 Units/L (7-52) H 04/05/18 09:09 C-Reactive Protein 157 mg/L (Less than 10) H 03/29/18 11:58 Serum Total Protein 5.9 g/dL (6.4-8.9) L 04/05/18 09:09 Albumin 3.1 g/dL (3.5-5.7) L 04/05/18 09:09 Triglycerides 167 mg/dL (< 150) H 04/06/18 03:34 VLDL Cholesterol, Calc 33 mg/dL (< 31) H 04/06/18 03:34 HDL Cholesterol 21 mg/dL (40-59) L 04/06/18 03:34 Lipase 7 Units/L (11-82) L 03/29/18 11:58 Urine Clarity Turbid (Clear) A 03/30/18 19:00 Urine Protein >=300 mg/dL (Neg-Trace) H 03/30/18 19:00 Urine Glucose (UA) 250 mg/dL (Normal) H 03/30/18 19:00 Urine Blood Trace (Negative) H 03/30/18 19:00 Urine Bilirubin Small (Negative) H 03/30/18 19:00 Ur Leukocyte Esterase Moderate (Negative) H 03/30/18 19:00 Urine Microscopic RBC 5-15 per hpf (0-3) H 03/30/18 19:00 Urine Microscopic WBC TNTC per hpf (0-3) H 03/30/18 19:00 Ur Squamous Epith Cells Many per lpf (None-Few) H 03/30/18 19:00 Ur Culture Indicated? NO. (NO) A 03/30/18 19:00 Consult Discharge Plan - Plan Additional Instructions: 04/23/2018: ALEJANDRA testing [address] Khan oupatient; please call and set up appointment prior to D/C. Referrals: Tom Xie Jr, MD [Primary Care Provider] - Tc Craig MD [Partnered Physician] - 04/27/18 3:40 pm Flavio Khan DPM [Partnered Physician] -
--- NOTE | 2018-04-08 11:08 | Infectious Disease Progress No ---
Date of Encounter: 04/08/18 Time of Encounter: 08:30 - Assessment and Plan (1) Sepsis Current Visit: Yes Status: Acute The patient had 2 sepsis criteria, including leukocytosis and fever. Likely secondary to left foot cellulitis. Improved. WBC is trending down. Afebrile overnight. Blood cultures drawn 03/29/18 are negative x 2 sets. Qualifiers: Sepsis type: sepsis due to unspecified organism Qualified Code(s): A41.9 - Sepsis, unspecified organism (2) Osteomyelitis Current Visit: Yes Status: Suspected Location: Left foot first metatarsal head and medial hallux sesamoid. Causative organism: Unclear. Wound culture is positive for K. oxytoca, higgins- sensitive. Likely secondary to chronic nonhealing foot ulcer. Left foot x-ray was negative for osteomyelitis. MRI showed findings consistent with reactive versus early osteomyelitis of the first metatarsal head and medial hallux sesamoid. Podiatry consulted. 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 Khan. Operative note reviewed. Intra-op cultures are negative. Pathology negative for OM. Wound care per the podiatry team. Continue cefepime 2 grams IV daily on HD days only. Duration of treatment is on the clinical picture. Imaging showed possible early OM, but pathology and bone cultures are negative. We will likely plan to treat for 2-4 weeks and evaluate how the patient is doing clinically. Monitor labs for drug toxicity and dose adjust antibiotics. Will likely be able to give IV antibiotics with HD. Discussed with the nephrology team. Qualifiers: Osteomyelitis type: acute hematogenous Osteomyelitis location: foot Laterality: left Qualified Code(s): M86.072 - Acute hematogenous osteomyelitis, left ankle and foot (3) Gangrene of left foot Current Visit: Yes Status: Suspected (4) Foot ulcer, left Current Visit: Yes Status: Acute Location: Plantar aspect of the left foot. Likely secondary to previous callus removal. Wound care per the podiatry team. Qualifiers: Non-pressure ulcer stage: unspecified non-pressure ulcer stage Qualified Code(s): L97.529 - Non-pressure chronic ulcer of other part of left foot with unspecified severity (5) ESRD (end stage renal disease) on dialysis Current Visit: Yes Status: Chronic Nephrology consulted and following. (6) Diabetes mellitus Current Visit: Yes Status: Chronic Recommend aggressive glucose monitoring and control to promote wound healing and prevent reinfection. Management per the primary team. 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 Repeat ABIs show severe disease bilaterally. TCPO2 right 40 ankle, 50 foot. Left 22 ankle, 13 foot. Vascular surgery consulted. Status post aortogram with BLE angiogram via right common artery, left SFA angioplasty, and left popliteal artery angioplasty by Dr. Craig. 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 --> ? medication adverse reaction CT head negative. MRI brain negative. Workup per the primary team. Qualifiers: Altered mental status type: disorientation Qualified Code(s): R41.0 - Disorientation, unspecified - Subjective Interval history: Patient seen and examined sitting up in the bedside chair. No acute events noted overnight. Patient awake, alert, oriented x 3. States overall feels better, but states she feels somewhat confused this morning. Denies fevers, chills, or rigors. Denies chest pain, shortness of breath, or cough. Denies nausea or vomiting or diarrhea. Denies abdominal pain or urinary complaints. Denies oral thrush or new skin lesions. Reports mild pain at the surgical site. Infect Dis PN-Objective Data - Labs CBC & Chem 7: 04/08/18 03:27 04/08/18 03:27 Labs: Laboratory Results - last 24 hr 04/07/18 04/07/18 04/07/18 06:58 11:53 17:12 WBC RBC Hgb Hct MCV MCH MCHC RDW Plt Count MPV Immature Gran % Seg Neutrophils % Lymphocytes % Monocytes % Eosinophils % Basophils % Neutrophils # Lymphocytes # Monocytes # Eosinophils # Basophils # Sodium Potassium Chloride Carbon Dioxide BUN Creatinine Est GFR ( Amer) Est GFR (Non-Af Amer) BUN/Creatinine Ratio Glucose POC Glucose 156 H 197 H 151 H Calculated Osmolality Calcium Phosphorus Magnesium 04/07/18 04/08/18 04/08/18 19:25 03:27 03:27 WBC 11.6 H RBC 3.08 L Hgb 9.6 L Hct 30.1 L MCV 97.7 MCH 31.2 MCHC 31.9 RDW 16.8 H Plt Count 205 MPV 9.2 L Immature Gran % 1.7 Seg Neutrophils % 67.9 Lymphocytes % 14.3 Monocytes % 10.4 Eosinophils % 4.9 Basophils % 0.8 Neutrophils # 7.9 Lymphocytes # 1.7 Monocytes # 1.2 Eosinophils # 0.6 Basophils # 0.1 Sodium 133 L Potassium 4.9 Chloride 96 L Carbon Dioxide 29 BUN 33 H Creatinine 4.49 H Est GFR ( Amer) 12 L Est GFR (Non-Af Amer) 10 L BUN/Creatinine Ratio 7 Glucose 225 H POC Glucose 210 H Calculated Osmolality 290 Calcium 7.7 L Phosphorus 3.9 Magnesium 2.2 04/08/18 07:16 WBC RBC Hgb Hct MCV MCH MCHC RDW Plt Count MPV Immature Gran % Seg Neutrophils % Lymphocytes % Monocytes % Eosinophils % Basophils % Neutrophils # Lymphocytes # Monocytes # Eosinophils # Basophils # Sodium Potassium Chloride Carbon Dioxide BUN Creatinine Est GFR ( Amer) Est GFR (Non-Af Amer) BUN/Creatinine Ratio Glucose POC Glucose 122 H Calculated Osmolality Calcium Phosphorus Magnesium Cultures: Cultures 04/02/18 11:30 Wound Culture - Final Left Foot No growth. 04/02/18 11:30 Wound Culture - Final Left Foot No growth. 04/02/18 11:30 Anaerobic Culture - Preliminary Left Foot At this time, no anaerobic growth is present. The culture will be finalized after 5 days of incubation. 04/02/18 11:30 Anaerobic Culture - Preliminary Left Foot At this time, no anaerobic growth is present. The culture will be finalized after 5 days of incubation. 03/29/18 12:50 Blood Culture - Final Peripheral Venipuncture No growth. Final report. 03/29/18 12:50 Blood Culture - Final Peripheral Venipuncture No growth. Final report. 03/29/18 16:45 Anaerobic Culture - Final Right Foot No anaerobes were recovered. 03/29/18 16:45 Wound Culture - Final Right Foot Klebsiella oxytoca Serology 03/30/18 03/29/18 Range/Units 19:00 15:09 Urine Color Yellow (Yellow) Urine Clarity Turbid A (Clear) Urine pH 6.0 (5.0-8.0) pH Units Ur Specific Jones 1.019 (1.010-1.025) Urine Protein >=300 H (Neg-Trace) mg/dL Urine Glucose (UA) 250 H (Normal) mg/dL Urine Ketones Negative (Negative) mg/dL Urine Blood Trace H (Negative) Urine Nitrite Negative (Negative) Urine Bilirubin Small H (Negative) Urine Urobilinogen Normal (Normal) mg/dL Ur Leukocyte Esterase Moderate H (Negative) Urine Microscopic RBC 5-15 H (0-3) per hpf Urine Microscopic WBC TNTC H (0-3) per hpf Ur Squamous Epith Cells Many H (None-Few) per lpf Urine Bacteria Few (None-Few) per hpf Hyaline Casts Few (None-Few) per lpf Ur Culture Indicated? NO. A (NO) Hep Bs Antigen Nonreactive (Nonreactive) Hep Bs Antibody 1.18 mIU/mL Exam - Constitutional Vitals: Temp Pulse Resp BP Pulse Ox 97.8 F 60 18 128/56 100 04/08/18 07:10 04/08/18 09:57 04/08/18 09:57 04/08/18 09:57 04/08/18 09:57 General appearance: average body habitus, cooperative, no acute distress - Head Head exam: Present: atraumatic, normal inspection, normocephalic - Eye Eye exam: Absent: normal appearance (Left eye atrophied.) - ENT ENT exam: Present: mucous membranes moist - Neck Neck exam: Present: normal inspection - Respiratory Respiratory exam: Present: CTAB. Absent: rales, respiratory distress, rhonchi, wheezes - Cardiovascular Cardiovascular exam: Present: RRR, +S1, +S2 - GI/Abdominal GI/Abdominal exam: Present: normal bowel sounds, soft. Absent: distended, tenderness - Extremities Exam Extremities exam: Absent: joint swelling, normal inspection (Left foot dressing C/D/I.), pedal edema, tenderness - Neurological Exam Neurological exam: Present: alert, oriented X3, no focal deficits - Psychiatric Psychiatric exam: Present: normal affect, normal mood - Skin Skin exam: Present: dry, intact, normal color, warm Consult Discharge Plan - Plan Additional Instructions: 04/23/2018: ALEJANDRA testing 1000 Referrals: Tom Xie Jr, MD [Primary Care Provider] - Tc Craig MD [Partnered Physician] - 04/27/18 3:40 pm - Attending Attestation I examined this patient and my medical decision-making was reviewed with the Resident Physician. I agree with the documented findings, disposition and treatment plan as described except to the extent set forth below.
[2018-04-08] MEDS: Furosemide 40 MG TABLET PO SCH ×2 (11:53→16:47)
[2018-04-08] MEDS: traMADol 50 MG TABLET PO SCH ×2 (11:54→21:50)
[2018-04-08] MEDS: Renal Vitamin 1 CAP CAPSULE PO SCH (11:54)
[2018-04-08] MEDS: Aspirin Enteric Coated 81 MG Tablet PO SCH (11:55)
[2018-04-08] MEDS: rOPINIRole 1 MG TABLET PO SCH ×2 (11:55→21:50)
[2018-04-08] MEDS: Dorzolamide/Timolol OPTH 10 ML BOTTLE BOTH EYES SCH ×2 (11:56→21:50)
[2018-04-08] MEDS: Insulin LISPRO 300 UNITS/3 ML VIAL SQ SCH ×4 (11:58→21:01)
--- NOTE | 2018-04-08 14:27 | Nephrology Progress Note ---
Date of Encounter: 04/08/18 Time of Encounter: 14:25 - Assessment and Plan (1) ESRD (end stage renal disease) on dialysis Current Visit: Yes Status: Chronic She is ESRD on HD MWF. HD planned for tomorrow. No complications from fistula site. Renal diet Strict I/Os; Avoid nephrotoxins if possible. (2) Cellulitis of left foot Current Visit: Yes Status: Acute S/p surgery. Appreciate Podiatry. (3) Altered mental status Current Visit: Yes Status: Resolved Resolved, alert. Qualifiers: Altered mental status type: disorientation Qualified Code(s): R41.0 - Disorientation, unspecified (4) Gangrene of foot Current Visit: Yes Status: Acute Appreciate podiatry/ID. Subjective Principal diagnosis: left leg infection Interval history: Pt seen and examined is doing well. Denies any CP or SOB. Denies nausea/vomiting/diarrhea. Objective - Vital Signs Vital signs: Vital Signs Temp Pulse Resp BP Pulse Ox 04/08/18 12:06 97.6 F 59 17 145/67 100 04/08/18 09:57 60 18 128/56 100 04/08/18 07:10 97.8 F 04/08/18 04:21 98.4 F 04/08/18 04:00 68 10 159/59 99 04/08/18 00:18 61 04/08/18 00:13 98.5 F 04/08/18 00:00 61 13 171/60 99 04/07/18 21:00 73 23 142/38 99 04/07/18 20:00 75 04/07/18 19:51 98.3 F 04/07/18 18:00 73 18 150/32 95 04/07/18 17:50 97.1 F L 18 159/63 04/07/18 17:30 142/52 04/07/18 17:15 139/48 04/07/18 17:00 156/48 04/07/18 16:45 173/56 04/07/18 16:30 133/56 04/07/18 16:15 132/64 04/07/18 16:00 160/93 04/07/18 15:45 143/102 04/07/18 15:30 129/52 04/07/18 15:15 136/52 04/07/18 15:00 148/49 04/07/18 14:45 169/66 04/07/18 14:30 97.2 F L 17 186/63 Intake and Output 04/07/18 04/08/18 04/08/18 23:59 07:59 15:59 Intake Total 148 / 148 240 / 240 Output Total 2600 / 2600 100 / 100 Balance -2452 / -2452 140 / 140 Intake: Oral 148 / 148 240 / 240 Output: Urine 100 / 100 Total Dialysis (HD) Output 2600 / 2600 Other: Meal Dinner Percent of Meal Consumed 60% Stool Size Small Stool Consistency formed Stool Color Brown Weight 75.7 kg Blood Glucose* 210 198 Hemodialysis Net Fluid Removed 2000 (mL) Patient Weight 04/08/18 23:59 Weight 75.7 kg - General Appearance General appearance: Present: well-developed, well-nourished EENT: Present: ATNC, hearing intact, vision intact Neck: Present: supple Respiratory: Present: clear Cardiology: Present: no edema, normal S1, normal S2 Dialysis Vascular Access: Arteriovenous Fistula thrill: Yes bruit: Yes Gastrointestinal: Present: normoactive bowel sounds, no tenderness, no guarding Integumentary: Present: no rash, warm and dry Neurologic: Present: alert and oriented x3 Psychiatric: Present: mood/affect appropriate, cooperative - Lab 04/08/18 03:27 04/08/18 03:27 Most recent lab results Calcium 7.7 mg/dL (8.6-10.3) L 04/08/18 03:27 Phosphorus 3.9 mg/dL (2.7-4.5) 04/08/18 03:27 Magnesium 2.2 mg/dL (1.6-2.6) 04/08/18 03:27 Consult Discharge Plan - Plan Additional Instructions: 04/23/2018: ALEJANDRA testing 1000 Referrals: Tom Xie Jr, MD [Primary Care Provider] - Tc Craig MD [Partnered Physician] - 04/27/18 3:40 pm
--- NOTE | 2018-04-08 20:55 | Internal Med Progress Note ---
Hospitalist Progress Note - Encounter Date of Encounter: 04/08/18 Time of Encounter: 16:00 - Subjective Interval History: SUBJECTIVE: The patient feels good. Her left foot pain is mild. Denies chest pain and difficulty breathing. Denies coughing and wheezing. Denies abdominal pain, nausea and vomiting. She continues hemodialysis. OBJECTIVE: Skin: For description of left foot wound see notes from podiatry and infectious diseases. The rest of skin is normal in appearance. ENMT: Oral/pharyngeal mucosa is normal in appearance. Eyes: Sclera is white. There is no discharge from eyes. Respiratory: Normal breath sounds; no crackles or wheezes. CV: Heart is regular; no gallop or murmur. GI: Abdomen is soft and not tender. There is no palpable mass or visceromegaly. Neuro: There is no focal deficits. ADDITIONAL DATA: Her last blood work was done yesterday. See my progress note from yesterday. ASSESSMENT AND PLAN: Diabetic foot ulcer with cellulitis and osteomyelitis of left foot. See notes from podiatry and infectious diseases. She had surgery done. We will continue daily dressings. She is on IV cefepime. End-stage renal disease/anemia in chronic kidney disease. Management as per nephrology. The patient gets hemodialysis in the hospital. Coronary artery disease/chronic diastolic heart failure. Stable. Will continue Toprol-XL, Lipitor and Plavix/enteric coated aspirin. She is on Imdur. Hypertensive renal disease with end-stage renal disease. Blood pressure is under control will continue Toprol-XL. DISPOSITION: The patient will definitely benefit from treatment at [facility]. A referral has been made. - Exam Vitals: Temp Pulse Resp BP Pulse Ox 98 F 60 18 171/71 98 04/08/18 20:30 04/08/18 20:30 04/08/18 20:30 04/08/18 20:30 04/08/18 20:30 Exam: xx - Assessment and Plan (1) Foot ulcer, left Current Visit: Yes Status: Acute (2) Cellulitis of left foot Current Visit: Yes Status: Acute (3) Osteomyelitis Current Visit: Yes Status: Suspected (4) Diabetes mellitus Current Visit: Yes Status: Chronic (5) ESRD (end stage renal disease) on dialysis Current Visit: Yes Status: Chronic (6) Anemia in chronic kidney disease Current Visit: Yes Status: Chronic (7) CAD (coronary artery disease) of artery bypass graft Current Visit: Yes Status: Chronic (8) Chronic diastolic heart failure Current Visit: Yes Status: Chronic (9) Hypertensive kidney disease with ESRD (end-stage renal disease) Current Visit: Yes Status: Chronic (10) PVD (peripheral vascular disease) Current Visit: Yes Status: Chronic - Time Spent with Patient Total time spent is greater than 50% in coordination of care (as documented) at patient's floor/unit and/or counseling patient: 25 - 35 minutes Plan of Care Discussed with: patient Internal Medicine: Result - Labs CBC & Chem 7: 04/08/18 03:27 04/08/18 03:27 Labs: Short CBC 04/08/18 Range/Units 03:27 WBC 11.6 H (4.3-11.1) K/mcL Hgb 9.6 L (11.5-15.4) g/dL Hct 30.1 L (35.3-44.9) % Plt Count 205 (140-400) K/mcL Neutrophils # 7.9 (1.6-8.9) K/mcL BMP 04/08/18 03:27 Sodium 133 L Potassium 4.9 Chloride 96 L Carbon Dioxide 29 BUN 33 H Creatinine 4.49 H Glucose 225 H Calcium 7.7 L - ABG Interpretation ABG results: PT/INR, D-dimer PT 11.2 Seconds (9.4-12.1) 04/02/18 04:00 Consult Discharge Plan - Plan Additional Instructions: 04/23/2018: ALEJANDRA testing [address] Khan oupatient; please call and set up appointment prior to D/C. Referrals: Flavio Khan DPM [Partnered Physician] - Tom Xie Jr, MD [Primary Care Provider] - Tc Craig MD [Partnered Physician] - 04/27/18 3:40 pm (1) Foot ulcer, left Qualifiers: Non-pressure ulcer stage: unspecified non-pressure ulcer stage Qualified Code(s): L97.529 - Non-pressure chronic ulcer of other part of left foot with unspecified severity (3) Osteomyelitis Qualifiers: Osteomyelitis type: acute hematogenous Osteomyelitis location: foot Laterality: left Qualified Code(s): M86.072 - Acute hematogenous osteomyelitis, left ankle and foot (4) Diabetes mellitus Qualifiers: Diabetes mellitus type: type 2 Diabetes mellitus extractor loader and unloader insulin use: with extractor loader and unloader use Diabetes mellitus complication status: with kidney complications Diabetes mellitus complication detail: with chronic kidney disease Chronic kidney disease stage: on chronic dialysis Qualified Code(s): E11.22 - Type 2 diabetes mellitus with diabetic chronic kidney disease; N18.6 - End stage renal disease; Z79.4 - tunnel form placing 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 transplanted heart: [place] heart Associated angina: without angina Qualified Code(s): I25.810 - Atherosclerosis of coronary artery bypass graft(s) without angina pectoris
[2018-04-08] MEDS: Insulin DETEMIR 100 UNIT/ML X5UNITS SQ SCH (22:59)
[2018-04-09] MEDS: *HR* Heparin 5,000 UNIT/ML VIAL SQ SCH (05:39)
[2018-04-09 07:16] LABS: Basophils # 0.1 K/mcL (0.0-0.2); Basophils % 0.8 %; Eosinophils # 0.7 K/mcL (0.0-0.6); Eosinophils % 4.4 %; Hematocrit 31.9 % (35.3-44.9); Hemoglobin 10.1 g/dL (11.5-15.4); Immature Granulocytes % 2.1 % (0-4); Lymphocytes # 2.4 K/mcL (0.6-4.6); Mean Corpuscular HGB Conc 31.7 g/dL (31.6-35.5); Mean Corpuscular Hemoglobin 30.7 pg (28.0-33.3); Mean Platelet Volume 9.4 fL (9.4-12.4); Monocytes # 1.3 K/mcL (0.0-1.3); Monocytes % 8.7 %; Neutrophils # 10.1 K/mcL (1.6-8.9); Platelet Count 272 K/mcL (140-400); Red Blood Count 3.29 M/mcL (3.82-4.97); Red Cell Distribution Width 16.1 % (11.5-14.5)
[2018-04-09 07:30] LABS: Potassium 5.8 mEq/L (3.5-5.1)
[2018-04-09] MEDS: Aspirin Enteric Coated 81 MG Tablet PO SCH (07:49)
[2018-04-09] MEDS: rOPINIRole 1 MG TABLET PO SCH (07:49)
[2018-04-09] MEDS: Insulin LISPRO 300 UNITS/3 ML VIAL SQ SCH ×3 (07:50→17:10)
[2018-04-09] MEDS: Renal Vitamin 1 CAP CAPSULE PO SCH (07:50)
[2018-04-09] MEDS: Furosemide 40 MG TABLET PO SCH ×2 (07:50→17:08)
[2018-04-09] MEDS: traMADol 50 MG TABLET PO SCH (07:50)
[2018-04-09] MEDS: Dorzolamide/Timolol OPTH 10 ML BOTTLE BOTH EYES SCH (07:51)
[2018-04-09] MEDS ORDERED: 0.9 % Sodium Chloride 250 ML IVC PRN (08:28)
[2018-04-09] MEDS ORDERED: 0.9 % Sodium Chloride 1,000 ML PRIME SCH (08:30)
[2018-04-09] MEDS ORDERED: 0.9 % Sodium Chloride 1,000 ML ONE (08:49)
[2018-04-09] MEDS ORDERED: amLODIPine 5 MG TABLET PO SCH (10:30)
--- NOTE | 2018-04-09 10:45 | Nephrology Progress Note ---
Date of Encounter: 04/09/18 Time of Encounter: 10:42 - Assessment and Plan (1) ESRD (end stage renal disease) on dialysis Current Visit: Yes Status: Chronic HD today Accepted at [place] as of today per note Renal diet-ordered Continue strict I/Os Avoid nephrotoxins if possible (2) Cellulitis of left foot Current Visit: Yes Status: Acute per podiatry/ID teams (3) Gangrene of foot Current Visit: Yes Status: Acute per podiatry/ID teams Subjective Principal diagnosis: left leg infection Interval history: Patient seen and examined in dialysis, denies any pain. Objective - Vital Signs Vital signs: Vital Signs Temp Pulse Resp BP Pulse Ox 04/09/18 04:00 97.9 F 67 16 171/61 96 04/08/18 20:30 98 F 60 18 171/71 98 04/08/18 18:11 97.4 F L 62 18 130/69 92 04/08/18 12:06 97.6 F 59 17 145/67 100 Intake and Output 04/08/18 04/09/18 04/09/18 23:59 07:59 15:59 Intake Total 240 / 240 240 / 240 Balance 240 / 240 240 / 240 Intake: Oral 240 / 240 240 / 240 Other: Meal Dinner Breakfast Percent of Meal Consumed 85% 100% Weight 75.3 kg Blood Glucose* 103 Patient Weight 04/09/18 23:59 Weight 75.3 kg - General Appearance General appearance: Present: well-developed, well-nourished EENT: Present: ATNC, mucous membranes moist, hearing intact, vision intact Neck: Present: supple Respiratory: Present: clear Cardiology: Present: no edema, normal S1, normal S2 Dialysis Vascular Access: Arteriovenous Fistula Gastrointestinal: Present: no tenderness, no guarding Integumentary: Present: warm and dry Neurologic: Present: alert and oriented x3 Psychiatric: Present: mood/affect appropriate, cooperative - Lab 04/09/18 06:49 04/09/18 06:49 Most recent lab results Calcium 8.0 mg/dL (8.6-10.3) L 04/09/18 06:49 Phosphorus 3.9 mg/dL (2.7-4.5) 04/08/18 03:27 Magnesium 2.2 mg/dL (1.6-2.6) 04/08/18 03:27 Consult Discharge Plan - Plan Additional Instructions: 04/23/2018: ALEJANDRA testing [address] Khan oupatient; please call and set up appointment prior to D/C. Referrals: Flavio Khan DPM [Partnered Physician] - Tom Xie Jr, MD [Primary Care Provider] - Tc Craig MD [Partnered Physician] - 04/27/18 3:40 pm
[2018-04-09] MEDS: Ondansetron 4 MG/2 ML VIAL IVP PRN (11:36)
[2018-04-09] MEDS ORDERED: traMADol 50 MG TABLET PO PRN (13:16)
--- NOTE | 2018-04-09 13:57 | Infectious Disease Progress No ---
Date of Encounter: 04/09/18 Time of Encounter: 13:55 - Assessment and Plan (1) Sepsis Current Visit: Yes Status: Acute The patient had 2 sepsis criteria, including leukocytosis and fever. Likely secondary to left foot cellulitis. Improved. WBC back up a little today. Afebrile overnight. Blood cultures drawn 03/29/18 are negative x 2 sets. Qualifiers: Sepsis type: sepsis due to unspecified organism Qualified Code(s): A41.9 - Sepsis, unspecified organism (2) Gangrene of left foot Current Visit: Yes Status: Suspected Location: Left foot first metatarsal head and medial hallux sesamoid. Causative organism: Unclear. Wound culture is positive for K. oxytoca, higgins- sensitive. Likely secondary to chronic nonhealing foot ulcer. Left foot x-ray was negative for osteomyelitis. MRI showed findings consistent with reactive versus early osteomyelitis of the first metatarsal head and medial hallux sesamoid. Podiatry consulted. 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 Khan. Operative note reviewed. Intra-op cultures are negative. Pathology negative for OM. Wound care per the podiatry team. Continue cefepime 2 grams IV daily on HD days only. Duration of treatment is on the clinical picture. Imaging showed possible early OM, but pathology and bone cultures are negative. We will likely plan to treat f or 2-4 weeks and evaluate how the patient is doing clinically. Monitor labs for drug toxicity and dose adjust antibiotics. Will likely be able to give IV antibiotics with HD. Discussed with the nephro logy team. (3) Osteomyelitis Current Visit: Yes Status: Ruled-out Bone cultures and pathology negative for OM. Imaging showed possible early osteomyelitis. Qualifiers: Osteomyelitis type: acute hematogenous Osteomyelitis location: foot Laterality: left Qualified Code(s): M86.072 - Acute hematogenous osteomyelitis, left ankle and foot (4) Foot ulcer, left Current Visit: Yes Status: Acute Location: Plantar aspect of the left foot. Likely secondary to previous callus removal. Wound care per the podiatry team. Qualifiers: Non-pressure ulcer stage: unspecified non-pressure ulcer stage Qualified Code(s): L97.529 - Non-pressure chronic ulcer of other part of left foot with unspecified severity (5) ESRD (end stage renal disease) on dialysis Current Visit: Yes Status: Chronic Nephrology consulted and following. (6) Diabetes mellitus Current Visit: Yes Status: Chronic Recommend aggressive glucose monitoring and control to promote wound healing and prevent reinfection. Management per the primary team. Qualifiers: Diabetes mellitus type: type 2 Diabetes mellitus retirement insulin use: wit h terminologist use Diabetes mellitus complication status: with kidney compli cations Diabetes mellitus complication detail: with chronic kidney disease Chronic kidney disease stage: on chronic dialysis Qualified Code(s): E11.22 - Type 2 diabetes mellitus with diabetic chronic kidney disease; N18.6 - End stage renal disease; Z79.4 - rodent exterminator (current) use of insulin; Z99.2 - Dependence on renal dialysis (7) PVD (peripheral vascular disease) Current Visit: Yes Status: Chronic ABIs completed 08/20/17 showed findings consistent with severe disease in the right lower extremity and moderate disease in the left lower extremity. Repeat ABIs show severe disease bilaterally. TCPO2 right 40 ankle, 50 foot. Left 22 ankle, 13 foot. Vascular surgery consulted. Status post aortogram with BLE angiogram via right common artery, left SFA angioplasty, and left popliteal artery angioplasty by Dr. Craig. 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 --> ? medication adverse reaction CT head negative. MRI brain negative. Workup per the primary team. Qualifiers: Altered mental status type: disorientation Qualified Code(s): R41.0 - Disorientation, unspecified - Subjective Interval history: Patient seen and examined in HD. No acute events noted overnight. Patient awake, alert, oriented x 3. States overall isn't doing very well as she is currently on the bedpan trying to have a BM. Reports pain in the rectum at this time. Denies fevers, chills, or rigors. Denies chest pain, shortness of breath, or cough. Reports some nausea and states she feels like she might vomit. Denies abdominal pain or urinary complaints. Denies oral thrush or new skin lesions. Reports mild pain at the surgical site. Infect Dis PN-Objective Data - Labs CBC & Chem 7: 04/09/18 06:49 04/09/18 06:49 Labs: Laboratory Results - last 24 hr 04/08/18 04/08/18 04/09/18 15:56 20:53 06:49 WBC 14.9 H RBC 3.29 L Hgb 10.1 L Hct 31.9 L MCV 97.0 MCH 30.7 MCHC 31.7 RDW 16.1 H Plt Count 272 MPV 9.4 Immature Gran % 2.1 Seg Neutrophils % 68.0 Lymphocytes % 16.0 Monocytes % 8.7 Eosinophils % 4.4 Basophils % 0.8 Neutrophils # 10.1 H Lymphocytes # 2.4 Monocytes # 1.3 Eosinophils # 0.7 H Basophils # 0.1 Sodium Potassium Chloride Carbon Dioxide BUN Creatinine Est GFR ( Amer) Est GFR (Non-Af Amer) BUN/Creatinine Ratio Glucose POC Glucose 139 H 187 H Calculated Osmolality Calcium 04/09/18 04/09/18 06:49 07:01 WBC RBC Hgb Hct MCV MCH MCHC RDW Plt Count MPV Immature Gran % Seg Neutrophils % Lymphocytes % Monocytes % Eosinophils % Basophils % Neutrophils # Lymphocytes # Monocytes # Eosinophils # Basophils # Sodium 131 L Potassium 5.8 H Chloride 94 L Carbon Dioxide 28 BUN 54 H Creatinine 6.53 H Est GFR ( Amer) 8 L Est GFR (Non-Af Amer) 6 L BUN/Creatinine Ratio 8 Glucose 89 POC Glucose 103 H Calculated Osmolality 286 Calcium 8.0 L Cultures: Cultures 04/02/18 11:30 Anaerobic Culture - Final Left Foot No anaerobes were recovered. 04/02/18 11:30 Anaerobic Culture - Final Left Foot No anaerobes were recovered. 04/02/18 11:30 Wound Culture - Final Left Foot No growth. 04/02/18 11:30 Wound Culture - Final Left Foot No growth. 03/29/18 12:50 Blood Culture - Final Peripheral Venipuncture No growth. Final report. 03/29/18 12:50 Blood Culture - Final Peripheral Venipuncture No growth. Final report. 03/29/18 16:45 Anaerobic Culture - Final Right Foot No anaerobes were recovered. 03/29/18 16:45 Wound Culture - Final Right Foot Klebsiella oxytoca Serology 03/30/18 03/29/18 Range/Units 19:00 15:09 Urine Color Yellow (Yellow) Urine Clarity Turbid A (Clear) Urine pH 6.0 (5.0-8.0) pH Units Ur Specific [place] 1.019 (1.010-1.025) Urine Protein >=300 H (Neg-Trace) mg/dL Urine Glucose (UA) 250 H (Normal) mg/dL Urine Ketones Negative (Negative) mg/dL Urine Blood Trace H (Negative) Urine Nitrite Negative (Negative) Urine Bilirubin Small H (Negative) Urine Urobilinogen Normal (Normal) mg/dL Ur Leukocyte Esterase Moderate H (Negative) Urine Microscopic RBC 5-15 H (0-3) per hpf Urine Microscopic WBC TNTC H (0-3) per hpf Ur Squamous Epith Cells Many H (None-Few) per lpf Urine Bacteria Few (None-Few) per hpf Hyaline Casts Few (None-Few) per lpf Ur Culture Indicated? NO. A (NO) Hep Bs Antigen Nonreactive (Nonreactive) Hep Bs Antibody 1.18 mIU/mL Exam - Constitutional Vitals: Temp Pulse Resp BP Pulse Ox 97.2 F L 67 180 125/68 96 04/09/18 10:20 04/09/18 04:00 04/09/18 10:20 04/09/18 13:20 04/09/18 04:00 General appearance: average body habitus, cooperative, no acute distress - Head Head exam: Present: atraumatic, normal inspection, normocephalic - Eye Eye exam: Absent: normal appearance (left eye atrophied.) - ENT ENT exam: Present: mucous membranes moist - Neck Neck exam: Present: normal inspection - Respiratory Respiratory exam: Present: CTAB. Absent: rales, respiratory distress, rhonchi, wheezes - Cardiovascular Cardiovascular exam: Present: RRR, +S1, +S2 - GI/Abdominal GI/Abdominal exam: Present: normal bowel sounds, soft. Absent: distended, tenderness - Extremities Exam Extremities exam: Absent: normal inspection (left foot dressing C/D/I) - Neurological Exam Neurological exam: Present: alert, oriented X3, no focal deficits - Psychiatric Psychiatric exam: Present: normal affect, normal mood - Skin Skin exam: Present: dry, intact, normal color, warm Consult Discharge Plan - Plan Additional Instructions: 04/23/2018: ALEJANDRA testing [address] Khan oupatient; please call and set up appointment prior to D/C. HD ON M/W/F Referrals: Flavio Khan DPM [Partnered Physician] - Tom Xie Jr, MD [Primary Care Provider] - Tc Craig MD [Partnered Physician] - 04/27/18 3:40 pm Prescriptions: Cefepime HCl/Dextrose, Iso-Osm [Cefepime 2 gm Injection] 2 gm IV AD #12 mls RX: Tramadol HCl [Ultram] 50 mg PO Q12H PRN 5 Days #10 tab PRN Reason: Moderate Pain - Attending Attestation I examined this patient and my medical decision-making was reviewed with the Resident Physician. I agree with the documented findings, disposition and treatment plan as described except to the extent set forth below.
--- NOTE | 2018-04-09 15:53 | Discharge Summary ---
Orders not resulted at time of discharge: Pending orders 04/05/18 09:00 Urinalysis reflex Microscopic [URIN] Stat Date of Encounter: 04/09/18 Time of Encounter: 15:51 - Discharge Diagnosis (1) Foot ulcer, left Priority: Primary Status: Acute Qualifiers: Non-pressure ulcer stage: unspecified non-pressure ulcer stage Qualified Code(s): L97.529 - Non-pressure chronic ulcer of other part of left foot with unspecified severity (2) Cellulitis of left foot Priority: Primary Status: Acute (3) Osteomyelitis Priority: Primary Status: Ruled-out Qualifiers: Osteomyelitis type: acute hematogenous Osteomyelitis location: foot Laterality: left Qualified Code(s): M86.072 - Acute hematogenous osteomyelitis, left ankle and foot (4) Diabetes mellitus Priority: Secondary Status: Chronic Qualifiers: Diabetes mellitus type: type 2 Diabetes mellitus cake washer insulin use: with fdc use Diabetes mellitus complication status: with kidney complications Diabetes mellitus complication detail: with chronic kidney disease Chronic kidney disease stage: on chronic dialysis Qualified Code(s): E11.22 - Type 2 diabetes mellitus with diabetic chronic kidney disease; N18.6 - End stage renal disease; Z79.4 - skilled nursing (current) use of insulin; Z99.2 - Dependence on renal dialysis (5) ESRD (end stage renal disease) on dialysis Priority: Secondary Status: Chronic (6) Anemia in chronic kidney disease Priority: Secondary Status: Chronic Qualifiers: Chronic kidney disease stage: on chronic dialysis Qualified Code(s): N18.6 - End stage renal disease; D63.1 - Anemia in chronic kidney disease; Z99.2 - Dependence on renal dialysis (7) CAD (coronary artery disease) of artery bypass graft Priority: Secondary Status: Chronic Qualifiers: [place] vs. transplanted heart: [place] heart Associated angina: without angina Qualified Code(s): I25.810 - Atherosclerosis of coronary artery bypass graft(s) without angina pectoris (8) Chronic diastolic heart failure Priority: Secondary Status: Chronic (9) Hypertensive kidney disease with ESRD (end-stage renal disease) Priority: Secondary Status: Chronic (10) PVD (peripheral vascular disease) Priority: Secondary Status: Chronic Hospital course: HOSPITAL COURSE: The patient is a 72-year-old woman with insulin-dependent type 2 diabetes mellitus/end-stage renal disease. We admitted her with diabetic foot ulcer/cellulitis in left foot. The patient was presented to podiatry. Imaging studies showed osteomyelitis in the left first ray. The patient underwent left partial first ray amputation with soft tissue rearrangement for closure of wound. Infectious diseases was consulted. We kept this patient on cefepime at 2 g IV on Wednesdays and Fr[place] She is to continue this antibiotic for the next 2-4 weeks. She got daily dressings. Nephrology was managing her hemodialysis/chronic kidney disease. CONDITION AT DISCHARGE: She feels good. She does not have any significant pain in the left foot. She is able to ambulate on her own. Denies chest pain and difficulty breathing. Denies coughing and wheezing. De nies abdominal pain, nausea and vomiting. Skin: Free of rash and discoloration. There is a dressing applied to her left foot. Respiratory: Normal breath sounds with no crackles and wheezes bilaterally. CV: Heart is regular with no gallop or murmur. GI: Abdomen is flat and soft with no palpable mass or visceromegaly. Neuro exam: There is no focal deficits. Normal speech, swallowing and gait. SEE DISCHARGE ORDERS/MEDICATIONS.. Discharge discussed with: patient, nurse, case management - Time Spent with Patient Total time spent providing and/or coordinating discharge services: Greater than 30 minutes (45 minutes..) - Discharge Medications Prescriptions: Cefepime HCl/Dextrose, Iso-Osm [Cefepime 2 gm Injection] 2 gm IV AD #12 mls Tramadol HCl [Ultram] 50 mg PO Q12H PRN 5 Days #10 tab PRN Reason: Moderate Pain Home Medications: Aspirin [Lo-Dose Aspirin EC] 81 mg PO DAILY 06/17/17 [History] Ergocalciferol (VITAMIN D2) [Vitamin D2] 50,000 unit PO QWEEK 06/17/17 [History] Escitalopram [Lexapro] 20 mg PO DAILY 06/17/17 [History] Furosemide [Lasix] 80 mg PO BID 06/17/17 [History] Insulin LISPRO [HumaLOG] 4 - 10 units SQ TIDWM 06/17/17 [History] rOPINIRole [Requip] 1 mg PO BID 06/17/17 [History] Albuterol Neb [Proventil Neb] 2.5 mg IH Q8H PRN 01/19/18 [History] Atorvastatin [Lipitor] 20 mg PO HS 01/19/18 [History] Calcium Carbonate/Vitamin D3 [Calcium 500+D Tablet Chew] 1 each PO BID 01/19/18 [History] Clopidogrel Bisulfate [Plavix] 75 mg PO DAILY #30 tablet 01/19/18 [Rx] Folic Acid/Vit B Complex and C [Dialyvite Tablet] 1 tab PO DAILY 01/19/18 [History] Insulin Glargine,Hum.rec.anlog [Basaglar Kwikpen U-100] 15 unit SQ HS 03/29/18 [History] Isosorbide MONOnitrate (24 HR) [Imdur] 30 mg PO DAILY 03/29/18 [History] Metoprolol Succinate [Kapspargo Sprinkle] 25 mg PO DAILY 03/29/18 [History] Nitroglycerin [Nitrostat] 0.4 mg SL Q5M PRN 03/29/18 [History] Sevelamer [Renvela] 2,400 mg PO TIDWM 03/29/18 [History] Artificial Tears SOLN [Akwa Tears] 1 drop BOTH EYES QID PRN 03/30/18 [History] Dorzolamide/Timolol/Pf [Dorzolamide-Timolol 2%-0.5%] 1 drop BOTH EYES BID 03/30/18 [History] Acetaminophen [Tylenol] 500 mg PO Q6HR PRN tablet 04/09/18 [Rx] Cefepime HCl/Dextrose, Iso-Osm [Cefepime 2 gm Injection] 2 gm IV AD #12 mls 04/09/18 [Rx] Tramadol HCl [Ultram] 50 mg PO Q12H PRN 5 Days #10 tab 04/09/18 [Rx] amLODIPine [Norvasc] 5 mg PO DAILY tablet 04/09/18 [Rx] Allergies/Adverse Reactions: Allergy/AdvReac Type Severity Reaction Status Date / Time codeine Allergy Mild Rash Verified 03/30/18 13:09 gabapentin [From Neurontin] Allergy Mild Rash Verified 03/30/18 13:09 Penicillins [PCN] Allergy Mild Rash Verified 03/30/18 13:09 zinc Allergy Mild Rash Verified 03/30/18 13:09 tetanus Allergy Mild Rash Uncoded 03/30/18 13:09 Date of admission: 03/31/18 14:24 Primary care physician: Tom Xie Jr, MD Consults: 03/29/18 13:25 Consult to Podiatry [CONS] Stat Consulting Provider: Podiatry [facility] Reason for Consult: left foot soft tissue wound with gangrenous changes Time Notified: 13:25 Call Completed: Yes 03/29/18 15:09 Consult to Nephrology [CONS] Routine Consulting Provider: [facility]/JAYLEEN/NAYLA/RADHA Reason for Consult: HD patient Time Notified: 15:10 Call Completed: Yes 03/29/18 15:30 Consult to Dialysis [CONS] ONCE 03/30/18 08:54 Consult to Vascular Surgery [CONS] Routine Consulting Provider: V[facility] Reason for Consult: abnormal ALEJANDRA, PVD, right foot ulcer Call Completed: Yes 03/30/18 12:27 Consult to Infectious Diseases [CONS] Routine Consulting Provider: Infectious Disease [facility] Reason for Consult: foot ulce and osteo Time Notified: 12:28 Call Completed: Yes 03/31/18 10:00 Consult to Dialysis [CONS] ONCE 04/02/18 10:30 Consult to Dialysis [CONS] ONCE 04/05/18 06:30 Consult to Dialysis [CONS] ONCE 04/05/18 08:09 Consult to Wallcovering Texturer [CONS] Routine Reason for SW Consult: dispo planning, s/p podiatry surgery 04/05/18 09:00 Consult to Speech Therapy [CONS] Routine Comment: Evaluate, develop and implement POC Reason for Consult: speech change, edentulous, eval for diet Call Completed: No 04/05/18 14:08 Consult to Physical Therapy [CONS] Routine Comment: Evaluate, develop and implement POC Reason for Consult: Functional after first ray amputation Does patient have active BEDREST order?: No Is patient medically & hemodynamically stable?: Yes Patient assessed for mobility or mobilized this visit?: Yes 04/05/18 14:10 Consult to Occupational Therapy [CONS] Routine Comment: Evaluate, develop and implement POC Reason for Consult: ADLs after first ray amputation Does patient have active BEDREST order?: No Is patient medically & hemodynamically stable?: Yes 04/05/18 18:24 Consult to Critical Care [CONS] Routine Consulting Provider: [facility]m [facility] Reason for Consult: AVF hemorrhage transferred to icu Call Completed: No Consult to Vascular Surgery [CONS] Routine Consulting Provider: Vascular Surgery [facility] Reason for Consult: uncontrolled avf bleeding in HD, case d/w Dr Boyce via phone immediately Call Completed: Yes 04/07/18 11:30 Consult to Dialysis [CONS] ONCE 04/09/18 08:30 Consult to Dialysis [CONS] ONCE Discharging clinician: Theodore Acosta Anticipated date of discharge: 04/09/18 - Constitutional Vitals: Temp Pulse Resp BP Pulse Ox 98.1 F 67 18 123/53 96 04/09/18 14:12 04/09/18 04:00 04/09/18 14:12 04/09/18 14:12 04/09/18 04:00 General appearance: Present: A&O X 3, no acute distress, answers questions appropriately Exam: xx - Patient Status Disposition: Transfer SNF Condition: Fair Functional capacity at discharge: uses cane/walker Overall status at discharge: patient is progressing back to baseline - Discharge Instructions Follow Up With: Flavio Khan DPM [Partnered Physician] - Tom Xie Jr, MD [Primary Care Provider] - Tc Craig MD [Partnered Physician] - 04/27/18 3:40 pm Additional Instructions: 04/23/2018: ALEJANDRA testing [address] Khan oupatient; please call and set up appointment prior to D/C. HD ON // - Diet and Activity Activity: ambulate only with your walker, as per physical therapy, increase activity as tolerated Diet: diabetic diet - VTE Deep Vein Thrombosis/Pulmonary Embolism Present on Admission: No
--- NOTE | 2018-04-09 16:25 | Physician Discharge Referral ---
ExtendedCare Referral Info Transfer To: F Provider in Charge: Alvino Acosta Institutional Level of Care: Skilled - Diagnosis (1) Foot ulcer, left Priority: Primary Status: Acute (2) Cellulitis of left foot Priority: Primary Status: Acute (3) Osteomyelitis Priority: Primary Status: Ruled-out (4) Diabetes mellitus Priority: Secondary Status: Chronic (5) ESRD (end stage renal disease) on dialysis Priority: Secondary Status: Chronic (6) Anemia in chronic kidney disease Priority: Secondary Status: Chronic (7) CAD (coronary artery disease) of artery bypass graft Priority: Secondary Status: Chronic (8) Chronic diastolic heart failure Priority: Secondary Status: Chronic (9) Hypertensive kidney disease with ESRD (end-stage renal disease) Priority: Secondary Status: Chronic (10) PVD (peripheral vascular disease) Priority: Secondary Status: Chronic Prognosis: Fair Aware of Diagnosis: Patient Aware of Prognosis: Patient - Transfer Medications Prescriptions: Cefepime HCl/Dextrose, Iso-Osm [Cefepime 2 gm Injection] 2 gm IV AD #12 mls Tramadol HCl [Ultram] 50 mg PO Q12H PRN 5 Days #10 tab PRN Reason: Moderate Pain Home Medications: Aspirin [Lo-Dose Aspirin EC] 81 mg PO DAILY 06/17/17 [History] Ergocalciferol (VITAMIN D2) [Vitamin D2] 50,000 unit PO QWEEK 06/17/17 [History] Escitalopram [Lexapro] 20 mg PO DAILY 06/17/17 [History] Furosemide [Lasix] 80 mg PO BID 06/17/17 [History] Insulin LISPRO [HumaLOG] 4 - 10 units SQ TIDWM 06/17/17 [History] rOPINIRole [Requip] 1 mg PO BID 06/17/17 [History] Albuterol Neb [Proventil Neb] 2.5 mg IH Q8H PRN 01/19/18 [History] Atorvastatin [Lipitor] 20 mg PO HS 01/19/18 [History] Calcium Carbonate/Vitamin D3 [Calcium 500+D Tablet Chew] 1 each PO BID 01/19/18 [History] Clopidogrel Bisulfate [Plavix] 75 mg PO DAILY #30 tablet 01/19/18 [Rx] Folic Acid/Vit B Complex and C [Dialyvite Tablet] 1 tab PO DAILY 01/19/18 [History] Insulin Glargine,Hum.rec.anlog [Basaglar Doloresikpen U-100] 15 unit SQ HS 03/29/18 [History] Isosorbide MONOnitrate (24 HR) [Imdur] 30 mg PO DAILY 03/29/18 [History] Metoprolol Succinate [Kapspargo Sprinkle] 25 mg PO DAILY 03/29/18 [History] Nitroglycerin [Nitrostat] 0.4 mg SL Q5M PRN 03/29/18 [History] Sevelamer [Renvela] 2,400 mg PO TIDWM 03/29/18 [History] Artificial Tears SOLN [Akwa Tears] 1 drop BOTH EYES QID PRN 03/30/18 [History] Dorzolamide/Timolol/Pf [Dorzolamide-Timolol 2%-0.5%] 1 drop BOTH EYES BID 03/30/18 [History] Acetaminophen [Tylenol] 500 mg PO Q6HR PRN tablet 04/09/18 [Rx] Cefepime HCl/Dextrose, Iso-Osm [Cefepime 2 gm Injection] 2 gm IV AD #12 mls 04/09/18 [Rx] Tramadol HCl [Ultram] 50 mg PO Q12H PRN 5 Days #10 tab 04/09/18 [Rx] amLODIPine [Norvasc] 5 mg PO DAILY tablet 04/09/18 [Rx] Allergies/Adverse Reactions: Allergy/AdvReac Type Severity Reaction Status Date / Time codeine Allergy Mild Rash Verified 03/30/18 13:09 gabapentin [From Neurontin] Allergy Mild Rash Verified 03/30/18 13:09 Penicillins [PCN] Allergy Mild Rash Verified 03/30/18 13:09 zinc Allergy Mild Rash Verified 03/30/18 13:09 tetanus Allergy Mild Rash Uncoded 03/30/18 13:09 - Respiratory Orders Oxygen / L per min (2 l/min; keep pulse-ox in 90-95% range..) Smoking Cessation: Smoking cessation has been advised. For more information, call the [place] Tobacco Quit Line at 2-585-PTLW-NOW. - Advance Directives Code Status: Full Code - Mobility Orders Ambulate (with a walker..) - Rehabiliation Orders Rehab Potential: Fair Rehab Orders: Evaluation for Physical Therapy - Treatments List/Other: HEMODIALYSIS ON //F.. CEFEPIME -- AT HD TIME -- FOR 4 WEEKS.. F-UP WITH PODIATRY -- IN 1-2 WEEKS.. - Diet Orders No Concentrated Sweets (1500 ste[address]ie ADA) CERTIFICATION: I certify that the transfer of the above named patient to an Extended Care Facility is necessary for the continuing treatment of the diagnosis listed. The above information is true and accurate reflection of patient's current condition. Confidential - Redisclosure prohibited without a patient's written consent.
[2018-04-09 16:45] VITALS: BP 125/64
[2018-04-09] MEDS: Cefepime HCl 2,000 MG in Water for inj. (sterile) 20 ML 20 ML IVP SCH (17:12)
== END 2018-04-09 18:39 | DRG 617 ==
LOC: 3ANU 10:58 → EMEROOARM 10:58 → SUATTDRO 13:51 → 3ANU 14:37 → 2ANU 14:41 → SUATTDRO 03-31 14:24 → 2ANU 04-02 00:34 → 3BNU 04-02 14:39 → ICNU 04-05 18:18 → 2SOUTHHOLD 04-08 08:48
PROVIDERS: ADMIT Hospitalist; ATTEND Internal Medicine

== ENCOUNTER 2018-06-07 17:27 | Observation (INO) ==
--- NOTE | 2018-06-07 18:11 | Emergency Department Note ---
Disposition Clinical Impression: CKD (chronic kidney disease) requiring chronic dialysis, Elevated brain natriuretic peptide (BNP) level UTI (urinary tract infection) Qualifiers: Urinary tract infection type: site unspecified Hematuria presence: with hematuria Qualified Code(s): N39.0 - Urinary tract infection, site not specified; R31.9 - Hematuria, unspecified Anemia Qualifiers: Anemia type: unspecified type Qualified Code(s): D64.9 - Anemia, unspecified Disposition: Admitted As Inpatient Condition: Fair Referrals: NONE,PCP [Primary Care Provider] - Forms: ED Satisfaction Letter Time of Disposition: 20:49 General Adult HPI - General Chief complaint: ED Shortness of Breath/Dyspnea Stated complaint: ALICE Time Seen by Provider: 06/07/18 17:30 Source: patient, EMS Mode of arrival: EMS Limitations: no limitations Nursing Notes Reviewed: Yes Vital Signs Reviewed: Yes - History of Present Illness HPI Narrative: Patient is a 72-year-old female that presents emergency Department with reports from her of "talking out of her head". Patient states that she did have dialysis today and completed the session. Patient states that the did not pull any fluid off today. Patient's states that she did pull off her bandage from her dialysis site today and had bleeding from that area. Patient's states that she seems to be better now than what she was earlier. Patient denies any fevers. Patient states that she has been coughing and generally not feeling well. Patient states that she has had increased urinary frequency howev er the states that she only urinates approximately one time per day due to being a chronic dialysis patient. Patient states that she dialyzes on Thursday, Thursday and Thursday. Patient states that her last dialysis session was today. Pain Scale: 0 - Related Data Home Medications Medication Instructions Recorded Confirmed Aspirin [Lo-Dose Aspirin EC] 81 mg PO DAILY 06/17/17 06/03/18 Ergocalciferol (VITAMIN D2) 50,000 unit PO QWEEK 06/17/17 06/03/18 [Vitamin D2] Escitalopram [Lexapro] 20 mg PO DAILY 06/17/17 06/03/18 Furosemide [Lasix] 80 mg PO BID 06/17/17 06/03/18 Insulin LISPRO [HumaLOG] 4 - 10 units SQ TIDWM 06/17/17 06/03/18 rOPINIRole [Requip] 1 mg PO BID 06/17/17 06/03/18 Albuterol Neb [Proventil Neb] 2.5 mg IH Q8H PRN 01/19/18 06/03/18 Atorvastatin [Lipitor] 80 mg PO HS 01/19/18 06/03/18 Calcium Carbonate/Vitamin D3 1 each PO BID 01/19/18 06/03/18 [Calcium 500+D Tablet Chew] Folic Acid/Vit B Complex and C 1 tab PO DAILY 01/19/18 06/03/18 [Dialyvite Tablet] Insulin Glargine,Hum.rec.anlog 15 unit SQ HS 03/29/18 06/03/18 [Basaglar Kwikpen U-100] Isosorbide MONOnitrate (24 HR) 120 mg PO DAILY 03/29/18 06/03/18 [Imdur] Metoprolol Succinate [Kapspargo 25 mg PO BID 03/29/18 06/03/18 Sprinkle] Nitroglycerin [Nitrostat] 0.4 mg SL Q5M PRN 03/29/18 06/03/18 Sevelamer [Renvela] 2,400 mg PO TIDWM 03/29/18 06/03/18 Artificial Tears SOLN [Akwa Tears] 1 drop BOTH EYES QID PRN 03/30/18 06/03/18 Dorzolamide/Timolol/Pf 1 drop BOTH EYES BID 03/30/18 06/03/18 [Dorzolamide-Timolol 2%-0.5%] Calcium Carbonate/Vitamin D3 1 each PO DAILY 05/05/18 06/03/18 [Oyster Shell Calcium-Vit D Tab] Ondansetron HCl [Zofran] 4 mg PO Q8HR PRN 05/05/18 06/03/18 Promethazine [Phenergan] 25 mg PO Q12H PRN 05/05/18 06/03/18 Previous Rx's Medication Instructions Recorded Clopidogrel Bisulfate [Plavix] 75 mg PO DAILY #30 tablet 01/19/18 Acetaminophen [Tylenol] 500 mg PO Q6HR PRN tablet 04/09/18 Cefepime HCl/Dextrose, Iso-Osm 2 gm IV AD #12 mls 04/09/18 [Cefepime 2 gm Injection] amLODIPine [Norvasc] 5 mg PO DAILY tablet 04/09/18 Allergies Allergy/AdvReac Type Severity Reaction Status Date / Time codeine Allergy Mild Rash Verified 06/03/18 09:10 gabapentin [From Neurontin] Allergy Mild Rash Verified 06/03/18 09:10 Penicillins [PCN] Allergy Mild Rash Verified 06/03/18 09:10 zinc Allergy Mild Rash Verified 06/03/18 09:10 tetanus Allergy Mild Rash Uncoded 03/30/18 13:09 All systems ED: reviewed and negative except as stated. Constitutional: Denies: fever Cardiovascular: Denies: chest pain Respiratory: Reports: cough. Denies: dyspnea Genitourinary: Reports: frequency Past Medical History - Past Medical History Medical history: Reports: CHF, COPD, diabetes, dialysis, hyperlipidemia, hypertension, renal disease Surgical history: Reports: cholecystectomy, orthopedic, other, vascular surgery, LE bypass, LE vascular intervention Psychiatric history: Reports: no psych history PSYCH SALES SPECIALIST history: Reports: no PSYCH SALES SPECIALIST history - Social History Smoking Status: Former smoker Smokeless Tobacco Status: No Alcohol use: Reports: none Drug use: Reports: none Physical Exam - General Limitations: no limitations General appearance: alert, in no apparent distress - Head Head exam: atraumatic, normocephalic - Eye Eye exam: Present: EOMI - Neck Neck exam: Present: normal inspection, full ROM, trachea midline - Respiratory Respiratory exam: Present: other (Course breath sounds in bilateral bases). Absent: respiratory distress, wheezes - Cardiovascular Cardiovascular exam: Present: regular rate, normal rhythm, normal heart sounds, +S1, +S2 - Abdominal Exam Abdominal exam: Present: soft, Non-Tender, normal bowel sounds - Neurological Exam Neurological exam: Present: alert, oriented X3 - Psychiatric Psychiatric exam: Present: normal affect, normal mood - Skin Skin exam: Present: warm, dry, intact Course Vital Signs Temperature 100.1 F H 06/07/18 17:37 Pulse Rate 72 06/07/18 17:37 Respiratory Rate 22 06/07/18 17:37 Blood Pressure 194/72 06/07/18 17:37 O2 Sat by Pulse Oximetry 98 06/07/18 17:37 Temperature 100.1 F H 06/07/18 17:37 Pulse Rate 70 06/07/18 18:59 Respiratory Rate 24 06/07/18 18:59 Blood Pressure 174/69 06/07/18 18:59 O2 Sat by Pulse Oximetry 99 06/07/18 18:59 Oxygen Delivery Oxygen Delivery Nasal Cannula Medical Decision Making - MDM Narrative Medical decision making narrative: Due the patient's and into the emergency department with reports of generally not feeling well, cough and possible altered mentation we will obtain basic laboratory testing as well as imaging of the patient's head. Patient's EKG does not show any acute arrhythmias or ischemic changes. Urine is concerning for possible urinary tract infection. Her hemoglobin is approximate at her ba seline. The patient's renal function is roughly at her baseline. Patient had her dialysis today. She has a significantly elevated BNP at 1500. However the chest x-ray does not show any acute findings of acute fluid overload. Patient will be given a dose of Rocephin here in the emergency department and will be admitted to the hospital for further evaluation and management. The patient did have some nausea while here in the ED and was given a dose of Zofran. Patient is been stable throughout her stay here in the emergency department does not require any acute intervention is at her baseline oxygen requirement. Patient will be admitted to the hospital. I called and spoke the admitting hospitals Dr. Vann and he has accepted the patient to their service. Patient be admitted to the hospital at this time for further evaluation and management. - Medical Records Medical records reviewed: Yes I reviewed the patient's medical records. - Lab Data Lab results reviewed: Yes I reviewed the patient's lab results. Result diagrams: 06/07/18 18:07 06/07/18 18:07 Lab Results 06/07/18 06/07/18 06/07/18 Range/Units 18:07 18:07 18:07 WBC 6.1 (4.3-11.1) K/mcL RBC 3.65 L (3.82-4.97) M/mcL Hgb 11.4 L D (11.5-15.4) g/dL Hct 36.8 (35.3-44.9) % MCV 100.8 H (83.0-100.0) fL MCH 31.2 (28.0-33.3) pg MCHC 31.0 L (31.6-35.5) g/dL RDW 15.1 H (11.5-14.5) % Plt Count 131 L (140-400) K/mcL MPV 9.2 L (9.4-12.4) fL Immature Gran % 0.2 (0-4) % Seg Neutrophils % 71.7 % Lymphocytes % 15.3 % Monocytes % 9.1 % Eosinophils % 2.9 % Basophils % 0.8 % Neutrophils # 4.4 (1.6-8.9) K/mcL Lymphocytes # 0.9 (0.6-4.6) K/mcL Monocytes # 0.6 (0.0-1.3) K/mcL Eosinophils # 0.2 (0.0-0.6) K/mcL Basophils # 0.1 (0.0-0.2) K/mcL PT 11.0 (9.4-12.1) Seconds INR 1.0 APTT 30.1 (26.0-36.0) Seconds Sodium 138 (136-145) mEq/L Potassium 4.4 (3.5-5.1) mEq/L Chloride 97 L (98-107) mEq/L Carbon Dioxide 32 H (23-29) mEq/L BUN 24 H (8-23) mg/dL Creatinine 4.33 H (0.60-1.20) mg/dL Est GFR ( Amer) 12 L (> 60) Est GFR (Non-Af Amer) 10 L (> 60) BUN/Creatinine Ratio 6 (6-26) Glucose 170 H (70-105) mg/dL Calculated Osmolality 294 (280-300) Lactic Acid (0.5-2.2) mmol/L Calcium 8.4 L (8.6-10.3) mg/dL Troponin I < 0.03 (< 0.04) ng/mL B-Natriuretic Peptide (Less than 100) pg/mL Urine Color (Yellow) Urine Clarity (Clear) Urine pH (5.0-8.0) pH Units Ur Specific Gillett (1.010-1.025) Urine Protein (Neg-Trace) mg/dL Urine Glucose (UA) (Normal) mg/dL Urine Ketones (Negative) mg/dL Urine Blood (Negative) Urine Nitrite (Negative) Urine Bilirubin (Negative) Urine Urobilinogen (Normal) mg/dL Ur Leukocyte Esterase (Negative) Urine Microscopic RBC (0-3) per hpf Urine Microscopic WBC (0-3) per hpf Ur Squamous Epith Cells (None-Few) per lpf Urine Bacteria (None-Few) per hpf Hyaline Casts (None-Few) per lpf Ur Culture Indicated? (NO) 06/07/18 06/07/18 06/07/18 Range/Units 18:07 18:07 18:38 WBC (4.3-11.1) K/mcL RBC (3.82-4.97) M/mcL Hgb (11.5-15.4) g/dL Hct (35.3-44.9) % MCV (83.0-100.0) fL MCH (28.0-33.3) pg MCHC (31.6-35.5) g/dL RDW (11.5-14.5) % Plt Count (140-400) K/mcL MPV (9.4-12.4) fL Immature Gran % (0-4) % Seg Neutrophils % % Lymphocytes % % Monocytes % % Eosinophils % % Basophils % % Neutrophils # (1.6-8.9) K/mcL Lymphocytes # (0.6-4.6) K/mcL Monocytes # (0.0-1.3) K/mcL Eosinophils # (0.0-0.6) K/mcL Basophils # (0.0-0.2) K/mcL PT (9.4-12.1) Seconds INR APTT (26.0-36.0) Seconds Sodium (136-145) mEq/L Potassium (3.5-5.1) mEq/L Chloride (98-107) mEq/L Carbon Dioxide (23-29) mEq/L BUN (8-23) mg/dL Creatinine (0.60-1.20) mg/dL Est GFR ( Amer) (> 60) Est GFR (Non-Af Amer) (> 60) BUN/Creatinine Ratio (6-26) Glucose (70-105) mg/dL Calculated Osmolality (280-300) Lactic Acid 0.8 (0.5-2.2) mmol/L Calcium (8.6-10.3) mg/dL Troponin I (< 0.04) ng/mL B-Natriuretic Peptide 1532 H (Less than 100) pg/mL Urine Color Yellow (Yellow) Urine Clarity Cloudy A (Clear) Urine pH 7.5 (5.0-8.0) pH Units Ur Specific Gillett 1.005 L (1.010-1.025) Urine Protein >=300 H (Neg-Trace) mg/dL Urine Glucose (UA) 250 H (Normal) mg/dL Urine Ketones Trace H (Negative) mg/dL Urine Blood Small H (Negative) Urine Nitrite Negative (Negative) Urine Bilirubin Negative (Negative) Urine Urobilinogen Normal (Normal) mg/dL Ur Leukocyte Esterase Trace H (Negative) Urine Microscopic RBC 3-5 H (0-3) per hpf Urine Microscopic WBC 5-15 H (0-3) per hpf Ur Squamous Epith Cells Many H (None-Few) per lpf Urine Bacteria Few (None-Few) per hpf Hyaline Casts None Seen (None-Few) per lpf Ur Culture Indicated? NO. A (NO) 06/07/18 Range/Units 19:52 WBC (4.3-11.1) K/mcL RBC (3.82-4.97) M/mcL Hgb (11.5-15.4) g/dL Hct (35.3-44.9) % MCV (83.0-100.0) fL MCH (28.0-33.3) pg MCHC (31.6-35.5) g/dL RDW (11.5-14.5) % Plt Count (140-400) K/mcL MPV (9.4-12.4) fL Immature Gran % (0-4) % Seg Neutrophils % % Lymphocytes % % Monocytes % % Eosinophils % % Basophils % % Neutrophils # (1.6-8.9) K/mcL Lymphocytes # (0.6-4.6) K/mcL Monocytes # (0.0-1.3) K/mcL Eosinophils # (0.0-0.6) K/mcL Basophils # (0.0-0.2) K/mcL PT (9.4-12.1) Seconds INR APTT (26.0-36.0) Seconds Sodium (136-145) mEq/L Potassium (3.5-5.1) mEq/L Chloride (98-107) mEq/L Carbon Dioxide (23-29) mEq/L BUN (8-23) mg/dL Creatinine (0.60-1.20) mg/dL Est GFR ( Amer) (> 60) Est GFR (Non-Af Amer) (> 60) BUN/Creatinine Ratio (6-26) Glucose (70-105) mg/dL Calculated Osmolality (280-300) Lactic Acid 0.7 (0.5-2.2) mmol/L Calcium (8.6-10.3) mg/dL Troponin I (< 0.04) ng/mL B-Natriuretic Peptide (Less than 100) pg/mL Urine Color (Yellow) Urine Clarity (Clear) Urine pH (5.0-8.0) pH Units Ur Specific Gillett (1.010-1.025) Urine Protein (Neg-Trace) mg/dL Urine Glucose (UA) (Normal) mg/dL Urine Ketones (Negative) mg/dL Urine Blood (Negative) Urine Nitrite (Negative) Urine Bilirubin (Negative) Urine Urobilinogen (Normal) mg/dL Ur Leukocyte Esterase (Negative) Urine Microscopic RBC (0-3) per hpf Urine Microscopic WBC (0-3) per hpf Ur Squamous Epith Cells (None-Few) per lpf Urine Bacteria (None-Few) per hpf Hyaline Casts (None-Few) per lpf Ur Culture Indicated? (NO) - Radiology Data Radiology results reviewed: Yes I reviewed the patient's radiology results. Chest X-Ray 06/07/18 17:55 IMPRESSION: Stable exam without evidence for acute cardiopulmonary process. D/ / 06/07/2018 18:46:41 Gigi Shelby MD / emilia Interpreting Provider: Gigi Shelby MD Head CT 06/07/18 17:59 IMPRESSION: 1. No acute intracranial abnormality. D/ / Trae Hoffman MD / Trae Hoffman MD Interpreting Provider: Trae Hoffman MD - EKG Data EKG #1 EKG attestation: Yes I reviewed and interpreted this EKG. EKG results narrative: EKG shows a sinus rhythm at 69 bpm, NC interval 166, QRS duration 13, QTC of 562. There is no evidence of STEMI and EKG. Attestation Statement - Attestation Attestation: I, Eben Budi, examined this patient and my medical decision-making was reviewed with the DECORATOR STORE/PA/Advanced Practice Nurse/Resident Physician. I agree with the documented findings, disposition and treatment plan as described except to the extent set forth below. 72-year-old female presents emergency department for increased confusion and possible difficulty breathing. Patient initially told triage nurse that she has shortness breath however upon a reevaluation she denies it. states that she had been confused and hallucinating that she had pills in her hand. Which she did not. Patient has an elevated temp of 100.1. Urinalysis shows possible UTI however there are multiple squamous cells. Laboratory evaluation shows thrombocytopenia and anemia. Patient will be given antibiotics emergency department and admitted to the hospitalist for further care and evaluation of possible urinary tract infection and confusion. Chest x-ray did not show eviden ce of acute infiltrate.
[2018-06-07 18:18] LABS: Basophils # 0.1 K/mcL (0.0-0.2); Basophils % 0.8 %; Eosinophils # 0.2 K/mcL (0.0-0.6); Eosinophils % 2.9 %; Hematocrit 36.8 % (35.3-44.9); Immature Granulocytes % 0.2 % (0-4); Lymphocytes # 0.9 K/mcL (0.6-4.6); Lymphocytes % 15.3 %; Mean Corpuscular Hemoglobin 31.2 pg (28.0-33.3); Mean Corpuscular Volume 100.8 fL (83.0-100.0); Mean Platelet Volume 9.2 fL (9.4-12.4); Monocytes # 0.6 K/mcL (0.0-1.3); Monocytes % 9.1 %; Neutrophils # 4.4 K/mcL (1.6-8.9); Platelet Count 131 K/mcL (140-400); Red Blood Count 3.65 M/mcL (3.82-4.97); Red Cell Distribution Width 15.1 % (11.5-14.5); Segmented Neutrophils % 71.7 %
[2018-06-07 18:23] LABS: Hemoglobin 11.4 g/dL (11.5-15.4)
[2018-06-07 18:27] LABS: Activated Partial Thrombo Time 30.1 Seconds (26.0-36.0)
[2018-06-07 18:39] LABS: BUN/Creatinine Ratio 6 (6-26); Blood Urea Nitrogen 24 mg/dL (8-23); Calcium 8.4 mg/dL (8.6-10.3); Carbon Dioxide 32 mEq/L (23-29); Chloride 97 mEq/L (98-107); Glucose 170 mg/dL (70-105); Osmolality,Calculated 294 (280-300); Potassium 4.4 mEq/L (3.5-5.1); Sodium 138 mEq/L (136-145); eGFR For Non-African Americans 10 (> 60)
[2018-06-07 18:40] LABS: Troponin I < 0.03 ng/mL (< 0.04)
[2018-06-07 19:09] LABS: Bilirubin,Urine Negative (Negative); Blood,Urine Small (Negative); Clarity,Urine Cloudy (Clear); Color,Urine Yellow (Yellow); Glucose,Urine (UA) 250 mg/dL (Normal); Ketones,Urine Trace mg/dL (Negative); Leukocyte Esterase,Urine Trace (Negative); Nitrite,Urine Negative (Negative); PH,Urine 7.5 pH Units (5.0-8.0); Protein,Urine >=300 mg/dL (Neg-Trace); Specific Gravity,Urine 1.005 (1.010-1.025); Urobilinogen,Urine Normal (Normal)
[2018-06-07 19:13] LABS: Bacteria,Urine Few per hpf (None-Few); Hyaline Casts,Urine None Seen per lpf (None-Few); Squamous Epithelial Cell,Urine Many per lpf (None-Few)
[2018-06-07] MEDS ORDERED: cefTRIAXone 1,000 MG in Water for inj. (sterile) 20 ML 10 ML IVP ONE (20:25)
[2018-06-07] MEDS ORDERED: Ondansetron 4 MG/2 ML VIAL IVP ONE (20:32)
[2018-06-07] MEDS ORDERED: Naloxone 0.4 MG/ML INJ IVP PRN (22:46)
[2018-06-07] MEDS ORDERED: Ondansetron ODT 4 MG TAB.RAPDIS PO PRN (22:50)
[2018-06-07] MEDS ORDERED: Artificial Tears SOLN 15 ML BOTTLE BOTH EYES PRN (22:50)
[2018-06-07] MEDS ORDERED: Albuterol 2.5 MG/3 ML NEBULIZER IH PRN (22:50)
[2018-06-07] MEDS ORDERED: *HR* Dextrose 50 % in Water (Syg) 50 ML SYRINGE IVP PRN (22:54)
[2018-06-07] MEDS ORDERED: Dextrose Gel 15 GM/37.5 ML TUBE PO PRN ×2 (22:54)
[2018-06-07] MEDS ORDERED: D5% in Water 1,000 ML IVC PRN (22:54)
[2018-06-07] MEDS ORDERED: 0.9 % Sodium Chloride 1,000 ML IVC SCH (23:00)
--- NOTE | 2018-06-08 01:31 | Internal Med History&Physical ---
Date of Encounter: 06/08/18 Time of Encounter: 01:26 Internal Medicine - H&P: HPI Chief complaint: AMS/UTI Plans for Post Hospital Care: Transfer [facility] History of present illness: Ms. Olvera is a 72 year old female with a past medical history of end-stage renal disease on dialysis, hypertension, peripheral vascular disease, obstructive sleep apnea, and depression who presents emergency Department with reports from her of "talking out of her head". Patient had dialysis earlier today. Patient states that the did not pull any fluid off today. Patient's states that she has been somewhat confused lately pullingl off her bandage from her dialysis site and hallucinating. from that area. Patient's states that she seems to be better now than what she was earlier. Patient reports nagging hacking productive cough of whitish sputum as well as some shortness of breath and has been feeling diaphoretic all morning. She states that no fluid was removed performed during dialysis today. Patient denies any fevers but has been having nausea and vomiting as well as diarrhea. Patient was supposed to undergo a left heart catheter on the with Dr. Recio, however, the procedure was postponed due to to patient's diarrhea which is believed to be secondary to acute gastroenteritis and rescheduled until her sym ptoms improve. States that her diarrhea has been improving. No reports of recent antibiotic use. Patient states that she has had increased urinary frequency and dysuria, however the states that she only urinates approximately one time per day due to being a chronic dialysis patient. Patient states that she dialyzes on Thursday, Thursday and Thursday. Initial laboratory workup was notable for chronic kidney disease and an elevated BNP of 1532. UA was notable for trace leukocyte esterase. CT of the head was normal. Past Med Surg Social Fam HX - Past Medical History Medical history: CHF, COPD, diabetes, dialysis, hyperlipidemia, hypertension, renal disease Additional medical history: sleep apnea, anemia, dialysis patient Psychiatric history: no psych history - Past Surgical History Surgical History: cholecystectomy, orthopedic, other, vascular surgery, LE bypass, LE vascular intervention Additional surgical history: RIGHT UPPER ARM FISTULA / RIGHT GREAT TOE REMOVED - Social History Smoking Status: Former smoker Smokeless Tobacco Status: No Alcohol use: none Drug use: none - Family History Father Living Status: Hx Family Cancer: Yes Hx Family Endocrine Disorder: Yes (DM) Mother Living Status: Internal Medicine - H&P: Meds Aspirin [Lo-Dose Aspirin EC] 81 mg PO DAILY 06/17/17 [History] Ergocalciferol (VITAMIN D2) [Vitamin D2] 50,000 unit PO QWEEK 06/17/17 [History] Escitalopram [Lexapro] 20 mg PO DAILY 06/17/17 [History] Furosemide [Lasix] 80 mg PO BID 06/17/17 [History] Insulin LISPRO [HumaLOG] 4 - 10 units SQ TIDWM 06/17/17 [History] rOPINIRole [Requip] 1 mg PO BID 06/17/17 [History] Albuterol Neb [Proventil Neb] 2.5 mg IH Q8H PRN 01/19/18 [History] Calcium Carbonate/Vitamin D3 [Calcium 500+D Tablet Chew] 1 each PO BID 01/19/18 [History] Clopidogrel Bisulfate [Plavix] 75 mg PO DAILY #30 tablet 01/19/18 [Rx] Folic Acid/Vit B Complex and C [Dialyvite Tablet] 1 tab PO DAILY 01/19/18 [History] Insulin Glargine,Hum.rec.anlog [Basaglar Kwikpen U-100] 15 unit SQ HS 03/29/18 [History] Isosorbide MONOnitrate (24 HR) [Imdur] 120 mg PO DAILY 03/29/18 [History] Nitroglycerin [Nitrostat] 0.4 mg SL Q5M PRN 03/29/18 [History] Sevelamer [Renvela] 2,400 mg PO TIDWM 03/29/18 [History] Artificial Tears SOLN [Akwa Tears] 1 drop BOTH EYES QID PRN 03/30/18 [History] Dorzolamide/Timolol/Pf [Dorzolamide-Timolol 2%-0.5%] 1 drop BOTH EYES BID 03/30/18 [History] Acetaminophen [Tylenol] 500 mg PO Q6HR PRN tablet 04/09/18 [Rx] Cefepime HCl/Dextrose, Iso-Osm [Cefepime 2 gm Injection] 2 gm IV AD #12 mls 04/09/18 [Rx] amLODIPine [Norvasc] 5 mg PO DAILY tablet 04/09/18 [Rx] Ondansetron HCl [Zofran] 4 mg PO Q8HR PRN 05/05/18 [History] Promethazine [Phenergan] 25 mg PO Q12H PRN 05/05/18 [History] Atorvastatin Calcium [Lipitor] 20 mg PO DAILY 06/07/18 [History] Metoprolol Succinate [Toprol Xl] 25 mg PO BID 06/07/18 [History] Allergy/AdvReac Type Severity Reaction Status Date / Time codeine Allergy Mild Rash Verified 06/03/18 09:10 gabapentin [From Neurontin] Allergy Mild Rash Verified 06/03/18 09:10 Penicillins [PCN] Allergy Mild Rash Verified 06/03/18 09:10 zinc Allergy Mild Rash Verified 06/03/18 09:10 tetanus Allergy Mild Rash Uncoded 03/30/18 13:09 All Systems PM: A 10-system review of systems was performed and is negative for pertinent findings except as documented above in the HPI. - Constitutional Constitutional: no chills, no fever(s), no night sweats - EENT Eyes: no change in vision, no discharge, no pain, no photophobia Ears: no ear discharge, no ear pain, no tinnitus Nose, mouth and throat: no dysphagia, no nasal discharge, no neck pain, no sore throat - Cardiovascular Cardiovascular ROS IM: no chest pain, no diaphoresis, no dyspnea, no lightheadedness, no palpitations, no syncope - Respiratory Respiratory: no cough, no dyspnea, no wheezing, no excessive phlegm production - Gastrointestinal Gastrointestinal: no abdominal pain, no diarrhea, no hematemesis, no hematochezia, no melena, no nausea, no vomiting - Genitourinary Genitourinary: no change in urinary stream, no dysuria, no flank pain, no hematuria - Musculoskeletal Musculoskeletal ROS IM: no numbness, no tingling - Integumentary Integumentary IM: no rash, no unusual bruising - Neurological Neurological ROS: no confusion, no convulsions, no focal weakness, no numbness, no tingling, no tremor(s) - Hematologic/Lymphatic Hematologic/Lymphatic: no easy bruising - Constitutional Vitals: Temp Pulse Resp BP Pulse Ox 99.1 F 71 24 154/77 98 06/07/18 23:21 06/07/18 23:21 06/07/18 23:21 06/07/18 23:21 06/07/18 23:21 Exam: General: Alert and oriented 3 sitting up in bed in no acute distress Skin:Normal color, no rash, no lesions. HEENT:EOM, pupils equal, round and reactive. Cardiovascular:Normal S1 & S2, no rubs, murmurs or gallops. No JVD. Pulse regular. Lungs: Upper airway congestion with bibasilar crackles up to the mid posterior thorax Abdomen:Soft, non-tender, no rigidity. Extremities:No deformity, no edema or tenderness, no joint swelling or clubbing. Neurological:Normal cognition and motor skills. Pulses:Carotid and radial pulses normal +2. Rest of the physical exam is non contributory Internal Med - H&P Results - Labs CBC & Chem 7: 06/08/18 05:04 06/08/18 05:04 Labs: Short CBC 06/07/18 Range/Units 18:07 WBC 6.1 (4.3-11.1) K/mcL Hgb 11.4 L D (11.5-15.4) g/dL Hct 36.8 (35.3-44.9) % Plt Count 131 L (140-400) K/mcL Neutrophils # 4.4 (1.6-8.9) K/mcL BMP 06/07/18 18:07 Sodium 138 Potassium 4.4 Chloride 97 L Carbon Dioxide 32 H BUN 24 H Creatinine 4.33 H Glucose 170 H Calcium 8.4 L Cardiac Enzymes 06/07/18 Range/Units 18:07 Troponin I < 0.03 (< 0.04) ng/mL Urine 06/07/18 Range/Units 18:38 Urine Color Yellow (Yellow) Urine Clarity Cloudy A (Clear) Urine pH 7.5 (5.0-8.0) pH Units Ur Specific [place] 1.005 L (1.010-1.025) Urine Protein >=300 H (Neg-Trace) mg/dL Urine Glucose (UA) 250 H (Normal) mg/dL - Impressions ITS Impressions Chest X-Ray 06/07/18 17:55 IMPRESSION: Stable exam without evidence for acute cardiopulmonary process. D/ / 06/07/2018 18:46:41 Gigi Shelby MD / emilia Interpreting Provider: Gigi Shelby MD Head CT 06/07/18 17:59 IMPRESSION: 1. No acute intracranial abnormality. D/ / Trae Hoffman MD / Trae Hoffman MD Interpreting Provider: Trae Hoffman MD - Assessment and plan (1) Altered mental status Current Visit: No Status: Resolved Assessment and plan: Reports of confusion and hallucinations over the past several days. reports patient's symptoms have improved since arrival. Patient has no focal findings and CT of the head was unremarkable. Suspect possible metabolic versus infectious encephalopathy in the setting of recent acute gastroenteritis and now possible UTI. Continue treatment for possible UTI and supportive care. Qualifiers: Altered mental status type: disorientation Qualified Code(s): R41.0 - Disorientation, unspecified (2) CHF (congestive heart failure) Current Visit: No Status: Chronic Assessment and plan: Patient clinically appears to be congested. Crackles were appreciated bilaterally up to the posterior mid thorax. Patient also appears to have upper airway congestion and runny nose. Patient reports that no fluid was taken off during her dialysis session earlier today. Found to have an elevated BNP of 1532. Patient does not produce much urine. She takes 80 mg of Lasix twice a day. We will give one-time dose of 80 mg IV push. -Monitor I's and O's. -Consider nephrology consult if symptoms do not improve requiring earlier dialysis session. Qualifiers: Heart failure type: combined systolic and diastolic Heart failure chronicity: chronic Qualified Code(s): I50.42 - Chronic combined systolic (congestive) and diastolic (congestive) heart failure (3) UTI (urinary tract infection) Current Visit: Yes Status: Acute Assessment and plan: She reports dysuria and increased frequency of though normally does not produce that much urine. UA shows trace leukocyte esterase. -Patient received ceftriaxone. We will continue. -follow up urine culture Qualifiers: Urinary tract infection type: site unspecified Hematuria presence: with hematuria Qualified Code(s): N39.0 - Urinary tract infection, site not specified; R31.9 - Hematuria, unspecified (4) ESRD (end stage renal disease) on dialysis Current Visit: Yes Status: Chronic Assessment and plan: End-stage renal disease on dialysis Thursday, Thursday, Thursday. -Consider nephrology consult if patient needing urgent dialysis. (5) Anemia in chronic kidney disease Current Visit: No Status: Chronic Assessment and plan: Hemoglobin at baseline. We will monitor. Qualifiers: Chronic kidney disease stage: on chronic dialysis Qualified Code(s): N18.6 - End stage renal disease; D63.1 - Anemia in chronic kidney disease; Z99.2 - Dependence on renal dialysis (6) CAD (coronary artery disease) of artery bypass graft Current Visit: No Status: Chronic Assessment and plan: She denies any chest pain. We will resume patient's medical management for her coronary artery disease. Qualifiers: [place] vs. transplanted heart: [place] heart Associated angina: without angina Qualified Code(s): I25.810 - Atherosclerosis of coronary artery bypass graft(s) without angina pectoris (7) Diabetes mellitus Current Visit: No Status: Chronic Assessment and plan: Diabetic diet. Accu-Cheks. 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
[2018-06-08] MEDS ORDERED: Furosemide 40 MG/4 ML VIAL IVP ONE (01:58)
[2018-06-08] MEDS: *HR* Heparin 5,000 UNIT/ML VIAL SQ SCH ×4 (02:15→21:36)
[2018-06-08] MEDS: Insulin LISPRO 300 UNITS/3 ML VIAL SQ SCH ×5 (02:22→21:37)
[2018-06-08 03:19] LABS: Adenovirus Not Detected (Not Detect); Coronavirus 229E Not Detected (Not Detect); Coronavirus HKU1 Not Detected (Not Detect); Coronavirus NL63 Not Detected (Not Detect); Coronavirus OC43 Not Detected (Not Detect); Human Metapneumovirus Not Detected (Not Detect); Human Rhinovirus/Enterovirus Not Detected (Not Detect); Influenza A Subtype 2009 H1 Not Detected (Not Detect); Influenza A Untypeable Not Detected (Not Detect); Influenza B Not Detected (Not Detect); Parainfluenza Virus 1 Not Detected (Not Detect); Parainfluenza Virus 2 Not Detected (Not Detect); Parainfluenza Virus 3 Not Detected (Not Detect); Parainfluenza Virus 4 Not Detected (Not Detect)
[2018-06-08 03:20] LABS: Bordetella Pertussis Not Detected (Not Detect); Chlamydophila pneumoniae Not Detected (Not Detect); Mycoplasma pneumoniae Not Detected (Not Detect); Respiratory Syncytial Virus DETECTED (Not Detect)
[2018-06-08 05:46] LABS: Basophils # 0.1 K/mcL (0.0-0.2); Basophils % 0.8 %; Eosinophils % 0.3 %; Hematocrit 37.3 % (35.3-44.9); Hemoglobin 11.6 g/dL (11.5-15.4); Immature Granulocytes % 0.3 % (0-4); Lymphocytes # 1.1 K/mcL (0.6-4.6); Lymphocytes % 15.1 %; Mean Corpuscular HGB Conc 31.1 g/dL (31.6-35.5); Mean Corpuscular Hemoglobin 31.2 pg (28.0-33.3); Mean Corpuscular Volume 100.3 fL (83.0-100.0); Mean Platelet Volume 9.8 fL (9.4-12.4); Monocytes # 0.5 K/mcL (0.0-1.3); Monocytes % 7.5 %; Neutrophils # 5.5 K/mcL (1.6-8.9); Platelet Count 130 K/mcL (140-400); Red Blood Count 3.72 M/mcL (3.82-4.97)
[2018-06-08 06:12] LABS: Albumin 4.1 g/dL (3.5-5.7); Albumin/Globulin Ratio 1.6 (1.1-2.2); Bilirubin,Total 0.3 mg/dL (0.3-1.0); Calcium 8.1 mg/dL (8.6-10.3); Globulin 2.6 g/dL (2.4-3.5); Potassium 4.6 mEq/L (3.5-5.1); Total Protein 6.7 g/dL (6.4-8.9)
[2018-06-08] MEDS: Cholecalciferol (D-3) 1,000 UNIT TABLET PO SCH (07:47)
[2018-06-08] MEDS: Isosorbide MONOnitrate (24 HR) 30 MG TAB.ER.24H PO SCH (07:47)
[2018-06-08] MEDS: Aspirin Enteric Coated 81 MG Tablet PO SCH (07:47)
[2018-06-08] MEDS: rOPINIRole 1 MG TABLET PO SCH ×2 (07:48→21:37)
[2018-06-08] MEDS: amLODIPine 5 MG TABLET PO SCH (07:49)
[2018-06-08] MEDS: Metoprolol XL (24 HR) Succ 25 MG TAB.ER.24H PO SCH ×2 (07:49→21:37)
[2018-06-08] MEDS: Furosemide 40 MG TABLET PO SCH ×2 (07:55→17:38)
[2018-06-08] MEDS: cefTRIAXone 1,000 MG in Water for inj. (sterile) 20 ML 10 ML IVP SCH (08:11)
[2018-06-08] MEDS ORDERED: Dorzolamide/Timolol OPTH 10 ML BOTTLE BOTH EYES SCH (09:00)
[2018-06-08] MEDS ORDERED: Furosemide 40 MG TABLET PO SCH (09:00)
[2018-06-08] MEDS ORDERED: Multivit/Ca/Min/Fe/FA 1 TAB TABLET PO SCH (09:00)
--- NOTE | 2018-06-08 14:31 | Event Note ---
Date of Encounter: 06/08/18 Time of Encounter: 14:30 Pt's resp panel + for RSV. Will continue symptom management and PRN duo nebs.
[2018-06-08] MEDS: Ipratropium/Albuterol Neb 3 ML IH SCH ×2 (15:35→20:27)
--- NOTE | 2018-06-08 17:58 | Electrocardiograph Report ---
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
[2018-06-08] MEDS ORDERED: cefTRIAXone 1,000 MG in Water for inj. (sterile) 20 ML 10 ML IVP SCH (20:00)
[2018-06-08] MEDS: Brinzolamide 1% 10 ML BOTTLE BOTH EYES SCH (21:38)
[2018-06-09] MEDS: Ipratropium/Albuterol Neb 3 ML IH SCH ×8 (00:48→23:32)
[2018-06-09] MEDS ORDERED: *HR* Metoprolol 5 MG/5 ML VIAL IVP ONE (01:55)
[2018-06-09] MEDS: *HR* Heparin 5,000 UNIT/ML VIAL SQ SCH ×3 (06:27→23:46)
[2018-06-09] MEDS: Aspirin Enteric Coated 81 MG Tablet PO SCH (08:39)
[2018-06-09] MEDS: methylPREDNISolone 4 MG TABLET PO SCH (08:40)
[2018-06-09] MEDS: Furosemide 40 MG TABLET PO SCH ×2 (08:40→17:30)
[2018-06-09] MEDS: Isosorbide MONOnitrate (24 HR) 30 MG TAB.ER.24H PO SCH (08:40)
[2018-06-09] MEDS: Cholecalciferol (D-3) 1,000 UNIT TABLET PO SCH (08:41)
[2018-06-09] MEDS: Metoprolol XL (24 HR) Succ 25 MG TAB.ER.24H PO SCH ×2 (08:41→23:45)
[2018-06-09] MEDS: Renal Vitamin 1 CAP CAPSULE PO SCH (08:41)
[2018-06-09] MEDS: rOPINIRole 1 MG TABLET PO SCH ×2 (08:41→23:45)
[2018-06-09] MEDS: amLODIPine 5 MG TABLET PO SCH (08:41)
[2018-06-09] MEDS: Insulin LISPRO 300 UNITS/3 ML VIAL SQ SCH ×4 (08:43→22:56)
[2018-06-09] MEDS: Brinzolamide 1% 10 ML BOTTLE BOTH EYES SCH ×2 (08:45→23:45)
[2018-06-09] MEDS: cefTRIAXone 1,000 MG in Water for inj. (sterile) 20 ML 10 ML IVP SCH (08:49)
--- NOTE | 2018-06-09 09:46 | Nephrology Consult Note ---
Addendum entered and electronically signed by Luis Victoria MD 06/09/18 21:22: I examined this patient and discussed the medical decision-making with ERAN Muse. I agree with the documented findings, disposition and treatment plan as described except to the extent set forth below. Patient scheduled for dialysis today. She is complaining of diarrhea - will defer to primary team. Original Note: Date of Encounter: 06/09/18 Time of Encounter: 09:41 Assessment and Plan (1) ESRD (end stage renal disease) on dialysis Current Visit: Yes Status: Chronic Current regimen is MWF at [facility]. Plan for HD today. Renal diet Renal vitamins Strict I/O Avoid nephrotoxins and renal dose all medications. (2) RSV infection Current Visit: Yes Status: Acute Supportive care. Per primary. (3) Anemia Current Visit: Yes Status: Acute No new labs for today. Hgb 11.6 yesterday. Qualifiers: Anemia type: unspecified type Qualified Code(s): D64.9 - Anemia, unspecified (4) Altered mental status, unspecified Current Visit: Yes Status: Acute Appears resolving. Alert with exam and interview. Qualifiers: Qualified Code(s): R41.82 - Altered mental status, unspecified (5) UTI (urinary tract infection) Current Visit: Yes Status: Acute Per primary. Qualifiers: Urinary tract infection type: site unspecified Hematuria presence: with hematuria Qualified Code(s): N39.0 - Urinary tract infection, site not specified; R31.9 - Hematuria, unspecified History of Present Illness - Reason for Consult Consult date: 06/09/18 end stage renal disease Requesting physician: Ning Dao - Chief Complaint difficulty in breathing - History of Present Illness Ms. Olvera is a 72 year old female who presented to ED with shortness of breath that started yesterday. PMH: hypertension, peripheral vascular disease, obstructive sleep apnea, and depression, and ESRD. Current regimen is MWF at [facility]. RIP + for RSV, CDiff was negative. Admits to coughing up a "yellowish, white" sputum. Denies fever, chills. Admits to diarrhea "several times a day". Denies nausea or vomiting. Denies chest pain. Last HD treatment was Thursday without complication (per patient). HD will be ordered for today to keep her on same regimen. She lives at home with spouse with home health. She is a former smoker, denies any illicit drug use or Etoh. Past Med Surg Social Fam HX - Past Medical History Medical history: CHF, COPD, diabetes, dialysis, hyperlipidemia, hypertension, renal disease Additional medical history: sleep apnea, anemia, dialysis patient Psychiatric history: no psych history - Past Surgical History Surgical History: cholecystectomy, orthopedic, other, vascular surgery, LE bypass, LE vascular intervention Additional surgical history: RIGHT UPPER ARM FISTULA / RIGHT GREAT TOE REMOVED - Social History Smoking Status: Former smoker Smokeless Tobacco Status: No Alcohol use: none Drug use: none - Family History Father Living Status: Hx Family Cancer: Yes Hx Family Endocrine Disorder: Yes (DM) Mother Living Status: Medications and Allergies Aspirin [Lo-Dose Aspirin EC] 81 mg PO DAILY 06/17/17 [History] Ergocalciferol (VITAMIN D2) [Vitamin D2] 50,000 unit PO QWEEK 06/17/17 [History] Escitalopram [Lexapro] 20 mg PO DAILY 06/17/17 [History] Furosemide [Lasix] 80 mg PO BID 06/17/17 [History] Insulin LISPRO [HumaLOG] 4 - 10 units SQ TIDWM 06/17/17 [History] rOPINIRole [Requip] 1 mg PO BID 06/17/17 [History] Albuterol Neb [Proventil Neb] 2.5 mg IH Q8H PRN 01/19/18 [History] Calcium Carbonate/Vitamin D3 [Calcium 500+D Tablet Chew] 1 each PO BID 01/19/18 [History] Clopidogrel Bisulfate [Plavix] 75 mg PO DAILY #30 tablet 01/19/18 [Rx] Folic Acid/Vit B Complex and C [Dialyvite Tablet] 1 tab PO DAILY 01/19/18 [History] Insulin Glargine,Hum.rec.anlog [Basaglar Kwikpen U-100] 15 unit SQ HS 03/29/18 [History] Isosorbide MONOnitrate (24 HR) [Imdur] 120 mg PO DAILY 03/29/18 [History] Nitroglycerin [Nitrostat] 0.4 mg SL Q5M PRN 03/29/18 [History] Sevelamer [Renvela] 2,400 mg PO TIDWM 03/29/18 [History] Artificial Tears SOLN [Akwa Tears] 1 drop BOTH EYES QID PRN 03/30/18 [History] Dorzolamide/Timolol/Pf [Dorzolamide-Timolol 2%-0.5%] 1 drop BOTH EYES BID 03/30/18 [History] Acetaminophen [Tylenol] 500 mg PO Q6HR PRN tablet 04/09/18 [Rx] Cefepime HCl/Dextrose, Iso-Osm [Cefepime 2 gm Injection] 2 gm IV AD #12 mls 04/09/18 [Rx] amLODIPine [Norvasc] 5 mg PO DAILY tablet 04/09/18 [Rx] Ondansetron HCl [Zofran] 4 mg PO Q8HR PRN 05/05/18 [History] Promethazine [Phenergan] 25 mg PO Q12H PRN 05/05/18 [History] Atorvastatin Calcium [Lipitor] 20 mg PO DAILY 06/07/18 [History] Metoprolol Succinate [Toprol Xl] 25 mg PO BID 06/07/18 [History] Allergy/AdvReac Type Severity Reaction Status Date / Time codeine Allergy Mild Rash Verified 06/03/18 09:10 gabapentin [From Neurontin] Allergy Mild Rash Verified 06/03/18 09:10 Penicillins [PCN] Allergy Mild Rash Verified 06/03/18 09:10 zinc Allergy Mild Rash Verified 06/03/18 09:10 tetanus Allergy Mild Rash Uncoded 03/30/18 13:09 Review of Systems All Systems review (narrative): The remainder of the systems are negative. Exam - Vital Signs Vital signs: Initial Vital Signs Temp Pulse Resp BP Pulse Ox 100.1 F H 72 22 194/72 98 06/07/18 17:37 06/07/18 17:37 06/07/18 17:37 06/07/18 17:37 06/07/18 17:37 Vital Signs - Last 8 Hours Temp Pulse Resp BP Pulse Ox 06/09/18 07:16 98.5 F 73 18 199/93 97 06/09/18 04:50 99.0 F 72 20 178/79 98 06/09/18 04:22 19 94 Intake and Output 06/08/18 06/09/18 06/09/18 23:59 07:59 15:59 Intake Total 250 / 250 Balance 250 / 250 Intake: IV Fluids Rocephin 1,000 MG In Water for inj. (sterile) 10 ML @ 600 mls/ hr IVP Q24H [facility] Rx#:[id number] Oral 240 / 240 Other: Meal Dinner Percent of Meal Consumed 40% Stool Consistency loose Stool Characteristics Foamy Stool Color Brown Blood Glucose* 104 97 - General Appearance General appearance: well-developed, well-nourished EENT: ATNC, hearing intact, vision intact Neck: supple Respiratory: clear Cardiology: no edema, normal S1, normal S2 - Dialysis Access Dialysis Vascular Access: Arteriovenous Fistula thrill: Yes bruit: Yes Gastrointestinal: normoactive bowel sounds, no tenderness, no guarding Integumentary: no rash, warm and dry Neurologic: alert and oriented x3 Musculoskeletal: no deformities Psychiatric: mood/affect appropriate, cooperative Results - Lab Results 06/09/18 10:23 06/09/18 10:23 Most recent lab results Calcium 8.1 mg/dL (8.6-10.3) L 06/08/18 05:04 Consult Discharge Plan - Plan Referrals: NONE,PCP [Primary Care Provider] -
[2018-06-09] MEDS ORDERED: 0.9 % Sodium Chloride 250 ML IVC PRN (10:29)
[2018-06-09] MEDS ORDERED: 0.9 % Sodium Chloride 1,000 ML PRIME SCH (10:30)
[2018-06-09 10:41] LABS: Basophils # 0.1 K/mcL (0.0-0.2); Basophils % 0.8 %; Hematocrit 36.6 % (35.3-44.9); Hemoglobin 11.5 g/dL (11.5-15.4); Immature Granulocytes % 1.1 % (0-4); Lymphocytes # 1.8 K/mcL (0.6-4.6); Lymphocytes % 22.9 %; Mean Corpuscular HGB Conc 31.4 g/dL (31.6-35.5); Mean Corpuscular Hemoglobin 31.2 pg (28.0-33.3); Mean Corpuscular Volume 99.2 fL (83.0-100.0); Mean Platelet Volume 10.9 fL (9.4-12.4); Monocytes # 0.7 K/mcL (0.0-1.3); Monocytes % 8.4 %; Neutrophils # 5.2 K/mcL (1.6-8.9); Platelet Count 112 K/mcL (140-400); Red Blood Count 3.69 M/mcL (3.82-4.97); Red Cell Distribution Width 14.9 % (11.5-14.5); Segmented Neutrophils % 66.8 %
[2018-06-09 11:11] LABS: Calcium 7.6 mg/dL (8.6-10.3); Potassium 5.5 mEq/L (3.5-5.1)
[2018-06-09 12:01] LABS: Hepatitis B Surface Antibody < 3.10 mIU/mL
[2018-06-09 12:10] LABS: Hepatitis B Surface Antigen Nonreactive (Nonreactive)
--- NOTE | 2018-06-09 15:09 | Internal Med Progress Note ---
Hospitalist Progress Note - Encounter Date of Encounter: 06/09/18 Time of Encounter: 15:07 - Subjective Interval History: Pt states she is feeling much better today. is at bedside. She denies chest and SOB. She denies fever, chills, N/V, she does report diarrhea. Pt states she gets diarrhea from time to time. - Exam Vitals: Temp Pulse Resp BP Pulse Ox 98.7 F 66 16 173/76 96 06/09/18 11:40 06/09/18 11:40 06/09/18 11:40 06/09/18 11:40 06/09/18 11:40 Exam: Exam: General: Alert and oriented 3 sitting up in bed in no acute distress Skin:Normal color, no rash, no lesions. HEENT:EOM, pupils equal, round and reactive. Cardiovascular:Normal S1 & S2, no rubs, murmurs or gallops. No JVD. Pulse regular. Lungs: Bibasilar crackles with expiratory wheezing. Abdomen:Soft, non-tender, no rigidity. Extremities:No deformity, no edema or tenderness, no joint swelling or clubbing. Neurological:Normal cognition and motor skills. Pulses:Carotid and radial pulses normal +2. Rest of the physical exam is non contributory - Assessment and Plan (1) Respiratory syncytial virus bronchitis Current Visit: Yes Status: Acute Assessment and Plan: Continue supportive care. Checking Chest x ray today. Pt appears to be clinically improving. (2) Wheezing on expiration Current Visit: Yes Status: Acute Assessment and Plan: Suspect underlying COPD. Significant wheezing on exam 06/08/18, which as improved with nebs and steroid. Pt states she quit 7 years ago. No documentation of COPD on record. Recommend out pt PFT with DLCO at discharge. Continue with scheduled nebs and medrol dosepak for now (3) ESRD (end stage renal disease) on dialysis Current Visit: Yes Status: Chronic Assessment and Plan: End-stage renal disease on dialysis Thursday, Thursday, Thursday. Nephrology consulted to see for assistance with HD. (4) CHF (congestive heart failure) Current Visit: No Status: Chronic Assessment and Plan: Pt noted to be clinically congested on admission. Crackles were appreciated bilaterally up to the posterior mid thorax. Patient's last HD was Thursday and she reported to admitting physician that no fluid was taken off during her dialysis. Found to have an elevated BNP of 1532. Patient does not produce much urine. She takes 80 mg of Lasix twice a day. She was given one-time dose of 80 mg IV push by admitting physician. -Monitoring I's and O's. -Consulting nephrology. (5) Diabetes mellitus Current Visit: No Status: Chronic Assessment and Plan: Diabetic diet. Accu-Cheks. Sliding scale insulin and adding basal insulin (6) CAD (coronary artery disease) of artery bypass graft Current Visit: No Status: Chronic Assessment and Plan: She denies any chest pain or SOB. On ASA and Atorvastatin (7) Altered mental status Current Visit: No Status: Resolved Assessment and Plan: Reports of confusion and hallucinations over the past several days. reported patient's symptoms improved since arrival to hospital. Patient has no focal findings and CT of the head was unremarkable. Suspect possible metabolic versus infectious encephalopathy in the setting of recent acute gastroenteritis and now possible UTI. Continue treatment for possible UTI and supportive care. (8) Anemia in chronic kidney disease Current Visit: No Status: Chronic Assessment and Plan: Hemoglobin at baseline. We will monitor prn. (9) UTI (urinary tract infection) Current Visit: Yes Status: Acute Assessment and Plan: She reported dysuria and increased frequency on admission. She normally does not produce that much urine. UA shows trace leukocyte esterase. -Patient received ceftriaxone which was continued. Will switch to keflex for total 5 days. -Urine culture not sent. (10) Former smoker Current Visit: Yes Status: Acute Assessment and Plan: Suspect underlying COPD. Significant wheezing on exam 06/08/18, which as improved with nebs and steroid. Pt states she quit 7 years ago. No documentation of COPD on record. Recommend out pt PFT with DLCO at discharge. Continue with scheduled nebs and medrol dosepak for now. DVT Prophylaxis: Heparin SQ - Summary of Assessment and Plan Summary of Assessment and Plan: History of present illness: Dr. Dockery Ms. Olvera is a 72 year old female with a past medical history of end-stage renal disease on dialysis, hypertension, peripheral vascular disease, obstructive sleep apnea, and depression who presents emergency Department with reports from her of "talking out of her head". Patient had dialysis earlier today. Patient states that the did not pull any fluid off today. Patient's states that she has been somewhat confused lately pullingl off her bandage from her dialysis site and hallucinating. from that area. Patient's states that she seems to be better now than what she was earlier. Patient reports nagging hacking productive cough of whitish sputum as well as some shortness of breath and has been feeling diaphoretic all morning. She states that no fluid was removed performed during dialysis today. Patient denies any fevers but has been having nausea and vomiting as well as diarrhea. Patient was supposed to undergo a left heart catheter on the with Dr. Recio, however, the procedure was postponed due to to patient's diarrhea which is believed to be secondary to acute gastroenteritis and rescheduled until her symptoms improve. States that her diarrhea has been improving. No reports of recent antibiotic use. Patient states that she has had increased urinary frequency and dysuria, however the states that she only urinates approximately one time per day due to being a chronic dialysis patient. Patient states that she dialyzes on Thursday, Thursday and Thursday. Initial laboratory workup was notable for chronic kidney disease and an elevated BNP of 1532. UA was notable for trace leukocyte esterase. CT of the head was normal. - Time Spent with Patient Total time spent is greater than 50% in coordination of care (as documented) at patient's floor/unit and/or counseling patient: less than 15 minutes Plan of Care Discussed with: patient Internal Medicine: Result - Labs CBC & Chem 7: 06/09/18 10:23 06/09/18 10:23 Labs: Short CBC 06/09/18 Range/Units 10:23 WBC 7.8 (4.3-11.1) K/mcL Hgb 11.5 (11.5-15.4) g/dL Hct 36.6 (35.3-44.9) % Plt Count 112 L (140-400) K/mcL Neutrophils # 5.2 (1.6-8.9) K/mcL BMP 06/09/18 10:23 Sodium 137 Potassium 5.5 H Chloride 97 L Carbon Dioxide 20 L BUN 61 H Creatinine 7.16 H Glucose 141 H Calcium 7.6 L - ABG Interpretation ABG results: PT/INR, D-dimer PT 11.0 Seconds (9.4-12.1) 06/07/18 18:07 Consult Discharge Plan - Plan Referrals: NONE,PCP [Primary Care Provider] - (4) CHF (congestive heart failure) Qualifiers: Heart failure type: combined systolic and diastolic Heart failure chronicity: chronic Qualified Code(s): I50.42 - Chronic combined systolic (congestive) and diastolic (congestive) heart failure (5) Diabetes mellitus Qualifiers: Diabetes mellitus type: type 2 Diabetes mellitus terminal carman insulin use: with nursing home use Diabetes mellitus complication status: with kidney complications Diabetes mellitus complication detail: with chronic kidney disease Chronic kidney disease stage: on chronic dialysis Qualified Code(s): E11.22 - Type 2 diabetes mellitus with diabetic chronic kidney disease; N18.6 - End stage renal disease; Z79.4 - intermediate (current) use of insulin; Z99.2 - Dependence on renal dialysis (6) CAD (coronary artery disease) of artery bypass graft Qualifiers: [place] vs. transplanted heart: [place] heart Associated angina: without angina Qualified Code(s): I25.810 - Atherosclerosis of coronary artery bypass graft(s) without angina pectoris (7) Altered mental status Qualifiers: Altered mental status type: disorientation Qualified Code(s): R41.0 - Disori entation, unspecified (8) Anemia in chronic kidney disease Qualifiers: Chronic kidney disease stage: on chronic dialysis Qualified Code(s): N18.6 - End stage renal disease; D63.1 - Anemia in chronic kidney disease; Z99.2 - Dependence on renal dialysis (9) UTI (urinary tract infection) Qualifiers: Urinary tract infection type: site unspecified Hematuria presence: with hematuria Qualified Code(s): N39.0 - Urinary tract infection, site not specified; R31.9 - Hematuria, unspecified
[2018-06-09] MEDS ORDERED: Insulin DETEMIR 100 UNIT/ML X5UNITS SQ SCH (21:00)
[2018-06-09] MEDS: cephALEXin 500 MG CAPSULE PO SCH (23:45)
[2018-06-10] MEDS: Ipratropium/Albuterol Neb 3 ML IH SCH ×3 (03:53→11:47)
[2018-06-10] MEDS: *HR* Heparin 5,000 UNIT/ML VIAL SQ SCH ×2 (06:22→12:46)
[2018-06-10] MEDS: Cholecalciferol (D-3) 1,000 UNIT TABLET PO SCH (08:51)
[2018-06-10] MEDS: Furosemide 40 MG TABLET PO SCH (08:52)
[2018-06-10] MEDS: rOPINIRole 1 MG TABLET PO SCH (08:52)
[2018-06-10] MEDS: Isosorbide MONOnitrate (24 HR) 30 MG TAB.ER.24H PO SCH (08:52)
[2018-06-10] MEDS: cephALEXin 500 MG CAPSULE PO SCH (08:53)
[2018-06-10] MEDS: Renal Vitamin 1 CAP CAPSULE PO SCH (08:53)
[2018-06-10] MEDS: methylPREDNISolone 4 MG TABLET PO SCH (08:53)
[2018-06-10] MEDS: Aspirin Enteric Coated 81 MG Tablet PO SCH (08:53)
[2018-06-10] MEDS: Metoprolol XL (24 HR) Succ 25 MG TAB.ER.24H PO SCH (08:53)
[2018-06-10] MEDS: amLODIPine 5 MG TABLET PO SCH (08:53)
[2018-06-10] MEDS: Insulin LISPRO 300 UNITS/3 ML VIAL SQ SCH ×2 (08:54→12:46)
[2018-06-10] MEDS: Brinzolamide 1% 10 ML BOTTLE BOTH EYES SCH (08:54)
--- NOTE | 2018-06-10 10:07 | Nephrology Progress Note ---
Date of Encounter: 06/10/18 Time of Encounter: 10:05 - Assessment and Plan (1) ESRD (end stage renal disease) on dialysis Current Visit: Yes Status: Chronic Current regimen is MWF at [facility]. HD completed yesterday. Renal diet Renal vitamins Strict I/O Avoid nephrotoxins and renal dose all medications. (2) RSV infection Current Visit: Yes Status: Acute Supportive care. Per primary. (3) Anemia Current Visit: Yes Status: Acute Labs still pending. Goal Hgb is 10-11. Qualifiers: Anemia type: unspecified type Qualified Code(s): D64.9 - Anemia, unspecified (4) Altered mental status, unspecified Current Visit: Yes Status: Acute Appears resolving. Alert with exam and interview. Qualifiers: Qualified Code(s): R41.82 - Altered mental status, unspecified (5) UTI (urinary tract infection) Current Visit: Yes Status: Acute Per primary. Qualifiers: Urinary tract infection type: site unspecified Hematuria presence: with hematuria Qualified Code(s): N39.0 - Urinary tract infection, site not specified; R31.9 - Hematuria, unspecified Subjective Principal diagnosis: difficulty in breathing Interval history: Pt seen and examined, doing much better today. Denies feeling any shortness of breath or chest pain. Denies nausea, vomiting, admits to diarrhea (cdiff negative). Patient would like to go home today. Objective - Vital Signs Vital signs: Vital Signs Temp Pulse Resp BP Pulse Ox 06/10/18 07:50 16 100 06/10/18 07:09 97.9 F 60 20 164/72 100 06/10/18 03:53 16 100 06/10/18 03:52 97.8 F 60 18 162/75 100 06/09/18 23:32 17 96 06/09/18 23:27 98.7 F 61 18 163/66 100 06/09/18 23:00 97.6 F 15 142/65 06/09/18 21:40 123/53 06/09/18 21:25 140/55 06/09/18 21:10 153/83 06/09/18 20:55 154/67 06/09/18 20:40 146/66 06/09/18 20:25 151/61 06/09/18 20:10 158/59 06/09/18 19:55 170/60 01/09/19 19:40 156/62 06/09/18 19:25 170/62 06/09/18 19:10 158/63 06/09/18 18:55 159/84 06/09/18 18:40 166/71 06/09/18 18:25 169/77 06/09/18 18:14 18 97 06/09/18 18:10 98.1 F 16 180/81 06/09/18 16:18 98.5 F 65 16 173/76 98 06/09/18 11:40 98.7 F 66 18 173/76 97 Intake and Output 06/09/18 06/10/18 06/10/18 23:59 07:59 15:59 Intake Total 600 / 600 620 / 620 Output Total 3600 / 3600 Balance -3000 / -3000 620 / 620 Intake: Oral 0 / 0 620 / 620 Intake, Rinseback and Flushes 600 / 600 Output: Urine 0 / 0 Total Dialysis (HD) Output 3600 / 3600 Other: Meal Breakfast Percent of Meal Consumed 70% # Voids 1 Weight 74.9 kg Blood Glucose* 94 83 Hemodialysis Net Fluid Removed 3000 (mL) Patient Weight 06/10/18 23:59 Weight 74.9 kg - General Appearance General appearance: Present: well-developed, well-nourished, chronically ill EENT: Present: ATNC, hearing intact, vision intact Neck: Present: supple Respiratory: Present: clear, wheezing Cardiology: Present: no edema, normal S1, normal S2 Dialysis Vascular Access: Arteriovenous Fistula thrill: Yes bruit: Yes Gastrointestinal: Present: normoactive bowel sounds, no tenderness, no guarding Integumentary: Present: no rash, warm and dry Neurologic: Present: alert and oriented x3 Musculoskeletal: Present: no deformities Psychiatric: Present: mood/affect appropriate, cooperative - Lab 06/10/18 10:04 06/10/18 09:48 Most recent lab results Calcium 7.6 mg/dL (8.6-10.3) L 06/09/18 10:23 Consult Discharge Plan - Plan Referrals: Tom Xie Jr, MD [Partnered Physician] - 06/17/18 1:45 pm (Please follow up as schedule...) NONE,PCP [Primary Care Provider] -
[2018-06-10 10:23] LABS: Basophils % 0.6 %; Eosinophils # 0.1 K/mcL (0.0-0.6); Hematocrit 37.9 % (35.3-44.9); Hemoglobin 12.1 g/dL (11.5-15.4); Immature Granulocytes % 0.6 % (0-4); Lymphocytes # 1.6 K/mcL (0.6-4.6); Lymphocytes % 22.5 %; Mean Corpuscular HGB Conc 31.9 g/dL (31.6-35.5); Mean Corpuscular Hemoglobin 31.1 pg (28.0-33.3); Mean Corpuscular Volume 97.4 fL (83.0-100.0); Monocytes # 0.6 K/mcL (0.0-1.3); Neutrophils # 4.6 K/mcL (1.6-8.9); Platelet Count 109 K/mcL (140-400); Red Blood Count 3.89 M/mcL (3.82-4.97); Red Cell Distribution Width 14.8 % (11.5-14.5); Segmented Neutrophils % 65.3 %
[2018-06-10 10:34] LABS: Calcium 8.3 mg/dL (8.6-10.3); Potassium 4.1 mEq/L (3.5-5.1)
[2018-06-10 11:39] VITALS: BP 160/64
--- NOTE | 2018-06-10 14:11 | Discharge Summary ---
- NOTES TO OUTPATIENT PROVIDER Notes to Outpatient Provider: PCP in 5 to 7 days. Pulmonary function study out pt Orders not resulted at time of discharge: Pending orders Pulmonary function study with DLCO out pt Diagnosis: ? COPD send results to PCP 06/11/18 04:00 Basic Metabolic Panel AM 0400 CBC [Complete Blood Count] [HEME] AM 0400 Renal Function Panel AM 0400 06/12/18 04:00 Basic Metabolic Panel AM 0400 CBC [Complete Blood Count] [HEME] AM 0400 Renal Function Panel AM 0400 06/13/18 04:00 Basic Metabolic Panel AM 0400 CBC [Complete Blood Count] [HEME] AM 0400 Renal Function Panel AM 0400 06/14/18 04:00 Renal Function Panel [facility] 06/16/18 04:00 Renal Function Panel [facility] 06/18/18 04:00 Renal Function Panel [facility] 06/21/18 04:00 Renal Function Panel [facility] 06/23/18 04:00 Renal Function Panel [facility] 06/25/18 04:00 Renal Function Panel [facility] 06/28/18 04:00 Renal Function Panel [facility] 06/30/18 04:00 Renal Function Panel [facility] 07/02/18 04:00 Renal Function Panel [facility] Date of Encounter: 06/10/18 Time of Encounter: 14:08 - Discharge Diagnosis (1) Respiratory syncytial virus bronchitis Priority: Primary Status: Acute Assessment and Plan: Continued supportive care. Chest x ray no acute findings. Pt clinically improving. At baseline home oxygen of 3L NC and tolerating. Chest x ray XR/XR chest 2V IMPRESSION: Unchanged blunting of the left costophrenic sulcus which likely relates to chronic basilar scarring when compared with prior exams. No acute findings (2) Wheezing on expiration Priority: Secondary Status: Acute Assessment and Plan: Suspect underlying COPD. Significant wheezing on exam 06/08/18, which as improved with nebs and steroid. Pt states she quit smoking 7 years ago. No documentation of COPD on record. Recommend out pt PFT with DLCO at discharge. Continue with scheduled nebs and medrol dosepak for now (3) ESRD (end stage renal disease) on dialysis Priority: Secondary Status: Chronic Assessment and Plan: End-stage renal disease on dialysis Thursday, Thursday, Thursday. Nephrology consulted to see for assistance with HD. Cr 4.28 improved from 7.1 following HD thu06/09/18. (4) CHF (congestive heart failure) Priority: Secondary Status: Chronic Assessment and Plan: Pt noted to be clinically congested on admission. Possibly due to Acute diastolic CHF. Crackles were appreciated bilaterally up to the posterior mid thorax. Patient's last HD was Thursday and she reported to admitting physician that no fluid was taken off during her dialysis. Found to have an elevated BNP of 1532. Patient does not produce much urine. She takes 80 mg of Lasix twice a day. She was given one-time dose of 80 mg IV push by admitting physician. -Monitored I's and O's and pt's breathing improved. -Consulted nephrology. Qualifiers: Heart failure type: combined systolic and diastolic Heart failure chronicity: chronic Qualified Code(s): I50.42 - Chronic combined systolic (congestive) and diastolic (congestive) heart failure (5) Diabetes mellitus Priority: Secondary Status: Chronic Assessment and Plan: Diabetic diet. Accu-Cheks. Sliding scale insulin and adding basal insulin Qualifiers: Diabetes mellitus type: type 2 Diabetes mellitus penitentiary insulin use: with penitentiary use Diabetes mellitus complication status: with kidney complications Diabetes mellitus complication detail: with chronic kidney disease Chronic kidney disease stage: on chronic dialysis Qualified Code(s): E11.22 - Type 2 diabetes mellitus with diabetic chronic kidney disease; N18.6 - End stage renal disease; Z79.4 - technician terminal and repeater (current) use of insulin; Z99.2 - Dependence on renal dialysis (6) CAD (coronary artery disease) of artery bypass graft Priority: Secondary Status: Chronic Assessment and Plan: She denies any chest pain or SOB. On ASA and Atorvastatin. Qualifiers: [place] vs. transplanted heart: [place] heart Associated angina: without angina Qualified Code(s): I25.810 - Atherosclerosis of coronary artery bypass graft(s) without angina pectoris (7) Altered mental status Priority: Secondary Status: Resolved Assessment and Plan: Reports of confusion and hallucinations over the past several days. reported patient's symptoms improved since arrival to hospital. Patient has no focal findings and CT of the head was unremarkable. Suspect possible metabolic versus infectious encephalopathy in the setting of recent acute gastroenteritis and now possible UTI. Continue treatment for possible UTI and supportive care out pt. Qualifiers: Altered mental status type: disorientation Qualified Code(s): R41.0 - Disorientation, unspecified (8) Anemia in chronic kidney disease Priority: Secondary Status: Chronic Assessment and Plan: Hemoglobin at baseline. Follow up out pt with PCP. Qualifiers: Chronic kidney disease stage: on chronic dialysis Qualified Code(s): N18.6 - End stage renal disease; D63.1 - Anemia in chronic kidney disease; Z99.2 - Dependence on renal dialysis (9) UTI (urinary tract infection) Priority: Secondary Status: Acute Assessment and Plan: She reported dysuria and increased frequency on admission. She normally does not produce that much urine. UA shows trace leukocyte esterase. -Patient received ceftriaxone which was continued. Will switch to keflex for total 5 days. -Urine culture not sent. Qualifiers: Urinary tract infection type: site unspecified Hematuria presence: with hematuria Qualified Code(s): N39.0 - Urinary tract infection, site not specified; R31.9 - Hematuria, unspecified (10) Former smoker Priority: Secondary Status: Acute Assessment and Plan: Suspect underlying COPD. Significant wheezing on exam 06/08/18, which as improved with nebs and steroid. Pt states she quit 7 years ago. No documentation of COPD on record. Recommend out pt PFT with DLCO at discharge. Continue with scheduled nebs and medrol dosepak for now. (11) Diarrhea Priority: Secondary Status: Acute Assessment and Plan: c.diff neg. Pt states this is chronic and that she gets this off and on. She states it has improved today. Qualifiers: Qualified Code(s): R19.7 - Diarrhea, unspecified Hospital course: History of present illness: Dr. Dockery Ms. Olvera is a 72 year old female with a past medical history of end-stage renal disease on dialysis, hypertension, peripheral vascular disease, obstructive sleep apnea, and depression who presents emergency Department with reports from her of "talking out of her head". Patient had dialysis earlier today. Patient states that the did not pull any fluid off today. Patient's states that she has been somewhat confused lately pullingl off her bandage from her dialysis site and hallucinating. from that area. Patient's states that she seems to be better now than what she was earlier. Patient reports nagging hacking productive cough of whitish sputum as well as some shortness of breath and has been feeling diaphoretic all morning. She states that no fluid was removed performed during dialysis today. Patient denies any fevers but has been having nausea and vomiting as well as diarrhea. Patient was supposed to undergo a left heart catheter on the with Dr. Recio, however, the procedure was postponed due to to patient's diarrhea which is believed to be secondary to acute gastroenteritis and rescheduled until her symptoms improve. States that her diarrhea has been improving. No reports of recent antibiotic use. Patient states that she has had increased urinary frequency and dysuria, however the states that she only urinates approximately one time per day due to being a chronic dialysis patient. Patient states that she dialyzes on Thursday, Thursday and Thursday. Initial laboratory workup was notable for chronic kidney disease and an elevated BNP of 1532. UA was notable for trace leukocyte esterase. CT of the head was normal Discharge discussed with: patient - Time Spent with Patient Total time spent providing and/or coordinating discharge services: Greater than 30 minutes - Discharge Medications Home Medications: Aspirin [Lo-Dose Aspirin EC] 81 mg PO DAILY 06/17/17 [History] Ergocalciferol (VITAMIN D2) [Vitamin D2] 50,000 unit PO QWEEK 06/17/17 [History] Escitalopram [Lexapro] 20 mg PO DAILY 06/17/17 [History] Furosemide [Lasix] 80 mg PO BID 06/17/17 [History] Insulin LISPRO [HumaLOG] 4 - 10 units SQ TIDWM 06/17/17 [History] rOPINIRole [Requip] 1 mg PO BID 06/17/17 [History] Albuterol Neb [Proventil Neb] 2.5 mg IH Q8H PRN 01/19/18 [History] Calcium Carbonate/Vitamin D3 [Calcium 500+D Tablet Chew] 1 each PO BID 01/19/18 [History] Clopidogrel Bisulfate [Plavix] 75 mg PO DAILY #30 tablet 01/19/18 [Rx] Folic Acid/Vit B Complex and C [Dialyvite Tablet] 1 tab PO DAILY 01/19/18 [History] Insulin Glargine,Hum.rec.anlog [Basaglar Kwikpen U-100] 15 unit SQ HS 03/29/18 [History] Isosorbide MONOnitrate (24 HR) [Imdur] 120 mg PO DAILY 03/29/18 [History] Nitroglycerin [Nitrostat] 0.4 mg SL Q5M PRN 03/29/18 [History] Sevelamer [Renvela] 2,400 mg PO TIDWM 03/29/18 [History] Artificial Tears SOLN [[place] Tears] 1 drop BOTH EYES QID PRN 03/30/18 [History] Dorzolamide/Timolol/Pf [Dorzolamide-Timolol 2%-0.5%] 1 drop BOTH EYES BID 03/30/18 [History] Acetaminophen [Tylenol] 500 mg PO Q6HR PRN tablet 04/09/18 [Rx] Cefepime HCl/Dextrose, Iso-Osm [Cefepime 2 gm Injection] 2 gm IV AD #12 mls 04/09/18 [Rx] amLODIPine [Norvasc] 5 mg PO DAILY tablet 04/09/18 [Rx] Ondansetron HCl [Zofran] 4 mg PO Q8HR PRN 05/05/18 [History] Promethazine [Phenergan] 25 mg PO Q12H PRN 05/05/18 [History] Atorvastatin Calcium [Lipitor] 20 mg PO DAILY 06/07/18 [History] Metoprolol Succinate [Toprol Xl] 25 mg PO BID 06/07/18 [History] cephALEXin [Keflex] 500 mg PO BID 5 Days #10 capsule 06/10/18 [Rx] Allergies/Adverse Reactions: Allergy/AdvReac Type Severity Reaction Status Date / Time codeine Allergy Mild Rash Verified 06/03/18 09:10 gabapentin [From Neurontin] Allergy Mild Rash Verified 06/03/18 09:10 Penicillins [PCN] Allergy Mild Rash Verified 06/03/18 09:10 zinc Allergy Mild Rash Verified 06/03/18 09:10 tetanus Allergy Mild Rash Uncoded 03/30/18 13:09 Date of admission: 06/07/18 22:01 Primary care physician: PCP NONE Consults: 06/09/18 08:10 Consult to Nephrology [CONS] Routine Consulting Provider: Kidney Shena/JAYLEEN/NAYLA/RADHA Reason for Consult: dialysis pt Time Notified: 08:11 Call Completed: Yes 06/09/18 10:30 Consult to Dialysis [CONS] [facility] 06/11/18 10:30 Consult to Dialysis [CONS] [facility] 06/14/18 10:30 Consult to Dialysis [CONS] [facility] 06/16/18 10:30 Consult to Dialysis [CONS] [facility] 06/18/18 10:30 Consult to Dialysis [CONS] [facility] 06/21/18 10:30 Consult to Dialysis [CONS] [facility] 06/23/18 10:30 Consult to Dialysis [CONS] [facility] 06/25/18 10:30 Consult to Dialysis [CONS] [facility] 06/28/18 10:30 Consult to Dialysis [CONS] [facility] Discharging clinician: Shirley Nichols Anticipated date of discharge: 06/10/18 - Constitutional Vitals: Temp Pulse Resp BP Pulse Ox 98.0 F 62 16 160/64 63 06/10/18 11:29 06/10/18 11:29 06/10/18 11:47 06/10/18 11:29 06/10/18 11:47 Exam: Exam: General: Alert and oriented 3 sitting up in bed in no acute distress Skin:Normal color, no rash, no lesions. HEENT:EOM, pupils equal, round and reactive. Cardiovascular:Normal S1 & S2, no rubs, murmurs or gallops. No JVD. Pulse regular. Lungs: Bibasilar crackles but expiratory wheezing much improved. Abdomen:Soft, non-tender, no rigidity. Extremities:No deformity, no edema or tenderness, no joint swelling or clubbing. Neurological:Normal cognition and motor skills. Pulses:Carotid and radial pulses normal +2. Rest of the physical exam is non contributory - Patient Status Disposition: Home Health Service Condition: Fair Overall status at discharge: patient is progressing back to baseline - Discharge Instructions Follow Up With: Tom Xie Jr, MD [Partnered Physician] - 06/17/18 1:45 pm (Please follow up as schedule...) NONE,PCP [Primary Care Provider] - - Diet and Activity Activity: as per physical therapy, increase activity as tolerated Diet: diabetic diet, low fat, low cholesterol, low salt diet
--- NOTE | 2018-06-10 15:58 | Physician Discharge Referral ---
Home Health/Hosp Referral Info Transfer to: Home Health Provider in Charge Post Discharge: PCP - Diagnosis (1) Respiratory syncytial virus bronchitis Priority: Primary Status: Acute (2) Wheezing on expiration Status: Acute (3) ESRD (end stage renal disease) on dialysis Status: Chronic (4) CHF (congestive heart failure) Status: Chronic (5) Diabetes mellitus Status: Chronic (6) CAD (coronary artery disease) of artery bypass graft Status: Chronic (7) Altered mental status Status: Resolved (8) Anemia in chronic kidney disease Status: Chronic (9) UTI (urinary tract infection) Status: Acute (10) Former smoker Status: Acute (11) Diarrhea Status: Acute - Respiratory Orders Oxygen / L per min Smoking Cessation: Smoking cessation has been advised. For more information, call the [employer] Tobacco Quit Line at 7-330-XXQP-NOW. - Diet/Nutrition Diet/Nutrition Orders: Cardiac - Services Needed Following services are medically necessary services: Nursing, Home Health Aide, Physical Therapy, Occupational Therapy - Transfer Medications Prescriptions: cephALEXin [Keflex] 500 mg PO BID 5 Days #10 capsule Home Medications: Aspirin [Lo-Dose Aspirin EC] 81 mg PO DAILY 06/17/17 [History] Ergocalciferol (VITAMIN D2) [Vitamin D2] 50,000 unit PO QWEEK 06/17/17 [History] Escitalopram [Lexapro] 20 mg PO DAILY 06/17/17 [History] Furosemide [Lasix] 80 mg PO BID 06/17/17 [History] Insulin LISPRO [HumaLOG] 4 - 10 units SQ TIDWM 06/17/17 [History] rOPINIRole [Requip] 1 mg PO BID 06/17/17 [History] Albuterol Neb [Proventil Neb] 2.5 mg IH Q8H PRN 01/19/18 [History] Calcium Carbonate/Vitamin D3 [Calcium 500+D Tablet Chew] 1 each PO BID 01/19/18 [History] Clopidogrel Bisulfate [Plavix] 75 mg PO DAILY #30 tablet 01/19/18 [Rx] Folic Acid/Vit B Complex and C [Dialyvite Tablet] 1 tab PO DAILY 01/19/18 [History] Insulin Glargine,Hum.rec.anlog [Basaglar Kwikpen U-100] 15 unit SQ HS 03/29/18 [History] Isosorbide MONOnitrate (24 HR) [Imdur] 120 mg PO DAILY 03/29/18 [History] Nitroglycerin [Nitrostat] 0.4 mg SL Q5M PRN 03/29/18 [History] Sevelamer [Renvela] 2,400 mg PO TIDWM 03/29/18 [History] Artificial Tears SOLN [Akwa Tears] 1 drop BOTH EYES QID PRN 03/30/18 [History] Dorzolamide/Timolol/Pf [Dorzolamide-Timolol 2%-0.5%] 1 drop BOTH EYES BID 03/30/18 [History] Acetaminophen [Tylenol] 500 mg PO Q6HR PRN tablet 04/09/18 [Rx] Cefepime HCl/Dextrose, Iso-Osm [Cefepime 2 gm Injection] 2 gm IV AD #12 mls 04/09/18 [Rx] amLODIPine [Norvasc] 5 mg PO DAILY tablet 04/09/18 [Rx] Ondansetron HCl [Zofran] 4 mg PO Q8HR PRN 05/05/18 [History] Promethazine [Phenergan] 25 mg PO Q12H PRN 05/05/18 [History] Atorvastatin Calcium [Lipitor] 20 mg PO DAILY 06/07/18 [History] Metoprolol Succinate [Toprol Xl] 25 mg PO BID 06/07/18 [History] cephALEXin [Keflex] 500 mg PO BID 5 Days #10 capsule 06/10/18 [Rx] Allergies/Adverse Reactions: Allergy/AdvReac Type Severity Reaction Status Date / Time codeine Allergy Mild Rash Verified 06/03/18 09:10 gabapentin [From Neurontin] Allergy Mild Rash Verified 06/03/18 09:10 Penicillins [PCN] Allergy Mild Rash Verified 06/03/18 09:10 zinc Allergy Mild Rash Verified 06/03/18 09:10 tetanus Allergy Mild Rash Uncoded 03/30/18 13:09 Certification: Further, I certify that my clinical findings support that this patient is homebound (i.e. absences from home require considerable and taxing effort and are for medical reasons or taoist services or infrequently or short duration when for other reasons) because: Homebound Reason: Patient requires assistance of a person or device to safely leave home Attestation: My signature below is to certify that this patient is under my care and that I, or nurse practitioner, or a physician's procurement assistant working with me, has a [id number] encounter with this patient.
== END 2018-06-10 16:00 | disposition home health service (06) ==
LOC: EMEROOARM 17:27 → 2ANU 17:27
PROVIDERS: ADMIT Internal Medicine; ATTEND Internal Medicine

== ENCOUNTER 2019-03-29 12:37 | Inpatient (IN) ==
[2019-03-29] MEDS ORDERED: methylPREDNISolone 125 MG/2 ML VIAL IVP ONE (12:58)
[2019-03-29] MEDS ORDERED: Ipratropium/Albuterol Neb 3 ML IH ONE (12:58)
[2019-03-29 13:45] LABS: Basophils # 0.1 K/mcL (0.0-0.2); Eosinophils # 0.4 K/mcL (0.0-0.6); Eosinophils % 3.3 %; Hematocrit 28.2 % (35.3-44.9); Immature Granulocytes % 1.5 % (0-4); Lymphocytes # 1.5 K/mcL (0.6-4.6); Lymphocytes % 12.5 %; Mean Corpuscular HGB Conc 31.9 g/dL (31.6-35.5); Mean Corpuscular Hemoglobin 32.8 pg (28.0-33.3); Mean Corpuscular Volume 102.9 fL (83.0-100.0); Mean Platelet Volume 8.9 fL (9.4-12.4); Monocytes # 0.9 K/mcL (0.0-1.3); Platelet Count 348 K/mcL (140-400); Red Blood Count 2.74 M/mcL (3.82-4.97); Red Cell Distribution Width 14.9 % (11.5-14.5); Segmented Neutrophils % 74.7 %; White Blood Count 12.1 K/mcL (4.3-11.1)
[2019-03-29 14:03] LABS: BUN/Creatinine Ratio 4 (6-26); Blood Urea Nitrogen 18 mg/dL (8-23); Calcium 9.2 mg/dL (8.6-10.3); Carbon Dioxide 30 mEq/L (23-29); Chloride 97 mEq/L (98-107); Glucose 149 mg/dL (70-105); Osmolality,Calculated 291 (280-300); Potassium 3.4 mEq/L (3.5-5.1); Sodium 138 mEq/L (136-145); Troponin I < 0.03 ng/mL (< 0.04); eGFR For African Americans 11 (> 60); eGFR For Non-African Americans 9 (> 60)
[2019-03-29 14:09] LABS: INR 1.1
[2019-03-29] MEDS ORDERED: Nitroglycerin 0.4 MG TAB.SUBL SL PRN (16:23)
[2019-03-29] MEDS ORDERED: Aspirin 325 MG TABLET PO ONE (16:23)
[2019-03-29] MEDS ORDERED: Naloxone 0.4 MG/ML INJ IVP PRN (17:21)
[2019-03-29] MEDS ORDERED: Potassium Chloride Elixir 20 MEQ/15 ML UDC PO ONE (17:27)
[2019-03-29] MEDS ORDERED: D5% in Water 1,000 ML IVC PRN (17:48)
[2019-03-29] MEDS ORDERED: Dextrose Gel 15 GM/37.5 ML TUBE PO PRN ×2 (17:48)
[2019-03-29] MEDS ORDERED: *HR* Dextrose 50 % in Water (Syg) 50 ML SYRINGE IVP PRN (17:48)
[2019-03-29] MEDS: Insulin LISPRO 300 UNITS/3 ML VIAL SQ SCH (19:19)
[2019-03-29 19:28] LABS: Hepatitis B Surface Antibody < 3.10 mIU/mL
[2019-03-29 19:32] LABS: Thyroid Stimulating Hormone 0.901 mcIU/mL (0.340-5.600)
[2019-03-29 19:40] LABS: Hepatitis B Surface Antigen Nonreactive (Nonreactive)
[2019-03-29] MEDS ORDERED: Perflutren Lipid Microsphere 1.3 ML in 0.9 % Sodium Chloride 8.7 ML IVP ONE (20:42)
[2019-03-29 20:46] LABS: Folate > 22.3 ng/mL (3.0-16.0); Vitamin B12 1433 pg/mL (250-1100)
[2019-03-29] MEDS: Insulin DETEMIR 100 UNIT/ML X5UNITS SQ SCH (20:47)
[2019-03-29] MEDS: rOPINIRole 1 MG TABLET PO SCH (20:47)
[2019-03-29 21:13] LABS: Procalcitonin 4.31 ng/mL (0.00-0.15)
[2019-03-29] MEDS: hydrALAZINE 25 MG TABLET PO SCH (23:48)
[2019-03-30] MEDS: Insulin LISPRO 300 UNITS/3 ML VIAL SQ SCH ×7 (01:09→16:29)
[2019-03-30 06:42] LABS: Prothrombin Time 11.9 Seconds (9.4-12.1)
[2019-03-30 06:47] LABS: Basophils % 0.2 %; Hematocrit 26.5 % (35.3-44.9); Hemoglobin 8.3 g/dL (11.5-15.4); Immature Granulocytes % 1.7 % (0-4); Lymphocytes # 0.6 K/mcL (0.6-4.6); Lymphocytes % 6.8 %; Mean Corpuscular HGB Conc 31.3 g/dL (31.6-35.5); Mean Corpuscular Hemoglobin 32.2 pg (28.0-33.3); Mean Corpuscular Volume 102.7 fL (83.0-100.0); Monocytes # 0.3 K/mcL (0.0-1.3); Monocytes % 3.1 %; Neutrophils # 7.3 K/mcL (1.6-8.9); Platelet Count 360 K/mcL (140-400); Red Blood Count 2.58 M/mcL (3.82-4.97); Red Cell Distribution Width 14.8 % (11.5-14.5); Segmented Neutrophils % 88.2 %; White Blood Count 8.3 K/mcL (4.3-11.1)
[2019-03-30 07:07] LABS: Calcium 9.6 mg/dL (8.6-10.3); Potassium 4.7 mEq/L (3.5-5.1)
[2019-03-30] MEDS ORDERED: 0.9 % Sodium Chloride 250 ML IVC PRN (08:33)
[2019-03-30] MEDS ORDERED: 0.9 % Sodium Chloride 1,000 ML PRIME SCH (08:45)
[2019-03-30] MEDS: rOPINIRole 1 MG TABLET PO SCH ×2 (09:19→21:38)
[2019-03-30] MEDS: Aspirin Enteric Coated 81 MG Tablet PO SCH (09:20)
[2019-03-30] MEDS: Isosorbide MONOnitrate (24 HR) 60 MG TAB.ER.24H PO SCH (09:20)
[2019-03-30] MEDS: Renal Vitamin 1 CAP CAPSULE PO SCH (09:20)
[2019-03-30] MEDS: Iron Sucrose Complex 250 MG in 0.9 % Sodium Chloride 250 ML IVPB SCH (09:20)
[2019-03-30] MEDS: Calcium Acetate 667 MG CAPSULE PO SCH ×4 (09:21→16:33)
[2019-03-30 11:07] LABS: Adenovirus Not Detected (Not Detect); Bordetella Pertussis Not Detected (Not Detect); Chlamydophila pneumoniae Not Detected (Not Detect); Coronavirus 229E Not Detected (Not Detect); Coronavirus HKU1 Not Detected (Not Detect); Coronavirus NL63 Not Detected (Not Detect); Coronavirus OC43 Not Detected (Not Detect); Human Metapneumovirus Not Detected (Not Detect); Human Rhinovirus/Enterovirus Not Detected (Not Detect); Influenza A Subtype 2009 H1 Not Detected (Not Detect); Influenza A Untypeable Not Detected (Not Detect); Influenza B Not Detected (Not Detect); Mycoplasma pneumoniae Not Detected (Not Detect); Parainfluenza Virus 1 Not Detected (Not Detect); Parainfluenza Virus 2 Not Detected (Not Detect); Parainfluenza Virus 3 Not Detected (Not Detect); Parainfluenza Virus 4 Not Detected (Not Detect); Respiratory Syncytial Virus Not Detected (Not Detect)
[2019-03-30] MEDS: hydrALAZINE 25 MG TABLET PO SCH ×3 (12:50→23:33)
[2019-03-30] MEDS: amLODIPine 5 MG TABLET PO SCH (12:50)
[2019-03-30] MEDS: Metoprolol XL (24 HR) Succ 25 MG TAB.ER.24H PO SCH (12:51)
[2019-03-30] MEDS: Cefepime HCl 1,000 MG in Water for inj. (sterile) 10 ML IVP SCH (16:28)
[2019-03-30] MEDS ORDERED: SODIUM CHLORIDE/NAHCO3/KCL/PEG 4,000 ML SOLN.RECON PO ONE (17:00)
[2019-03-30] MEDS: Insulin DETEMIR 100 UNIT/ML X5UNITS SQ SCH (21:39)
[2019-03-30] MEDS: Ondansetron 4 MG/2 ML VIAL IVP PRN (21:46)
[2019-03-31] MEDS: Insulin LISPRO 300 UNITS/3 ML VIAL SQ SCH ×8 (00:10→21:53)
[2019-03-31 05:23] LABS: Hematocrit 28.2 % (35.3-44.9); Hemoglobin 8.7 g/dL (11.5-15.4); Mean Corpuscular HGB Conc 30.9 g/dL (31.6-35.5); Mean Corpuscular Hemoglobin 32.5 pg (28.0-33.3); Mean Corpuscular Volume 105.2 fL (83.0-100.0); Mean Platelet Volume 8.7 fL (9.4-12.4); Platelet Count 410 K/mcL (140-400); Red Blood Count 2.68 M/mcL (3.82-4.97); Red Cell Distribution Width 14.8 % (11.5-14.5)
[2019-03-31 05:31] LABS: White Blood Count 14.2 K/mcL (4.3-11.1)
[2019-03-31 05:35] LABS: Calcium 8.8 mg/dL (8.6-10.3); Potassium 3.9 mEq/L (3.5-5.1)
[2019-03-31] MEDS: Calcium Acetate 667 MG CAPSULE PO SCH ×3 (07:43→17:17)
[2019-03-31] MEDS: Furosemide 40 MG TABLET PO SCH ×2 (08:55→17:17)
[2019-03-31] MEDS: Isosorbide MONOnitrate (24 HR) 60 MG TAB.ER.24H PO SCH (08:55)
[2019-03-31] MEDS: Renal Vitamin 1 CAP CAPSULE PO SCH (08:55)
[2019-03-31] MEDS: amLODIPine 5 MG TABLET PO SCH (08:55)
[2019-03-31] MEDS: hydrALAZINE 25 MG TABLET PO SCH ×3 (08:55→23:28)
[2019-03-31] MEDS: Iron Sucrose Complex 250 MG in 0.9 % Sodium Chloride 250 ML IVPB SCH (08:55)
[2019-03-31] MEDS: rOPINIRole 1 MG TABLET PO SCH ×2 (08:56→21:53)
[2019-03-31] MEDS: Aspirin Enteric Coated 81 MG Tablet PO SCH (08:56)
[2019-03-31] MEDS: Metoprolol XL (24 HR) Succ 25 MG TAB.ER.24H PO SCH (08:56)
[2019-03-31] MEDS ORDERED: Propofol 500 MG/50 ML INFUS..BTL ONE (13:02)
[2019-03-31] MEDS: Cefepime HCl 1,000 MG in Water for inj. (sterile) 10 ML IVP SCH (15:39)
[2019-03-31] MEDS: Insulin DETEMIR 100 UNIT/ML X5UNITS SQ SCH (21:53)
[2019-04-01 05:25] LABS: Basophils # 0.1 K/mcL (0.0-0.2); Basophils % 0.6 %; Eosinophils # 0.4 K/mcL (0.0-0.6); Eosinophils % 2.9 %; Hematocrit 26.5 % (35.3-44.9); Hemoglobin 8.2 g/dL (11.5-15.4); Immature Granulocytes % 1.2 % (0-4); Lymphocytes # 1.3 K/mcL (0.6-4.6); Lymphocytes % 10.4 %; Mean Corpuscular HGB Conc 30.9 g/dL (31.6-35.5); Mean Corpuscular Hemoglobin 32.9 pg (28.0-33.3); Mean Corpuscular Volume 106.4 fL (83.0-100.0); Mean Platelet Volume 8.7 fL (9.4-12.4); Monocytes # 0.8 K/mcL (0.0-1.3); Monocytes % 6.3 %; Neutrophils # 9.9 K/mcL (1.6-8.9); Platelet Count 338 K/mcL (140-400); Red Blood Count 2.49 M/mcL (3.82-4.97); Segmented Neutrophils % 78.6 %; White Blood Count 12.6 K/mcL (4.3-11.1)
[2019-04-01 05:47] LABS: Calcium 8.9 mg/dL (8.6-10.3); Potassium 4.2 mEq/L (3.5-5.1)
[2019-04-01] MEDS: Insulin LISPRO 300 UNITS/3 ML VIAL SQ SCH ×7 (08:36→20:44)
[2019-04-01] MEDS ORDERED: 0.9 % Sodium Chloride 250 ML IVC PRN (09:06)
[2019-04-01] MEDS ORDERED: 0.9 % Sodium Chloride 1,000 ML PRIME SCH (09:15)
[2019-04-01] MEDS: amLODIPine 5 MG TABLET PO SCH (09:55)
[2019-04-01] MEDS: hydrALAZINE 25 MG TABLET PO SCH ×2 (09:55→17:08)
[2019-04-01] MEDS: Metoprolol XL (24 HR) Succ 25 MG TAB.ER.24H PO SCH (09:55)
[2019-04-01] MEDS: Calcium Acetate 667 MG CAPSULE PO SCH ×3 (09:56→17:07)
[2019-04-01] MEDS: Aspirin Enteric Coated 81 MG Tablet PO SCH (09:57)
[2019-04-01] MEDS: rOPINIRole 1 MG TABLET PO SCH ×2 (09:57→20:48)
[2019-04-01] MEDS: Renal Vitamin 1 CAP CAPSULE PO SCH (09:57)
[2019-04-01] MEDS: Isosorbide MONOnitrate (24 HR) 60 MG TAB.ER.24H PO SCH (09:58)
[2019-04-01] MEDS: Cefepime HCl 1,000 MG in Water for inj. (sterile) 10 ML IVP SCH (16:51)
[2019-04-01] MEDS: Iron Sucrose Complex 250 MG in 0.9 % Sodium Chloride 250 ML IVPB SCH (16:51)
[2019-04-01] MEDS: Insulin DETEMIR 100 UNIT/ML X5UNITS SQ SCH (20:45)
[2019-04-02] MEDS: hydrALAZINE 25 MG TABLET PO SCH ×2 (00:03→08:05)
[2019-04-02 05:36] LABS: Basophils # 0.1 K/mcL (0.0-0.2); Basophils % 0.7 %; Eosinophils # 0.3 K/mcL (0.0-0.6); Eosinophils % 2.4 %; Hemoglobin 8.7 g/dL (11.5-15.4); Immature Granulocytes % 1.4 % (0-4); Lymphocytes # 1.3 K/mcL (0.6-4.6); Lymphocytes % 10.2 %; Mean Corpuscular HGB Conc 32.2 g/dL (31.6-35.5); Mean Corpuscular Hemoglobin 33.1 pg (28.0-33.3); Mean Corpuscular Volume 102.7 fL (83.0-100.0); Mean Platelet Volume 8.8 fL (9.4-12.4); Monocytes # 1.1 K/mcL (0.0-1.3); Monocytes % 8.5 %; Neutrophils # 9.6 K/mcL (1.6-8.9); Platelet Count 354 K/mcL (140-400); Red Blood Count 2.63 M/mcL (3.82-4.97); Segmented Neutrophils % 76.8 %; White Blood Count 12.5 K/mcL (4.3-11.1)
[2019-04-02] MEDS: Ondansetron 4 MG/2 ML VIAL IVP PRN (05:36)
[2019-04-02 05:56] LABS: Calcium 10.4 mg/dL (8.6-10.3); Potassium 4.6 mEq/L (3.5-5.1)
[2019-04-02] MEDS: Calcium Acetate 667 MG CAPSULE PO SCH (08:04)
[2019-04-02] MEDS: amLODIPine 5 MG TABLET PO SCH (08:05)
[2019-04-02] MEDS: Aspirin Enteric Coated 81 MG Tablet PO SCH (08:05)
[2019-04-02] MEDS: Metoprolol XL (24 HR) Succ 25 MG TAB.ER.24H PO SCH (08:05)
[2019-04-02] MEDS: rOPINIRole 1 MG TABLET PO SCH (08:05)
[2019-04-02] MEDS: Renal Vitamin 1 CAP CAPSULE PO SCH (08:06)
[2019-04-02] MEDS: Isosorbide MONOnitrate (24 HR) 60 MG TAB.ER.24H PO SCH (08:06)
[2019-04-02] MEDS: Furosemide 40 MG TABLET PO SCH (08:12)
[2019-04-02] MEDS: Iron Sucrose Complex 250 MG in 0.9 % Sodium Chloride 250 ML IVPB SCH (08:13)
[2019-04-02] MEDS: Insulin LISPRO 300 UNITS/3 ML VIAL SQ SCH ×2 (08:14→08:15)
[2019-04-02] MEDS ORDERED: Saline Nasal Spray 44 ML BOTTLE NS PRN (10:28)
[2019-04-02 11:38] VITALS: BP 191/46
== END 2019-04-02 12:29 | disposition home or self-care (01) | DRG 811 ==
LOC: EMEROOARM 12:37 → 2ANU 12:37 → SUATTDRO 17:11 → 2ANU 18:05
PROVIDERS: ADMIT Student in an Organized Health Care Education/Training Program; ATTEND Internal Medicine

== ENCOUNTER 2020-02-05 23:40 | Observation (INO) ==
[2020-02-05] MEDS ORDERED: Calcium Gluconate 1gm/50mL 1 GM/50 ML BAG IVPB PRN (23:55)
[2020-02-06 00:21] LABS: Basophils # 0.1 K/mcL (0.0-0.2); Basophils % 0.9 %; Eosinophils # 0.6 K/mcL (0.0-0.6); Eosinophils % 4.7 %; Hematocrit 38.2 % (35.3-44.9); Hemoglobin 12.1 g/dL (11.5-15.4); INR 0.9; Immature Granulocytes % 0.4 % (0-4); Lymphocytes # 2.3 K/mcL (0.6-4.6); Lymphocytes % 17.5 %; Mean Corpuscular HGB Conc 31.7 g/dL (31.6-35.5); Mean Corpuscular Volume 110.4 fL (83.0-100.0); Mean Platelet Volume 10.2 fL (9.4-12.4); Monocytes # 0.7 K/mcL (0.0-1.3); Monocytes % 5.4 %; Platelet Count 265 K/mcL (140-400); Prothrombin Time 9.7 Seconds (9.4-12.1); Red Blood Count 3.46 M/mcL (3.82-4.97); Red Cell Distribution Width 16.3 % (11.5-14.5); Segmented Neutrophils % 71.1 %
[2020-02-06 00:22] LABS: Neutrophils # 9.2 K/mcL (1.6-8.9)
[2020-02-06 00:23] LABS: Activated Partial Thrombo Time 20.5 Seconds (26.0-36.0)
[2020-02-06 00:34] LABS: Troponin I < 0.03 ng/mL (< 0.04)
[2020-02-06 00:45] LABS: Platelet Estimate Normal (Normal)
[2020-02-06 00:50] LABS: Alanine Aminotransferase 52 Units/L (7-52); Albumin 4.1 g/dL (3.5-5.7); Albumin/Globulin Ratio 1.6 (1.1-2.2); Alkaline Phosphatase 110 Units/L (34-104); Aspartate Amino Transferase 43 Units/L (13-39); BUN/Creatinine Ratio 8 (6-26); Bilirubin,Direct 0.1 mg/dL (0.0-0.2); Bilirubin,Indirect 0.3 mg/dL (0.0-1.0); Bilirubin,Total 0.4 mg/dL (0.3-1.0); Blood Urea Nitrogen 63 mg/dL (8-23); Calcium 7.8 mg/dL (8.6-10.3); Carbon Dioxide 15 mEq/L (23-29); Chloride 103 mEq/L (98-107); Globulin 2.6 g/dL (2.4-3.5); Glucose 385 mg/dL (70-105); Lipase 32 Units/L (11-82); Magnesium 2.6 mg/dL (1.6-2.6); Osmolality,Calculated 318 (280-300); Phosphorous 7.7 mg/dL (2.7-4.5); Potassium 6.5 mEq/L (3.5-5.1); Sodium 137 mEq/L (136-145); Total Protein 6.7 g/dL (6.4-8.9); eGFR For African Americans 6 (> 60); eGFR For Non-African Americans 5 (> 60)
[2020-02-06] MEDS ORDERED: Insulin Human Regular 5 UNIT in 0.9 % Sodium Chloride 10 ML IV ONE (00:50)
[2020-02-06] MEDS ORDERED: *HR* Dextrose 50 % in Water (Vial) 50 ML VIAL IVP ONE (00:50)
[2020-02-06] MEDS ORDERED: Furosemide 40 MG/4 ML VIAL IVP ONE (00:51)
[2020-02-06] MEDS ORDERED: Piperacillin/Tazobactam 3.375 GM in 0.9 % Sodium Chloride Mini Bag 100 ML IVPB ONE (01:04)
[2020-02-06] MEDS ORDERED: Vancomycin 1,500 MG/265 ML IV.SOLN IVPB ONE (01:04)
[2020-02-06 02:04] LABS: Adenovirus Not Detected (Not Detect); Bordetella Pertussis Not Detected (Not Detect); Chlamydophila pneumoniae Not Detected (Not Detect); Coronavirus 229E Not Detected (Not Detect); Coronavirus HKU1 Not Detected (Not Detect); Coronavirus NL63 Not Detected (Not Detect); Coronavirus OC43 Not Detected (Not Detect); Human Metapneumovirus Not Detected (Not Detect); Human Rhinovirus/Enterovirus Not Detected (Not Detect); Influenza A Subtype 2009 H1 Not Detected (Not Detect); Influenza B Not Detected (Not Detect); Mycoplasma pneumoniae Not Detected (Not Detect); Parainfluenza Virus 1 Not Detected (Not Detect); Parainfluenza Virus 2 Not Detected (Not Detect); Parainfluenza Virus 3 Not Detected (Not Detect); Parainfluenza Virus 4 Not Detected (Not Detect); Respiratory Syncytial Virus Not Detected (Not Detect); SARS-CoV-2 Not Detected (Not Detect)
[2020-02-06] MEDS ORDERED: Acetaminophen 325 MG TABLET PO PRN (02:48)
[2020-02-06] MEDS ORDERED: Naloxone 0.4 MG/ML INJ IVP PRN (02:48)
[2020-02-06] MEDS ORDERED: *HR* Dextrose 50 % in Water (Vial) 50 ML VIAL IVP PRN (03:13)
[2020-02-06] MEDS ORDERED: Dextrose Gel 15 GM/37.5 ML TUBE PO PRN ×2 (03:13)
[2020-02-06] MEDS ORDERED: D5% in Water 1,000 ML IVC PRN (03:13)
[2020-02-06] MEDS: Ipratropium/Albuterol Neb 3 ML IH SCH ×4 (04:13→22:00)
[2020-02-06] MEDS: Insulin LISPRO 300 UNITS/3 ML VIAL SQ SCH ×5 (05:58→21:00)
[2020-02-06] MEDS: *HR* Heparin 5,000 UNIT/ML VIAL SQ SCH ×3 (06:02→21:05)
[2020-02-06] MEDS: hydrALAZINE 25 MG TABLET PO SCH ×2 (07:49→20:59)
[2020-02-06] MEDS: Metoprolol XL (24 HR) Succ 25 MG TAB.ER.24H PO SCH (07:50)
[2020-02-06] MEDS ORDERED: 0.9 % Sodium Chloride 1,000 ML ONE (08:05)
[2020-02-06] MEDS: Furosemide 40 MG TABLET PO SCH ×3 (08:15→16:27)
[2020-02-06 08:20] LABS: Calcium 7.8 mg/dL (8.6-10.3)
[2020-02-06 08:21] LABS: Magnesium 2.5 mg/dL (1.6-2.6); Phosphorous 6.5 mg/dL (2.7-4.5)
[2020-02-06 09:00] LABS: Hepatitis B Surface Antibody < 3.10 mIU/mL
[2020-02-06] MEDS ORDERED: Insulin DETEMIR 100 UNIT/ML X5UNITS SQ SCH ×3 (09:00→21:00)
[2020-02-06] MEDS ORDERED: 0.9 % Sodium Chloride 250 ML IVC PRN (09:01)
[2020-02-06 09:12] LABS: Hepatitis B Surface Antigen Nonreactive (Nonreactive)
[2020-02-06] MEDS: Budesonide/Formoterol 160/4.5 1 PUFF INH IH SCH ×2 (09:14→22:00)
[2020-02-06] MEDS ORDERED: 0.9 % Sodium Chloride 1,000 ML PRIME SCH (09:15)
[2020-02-06] MEDS: rOPINIRole 1 MG TABLET PO SCH ×3 (10:18→20:59)
[2020-02-06] MEDS: Isosorbide MONOnitrate (24 HR) 60 MG TAB.ER.24H PO SCH (10:18)
[2020-02-06] MEDS ORDERED: Artificial Tears SOLN 15 ML BOTTLE LEFT EYE PRN (12:01)
[2020-02-06] MEDS ORDERED: Piperacillin/Tazobactam 3.375 GM in 0.9 % Sodium Chloride Mini Bag 100 ML IVPB SCH (15:00)
[2020-02-06] MEDS: Piperacillin/Tazobactam 3.375 GM in 0.9 % Sodium Chloride Mini Bag 100 ML IVPB SCH (21:00)
[2020-02-07] MEDS: Ipratropium/Albuterol Neb 3 ML IH SCH ×4 (03:47→21:40)
[2020-02-07] MEDS: *HR* Heparin 5,000 UNIT/ML VIAL SQ SCH ×3 (05:45→20:56)
[2020-02-07 05:58] LABS: Hematocrit 30.9 % (35.3-44.9); Mean Corpuscular HGB Conc 31.4 g/dL (31.6-35.5); Mean Corpuscular Hemoglobin 34.3 pg (28.0-33.3); Mean Corpuscular Volume 109.2 fL (83.0-100.0); Mean Platelet Volume 9.5 fL (9.4-12.4); Platelet Count 179 K/mcL (140-400); Red Blood Count 2.83 M/mcL (3.82-4.97); Red Cell Distribution Width 16.2 % (11.5-14.5); White Blood Count 9.1 K/mcL (4.3-11.1)
[2020-02-07 06:03] LABS: Hemoglobin 9.7 g/dL (11.5-15.4)
[2020-02-07 06:30] LABS: Calcium 7.8 mg/dL (8.6-10.3)
[2020-02-07] MEDS: hydrALAZINE 25 MG TABLET PO SCH ×2 (08:05→20:51)
[2020-02-07] MEDS: Furosemide 40 MG TABLET PO SCH ×2 (08:05→16:58)
[2020-02-07] MEDS: Piperacillin/Tazobactam 3.375 GM in 0.9 % Sodium Chloride Mini Bag 100 ML IVPB SCH ×2 (08:05→20:54)
[2020-02-07] MEDS: rOPINIRole 1 MG TABLET PO SCH ×3 (08:05→20:51)
[2020-02-07] MEDS: Isosorbide MONOnitrate (24 HR) 60 MG TAB.ER.24H PO SCH (08:05)
[2020-02-07] MEDS: Metoprolol XL (24 HR) Succ 25 MG TAB.ER.24H PO SCH (08:06)
[2020-02-07] MEDS: Insulin LISPRO 300 UNITS/3 ML VIAL SQ SCH ×4 (08:21→20:50)
[2020-02-07] MEDS: Budesonide/Formoterol 160/4.5 1 PUFF INH IH SCH ×2 (10:27→21:40)
[2020-02-07] MEDS: Artificial Tears SOLN 15 ML BOTTLE LEFT EYE SCH ×2 (15:06→20:55)
[2020-02-07] MEDS ORDERED: Insulin DETEMIR 100 UNIT/ML X5UNITS SQ SCH (21:00)
[2020-02-08] MEDS: Ipratropium/Albuterol Neb 3 ML IH SCH ×4 (04:06→21:48)
[2020-02-08 04:29] LABS: Hematocrit 29.6 % (35.3-44.9); Hemoglobin 9.4 g/dL (11.5-15.4); Mean Corpuscular HGB Conc 31.8 g/dL (31.6-35.5); Mean Corpuscular Hemoglobin 34.6 pg (28.0-33.3); Mean Corpuscular Volume 108.8 fL (83.0-100.0); Mean Platelet Volume 9.4 fL (9.4-12.4); Platelet Count 192 K/mcL (140-400); Red Blood Count 2.72 M/mcL (3.82-4.97); Red Cell Distribution Width 16.2 % (11.5-14.5); White Blood Count 10.4 K/mcL (4.3-11.1)
[2020-02-08 04:50] LABS: Calcium 7.5 mg/dL (8.6-10.3); Potassium 4.3 mEq/L (3.5-5.1)
[2020-02-08] MEDS: *HR* Heparin 5,000 UNIT/ML VIAL SQ SCH ×3 (05:22→21:43)
[2020-02-08] MEDS ORDERED: 0.9 % Sodium Chloride 250 ML IVC PRN (08:12)
[2020-02-08] MEDS: Furosemide 40 MG TABLET PO SCH ×2 (08:17→16:52)
[2020-02-08] MEDS: Insulin LISPRO 300 UNITS/3 ML VIAL SQ SCH ×4 (08:17→20:57)
[2020-02-08] MEDS: Vitamin B Complex/Vit C/Vit E 1 EACH TABLET PO SCH (08:18)
[2020-02-08] MEDS: rOPINIRole 1 MG TABLET PO SCH ×3 (08:18→21:43)
[2020-02-08] MEDS: Piperacillin/Tazobactam 3.375 GM in 0.9 % Sodium Chloride Mini Bag 100 ML IVPB SCH ×2 (08:23→14:03)
[2020-02-08] MEDS: Artificial Tears SOLN 15 ML BOTTLE LEFT EYE SCH ×2 (08:25→21:44)
[2020-02-08] MEDS: Budesonide/Formoterol 160/4.5 1 PUFF INH IH SCH ×2 (10:36→21:48)
[2020-02-08] MEDS ORDERED: *HR* Metoprolol 5 MG/5 ML VIAL IVP ONE (11:14)
[2020-02-08] MEDS ORDERED: Lidocaine -MPF 2% 5 ML VIAL SQ ONE (11:14)
[2020-02-08] MEDS ORDERED: *HR* Propofol 200 MG/20 ML VIAL IVP ONE (11:14)
[2020-02-08] MEDS: Isosorbide MONOnitrate (24 HR) 60 MG TAB.ER.24H PO SCH (11:24)
[2020-02-08] MEDS: amLODIPine 5 MG TABLET PO SCH (11:24)
[2020-02-08] MEDS: hydrALAZINE 25 MG TABLET PO SCH ×2 (11:24→21:43)
[2020-02-08] MEDS: Metoprolol XL (24 HR) Succ 25 MG TAB.ER.24H PO SCH (11:24)
[2020-02-08] MEDS ORDERED: Insulin DETEMIR 100 UNIT/ML X5UNITS SQ SCH (21:00)
[2020-02-09] MEDS: Piperacillin/Tazobactam 3.375 GM in 0.9 % Sodium Chloride Mini Bag 100 ML IVPB SCH (02:58)
[2020-02-09 03:16] LABS: Hematocrit 30.3 % (35.3-44.9); Hemoglobin 9.4 g/dL (11.5-15.4); Mean Corpuscular Hemoglobin 33.5 pg (28.0-33.3); Mean Corpuscular Volume 107.8 fL (83.0-100.0); Mean Platelet Volume 9.1 fL (9.4-12.4); Platelet Count 182 K/mcL (140-400); Red Blood Count 2.81 M/mcL (3.82-4.97); Red Cell Distribution Width 15.7 % (11.5-14.5); White Blood Count 9.1 K/mcL (4.3-11.1)
[2020-02-09 03:36] LABS: Calcium 7.8 mg/dL (8.6-10.3); Potassium 4.1 mEq/L (3.5-5.1)
[2020-02-09] MEDS: Ipratropium/Albuterol Neb 3 ML IH SCH ×2 (03:53→10:47)
[2020-02-09] MEDS: *HR* Heparin 5,000 UNIT/ML VIAL SQ SCH (06:47)
[2020-02-09 07:45] VITALS: BP 148/67
[2020-02-09] MEDS: Insulin LISPRO 300 UNITS/3 ML VIAL SQ SCH (09:12)
[2020-02-09] MEDS: Vitamin B Complex/Vit C/Vit E 1 EACH TABLET PO SCH (09:38)
[2020-02-09] MEDS: amLODIPine 5 MG TABLET PO SCH (09:39)
[2020-02-09] MEDS: Isosorbide MONOnitrate (24 HR) 60 MG TAB.ER.24H PO SCH (09:39)
[2020-02-09] MEDS: rOPINIRole 1 MG TABLET PO SCH (09:39)
[2020-02-09] MEDS: Metoprolol XL (24 HR) Succ 25 MG TAB.ER.24H PO SCH (09:39)
[2020-02-09] MEDS: hydrALAZINE 25 MG TABLET PO SCH (09:39)
[2020-02-09] MEDS: Furosemide 40 MG TABLET PO SCH (09:40)
[2020-02-09] MEDS: Artificial Tears SOLN 15 ML BOTTLE LEFT EYE SCH (09:48)
[2020-02-09] MEDS: Budesonide/Formoterol 160/4.5 1 PUFF INH IH SCH (10:48)
== END 2020-02-09 11:15 | disposition home health service (06) | DRG 177 ==
LOC: 2ANU 23:40 → EMEROOARM 23:40 → SUATTDRO 02-06 02:37 → 2ANU 02-06 03:28
PROVIDERS: ADMIT Family Medicine; ATTEND Family Medicine

== ENCOUNTER 2020-09-24 09:38 | Observation (INO) ==
[2020-09-24 10:26] LABS: Basophils # 0.1 K/mcL (0.0-0.2); Basophils % 0.8 %; Eosinophils # 0.6 K/mcL (0.0-0.6); Eosinophils % 4.3 %; Hematocrit 30.5 % (35.3-44.9); Hemoglobin 9.6 g/dL (11.5-15.4); Immature Granulocytes % 0.3 % (0-4); Lymphocytes # 1.5 K/mcL (0.6-4.6); Lymphocytes % 11.3 %; Mean Corpuscular HGB Conc 31.5 g/dL (31.6-35.5); Mean Corpuscular Volume 108.2 fL (83.0-100.0); Mean Platelet Volume 9.5 fL (9.4-12.4); Monocytes # 0.8 K/mcL (0.0-1.3); Monocytes % 6.4 %; Neutrophils # 10.1 K/mcL (1.6-8.9); Platelet Count 279 K/mcL (140-400); Red Blood Count 2.82 M/mcL (3.82-4.97); Red Cell Distribution Width 12.7 % (11.5-14.5); Segmented Neutrophils % 76.9 %; White Blood Count 13.1 K/mcL (4.3-11.1)
[2020-09-24] MEDS ORDERED: Isovue-370 500 ML BOTTLE IVP ONE (11:38)
[2020-09-24 11:52] LABS: Alanine Aminotransferase 25 Units/L (7-52); Albumin 3.9 g/dL (3.5-5.7); Albumin/Globulin Ratio 1.6 (1.1-2.2); Alkaline Phosphatase 91 Units/L (34-104); Aspartate Amino Transferase 22 Units/L (13-39); BUN/Creatinine Ratio 6 (6-26); Bilirubin,Direct 0.1 mg/dL (0.0-0.2); Bilirubin,Indirect 0.3 mg/dL (0.0-1.0); Bilirubin,Total 0.4 mg/dL (0.3-1.0); Blood Urea Nitrogen 49 mg/dL (8-23); Calcium 8.4 mg/dL (8.6-10.3); Carbon Dioxide 23 mEq/L (23-29); Chloride 102 mEq/L (98-107); Creatine Kinase 43 Units/L (30-223); Globulin 2.4 g/dL (2.4-3.5); Glucose 151 mg/dL (70-105); Osmolality,Calculated 304 (280-300); Potassium 4.8 mEq/L (3.5-5.1); Sodium 139 mEq/L (136-145); Total Protein 6.3 g/dL (6.4-8.9); Troponin I < 0.03 ng/mL (< 0.04); eGFR For African Americans 6 (> 60); eGFR For Non-African Americans 5 (> 60)
[2020-09-24 12:15] LABS: Adenovirus Not Detected (Not Detect); Bordetella Pertussis Not Detected (Not Detect); Chlamydophila pneumoniae Not Detected (Not Detect); Coronavirus 229E Not Detected (Not Detect); Coronavirus HKU1 Not Detected (Not Detect); Coronavirus NL63 Not Detected (Not Detect); Coronavirus OC43 Not Detected (Not Detect); Human Metapneumovirus Not Detected (Not Detect); Human Rhinovirus/Enterovirus Not Detected (Not Detect); Influenza A Subtype 2009 H1 Not Detected (Not Detect); Influenza B Not Detected (Not Detect); Mycoplasma pneumoniae Not Detected (Not Detect); Parainfluenza Virus 1 Not Detected (Not Detect); Parainfluenza Virus 2 Not Detected (Not Detect); Parainfluenza Virus 3 Not Detected (Not Detect); Parainfluenza Virus 4 Not Detected (Not Detect); Respiratory Syncytial Virus Not Detected (Not Detect); SARS-CoV-2 Not Detected (Not Detect)
[2020-09-24 12:45] LABS: Bilirubin,Urine Negative (Negative); Blood,Urine Trace-lysed (Negative); Clarity,Urine Turbid (Clear); Color,Urine Yellow (Yellow); Glucose,Urine (UA) 100 mg/dL (Normal); Ketones,Urine Negative (Negative); Leukocyte Esterase,Urine Small (Negative); Nitrite,Urine Negative (Negative); Protein,Urine >=300 mg/dL (Neg-Trace); Urobilinogen,Urine Normal (Normal)
[2020-09-24] MEDS ORDERED: Furosemide 40 MG/4 ML VIAL IVP ONE (12:56)
[2020-09-24 13:00] LABS: Squamous Epithelial Cell,Urine Present per hpf (None-Few)
[2020-09-24 13:02] LABS: Transitional Epi Cells,Urine Present per hpf (None-Few); WBC,Urine Present per hpf (0-3)
[2020-09-24 13:03] LABS: Bacteria,Urine Present per hpf (None-Few); Budding Yeast,Urine Present per hpf (None Seen)
[2020-09-24 13:04] LABS: Renal Epithelial Cells,Urine Present per hpf (None-Few)
[2020-09-24] MEDS ORDERED: Ondansetron ODT 4 MG TAB.RAPDIS SL PRN (13:33)
[2020-09-24] MEDS ORDERED: Mag Hydrox/Al Hydrox/Simeth 30 ML UDC PO PRN (13:33)
[2020-09-24] MEDS ORDERED: Naloxone 0.4 MG/ML INJ IVP PRN (13:33)
[2020-09-24] MEDS ORDERED: Melatonin 3 MG TABLET PO PRN (13:33)
[2020-09-24] MEDS ORDERED: Perflutren Lipid Microsphere 1.3 ML in 0.9 % Sodium Chloride 8.7 ML IVP PRN (13:36)
[2020-09-24] MEDS ORDERED: D5% in Water 1,000 ML IVC PRN (13:37)
[2020-09-24] MEDS ORDERED: Dextrose Gel 15 GM/37.5 ML TUBE PO PRN ×2 (13:37)
[2020-09-24] MEDS ORDERED: *HR* Dextrose 50 % in Water (Vial) 50 ML VIAL IVP PRN (13:37)
[2020-09-24 14:33] LABS: Magnesium 2.3 mg/dL (1.6-2.6); Phosphorous 4.2 mg/dL (2.7-4.5)
[2020-09-24] MEDS ORDERED: Ipratropium/Albuterol Neb 3 ML IH PRN (15:20)
[2020-09-24] MEDS ORDERED: Aspirin 325 MG TABLET PO ONE (15:40)
[2020-09-24] MEDS: Insulin LISPRO 300 UNITS/3 ML VIAL SUBQ SCH ×2 (16:28→19:56)
[2020-09-24] MEDS: *HR* Heparin 5,000 UNIT/ML VIAL SQ SCH (16:54)
[2020-09-25 04:21] LABS: Hepatitis B Surface Antibody < 3.10 mIU/mL
[2020-09-25 04:32] LABS: Hepatitis B Surface Antigen Nonreactive (Nonreactive)
[2020-09-25 04:49] LABS: Hematocrit 29.6 % (35.3-44.9); Hemoglobin 9.1 g/dL (11.5-15.4); Mean Corpuscular HGB Conc 30.7 g/dL (31.6-35.5); Mean Corpuscular Volume 107.2 fL (83.0-100.0); Mean Platelet Volume 9.5 fL (9.4-12.4); Platelet Count 265 K/mcL (140-400); Red Blood Count 2.76 M/mcL (3.82-4.97); Red Cell Distribution Width 12.7 % (11.5-14.5); White Blood Count 12.3 K/mcL (4.3-11.1)
[2020-09-25 05:08] LABS: Calcium 8.5 mg/dL (8.6-10.3)
[2020-09-25] MEDS: *HR* Heparin 5,000 UNIT/ML VIAL SQ SCH ×2 (05:10→16:30)
[2020-09-25] MEDS ORDERED: 0.9 % Sodium Chloride 2,000 ML ONE (06:59)
[2020-09-25] MEDS ORDERED: 0.9 % Sodium Chloride 250 ML IVC PRN (07:22)
[2020-09-25] MEDS ORDERED: 0.9 % Sodium Chloride 1,000 ML PRIME SCH (07:30)
[2020-09-25] MEDS: Insulin LISPRO 300 UNITS/3 ML VIAL SUBQ SCH ×4 (08:39→20:41)
[2020-09-25 11:39] LABS: % Iron Saturation 48 % (15-50); Iron 94 mcg/dL (50-170); Transferrin 140 mg/dL (203-362)
[2020-09-25] MEDS ORDERED: rOPINIRole 1 MG TABLET PO SCH (15:00)
[2020-09-25] MEDS ORDERED: Ondansetron ODT 4 MG TAB.RAPDIS PO PRN (15:51)
[2020-09-25] MEDS: amLODIPine 5 MG TABLET PO SCH (16:11)
[2020-09-25] MEDS: rOPINIRole 1 MG TABLET PO SCH (20:40)
[2020-09-25] MEDS: Artificial Tears SOLN 15 ML BOTTLE BOTH EYES SCH (20:42)
[2020-09-25] MEDS ORDERED: Metoprolol XL (24 HR) Succ 25 MG TAB.ER.24H PO SCH (21:00)
[2020-09-25] MEDS ORDERED: Insulin DETEMIR 100 UNIT/ML X5UNITS SUBQ SCH (21:00)
[2020-09-26 03:22] LABS: Hematocrit 29.2 % (35.3-44.9); Hemoglobin 9.2 g/dL (11.5-15.4); Mean Corpuscular HGB Conc 31.5 g/dL (31.6-35.5); Mean Corpuscular Hemoglobin 33.7 pg (28.0-33.3); Mean Platelet Volume 9.3 fL (9.4-12.4); Platelet Count 241 K/mcL (140-400); Red Blood Count 2.73 M/mcL (3.82-4.97); Red Cell Distribution Width 12.5 % (11.5-14.5); White Blood Count 11.2 K/mcL (4.3-11.1)
[2020-09-26 03:44] LABS: Calcium 8.2 mg/dL (8.6-10.3); Magnesium 2.1 mg/dL (1.6-2.6)
[2020-09-26] MEDS: *HR* Heparin 5,000 UNIT/ML VIAL SQ SCH (04:59)
[2020-09-26] MEDS ORDERED: 0.9 % Sodium Chloride 250 ML IVC PRN (07:03)
[2020-09-26] MEDS: Insulin LISPRO 300 UNITS/3 ML VIAL SUBQ SCH ×2 (07:34→11:53)
[2020-09-26] MEDS: rOPINIRole 1 MG TABLET PO SCH ×2 (07:37→14:58)
[2020-09-26] MEDS: Artificial Tears SOLN 15 ML BOTTLE BOTH EYES SCH (07:38)
[2020-09-26] MEDS ORDERED: Cholecalciferol (D-3) 1,000 UNIT (25MCG) TABLET PO SCH (09:00)
[2020-09-26] MEDS ORDERED: Isosorbide MONOnitrate (24 HR) 60 MG TAB.ER.24H PO SCH (09:00)
[2020-09-26] MEDS ORDERED: Renal Vitamin 1 CAP CAPSULE PO SCH (09:00)
[2020-09-26] MEDS ORDERED: Metoprolol XL (24 HR) Succ 25 MG TAB.ER.24H PO SCH (09:00)
[2020-09-26 14:42] VITALS: BP 171/24
[2020-09-26] MEDS: amLODIPine 5 MG TABLET PO SCH (14:56)
[2020-09-27] MEDS ORDERED: Furosemide 40 MG TABLET PO SCH
== END 2020-09-26 15:20 | disposition home or self-care (01) ==
LOC: SUATTDRO → 2ANU 09:38 → EMEROOARM 09:38 → SUATTDRO 14:54 → 2ANU 15:51
PROVIDERS: ADMIT Family Medicine; ATTEND Internal Medicine

== ENCOUNTER 2021-01-28 10:34 | Observation (INO) ==
[2021-01-28] MEDS ORDERED: Aspirin 81 MG TAB.CHEW PO ONE (10:54)
[2021-01-28] MEDS ORDERED: *HR* HYDROcodone/Acet 7.5/325 mg TABLET PO ONE (11:31)
[2021-01-28 11:41] LABS: Prothrombin Time 11.2 Seconds (9.4-12.1)
[2021-01-28 11:46] LABS: Basophils # 0.1 K/mcL (0.0-0.2); Basophils % 0.8 %; Eosinophils # 0.5 K/mcL (0.0-0.6); Eosinophils % 4.4 %; Hematocrit 34.6 % (35.3-44.9); Immature Granulocytes % 0.6 % (0-4); Lymphocytes % 16.1 %; Mean Corpuscular HGB Conc 31.8 g/dL (31.6-35.5); Mean Corpuscular Hemoglobin 33.2 pg (28.0-33.3); Mean Corpuscular Volume 104.5 fL (83.0-100.0); Mean Platelet Volume 9.3 fL (9.4-12.4); Monocytes % 8.3 %; Neutrophils # 8.5 K/mcL (1.6-8.9); Platelet Count 258 K/mcL (140-400); Red Blood Count 3.31 M/mcL (3.82-4.97); Red Cell Distribution Width 14.3 % (11.5-14.5); Segmented Neutrophils % 69.8 %; White Blood Count 12.1 K/mcL (4.3-11.1)
[2021-01-28 11:51] LABS: BUN/Creatinine Ratio 7 (6-26); Blood Urea Nitrogen 54 mg/dL (8-23); Carbon Dioxide 24 mEq/L (23-29); Chloride 101 mEq/L (98-107); Glucose 128 mg/dL (70-105); Osmolality,Calculated 306 (280-300); Potassium 4.8 mEq/L (3.5-5.1); Sodium 140 mEq/L (136-145); Troponin I < 0.03 ng/mL (< 0.04); eGFR For African Americans 6 (> 60); eGFR For Non-African Americans 5 (> 60)
[2021-01-28] MEDS ORDERED: Naloxone 0.4 MG/ML INJ IVP PRN (13:35)
[2021-01-28] MEDS ORDERED: Ondansetron 4 MG/2 ML VIAL IVP PRN (13:35)
[2021-01-28] MEDS ORDERED: *HR* Dextrose 50 % in Water (Vial) 50 ML VIAL IVP PRN (13:37)
[2021-01-28] MEDS ORDERED: D5% in Water 1,000 ML IVC PRN (13:37)
[2021-01-28] MEDS ORDERED: Dextrose Gel 15 GM/37.5 ML TUBE PO PRN ×2 (13:37)
[2021-01-28] MEDS ORDERED: 0.9 % Sodium Chloride 250 ML IVC PRN (13:43)
[2021-01-28] MEDS ORDERED: 0.9 % Sodium Chloride 1,000 ML PRIME SCH (13:45)
[2021-01-28] MEDS ORDERED: Ipratropium/Albuterol Neb 3 ML IH PRN (13:52)
[2021-01-28 15:03] LABS: Hepatitis B Surface Antibody < 3.10 mIU/mL
[2021-01-28] MEDS ORDERED: *HR* HYDROcodone/Acet 5/325 mg TABLET PO PRN (15:10)
[2021-01-28 15:13] LABS: Hepatitis B Surface Antigen Nonreactive (Nonreactive)
[2021-01-28] MEDS ORDERED: Insulin LISPRO 300 UNITS/3 ML VIAL SUBQ SCH (21:00)
[2021-01-28] MEDS: rOPINIRole 1 MG TABLET PO SCH ×2 (21:46→21:47)
[2021-01-28] MEDS: Insulin LISPRO 300 UNITS/3 ML VIAL SUBQ SCH (21:46)
[2021-01-29 00:51] LABS: Basophils # 0.1 K/mcL (0.0-0.2); Basophils % 0.9 %; Eosinophils # 0.4 K/mcL (0.0-0.6); Eosinophils % 3.2 %; Hematocrit 35.4 % (35.3-44.9); Hemoglobin 11.1 g/dL (11.5-15.4); Immature Granulocytes % 0.5 % (0-4); Lymphocytes # 1.4 K/mcL (0.6-4.6); Lymphocytes % 12.5 %; Mean Corpuscular HGB Conc 31.4 g/dL (31.6-35.5); Mean Corpuscular Hemoglobin 32.7 pg (28.0-33.3); Mean Corpuscular Volume 104.4 fL (83.0-100.0); Mean Platelet Volume 9.5 fL (9.4-12.4); Monocytes # 0.9 K/mcL (0.0-1.3); Monocytes % 7.9 %; Neutrophils # 8.2 K/mcL (1.6-8.9); Platelet Count 221 K/mcL (140-400); Red Blood Count 3.39 M/mcL (3.82-4.97); Red Cell Distribution Width 14.3 % (11.5-14.5)
[2021-01-29 01:08] LABS: Calcium 7.8 mg/dL (8.6-10.3); Magnesium 2.1 mg/dL (1.6-2.6); Potassium 3.9 mEq/L (3.5-5.1)
[2021-01-29] MEDS: rOPINIRole 1 MG TABLET PO SCH (07:45)
[2021-01-29] MEDS: Insulin LISPRO 300 UNITS/3 ML VIAL SUBQ SCH (07:46)
[2021-01-29] MEDS ORDERED: Isosorbide MONOnitrate (24 HR) 60 MG TAB.ER.24H PO SCH (09:00)
[2021-01-29] MEDS ORDERED: Metoprolol XL (24 HR) Succ 25 MG TAB.ER.24H PO SCH (09:00)
[2021-01-29] MEDS ORDERED: Aspirin 81 MG TAB.CHEW PO SCH (09:00)
[2021-01-29 11:18] VITALS: BP 119/55; PULSE 54; TEMP 98; O2SAT 98
== END 2021-01-29 13:43 | disposition home or self-care (01) ==
LOC: EMEROOARM 10:34 → CDU 10:34 → SUATTDRO 14:06 → CDU 15:36 → 2ANU 17:10
PROVIDERS: ADMIT Student in an Organized Health Care Education/Training Program; ATTEND Family Medicine

== ENCOUNTER 2021-03-01 12:48 | Observation (INO) ==
[2021-03-01 14:50] LABS: Basophils # 0.1 K/mcL (0.0-0.2); Basophils % 0.4 %; Eosinophils # 0.4 K/mcL (0.0-0.6); Eosinophils % 2.9 %; Hematocrit 29.9 % (35.3-44.9); Hemoglobin 9.2 g/dL (11.5-15.4); Immature Granulocytes % 0.5 % (0-4); Lymphocytes # 1.3 K/mcL (0.6-4.6); Lymphocytes % 10.5 %; Mean Corpuscular HGB Conc 30.8 g/dL (31.6-35.5); Mean Corpuscular Hemoglobin 33.2 pg (28.0-33.3); Mean Corpuscular Volume 107.9 fL (83.0-100.0); Mean Platelet Volume 9.7 fL (9.4-12.4); Monocytes # 1.2 K/mcL (0.0-1.3); Monocytes % 10.1 %; Neutrophils # 9.2 K/mcL (1.6-8.9); Platelet Count 240 K/mcL (140-400); Red Blood Count 2.77 M/mcL (3.82-4.97); Red Cell Distribution Width 14.6 % (11.5-14.5); Segmented Neutrophils % 75.6 %; White Blood Count 12.1 K/mcL (4.3-11.1)
[2021-03-01 15:01] LABS: Prothrombin Time 11.2 Seconds (9.4-12.1)
[2021-03-01 15:04] LABS: Activated Partial Thrombo Time 27.4 Seconds (26.0-36.0)
[2021-03-01 15:27] LABS: Influenza A PCR Negative (Negative); Influenza B PCR Negative (Negative); Resp. Syncytial Virus PCR Negative (Negative); SARS-CoV-2 by PCR (In House) Negative (Negative)
[2021-03-01 15:40] LABS: Albumin 3.7 g/dL (3.5-5.7); Albumin/Globulin Ratio 1.7 (1.1-2.2); Bilirubin,Total 0.4 mg/dL (0.3-1.0); Calcium 8.7 mg/dL (8.6-10.3); Globulin 2.2 g/dL (2.4-3.5); Potassium 4.1 mEq/L (3.5-5.1); Total Protein 5.9 g/dL (6.4-8.9)
[2021-03-01] MEDS ORDERED: Naloxone 0.4 MG/ML INJ IVP PRN (17:12)
[2021-03-01] MEDS ORDERED: Dextrose Gel 15 GM/37.5 ML TUBE PO PRN ×2 (18:35)
[2021-03-01] MEDS ORDERED: *HR* Dextrose 50 % in Water (Syg) 50 ML SYRINGE IVP PRN (18:35)
[2021-03-01] MEDS ORDERED: D5% in Water 1,000 ML IVC PRN (18:35)
[2021-03-01] MEDS ORDERED: Melatonin 3 MG TABLET PO PRN (18:39)
[2021-03-01] MEDS ORDERED: Acetaminophen 325 MG TABLET PO PRN (18:39)
[2021-03-01] MEDS: Insulin LISPRO 300 UNITS/3 ML VIAL SUBQ SCH (20:11)
[2021-03-01] MEDS ORDERED: Insulin LISPRO 300 UNITS/3 ML VIAL SUBQ SCH (21:00)
[2021-03-01] MEDS: rOPINIRole 1 MG TABLET PO SCH (23:48)
[2021-03-02 02:04] LABS: Basophils # 0.1 K/mcL (0.0-0.2); Basophils % 0.8 %; Eosinophils # 0.3 K/mcL (0.0-0.6); Eosinophils % 2.9 %; Hematocrit 29.2 % (35.3-44.9); Hemoglobin 8.9 g/dL (11.5-15.4); Immature Granulocytes % 0.4 % (0-4); Lymphocytes # 1.9 K/mcL (0.6-4.6); Lymphocytes % 19.4 %; Mean Corpuscular HGB Conc 30.5 g/dL (31.6-35.5); Mean Corpuscular Hemoglobin 33.2 pg (28.0-33.3); Mean Platelet Volume 9.8 fL (9.4-12.4); Monocytes # 0.9 K/mcL (0.0-1.3); Monocytes % 9.7 %; Neutrophils # 6.5 K/mcL (1.6-8.9); Platelet Count 223 K/mcL (140-400); Red Blood Count 2.68 M/mcL (3.82-4.97); Red Cell Distribution Width 14.7 % (11.5-14.5); Segmented Neutrophils % 66.8 %; White Blood Count 9.7 K/mcL (4.3-11.1)
[2021-03-02 02:26] LABS: Calcium 8.2 mg/dL (8.6-10.3); Potassium 4.7 mEq/L (3.5-5.1)
[2021-03-02 06:47] VITALS: BP 142/66; PULSE 61; TEMP 98; O2SAT 94
[2021-03-02] MEDS: Insulin LISPRO 300 UNITS/3 ML VIAL SUBQ SCH (07:12)
[2021-03-02] MEDS: rOPINIRole 1 MG TABLET PO SCH (09:42)
[2021-03-02 11:34] LABS: Hepatitis B Surface Antibody < 3.10 mIU/mL
[2021-03-02 11:44] LABS: Hepatitis B Surface Antigen Nonreactive (Nonreactive)
== END 2021-03-02 11:08 | disposition home or self-care (01) ==
LOC: 2ANU 12:48 → EMEROOARM 12:48 → 2ANU 17:59
PROVIDERS: ADMIT Pharmacist; ATTEND Pharmacist

== ENCOUNTER 2021-05-27 15:07 | Inpatient (IN) ==
[2021-05-27 16:26] LABS: Basophils # 0.1 K/mcL (0.0-0.2); Basophils % 0.6 %; Eosinophils # 0.2 K/mcL (0.0-0.6); Eosinophils % 1.6 %; Hematocrit 36.6 % (35.3-44.9); Hemoglobin 11.7 g/dL (11.5-15.4); Immature Granulocytes % 0.9 % (0-4); Lymphocytes # 1.2 K/mcL (0.6-4.6); Lymphocytes % 8.3 %; Mean Corpuscular Hemoglobin 33.4 pg (28.0-33.3); Mean Corpuscular Volume 104.6 fL (83.0-100.0); Mean Platelet Volume 9.2 fL (9.4-12.4); Monocytes # 1.1 K/mcL (0.0-1.3); Neutrophils # 11.2 K/mcL (1.6-8.9); Platelet Count 284 K/mcL (140-400); Red Cell Distribution Width 13.1 % (11.5-14.5); Segmented Neutrophils % 80.6 %; White Blood Count 13.9 K/mcL (4.3-11.1)
[2021-05-27 16:43] LABS: Potassium 3.8 mEq/L (3.5-5.1)
[2021-05-27 16:49] LABS: Troponin I 0.05 ng/mL (< 0.04)
[2021-05-27] MEDS ORDERED: Metoclopramide 10 MG/2 ML VIAL IVP ONE (19:46)
[2021-05-27] MEDS: Nitroglycerin 0.4 MG TAB.SUBL SL PRN ×3 (19:59→20:13)
[2021-05-27] MEDS ORDERED: *HR* Heparin 5,000 UNIT/ML VIAL IVP ONE (21:02)
[2021-05-27] MEDS ORDERED: *HR* Heparin 5,000 UNIT/ML VIAL IVP PRN ×2 (21:02)
[2021-05-27] MEDS ORDERED: Aspirin 325 MG TABLET PO ONE (21:14)
[2021-05-27 21:21] LABS: Prothrombin Time 11.3 Seconds (9.4-12.1)
[2021-05-27 21:24] LABS: Heparin anti-factor XA UFH < 0.04 IU/mL (0.30-0.70)
[2021-05-27] MEDS: Heparin 25,000UNIT/250ML 1/2NS 25,000 UNIT/250 ML IV.SOLN IVC SCH (21:33)
[2021-05-27] MEDS ORDERED: Acetaminophen 325 MG TABLET PO PRN (21:37)
[2021-05-27] MEDS ORDERED: *HR* Promethazine 25 MG/ML VIAL IM PRN (21:37)
[2021-05-27] MEDS ORDERED: Ondansetron 4 MG/2 ML VIAL IVP PRN (21:37)
[2021-05-27] MEDS ORDERED: Melatonin 3 MG TABLET PO PRN (21:37)
[2021-05-27] MEDS ORDERED: *HR* OxyCODONE Immed Rel 5 MG TABLET PO PRN (21:37)
[2021-05-27] MEDS ORDERED: Naloxone 0.4 MG/ML INJ IVP PRN (21:37)
[2021-05-27] MEDS ORDERED: *HR* Dextrose 50 % in Water (Syg) 50 ML SYRINGE IVP PRN (21:41)
[2021-05-27] MEDS ORDERED: D5% in Water 1,000 ML IVC PRN (21:41)
[2021-05-27] MEDS ORDERED: Dextrose Gel 15 GM/37.5 ML TUBE PO PRN ×2 (21:41)
[2021-05-27] MEDS ORDERED: Perflutren Lipid Microsphere 1.3 ML in 0.9 % Sodium Chloride 8.7 ML IVP PRN (21:53)
[2021-05-27 22:32] LABS: Adenovirus Not Detected (Not Detect); Bordetella Pertussis Not Detected (Not Detect); Chlamydophila pneumoniae Not Detected (Not Detect); Coronavirus 229E Not Detected (Not Detect); Coronavirus HKU1 Not Detected (Not Detect); Coronavirus NL63 Not Detected (Not Detect); Coronavirus OC43 Not Detected (Not Detect); Human Metapneumovirus Not Detected (Not Detect); Human Rhinovirus/Enterovirus Not Detected (Not Detect); Influenza A Subtype 2009 H1 Not Detected (Not Detect); Influenza B Not Detected (Not Detect); Mycoplasma pneumoniae Not Detected (Not Detect); Parainfluenza Virus 1 Not Detected (Not Detect); Parainfluenza Virus 2 Not Detected (Not Detect); Parainfluenza Virus 3 Not Detected (Not Detect); Parainfluenza Virus 4 Not Detected (Not Detect); Respiratory Syncytial Virus Not Detected (Not Detect); SARS-CoV-2 Not Detected (Not Detect)
[2021-05-28] MEDS: Insulin LISPRO 300 UNITS/3 ML VIAL SUBQ SCH ×4 (04:06→16:43)
[2021-05-28 05:34] LABS: Basophils # 0.1 K/mcL (0.0-0.2); Eosinophils # 0.5 K/mcL (0.0-0.6); Eosinophils % 3.8 %; Hematocrit 34.9 % (35.3-44.9); Immature Granulocytes % 0.7 % (0-4); Lymphocytes # 2.5 K/mcL (0.6-4.6); Mean Corpuscular HGB Conc 31.5 g/dL (31.6-35.5); Mean Corpuscular Hemoglobin 33.1 pg (28.0-33.3); Mean Corpuscular Volume 105.1 fL (83.0-100.0); Mean Platelet Volume 9.7 fL (9.4-12.4); Monocytes # 1.1 K/mcL (0.0-1.3); Monocytes % 8.9 %; Neutrophils # 7.8 K/mcL (1.6-8.9); Platelet Count 267 K/mcL (140-400); Red Blood Count 3.32 M/mcL (3.82-4.97); Red Cell Distribution Width 13.2 % (11.5-14.5); Segmented Neutrophils % 64.6 %; White Blood Count 12.1 K/mcL (4.3-11.1)
[2021-05-28 05:56] LABS: Heparin anti-factor XA UFH 0.38 IU/mL (0.30-0.70); Prothrombin Time 11.5 Seconds (9.4-12.1)
[2021-05-28 06:52] LABS: Calcium 8.5 mg/dL (8.6-10.3); Chol/HDL Ratio 2.6 (0-4.9); Potassium 4.1 mEq/L (3.5-5.1)
[2021-05-28] MEDS: Furosemide 40 MG TABLET PO SCH (08:54)
[2021-05-28] MEDS: *HR* HYDROcodone/Acet 5/325 mg TABLET PO PRN ×2 (08:54→19:54)
[2021-05-28] MEDS ORDERED: Aspirin Enteric Coated 81 MG Tablet PO SCH (09:00)
[2021-05-28] MEDS ORDERED: Metoprolol XL (24 HR) Succ 25 MG TAB.ER.24H PO SCH (09:00)
[2021-05-28] MEDS: rOPINIRole 1 MG TABLET PO SCH ×3 (09:48→19:54)
[2021-05-28] MEDS ORDERED: Isosorbide MONOnitrate (24 HR) 30 MG TAB.ER.24H PO SCH (12:55)
[2021-05-28] MEDS ORDERED: amLODIPine 5 MG TABLET PO SCH (13:00)
[2021-05-28 16:50] LABS: Adenovirus F 40/41 PCR Not detected (Not detect); Astrovirus PCR Not detected (Not detect); C.difficile Toxin A/B Gene PCR Not detected (Not detect); Campylobacter by PCR Not detected (Not detect); Cryptosporidium by PCR Not detected (Not detect); Cyclospora cayetanensis PCR Not detected (Not detect); E. coli O157 by PCR Not detected (Not detect); Entamoeba histolytica PCR Not detected (Not detect); Enteroaggregative E.coli(EAEC) Not detected (Not detect); Enteropathogenic E.coli(EPEC) Not detected (Not detect); Enterotoxigenic E.coli (ETEC) Not detected (Not detect); Giardia lamblia PCR Not detected (Not detect); Norovirus GI/GII PCR Not detected (Not detect); Plesiomonas shigelloides PCR Not detected (Not detect); Rotavirus A PCR Not detected (Not detect); Salmonella PCR Not detected (Not detect); Sapovirus PCR Not detected (Not detect); Shig/EnteroinvasiveE coli EIEC Not detected (Not detect); Shigalike tox-prod E coli STEC Not detected (Not detect); Vibrio PCR Not detected (Not detect); Vibrio cholerae PCR Not detected (Not detect); Yersinia enterocolitica PCR Not detected (Not detect)
[2021-05-28] MEDS ORDERED: *HR* Warfarin 5 MG TABLET PO ONE (18:00)
[2021-05-28] MEDS ORDERED: Warfarin perPT PO PRN (18:00)
[2021-05-28] MEDS: Artificial Tears SOLN 15 ML BOTTLE BOTH EYES SCH (19:54)
[2021-05-28] MEDS: Insulin DETEMIR 100 UNIT/ML X5UNITS SUBQ SCH (19:54)
[2021-05-29] MEDS: Insulin LISPRO 300 UNITS/3 ML VIAL SUBQ SCH ×5 (00:08→23:57)
[2021-05-29] MEDS: Heparin 25,000UNIT/250ML 1/2NS 25,000 UNIT/250 ML IV.SOLN IVC SCH (03:58)
[2021-05-29] MEDS ORDERED: Heparin 25,000 UNIT/250 ML 25,000 UNIT/250 ML IV.SOLN IVC SCH (04:00)
[2021-05-29] MEDS ORDERED: 0.9 % Sodium Chloride 250 ML IVC PRN (07:16)
[2021-05-29] MEDS ORDERED: 0.9 % Sodium Chloride 1,000 ML PRIME SCH (07:30)
[2021-05-29] MEDS ORDERED: 0.9 % Sodium Chloride 2,000 ML ONE (08:09)
[2021-05-29] MEDS ORDERED: Nitroglycerin 1,000 MCG/5 ML VIAL IV ONE (08:10)
[2021-05-29] MEDS ORDERED: ISOVUE-370 200 ML INFUS..BTL ONE (08:10)
[2021-05-29] MEDS ORDERED: *HR* Heparin 10,000 UNIT/10 ML VIAL ONE (08:10)
[2021-05-29] MEDS ORDERED: Heparin 1,000 UNITS/500 mL 500 ML ONE (08:10)
[2021-05-29] MEDS ORDERED: *HR* FentaNYL (PF) 100 MCG/2 ML VIAL ONE (08:18)
[2021-05-29] MEDS ORDERED: *HR* Midazolam HCl 2 MG/2 ML VIAL ONE (08:18)
[2021-05-29] MEDS: rOPINIRole 1 MG TABLET PO SCH ×3 (08:22→20:09)
[2021-05-29] MEDS: Cholecalciferol (D-3) 1,000 UNIT (25MCG) TABLET PO SCH (08:23)
[2021-05-29] MEDS: Metoprolol XL (24 HR) Succ 25 MG TAB.ER.24H PO SCH (08:23)
[2021-05-29] MEDS: Furosemide 40 MG TABLET PO SCH (08:23)
[2021-05-29] MEDS: Artificial Tears SOLN 15 ML BOTTLE BOTH EYES SCH ×2 (08:23→20:09)
[2021-05-29] MEDS ORDERED: amLODIPine 5 MG TABLET PO SCH (09:00)
[2021-05-29] MEDS ORDERED: NON-FORMULARY MEDICATION 1 EACH EACH (Isosorbide Mononitrate [Isosorbide Mononitrate Er] 1 PO SCH (09:00)
[2021-05-29 09:28] LABS: Hematocrit 33.6 % (35.3-44.9); Hemoglobin 10.4 g/dL (11.5-15.4); Mean Corpuscular Hemoglobin 32.7 pg (28.0-33.3); Mean Corpuscular Volume 105.7 fL (83.0-100.0); Mean Platelet Volume 9.8 fL (9.4-12.4); Platelet Count 280 K/mcL (140-400); Red Blood Count 3.18 M/mcL (3.82-4.97); Red Cell Distribution Width 13.4 % (11.5-14.5); White Blood Count 11.2 K/mcL (4.3-11.1)
[2021-05-29 09:39] LABS: Calcium 8.3 mg/dL (8.6-10.3); Potassium 4.3 mEq/L (3.5-5.1)
[2021-05-29 09:42] LABS: Prothrombin Time 11.6 Seconds (9.4-12.1)
[2021-05-29] MEDS: Isosorbide MONOnitrate (24 HR) 60 MG TAB.ER.24H PO SCH (13:50)
[2021-05-29] MEDS ORDERED: Warfarin perPT PO PRN (18:00)
[2021-05-29] MEDS ORDERED: *HR* Warfarin 5 MG TABLET PO ONE (18:00)
[2021-05-29] MEDS: Insulin DETEMIR 100 UNIT/ML X5UNITS SUBQ SCH (20:06)
[2021-05-29] MEDS: Ranolazine 500 MG TAB.ER.12H PO SCH (20:09)
[2021-05-30] MEDS: Insulin LISPRO 300 UNITS/3 ML VIAL SUBQ SCH ×3 (05:48→17:37)
[2021-05-30] MEDS ORDERED: 0.9 % Sodium Chloride 250 ML IVC PRN (07:11)
[2021-05-30] MEDS: Cholecalciferol (D-3) 1,000 UNIT (25MCG) TABLET PO SCH (07:26)
[2021-05-30] MEDS: Furosemide 40 MG TABLET PO SCH (07:27)
[2021-05-30] MEDS: Metoprolol XL (24 HR) Succ 25 MG TAB.ER.24H PO SCH (07:27)
[2021-05-30] MEDS: Artificial Tears SOLN 15 ML BOTTLE BOTH EYES SCH (07:27)
[2021-05-30] MEDS: rOPINIRole 1 MG TABLET PO SCH ×3 (07:27→21:22)
[2021-05-30] MEDS: Isosorbide MONOnitrate (24 HR) 60 MG TAB.ER.24H PO SCH (07:27)
[2021-05-30] MEDS: Ranolazine 500 MG TAB.ER.12H PO SCH ×2 (07:27→21:22)
[2021-05-30 07:56] LABS: Basophils # 0.1 K/mcL (0.0-0.2); Eosinophils # 0.3 K/mcL (0.0-0.6); Eosinophils % 2.8 %; Hematocrit 33.8 % (35.3-44.9); Hemoglobin 10.4 g/dL (11.5-15.4); Immature Granulocytes % 0.5 % (0-4); Lymphocytes # 1.1 K/mcL (0.6-4.6); Lymphocytes % 10.2 %; Mean Corpuscular HGB Conc 30.8 g/dL (31.6-35.5); Mean Corpuscular Hemoglobin 32.6 pg (28.0-33.3); Mean Platelet Volume 9.5 fL (9.4-12.4); Monocytes # 0.8 K/mcL (0.0-1.3); Monocytes % 7.2 %; Neutrophils # 8.7 K/mcL (1.6-8.9); Platelet Count 259 K/mcL (140-400); Red Blood Count 3.19 M/mcL (3.82-4.97); Red Cell Distribution Width 13.8 % (11.5-14.5); Segmented Neutrophils % 78.3 %; White Blood Count 11.1 K/mcL (4.3-11.1)
[2021-05-30 08:02] LABS: INR 1.1
[2021-05-30 08:22] LABS: Troponin I 1.27 ng/mL (< 0.04)
[2021-05-30 08:38] LABS: Calcium 8.2 mg/dL (8.6-10.3)
[2021-05-30 09:33] LABS: Hepatitis B Surface Antibody < 3.10 mIU/mL
[2021-05-30 09:43] LABS: Hepatitis B Surface Antigen Nonreactive (Nonreactive)
[2021-05-30] MEDS: *HR* HYDROcodone/Acet 5/325 mg TABLET PO PRN (13:05)
[2021-05-30] MEDS: amLODIPine 5 MG TABLET PO SCH (15:11)
[2021-05-30 16:47] LABS: INR 1.2; Prothrombin Time 13.7 Seconds (9.4-12.1)
[2021-05-30] MEDS ORDERED: *HR* Warfarin 5 MG TABLET PO ONE (18:00)
[2021-05-30] MEDS: Insulin DETEMIR 100 UNIT/ML X5UNITS SUBQ SCH (19:59)
[2021-05-30] MEDS: Apixaban 5 MG TABLET PO SCH (21:22)
[2021-05-31] MEDS: Insulin LISPRO 300 UNITS/3 ML VIAL SUBQ SCH ×5 (01:07→22:17)
[2021-05-31] MEDS: Artificial Tears SOLN 15 ML BOTTLE BOTH EYES SCH ×3 (01:07→21:55)
[2021-05-31] MEDS ORDERED: 0.9 % Sodium Chloride 250 ML IVC PRN (07:21)
[2021-05-31 08:00] LABS: Basophils # 0.1 K/mcL (0.0-0.2); Basophils % 0.8 %; Eosinophils # 0.4 K/mcL (0.0-0.6); Eosinophils % 4.4 %; Hematocrit 34.3 % (35.3-44.9); Hemoglobin 10.3 g/dL (11.5-15.4); Immature Granulocytes % 0.5 % (0-4); Lymphocytes # 1.4 K/mcL (0.6-4.6); Lymphocytes % 14.1 %; Mean Corpuscular Hemoglobin 32.8 pg (28.0-33.3); Mean Corpuscular Volume 109.2 fL (83.0-100.0); Mean Platelet Volume 9.5 fL (9.4-12.4); Monocytes # 1.1 K/mcL (0.0-1.3); Monocytes % 10.9 %; Neutrophils # 6.9 K/mcL (1.6-8.9); Platelet Count 234 K/mcL (140-400); Red Blood Count 3.14 M/mcL (3.82-4.97); Red Cell Distribution Width 13.8 % (11.5-14.5); Segmented Neutrophils % 69.3 %
[2021-05-31 08:13] LABS: Calcium 8.4 mg/dL (8.6-10.3); Potassium 4.4 mEq/L (3.5-5.1)
[2021-05-31 08:22] LABS: INR 1.7; Prothrombin Time 19.1 Seconds (9.4-12.1)
[2021-05-31] MEDS: Furosemide 40 MG TABLET PO SCH (08:33)
[2021-05-31] MEDS: Apixaban 5 MG TABLET PO SCH ×4 (08:47→22:17)
[2021-05-31] MEDS: Cholecalciferol (D-3) 1,000 UNIT (25MCG) TABLET PO SCH (08:47)
[2021-05-31] MEDS: rOPINIRole 1 MG TABLET PO SCH ×3 (08:47→21:43)
[2021-05-31] MEDS: Ranolazine 500 MG TAB.ER.12H PO SCH ×2 (08:48→21:42)
[2021-05-31] MEDS: Metoprolol XL (24 HR) Succ 25 MG TAB.ER.24H PO SCH (08:48)
[2021-05-31] MEDS ORDERED: SODIUM CHLORIDE 0.9% IVPB ONE (09:33)
[2021-05-31] MEDS ORDERED: DESMOPRESSIN ACETATE IVPB ONE (09:33)
[2021-05-31] MEDS: amLODIPine 5 MG TABLET PO SCH (12:09)
[2021-05-31] MEDS: Isosorbide MONOnitrate (24 HR) 60 MG TAB.ER.24H PO SCH (12:09)
[2021-05-31] MEDS: Insulin DETEMIR 100 UNIT/ML X5UNITS SUBQ SCH (22:17)
[2021-06-01 04:19] LABS: ABG Base Excess 3 mEq/L (-2 to 3); ABG HCO3 28 mEq/L (21-27); ABG Oxygen Saturation 99 % (95-98); ABG PCO2 41 mmHg (35-45); ABG PH 7.43 pH Units (7.32-7.45); ABG PO2 115 mmHg (85-104); ABG TCO2 29 mEq/L (20-26); Blood Gas Modality BiLevel; Blood Gas Pressure Support 5 cm H2O
[2021-06-01] MEDS: Insulin LISPRO 300 UNITS/3 ML VIAL SUBQ SCH (05:25)
[2021-06-01 07:19] VITALS: PULSE 60; O2SAT 99
[2021-06-01] MEDS ORDERED: 0.9 % Sodium Chloride 250 ML IVC PRN (07:37)
[2021-06-01] MEDS: Furosemide 40 MG TABLET PO SCH (08:07)
[2021-06-01] MEDS: Cholecalciferol (D-3) 1,000 UNIT (25MCG) TABLET PO SCH (08:07)
[2021-06-01] MEDS: rOPINIRole 1 MG TABLET PO SCH (08:07)
[2021-06-01] MEDS: Ranolazine 500 MG TAB.ER.12H PO SCH (08:07)
[2021-06-01] MEDS: Isosorbide MONOnitrate (24 HR) 60 MG TAB.ER.24H PO SCH (08:07)
[2021-06-01] MEDS: Artificial Tears SOLN 15 ML BOTTLE BOTH EYES SCH (08:08)
[2021-06-01 10:17] LABS: Hematocrit 26.8 % (35.3-44.9); Mean Corpuscular HGB Conc 32.1 g/dL (31.6-35.5); Mean Corpuscular Volume 105.9 fL (83.0-100.0); Mean Platelet Volume 9.3 fL (9.4-12.4); Platelet Count 207 K/mcL (140-400); Red Blood Count 2.53 M/mcL (3.82-4.97); Red Cell Distribution Width 13.8 % (11.5-14.5); White Blood Count 10.8 K/mcL (4.3-11.1)
[2021-06-01 10:25] LABS: Hemoglobin 8.6 g/dL (11.5-15.4)
[2021-06-01 10:25] LABS: INR 1.8; Prothrombin Time 20.2 Seconds (9.4-12.1)
[2021-06-01 10:33] LABS: Calcium 7.7 mg/dL (8.6-10.3); Potassium 4.4 mEq/L (3.5-5.1)
[2021-06-01 13:40] VITALS: BP 132/69; TEMP 97.6
== END 2021-06-01 15:29 | disposition home or self-care (01) | DRG 246 ==
LOC: SUATTDRO → EMEROOARM 15:07 → 2ANU 15:07 → SUATTDRO 23:09 → 2ANU 23:46
PROVIDERS: ADMIT Internal Medicine; ATTEND Internal Medicine